=== PATIENT | female | born 1940 | race Caucasian/White ===

== ENCOUNTER → 2019-07-31 09:30 | Outpatient (CLI) | payer MEDICARE, SELFPAY ==
[2019-07-31 10:35] LABS: Add Manual Diff / Slide Review NO; Basophils Absolute Auto 0 /uL (0-100); Basophils Percent Auto 0.6 % (0-2); Eosinophils Absolute Auto 100 /uL (0-450); Eosinophils Percent Auto 1.3 % (2-4); Hematocrit 45.5 % (36-46); Hemoglobin 15.2 g/dL (12.0-16.0); Lymphocytes Absolute Auto 1200 /uL (1100-4500); Lymphocytes Percent Auto 13.8 % (25-40); Mean Corpuscular HGB Conc 33.4 % (30-36); Mean Corpuscular Hemoglobin 30.3 PG (26-34); Mean Corpuscular Volume 90.7 fL (80-100); Monocytes Absolute Auto 700 /uL (0-900); Monocytes Percent Auto 8.1 % (3-14); Neutrophils Absolute Auto 6400 /uL (1500-7000); Neutrophils Percent Auto 76.2 % (50-75); Platelet Count 287 X10^3/uL (150-400); Red Blood Cell Count 5.01 X10^6/uL (4.0-5.2); Red Cell Distribution Width 13.5 % (11.6-14.8); White Blood Cell Count 8.4 X10^3/uL (4.5-11.0)
[2019-07-31 11:18] LABS: Alanine Aminotransferase 31 IU/L (9-52); Albumin 4.4 g/dL (3.5-5.0); Albumin Globulin Ratio 1.6 (1.0-2.8); Alkaline Phosphatase 49 U/L (38-126); Aspartate Aminotransferase 26 IU/L (14-36); BUN Creatinine Ratio 14.3 (6-22); Bilirubin Total 0.9 mg/dL (0.2-1.3); Blood Urea Nitrogen 10 mg/dL (7-17); Calcium 9.5 mg/dL (8.4-10.2); Carbon Dioxide 29 mmol/L (22-32); Chloride 101 mmol/L (98-107); Cholesterol 213 mg/dL (140-199); Estimated Glomerular Filt Rate > 60.0 mL/min (>60); Globulin 2.7 g/dL (1.7-4.1); Glucose 115 mg/dL (80-110); HDL Cholesterol 83 mg/dL (40-60); HEMOLYSIS < 15 (0-50); LDL Cholesterol Calculated 116 mg/dL (<100); Potassium 4.2 mmol/L (3.4-5.1); Sodium 139 mmol/L (137-145); Total Protein 7.1 g/dL (6.3-8.2); Triglycerides 68 mg/dL (35-150)
[2019-07-31 11:52] LABS: TSH w/ Reflex to FT4 1.09 uIU/mL (0.47-4.68)
== END ==
PROVIDERS: PCP Family Medicine; Visit Provider Family Medicine
DX: E78.5 Hyperlipidemia, unspecified (principal); F41.1 Generalized anxiety disorder
CPT/HCPCS: 36415; 80053; 80061; 84443; 85025

== ENCOUNTER → 2019-08-04 16:12 | Outpatient (CLI) | payer MEDICARE, SELFPAY ==
[2019-08-07 14:55] LABS: Fecal Immunochemical Test NOT DETECTED (NOT DETECTED)
== END ==
PROVIDERS: PCP Family Medicine; Visit Provider Family Medicine
DX: Z12.11 Encounter for screening for malignant neoplasm of colon (principal)
CPT/HCPCS: 82274

== ENCOUNTER → 2019-11-25 13:40 | Outpatient (CLI) | payer MEDICARE, SELFPAY ==
--- NOTE | 2019-11-25 14:57 | PM.TREADMILL ---
Cardiac Stress Test Report Referral & Results Date Patient Seen: 11/25/19 Requesting provider: Reji Wilson Indication: Chest discomfort Rest ECG: Unremarkable Procedure Note: Today following both written and verbal informed consent the patient was exercised according to a standard Wiley protocol patient went for a total of 7 minutes 2 seconds achieving a maximum heart rate of 133 maximum systolic blood pressure of 168. This is approximately 10.1 METS. Exercise was terminated at this point because of targets were met. Patient was also given Cardiolite through a previously started Hep-Lock IV by the diagnostic imaging staff approximately 1 minute prior to the cessation of exercise. No ST-T segment changes Normal heart rate and blood pressure response to exercise Function aerobic impairment rates about-30% on the active scale or 130% normal Impression: No ECG evidence of ischemia Excellent exercise capacity Please see perfusion imaging report as well Please note: Actual ECG tracings can be found in the PACS system.
--- NOTE | 2019-11-28 04:26 | DI.NM.S_ITS ---
DATE OF SERVICE: PROCEDURE: Exercise perfusion study. DATE OF STUDY: 11/25/2019. INDICATIONS: Exertional chest pain, shortness of breath, hyperlipidemia. RADIOPHARMACEUTICAL: 25.8 millicurie technetium-99m Myoview intravenous was injected at stress and 24.9 millicurie technetium-99m Myoview intravenous was injected at rest. CARDIAC STRESS: The patient underwent exercise perfusion study under the supervision of an attending staff. She walked on Wiley protocol for 7 minutes 2 seconds achieving 93% of target heart rate and normal blood pressure response. Baseline EKG revealed sinus rhythm. During stress, there were significant artifacts which made EKG interpretation uninterpretable. However during recovery, there was no convincing ischemic changes seen. No significant arrhythmia seen. No anginal symptoms. Functional aerobic impairment -30%. The patient achieved 10.1 METS of workload. Normal hemodynamic response. RAW DATA: There is adequate myocardial uptake. GATED STUDY: Stress supine images revealed a small size mildly decreased perfusion of distal anterior wall and anterior apex which got resolved during prone images suggestive of breast tissue attenuation artifact. No convincing ischemia or infarction pattern on prone images. The resting supine images revealed normal myocardial perfusion as well. CONCLUSION: I will call this study a normal myocardial perfusion study with evidence of breast tissue attenuation artifact which got resolved during prone images. Prone images revealed normal myocardial perfusion. Good exercise tolerance. Normal hemodynamic response. No anginal symptoms. Overall this is a low risk myocardial perfusion scan. Laura Crouch - SIRISHA/erin/joana doc#: [id number]/job#: [id number] dd: 11/27/2019 17:07:00 dt: 11/28/2019 04:17:00 DICTATING MD/COPIES TO: Kristopher Brannon MD COPIES MNE: HIREN;
== END ==
PROVIDERS: PCP Family Medicine; Referring Provider Family Medicine; Visit Provider Family Medicine
DX: R07.89 Other chest pain (principal); R06.02 Shortness of breath; E78.5 Hyperlipidemia, unspecified
CPT/HCPCS: 78452; 93016; 93017; 93018; A9502

== ENCOUNTER → 2020-06-26 09:20 | Outpatient (CLI) | payer MEDICARE, SELFPAY ==
[2020-06-26 10:09] LABS: Appearance Urine UA CLEAR; Bilirubin Urine UA NEGATIVE (NEGATIVE); Color Urine UA YELLOW; Glucose Urine UA NEGATIVE (Negative); Ketones Urine UA NEGATIVE (NEGATIVE); Leukocyte Esterase Urine UA 1+ (NEGATIVE); Nitrite Urine UA NEGATIVE (Negative); Occult Blood Urine UA TRACE-INTACT (Negative); Protein Urine UA NEGATIVE (Negative); Specific Gravity Urine UA 1.015 (1.000-1.035); Urobilinogen Urine UA 0.2 E.U./dL (0.2)
[2020-06-26 10:20] LABS: Bacteria Urine Moderate (10-30); Culture Indicated Urine Specimen Cultured; RBC Urine 0-1/HPF (0-5/HPF); Squamous Epithelial Cell Urine 5-10 /HPF (0-5/HPF); WBC Urine 1-5/HPF (0-5/HPF)
== END ==
PROVIDERS: Family Medicine; PCP Family Medicine; Referring Provider Family Medicine; Visit Provider Family Medicine
DX: R35.0 Frequency of micturition (principal); R39.15 Urgency of urination
CPT/HCPCS: 81001; 87086

== ENCOUNTER → 2020-07-12 08:59 | Outpatient (CLI) | payer MEDICARE, SELFPAY ==
[2020-07-12 09:17] LABS: Add Manual Diff / Slide Review NO; Basophils Absolute Auto 0 /uL (0-100); Basophils Percent Auto 0.8 % (0-2); Eosinophils Absolute Auto 100 /uL (0-450); Eosinophils Percent Auto 2.5 % (2-4); Hematocrit 43.1 % (36-46); Hemoglobin 14.5 g/dL (12.0-16.0); Lymphocytes Absolute Auto 1800 /uL (1100-4500); Lymphocytes Percent Auto 32.3 % (25-40); Mean Corpuscular HGB Conc 33.7 % (30-36); Mean Corpuscular Hemoglobin 30.7 PG (26-34); Mean Corpuscular Volume 91.2 fL (80-100); Monocytes Absolute Auto 500 /uL (0-900); Monocytes Percent Auto 9.1 % (3-14); Neutrophils Absolute Auto 3200 /uL (1500-7000); Neutrophils Percent Auto 55.3 % (50-75); Platelet Count 266 X10^3/uL (150-400); Red Blood Cell Count 4.73 X10^6/uL (4.0-5.2); Red Cell Distribution Width 13.8 % (11.6-14.8); White Blood Cell Count 5.7 X10^3/uL (4.5-11.0)
[2020-07-12 10:35] LABS: Alanine Aminotransferase 21 IU/L (<35); Albumin Globulin Ratio 1.5 (1.0-2.8); Alkaline Phosphatase 45 U/L (38-126); Aspartate Aminotransferase 26 IU/L (14-36); BUN Creatinine Ratio 18.1 (6-22); Bilirubin Total 0.7 mg/dL (0.2-1.3); Blood Urea Nitrogen 13 mg/dL (7-17); Calcium 9.4 mg/dL (8.4-10.2); Carbon Dioxide 32 mmol/L (22-32); Chloride 101 mmol/L (98-107); Cholesterol 204 mg/dL (140-199); Estimated Glomerular Filt Rate > 60.0 mL/min (>60); Globulin 2.7 g/dL (1.7-4.1); Glucose 113 mg/dL (80-110); HDL Cholesterol 82 mg/dL (40-60); HEMOLYSIS < 15 (0-50); LDL Cholesterol Calculated 107 mg/dL (<100); Potassium 4.8 mmol/L (3.4-5.1); Sodium 137 mmol/L (137-145); TSH w/ Reflex to FT4 1.98 uIU/mL (0.47-4.68); Total Protein 6.7 g/dL (6.3-8.2); Triglycerides 76 mg/dL (35-150)
== END ==
PROVIDERS: PCP Family Medicine; Referring Provider Family Medicine; Visit Provider Family Medicine
DX: E78.5 Hyperlipidemia, unspecified (principal); K21.9 Gastro-esophageal reflux disease without esophagitis
CPT/HCPCS: 80053; 80061; 84443; 85025

== ENCOUNTER → 2021-01-11 15:40 | Outpatient (CLI) | payer MEDICARE, SELFPAY ==
[2021-01-11] MEDS: COVID-19 VACC #1, MRNA(MOD) 100 MCG/0.5 ML VIAL IM (15:47)
== END ==
PROVIDERS: PCP Family Medicine; Visit Provider Internal Medicine
DX: Z23 Encounter for immunization (principal)
CPT/HCPCS: 0011A; 91301

== ENCOUNTER → 2021-01-25 13:18 | Outpatient (CLI) | payer MEDICARE, SELFPAY | PROVIDERS: PCP Family Medicine; Visit Provider Physician Assistant | DX: N30.01 Acute cystitis with hematuria (principal) | CPT/HCPCS: 87086 ==

== ENCOUNTER → 2021-02-09 14:24 | Outpatient (CLI) | payer MEDICARE, SELFPAY ==
[2021-02-09] MEDS: COVID-19 VACC #2, MRNA(MOD) 100 MCG/0.5 ML VIAL IM (14:31)
== END ==
PROVIDERS: PCP Family Medicine; Visit Provider Internal Medicine
DX: Z23 Encounter for immunization (principal)
CPT/HCPCS: 0012A; 91301

== ENCOUNTER → 2021-02-21 13:33 | Outpatient (CLI) | payer MEDICARE, SELFPAY ==
[2021-02-21 13:40] LABS: Bacteria Urine None Seen; RBC Urine None Seen (0-5/HPF)
[2021-02-21 14:02] LABS: Appearance Urine UA CLEAR; Bilirubin Urine UA NEGATIVE (NEGATIVE); Color Urine UA YELLOW; Glucose Urine UA NEGATIVE (Negative); Ketones Urine UA NEGATIVE (NEGATIVE); Leukocyte Esterase Urine UA TRACE (NEGATIVE); Nitrite Urine UA NEGATIVE (Negative); Occult Blood Urine UA 1+ (Negative); Protein Urine UA NEGATIVE (Negative); Specific Gravity Urine UA 1.015 (1.000-1.035); Urobilinogen Urine UA 0.2 E.U./dL (0.2)
[2021-02-21 14:32] LABS: Squamous Epithelial Cell Urine 0-1 /HPF (0-5/HPF); WBC Urine 0-1/HPF (0-5/HPF)
[2021-02-21 14:33] LABS: Culture Indicated Urine Specimen Cultured
== END ==
PROVIDERS: PCP Family Medicine; Referring Provider Obstetrics & Gynecology; Visit Provider Obstetrics & Gynecology
DX: R32 Unspecified urinary incontinence (principal)
CPT/HCPCS: 81001; 87086

== ENCOUNTER → 2021-03-14 12:04 | Outpatient (CLI) | payer MEDICARE, SELFPAY | PROVIDERS: PCP Family Medicine; Visit Provider Obstetrics & Gynecology | DX: R31.9 Hematuria, unspecified (principal) | CPT/HCPCS: 87086 ==

== ENCOUNTER → 2021-03-19 10:35 | Outpatient (CLI) | payer MEDICARE, SELFPAY ==
--- NOTE | 2021-03-19 10:37 | DI.MG.S_ITS ---
BILATERAL DIGITAL SCREENING MAMMOGRAM 3D/2D WITH CAD: 03/19/2021 CLINICAL: Routine screening. Comparison is made to exams dated: 03/07/2016 mammogram, 03/02/2015 mammogram, and 02/25/2014 mammogram - [facility]. The tissue of both breasts is extremely dense, which lowers the sensitivity of mammography. Current study was also evaluated with a Computer Aided Detection (CAD) system. There are calcifications in both breasts. No significant masses, calcifications, or other findings are seen in either breast. There has been no significant interval change. IMPRESSION: BENIGN There is no mammographic evidence of malignancy. A 1 year screening mammogram is recommended. This exam was interpreted at Station ID: [id number]. NOTE: For mammograms, a report in lay terms will be sent to the patient. Approximately 15% of breast malignancies will not be visualized mammographically. In the management of a palpable breast mass, a negative mammogram must not discourage biopsy of a clinically suspicious lesion. Electronically Signed By: Adan Brennan M.D. at/:03/22/2021 08:02:29 letter sent: Normal Exam ACR BI-RADS Category 2: Benign Finding(s) 3342F
== END ==
PROVIDERS: PCP Family Medicine; Referring Provider Obstetrics & Gynecology; Visit Provider Obstetrics & Gynecology
DX: Z12.31 Encounter for screening mammogram for malignant neoplasm of breast (principal)
CPT/HCPCS: 77063; 77067

== ENCOUNTER → 2022-01-21 09:14 | Outpatient (CLI) | payer MEDICARE, SELFPAY ==
[2022-01-21 09:35] LABS: Appearance Urine UA CLEAR; Bilirubin Urine UA NEGATIVE (NEGATIVE); Color Urine UA YELLOW; Glucose Urine UA NEGATIVE (Negative); Ketones Urine UA NEGATIVE (NEGATIVE); Leukocyte Esterase Urine UA TRACE (NEGATIVE); Nitrite Urine UA NEGATIVE (Negative); Occult Blood Urine UA TRACE-INTACT (Negative); Protein Urine UA NEGATIVE (Negative); Urobilinogen Urine UA 0.2 E.U./dL (0.2)
[2022-01-21 09:41] LABS: Bacteria Urine Many (>30); Culture Indicated Urine Cult Not Indicated; RBC Urine 0-1/HPF (0-5/HPF); Squamous Epithelial Cell Urine >30 /HPF (0-5/HPF); WBC Urine 1-5/HPF (0-5/HPF)
== END ==
PROVIDERS: PCP Family Medicine; Referring Provider Physician Assistant; Visit Provider Physician Assistant
DX: R30.0 Dysuria (principal); R31.9 Hematuria, unspecified
CPT/HCPCS: 81001

== ENCOUNTER → 2022-01-23 12:28 | Outpatient (CLI) | payer MEDICARE, SELFPAY ==
[2022-01-24 07:10] LABS: Fecal Immunochemical Test Negative (Negative)
== END ==
PROVIDERS: PCP Family Medicine; Referring Provider Physician Assistant; Visit Provider Physician Assistant
DX: Z12.11 Encounter for screening for malignant neoplasm of colon (principal)
CPT/HCPCS: 82274

== ENCOUNTER → 2022-02-06 11:17 | Outpatient (CLI) | payer MEDICARE, SELFPAY ==
[2022-02-06 11:52] LABS: Add Manual Diff / Slide Review NO; Basophils Absolute Auto 0 /uL (0-100); Basophils Percent Auto 0.7 % (0-2); Eosinophils Absolute Auto 100 /uL (0-450); Eosinophils Percent Auto 1.3 % (2-4); Hematocrit 38.3 % (36-46); Hemoglobin 13.1 g/dL (12.0-16.0); Lymphocytes Absolute Auto 1500 /uL (1100-4500); Lymphocytes Percent Auto 24.6 % (25-40); Mean Corpuscular HGB Conc 34.2 % (30-36); Mean Corpuscular Hemoglobin 30.5 PG (26-34); Mean Corpuscular Volume 89.4 fL (80-100); Monocytes Absolute Auto 500 /uL (0-900); Monocytes Percent Auto 8.8 % (3-14); Neutrophils Absolute Auto 3800 /uL (1500-7000); Neutrophils Percent Auto 64.6 % (50-75); Platelet Count 269 X10^3/uL (150-400); Red Blood Cell Count 4.28 X10^6/uL (4.0-5.2); Red Cell Distribution Width 13.7 % (11.6-14.8); White Blood Cell Count 5.9 X10^3/uL (4.5-11.0)
[2022-02-06 12:15] LABS: Alanine Aminotransferase 19 IU/L (<35); Albumin 3.9 g/dL (3.5-5.0); Albumin Globulin Ratio 1.8 (1.0-2.8); Alkaline Phosphatase 38 U/L (38-126); Aspartate Aminotransferase 24 IU/L (14-36); BUN Creatinine Ratio 24.6 (6-22); Bilirubin Total 0.5 mg/dL (0.2-1.3); Blood Urea Nitrogen 17 mg/dL (7-17); Calcium 8.9 mg/dL (8.4-10.2); Carbon Dioxide 29 mmol/L (22-32); Chloride 105 mmol/L (98-107); Cholesterol 195 mg/dL (140-199); Estimated Glomerular Filt Rate > 60 mL/min (>60); Globulin 2.2 g/dL (1.7-4.1); Glucose 102 mg/dL (80-110); HDL Cholesterol 72 mg/dL (40-60); HEMOLYSIS < 15 (0-50); LDL Cholesterol Calculated 102 mg/dL (<100); Potassium 4.4 mmol/L (3.4-5.1); Sodium 136 mmol/L (137-145); Total Protein 6.1 g/dL (6.3-8.2); Triglycerides 106 mg/dL (35-150)
[2022-02-06 12:39] LABS: TSH w/ Reflex to FT4 1.21 uIU/mL (0.47-4.68)
== END ==
PROVIDERS: PCP Family Medicine; Referring Provider Family Medicine; Visit Provider Family Medicine
DX: E78.5 Hyperlipidemia, unspecified (principal)
CPT/HCPCS: 36415; 80053; 80061; 84443; 85025

== ENCOUNTER → 2022-02-20 07:32 | Outpatient (CLI) | payer MEDICARE, SELFPAY ==
--- NOTE | 2022-02-20 07:35 | DI.US.S_ITS ---
PROCEDURE: US PELVIC COMPLETE INDICATIONS: DYSURIA; HEMATURIA TECHNIQUE: Real-time scanning was performed of the pelvic organs, with image documentation. Additional endovaginal scanning was necessary due to incomplete visualization of the adnexal and endometrial structures by transabdominal scanning. COMPARISON: None. FINDINGS: Uterus: Uterus is anteverted and normal in size at 6.1 x 3.2 x 4.6 cm. The myometrium is homogeneous. The endometrium measures 3-4 mm combined thickness. A complex nabothian cyst is seen that measures up to 1.6 cm. No abnormal vascularity can be seen of this complex cyst. Ovaries: Neither ovary is seen. No adnexal masses are seen on either side. Other: No pathologic free abdominal or pelvic fluid. IMPRESSION: A cause of the patient's presenting symptoms is not seen. A complex nabothian cyst is seen that measures up to 1.6 cm. For further evaluation of the patient's presenting history of hematuria, please consider a dedicated hematuria protocol CT without and with contrast (assuming that there is no contraindication). We strive to produce accurate, complete, and clear reports of imaging services. To assist us in improving patient care, this report was composed using standard report templates and voice recognition software. Therefore, it may contain abnormal punctuation, insertions and/or omissions. Occasional wrong-word or sound-alike substitutions may occur. Though we review the report and make efforts to correct it, we do recommend that the report be read carefully in proper context to recognize any text inaccuracies. Dictated by: Manuel Sebastian M.D. on 02/24/2022 at 8:48 Approved by: Manuel Sebastian M.D. on 02/24/2022 at 8:50
== END ==
PROVIDERS: PCP Family Medicine; Referring Provider Physician Assistant; Visit Provider Physician Assistant
DX: R31.9 Hematuria, unspecified (principal); N88.8 Other specified noninflammatory disorders of cervix uteri; R30.0 Dysuria; M85.89 Other specified disorders of bone density and structure, multiple sites; Z79.890 Hormone replacement therapy; Z78.0 Asymptomatic menopausal state
CPT/HCPCS: 76830; 76856; 77080

== ENCOUNTER → 2022-03-21 15:22 | Outpatient (CLI) | payer MEDICARE, SELFPAY ==
--- NOTE | 2022-03-21 15:23 | DI.MG.S_ITS ---
BILATERAL DIGITAL SCREENING MAMMOGRAM 3D/2D WITH CAD: 03/21/2022 CLINICAL: Routine screening. Comparison is made to exams dated: 03/19/2021 mammogram, 03/07/2016 mammogram, and 03/02/2015 mammogram - [facility]. The tissue of both breasts is extremely dense, which lowers the sensitivity of mammography. Current study was also evaluated with a Computer Aided Detection (CAD) system. There are stable benign calcifications in both breasts. No significant masses, calcifications, or other findings are seen in either breast. There has been no significant interval change. IMPRESSION: BENIGN There is no mammographic evidence of malignancy. A 1 year screening mammogram is recommended. This exam was interpreted at Station ID: [id number]. NOTE: For mammograms, a report in lay terms will be sent to the patient. Approximately 15% of breast malignancies will not be visualized mammographically. In the management of a palpable breast mass, a negative mammogram must not discourage biopsy of a clinically suspicious lesion. Electronically Signed By: Ramón Lee acr/narinder:03/22/2022 08:33:33 letter sent: Normal Exam ACR BI-RADS Category 2: Benign Finding(s) 3342F
== END ==
PROVIDERS: PCP Family Medicine; Referring Provider Family Medicine; Visit Provider Family Medicine
DX: Z12.31 Encounter for screening mammogram for malignant neoplasm of breast (principal)
CPT/HCPCS: 77063; 77067

== ENCOUNTER → 2022-07-04 14:01 | Outpatient (CLI) | payer MEDICARE, SELFPAY | PROVIDERS: PCP Family Medicine; Referring Provider Family Medicine; Visit Provider Family Medicine ==

== ENCOUNTER → 2022-07-25 10:30 | Outpatient (CLI) | payer MEDICARE, SELFPAY ==
--- NOTE | 2022-07-25 10:33 | DI.RAD.S_ITS ---
PROCEDURE: FL BARIUM SWALLOW INDICATIONS: check for motility impairment COMPARISON: None. FINDINGS: Function: At least mild-moderate esophageal dysmotility present with tertiary contractions visualized at the mid and lower esophagus, interruption of the primary peristaltic stripping wave, and retropulsion of swallowed barium. Gastroesophageal reflux to the level of the upper esophagus was observed during the exam with repositioning the patient to supine-RPO position. There is normal transit of a calibrated barium tablet through the esophagus into the stomach. Morphology: A small sliding hiatal hernia is intermittently visualized, most pronounced with the patient in supine-RPO position. Air-contrast images demonstrate unremarkable esophageal mucosal morphology. Single contrast views show no esophageal strictures, extrinsic mass effects, or diverticula. Limited images of the stomach demonstrate normal appearance. No definite evidence of a Zenker diverticulum or cricopharyngeal bar. IMPRESSION: 1. At least mild-moderate esophageal dysmotility. 2. Small sliding hiatal hernia intermittently visualized. 3. Gastroesophageal reflux was observed during the exam. 4. No esophageal stricture visualized. Dictated by: Cleve Darling M.D. on 07/25/2022 at 12:35 Approved by: Cleve Darling M.D. on 07/25/2022 at 12:44
== END ==
PROVIDERS: PCP Family Medicine; Referring Provider Family Medicine; Visit Provider Family Medicine
DX: K21.9 Gastro-esophageal reflux disease without esophagitis (principal); K22.4 Dyskinesia of esophagus; K44.9 Diaphragmatic hernia without obstruction or gangrene
CPT/HCPCS: 74220

== ENCOUNTER → 2022-09-26 13:17 | Outpatient (CLI) | payer MEDICARE, SELFPAY ==
[2022-09-26 15:30] LABS: COVID19 -Nasal RAPID Negative (Negative)
== END ==
PROVIDERS: Family Provider Family Medicine; PCP Family Medicine; Visit Provider Surgery
DX: Z20.822 Contact with and (suspected) exposure to COVID-19 (principal); Z01.812 Encounter for preprocedural laboratory examination
CPT/HCPCS: 87635; C9803

== ENCOUNTER 2022-09-27 07:32 | Day surgery (SDC) | payer MEDICARE, SELFPAY ==
--- NOTE | 2022-09-27 | PATH_ITS ---
[facility] Accession Number: [id number] . 01 Material submitted: . PART A: gastrointestinal site - GASTRIC PART B: gastrointestinal site - GASTRIC POLYPS . 01 Diagnosis: A. Stomach, Biopsy: Antral mucosa with reactive gastropathy and mild chronic gastritis. Body-type mucosa with mild chronic gastritis. Negative for Helicobacter by immunohistochemistry. Negative for intestinal metaplasia. Negative for dysplasia and malignancy. . B. Stomach, Polyps, Biopsies: Fundic gland polyp. No evidence of Helicobacter organisms on H/E stain. Negative for intestinal metaplasia. Negative for dysplasia and malignancy. MRV 10/02/2022 1302 Local . 01 Electronically signed: . Beatrice Sampson MD, Pathologist NPI- [id number] . 01 Gross description: . Part A: GASTRIC: Received in formalin are 3 fragment(s) of maloney, soft tissue measuring 0.1 x 0.1 x 0.1 cm to 0.3 x 0.3 x 0.2 cm submitted entirely in 1 cassette(s) Part B: GASTRIC POLYPS: Received in formalin is 1 fragment(s) of maloney, soft tissue measuring 0.3 x 0.2 x 0.2 cm submitted entirely in 1 cassette(s) /ES 09/28/2022 1832 Local . 01 Microscopic: . A. An immunohistochemical stain was performed to evaluate for Helicobacter organisms and is negative. The control stain showed appropriate reactivity. . * This test was developed and its performance characteristics determined by [facility]. It has not been cleared or approved by the U.S. Food and Drug Administration. The FDA has determined that such clearance or approval is not necessary. This test is used for clinical purposes. It should not be regarded as investigational or for research. . 01 Pathologist provided ICD-10: R13.14, K31.7 . 01 CPT . 146837, 888308, P58282 Specimen Comment: A courtesy copy of this report has been sent to [facility] Pathology Performed at: 01 [facility] [address] [place] [address], [place], [place] [id number] MD Satnam Flores MD Phone: [phone]
[2022-09-27 08:02] VITALS: BP 141/86; PULSE 85; RESP 16; TEMP 36.9; O2SAT 99; BMI 25.9
[2022-09-27] MEDS: LACTATED RINGERS 1,000 ML 42 ML IV (08:16)
--- NOTE | 2022-09-27 08:18 | PM.HP.1 ---
History of Present Illness History of Present Illness Date Patient Seen: 09/27/22 Time Patient Seen: 08:18 Chief complaint: SDC Narrative: Patient is a very pleasant 82-year-old female who presented for upper endoscopy. She has not had any significant episodes and she was seen in the office. She has however had episodes of chronic cough. She does describe intermittent episodes where feels like something gets stuck and then she developed a spasm and points to his substernal region. Previous barium swallow exam revealed a small hiatal hernia and esophageal dysmotility. Patient History Medical History (Updated 06/27/22 @ 14:47 by Carlotta Zepeda MD) UTI (urinary tract infection) Surgical History History of third molar tooth extraction Status post appendectomy Status post cholecystectomy Family & Social History Social History: household members spouse Tobacco & Substance use: Smoking Status Former smoker alcohol intake current alcohol intake frequency holiday/special occasion Substance Use Type does not use Meds Home Medications and Allergies Home Medications Medication Instructions Recorded Confirmed Type CA PANTOTHENATE/FOLIC ACID/VIT 1 tab PO QDAY ##0 08/17/11 09/27/22 History (MULTIVITAMIN) cranberry extract 650 mg capsule 650 mg PO DAILY 07/06/20 09/27/22 History vitamin B complex (B 1 tab PO DAILY 07/06/20 09/27/22 History Complex-Vitamin B12 tablet) cholecalciferol (vitamin D3) 50 4,000 unit PO DAILY 08/24/20 09/27/22 History mcg (2,000 unit) capsule estradiol 10 mcg vaginal tablet See Rx Instructions .Route 02/08/22 09/27/22 Rx .COMPLEX #24 tabs sertraline 100 mg tablet See Rx Instructions .Route 03/27/22 09/27/22 Rx .COMPLEX #90 tabs estradiol 0.01% (0.1 mg/gram) See Rx Instructions .Route 04/03/22 06/27/22 Rx vaginal cream .COMPLEX #42.5 grams cetirizine 10 mg tablet 5 mg PO Q DAY #0 tabs 08/16/22 08/16/22 History Allergies Allergy/AdvReac Type Severity Reaction Status Date / Time tramadol Allergy Mild PT IS Verified 09/27/22 07:35 TAKING CELEXA acetaminophen AdvReac Mild N/V (From Verified 09/27/22 08:09 Percocet) codeine AdvReac Mild N/V Verified 09/27/22 08:09 Review of Systems Review of Systems ROS: Yes All systems reviewed with the patient and are negative except as otherwise documented Exam Vital Signs (past 8 hours): - 09/27/22 08:02 Temperature 98.5 F Pulse Rate 85 Respiratory Rate 16 Blood Pressure 141/86 H Pulse Oximetry 99 Oxygen Delivery Method Room Air Oxygen Delivery Method Room Air Const General: cooperative, healthy appearing, comfortable, well developed, well groomed and No acute distress HENMT Head: normocephalic and atraumatic Resp Effort & Inspection: normal respiratory effort, able to speak in complete sentences, abnormal respiratory pattern and no audible wheezes Auscultation: clear to auscultation bilaterally Cardio Rate: regular rate Rhythm: regular rhythm GI Palpation: soft Assessment & Plan Assessment & Plan narrative: 1. Chronic cough 2. Esophageal dysphagia 3. Atypical chest pain EGD today, further recommendations to follow Time Spent With Patient Critical Care time: I spent a total of [] minutes of critical care time on this patient's care today; this time is exclusive of procedural time.
[2022-09-27 08:40] VITALS: BP 107/64; PULSE 75; RESP 16; TEMP 36.2; O2SAT 94
--- NOTE | 2022-09-27 08:44 | PM.OP.EGD ---
Operative Date/Time/Diagnoses Date of procedure: 09/27/22 Time of procedure: 08:31 Procedure Notes Procedure in detail: Surgeon: Sherry Mckeon DO Procedure: Esophagogastroduodenoscopy with biopsy Preoperative diagnosis: 1. Esophageal dysphagia 2. Chronic cough 3. Atypical chest pain Postoperative diagnosis: 1. Tortuous esophagus 2. 3 cm hiatal hernia 3. Mild erosive gastritis, biopsied. 4. Multiple gastric polyps, biopsied. 5. Normal-appearing duodenum Medications: Monitored anesthesia care Preanesthesia Assessment An H and P was performed/updated and the Px?s ASA class is 2. The procedure was discussed in detail with the patient. The potential risks and complications including infection, bleeding, missed lesions, perforation, need for surgery in case of perforation, prolonged hospital stay, and were explained. A brief question and answer period was allotted and once all questions were answered, informed consent was obtained. The patient was brought back to the procedure room and placed on standard monitoring. The patient?s vital signs were monitored continuously throughout the entire procedure. Prior to starting, a timeout was performed to confirm the patient?s identity, allergies, medications, and procedure. Procedure in detail The patient was placed in left lateral decubitus position and a bite block was inserted. The tip of the upper endoscope was placed into the mouth and advanced without difficulty under direct visualization into the esophagus. Esophagus: Dilated tortuous esophagus, Z-line appeared regular at the GE junction Stomach: 3 cm hiatal hernia, mild erosive gastritis in the antrum and body, biopsied to rule out H pylori. Multiple small gastric polyps throughout the gastric body, biopsied. Duodenum: Normal appearing duodenum. The patient tolerated the procedure well and will be brought back to the recovery area to be discharged once criteria are met. Complications There were no complications and estimated blood loss was minimal. Recommendations: Resume previous diet Continue outPx medications Follow up pathology results Office follow to be scheduled An emergency contact number was given to the patient for any complications related to the procedure
[2022-09-27 08:45] VITALS: BP 112/70; PULSE 76; RESP 15; O2SAT 95
[2022-09-27 08:50] VITALS: BP 121/74; PULSE 80; RESP 16; O2SAT 95
[2022-09-27 08:56] VITALS: BP 132/71; PULSE 81; RESP 16; TEMP 36.6; O2SAT 98
[2022-09-27 08:58] VITALS: BP 121/74; PULSE 91; RESP 16; O2SAT 98
== END 2022-09-27 09:30 | disposition home or self-care (01) ==
PROVIDERS: Family Provider Family Medicine; PCP Family Medicine; Referring Provider Student in an Organized Health Care Education/Training Program; Visit Provider Student in an Organized Health Care Education/Training Program
PROC: 0DJ08ZZ Inspection of Upper Intestinal Tract, Via Natural or Artificial Opening Endoscopic (ICD-10-PCS; CPT 43235; principal; 2022-09-27 08:30)
DX: R13.10 Dysphagia, unspecified (principal); R05.9 Cough, unspecified; R07.89 Other chest pain; K29.50 Unspecified chronic gastritis without bleeding; K31.9 Disease of stomach and duodenum, unspecified; K31.7 Polyp of stomach and duodenum
CPT/HCPCS: 43239; J2704

== ENCOUNTER 2022-10-18 12:00 | Outpatient (RCR) | payer MEDICARE, SELFPAY ==
--- NOTE | 2022-08-16 13:01 | PT.OPPOC ---
Physical, Occupational & Speech Therapy At [facility] Current Diagnoses Other specified disorders of muscle (08/16/22) Urge incontinence (08/16/22) Visit Care Team Role Provider Type Reji Wilson MD Family Provider Physician Primary Care Provider Specialty: Family Practice Address: [address] [place] [address], [id number] Email: [email or web address] Carlotta Zepeda MD Attending Provider Physician Referring Provider Specialty: Gynecology OBSERVATION ASSISTANT Obstetrics Address: [address] [place] [address], [address] Email: [email or web address] Plan Of Care PT-OP-T Assessment and Plan Start: 08/16/22 09:40 Freq: Status: Active Protocol: Document 08/16/22 12:00 [facility] (Rec: 08/17/22 11:14 [facility] [id number]) Physical Therapy Assessment Goals 3 Impairment pain with initial penetration with intercourse Short Term Goal (STG) Along with the estrogen cream she is using Laura is given stretches for her hips she can do after her walk to help decrease tightness in the pelvic floor muscles STG Duration 6 weeks 2 Impairment decreased endurance of the pelvic floor muscles Short Term Goal (STG) Laura is able to sustain a pelvic floor contraction x 10 seconds in supine STG Duration 4 weeks Halfway Goal (LTG) Laura is able to perform a standing pelvic floor contraction and is able to sustain the contraction x 5 seconds LTG Duration 12 weeks 1 Impairment urinary urgency with leakage with a strong urge to void Short Term Goal (STG) Laura is educated on bladder retraining and urge deference technique STG Duration 2 weeks Turntable Man Goal (LTG) Laura reports a overall reduction with urinary urgency and frequency and is no longer experiencing leakage with a strong urge to void LTG Duration 12 weeks Assessment Summary Assessment Laura is a 82 year old active female referred to PT with urinary urgency and urge incontinence symptoms. She reports she has also been experiencing acid reflux symptoms and has been taking medications for hiatal hernia. We discussed bladder irritants today and she notes that her bladder has been a bit better without the acidity orange juice. Laura was given a bladder diary today as well as educated in bladder retraining and urge deference technique. With external pelvic floor examination per pts request she had limited pelvic floor endurance. Laura is sexually active and does have pain at times with initial penetration but she notes then her muscle are able to relax and she does not have further pain. She is using a vaginal estrogen cream which she feels is helping. Laura walks daily with her for exercise. Laura is a good candidate for endurance training for the pelvic floor along with bladder retraining to help decrease urinary urgency and leakage. Physical Therapy Plan Frequency and Duration Frequency of Treatment 1x/Week Duration of treatment (weeks) 12 Plan of Care Start Date 08/16/22 Plan of Care End Date 11/06/21 Therapeutic Interventions Therapeutic Interventions Home Exercise Program, Neuromuscular Re-education, Patient/Caregiver Education, Self-Care/Home Management, Therapeutic Exercises Modalities Biofeedback Next Visit Focus/Plan Next Note Type Treatment Note Next Visit Plan review bladder diary and urge deference technique, pelvic floor strengthening and endurance training Plan of Care Dates Plan of Care Start Date 08/16/22 Plan of Care End Date 11/06/21 Electronically Signed by: Jane Hunter, PT 08/17/22 1598 If you are in agreement with this Plan of Care, please return a signed and dated copy. I have reviewed this Plan of Care and certify that the skilled therapy services above are required to meet the patient?s needs. Physician Signature Date Printed Name and Credentials Clinical Instructor Signature Printed Name and Credentials
--- NOTE | 2022-08-17 13:01 | PT.OIE ---
Current Diagnoses Other specified disorders of muscle (08/16/22) Urge incontinence (08/16/22) Past Medical History (Last Updated 01/17/22 @ 15:38 by Estefani Lofton PA-C) UTI (urinary tract infection) Past Surgical History History of third molar tooth extraction Status post appendectomy Status post cholecystectomy Visit Care Team Role Provider Type Reji Wilson MD Family Provider Physician Primary Care Provider Specialty: Family Practice Address: [address] [place] [id number] Email: [email or web address] Carlotta Zepeda MD Attending Provider Physician Referring Provider Specialty: Gynecology SUIT ATTENDANT Obstetrics Address: [address] [place] [address], [address] Email: [email or web address] Physical Therapy Initial Evaluation PT-OP-A Visit Information Start: 08/16/22 09:40 Freq: Status: Active Protocol: Document 08/16/22 12:10 [facility] (Rec: 08/16/22 12:50 [facility] [id number]) Out-Patient Physical Therapy Visit Information Visit Information Visit Type Initial Evaluation Visit Start Time 12:10 Visit Stop Time 12:50 Total Visit Minutes 40 Visit Number 1 Evaluation Information Evaluation Date 08/16/22 PT-OP-B Current Condition Start: 08/16/22 09:40 Freq: Status: Active Protocol: Document 08/16/22 12:10 [facility] (Rec: 08/16/22 12:50 [facility] [id number]) Current Condition History of Current Condition Onset Date urinary urgency and urge incontinence Current Complaints pt c/o urinary urgency, frequency and urge incontinence History of Current Condition PT notes she has some pain with insertion with intercourse, she is taking estrogen cream she does have symptoms of a hiatal hernia so she is taking prilosec. Her urgency isn't every week. wakes up one time per night to void. SHe has had urinary tract infections in the past but not recently. Treatment Goals Patient/Caregiver Goals Laura would like to eliminate urinary urgency and sudden leakge with urge to void Prior Functional Status Baseline Function- ADL's Independent Baseline Function- Mobility Independent Current Functional Impairments (Reported) Functional Limitations- Recreation/ limited in how far she is from Hobbies a bathroom PT-OP-F Manual Assessment Start: 08/16/22 09:40 Freq: Status: Active Protocol: Document 08/16/22 12:00 [facility] (Rec: 08/17/22 11:14 [facility] [id number]) Manual Assessments Soft Tissue Assessment Soft Tissue Mobility Assessment fascial surrounding the bladder has good mobility PT-OP-I Pelvic Floor Start: 08/16/22 09:40 Freq: Status: Active Protocol: Document 08/16/22 12:00 [facility] (Rec: 08/17/22 11:14 [facility] [id number]) Pelvic Floor Assessment Urine Pelvic Floor Surgery Yes Urinary Symptoms Urge Sensation Other Urinary Symptoms urge incontinence and at time frequency of urination Leakage Size Medium Leakage Cause Urge Leaks Per Day 1-2 Voiding Frequency 1-2 hours but can go as long as 4 hours Nocturia 1 Comments Pelvic Floor Comments external pelvic floor examination performed and Laura has difficulty with sustaining a pelvic floor contraction for a full 10 seconds, verbal cues to avoid upper abdominal substitution PT-OP-Q Treatments Start: 08/16/22 09:40 Freq: Status: Active Protocol: Document 08/16/22 12:00 [facility] (Rec: 08/17/22 11:14 [facility] [id number]) Therapeutic Exercises Supine Exercises pelvic floor long holds Reps/Minutes 10 reps x 10 second hold time 2 times per day Comments endurance contractions Self-Care/Home Management Treatment Education Patient Education Home Exercise Program Other Education pt was educated in bladder retraining and urge deference technique, she was given a bladder diary to fill out for the week at home recording her intervals between voids PT-OP-T Assessment and Plan Start: 08/16/22 09:40 Freq: Status: Active Protocol: Document 08/16/22 12:00 [facility] (Rec: 08/17/22 11:14 [facility] [id number]) Physical Therapy Assessment Goals 3 Impairment pain with initial penetration with intercourse Short Term Goal (STG) Along with the estrogen cream she is using Laura is given stretches for her hips she can do after her walk to help decrease tightness in the pelvic floor muscles STG Duration 6 weeks 2 Impairment decreased endurance of the pelvic floor muscles Short Term Goal (STG) Laura is able to sustain a pelvic floor contraction x 10 seconds in supine STG Duration 4 weeks Shaper And Presser Goal (LTG) Laura is able to perform a standing pelvic floor contraction and is able to sustain the contraction x 5 seconds LTG Duration 12 weeks 1 Impairment urinary urgency with leakage with a strong urge to void Short Term Goal (STG) Laura is educated on bladder retraining and urge deference technique STG Duration 2 weeks Shaper And Presser Goal (LTG) Laura reports a overall reduction with urinary urgency and frequency and is no longer experiencing leakage with a strong urge to void LTG Duration 12 weeks Assessment Summary Assessment Laura is a 82 year old active female referred to PT with urinary urgency and urge incontinence symptoms. She reports she has also been experiencing acid reflux symptoms and has been taking medications for hiatal hernia. We discussed bladder irritants today and she notes that her bladder has been a bit better without the acidity orange juice. Laura was given a bladder diary today as well as educated in bladder retraining and urge deference technique. With external pelvic floor examination per pts request she had limited pelvic floor endurance. Laura is sexually active and does have pain at times with initial penetration but she notes then her muscle are able to relax and she does not have further pain. She is using a vaginal estrogen cream which she feels is helping. Laura walks daily with her for exercise. Laura is a good candidate for endurance training for the pelvic floor along with bladder retraining to help decrease urinary urgency and leakage. Physical Therapy Plan Frequency and Duration Frequency of Treatment 1x/Week Duration of treatment (weeks) 12 Plan of Care Start Date 08/16/22 Plan of Care End Date 11/06/21 Therapeutic Interventions Therapeutic Interventions Home Exercise Program, Neuromuscular Re-education, Patient/Caregiver Education, Self-Care/Home Management, Therapeutic Exercises Modalities Biofeedback Next Visit Focus/Plan Next Note Type Treatment Note Next Visit Plan review bladder diary and urge deference technique, pelvic floor strengthening and endurance training
--- NOTE | 2022-08-30 14:00 | PT.OTN ---
Current Diagnoses Other specified disorders of muscle (08/30/22) Urge incontinence (08/30/22) Physical Therapy Treatment Note PT-OP-A Visit Information Start: 08/16/22 09:40 Freq: Status: Active Protocol: Document 08/30/22 12:15 [facility] (Rec: 08/30/22 12:33 [facility] [id number]) Out-Patient Physical Therapy Visit Information Visit Information Visit Type Treatment Note Visit Start Time 12:15 Visit Stop Time 13:00 Total Visit Minutes 45 Visit Number 3 PT-OP-B Current Condition Start: 08/16/22 09:40 Freq: Status: Active Protocol: Document 08/16/22 12:10 [facility] (Rec: 08/16/22 12:50 [facility] [id number]) Current Condition History of Current Condition Onset Date urinary urgency and urge incontinence Current Complaints pt c/o urinary urgency, frequency and urge incontinence History of Current Condition PT notes she has some pain with insertion with intercourse, she is taking estrogen cream she does have symptoms of a hiatal hernia so she is taking prilosec. Her urgency isn't every week. wakes up one time per night to void. SHe has had urinary tract infections in the past but not recently. Treatment Goals Patient/Caregiver Goals Laura would like to eliminate urinary urgency and sudden leakge with urge to void Prior Functional Status Baseline Function- ADL's Independent Baseline Function- Mobility Independent Current Functional Impairments (Reported) Functional Limitations- Recreation/ limited in how far she is from Hobbies a bathroom PT-OP-C Subjective Start: 08/16/22 09:40 Freq: Status: Active Protocol: Document 08/30/22 12:15 [facility] (Rec: 08/30/22 12:33 [facility] [id number]) OP-PT Subjective Patient Comments Patient Comments pt notes she had urgency 3 times this week and did leak a little. She will have a endoscopy September 27. 40 mg of nexium. PT-OP-F Manual Assessment Start: 08/16/22 09:40 Freq: Status: Active Protocol: Document 08/16/22 12:00 [facility] (Rec: 08/17/22 11:14 [facility] [id number]) Manual Assessments Soft Tissue Assessment Soft Tissue Mobility Assessment fascial surrounding the bladder has good mobility PT-OP-I Pelvic Floor Start: 08/16/22 09:40 Freq: Status: Active Protocol: Document 08/16/22 12:00 [facility] (Rec: 08/17/22 11:14 [facility] [id number]) Pelvic Floor Assessment Urine Pelvic Floor Surgery Yes Urinary Symptoms Urge Sensation Other Urinary Symptoms urge incontinence and at time frequency of urination Leakage Size Medium Leakage Cause Urge Leaks Per Day 1-2 Voiding Frequency 1-2 hours but can go as long as 4 hours Nocturia 1 Comments Pelvic Floor Comments external pelvic floor examination performed and Laura has difficulty with sustaining a pelvic floor contraction for a full 10 seconds, verbal cues to avoid upper abdominal substitution PT-OP-Q Treatments Start: 08/16/22 09:40 Freq: Status: Active Protocol: Document 08/30/22 12:15 [facility] (Rec: 08/30/22 12:52 [facility] [id number]) Therapeutic Exercises Supine Exercises roll outs with theraband Reps/Minutes 2 x 10 reps quick flicks Reps/Minutes x 10 supine ball squeeze Reps/Minutes x 10 pelvic floor long holds Reps/Minutes 23 uv max Comments endurance contractions Sitting Exercises sit to stand with pelvic floor engagement Reps/Minutes x 10 reps Comments cues for sit-stand without using hands PT-OP-T Assessment and Plan Start: 08/16/22 09:40 Freq: Status: Active Protocol: Document 08/30/22 12:15 [facility] (Rec: 08/30/22 12:33 [facility] [id number]) Physical Therapy Assessment Assessment Summary Assessment Prudence is showing improved strength on EMG biofeedback for max contraction, we are continuing to work on endurance holds. She is having difficulty getting her exercises in due to her busy schedule so today I added in sit-stands with core activation to help her with functional use of the pelvic floor throughout the day Physical Therapy Plan Frequency and Duration Frequency of Treatment 1x/Week Duration of treatment (weeks) 12 Plan of Care Start Date 08/16/22 Plan of Care End Date 11/06/21 Next Visit Focus/Plan Next Note Type Treatment Note Next Visit Plan review bladder diary and urge deference technique, pelvic floor strengthening and endurance training
--- NOTE | 2022-09-06 13:59 | PT.OTN ---
Current Diagnoses Other specified disorders of muscle (09/06/22) Urge incontinence (09/06/22) Physical Therapy Treatment Note PT-OP-A Visit Information Start: 08/16/22 09:40 Freq: Status: Active Protocol: Document 09/06/22 12:10 [facility] (Rec: 09/06/22 12:50 [facility] [id number]) Out-Patient Physical Therapy Visit Information Visit Information Visit Type Treatment Note Visit Start Time 12:10 Visit Stop Time 12:55 Total Visit Minutes 45 Visit Number 4 PT-OP-B Current Condition Start: 08/16/22 09:40 Freq: Status: Active Protocol: Document 08/16/22 12:10 [facility] (Rec: 08/16/22 12:50 [facility] [id number]) Current Condition History of Current Condition Onset Date urinary urgency and urge incontinence Current Complaints pt c/o urinary urgency, frequency and urge incontinence History of Current Condition PT notes she has some pain with insertion with intercourse, she is taking estrogen cream she does have symptoms of a hiatal hernia so she is taking prilosec. Her urgency isn't every week. wakes up one time per night to void. SHe has had urinary tract infections in the past but not recently. Treatment Goals Patient/Caregiver Goals Laura would like to eliminate urinary urgency and sudden leakge with urge to void Prior Functional Status Baseline Function- ADL's Independent Baseline Function- Mobility Independent Current Functional Impairments (Reported) Functional Limitations- Recreation/ limited in how far she is from Hobbies a bathroom PT-OP-C Subjective Start: 08/16/22 09:40 Freq: Status: Active Protocol: Document 09/06/22 12:10 [facility] (Rec: 09/06/22 12:50 [facility] [id number]) OP-PT Subjective Patient Comments Patient Comments Prudence reports she only had two leaks this week. SHe thinks it was when she was drinking alcohol when it happenend. Patient Reported Progress Improving PT-OP-F Manual Assessment Start: 08/16/22 09:40 Freq: Status: Active Protocol: Document 08/16/22 12:00 [facility] (Rec: 08/17/22 11:14 [facility] [id number]) Manual Assessments Soft Tissue Assessment Soft Tissue Mobility Assessment fascial surrounding the bladder has good mobility PT-OP-I Pelvic Floor Start: 08/16/22 09:40 Freq: Status: Active Protocol: Document 08/16/22 12:00 [facility] (Rec: 08/17/22 11:14 [facility] [id number]) Pelvic Floor Assessment Urine Pelvic Floor Surgery Yes Urinary Symptoms Urge Sensation Other Urinary Symptoms urge incontinence and at time frequency of urination Leakage Size Medium Leakage Cause Urge Leaks Per Day 1-2 Voiding Frequency 1-2 hours but can go as long as 4 hours Nocturia 1 Comments Pelvic Floor Comments external pelvic floor examination performed and Laura has difficulty with sustaining a pelvic floor contraction for a full 10 seconds, verbal cues to avoid upper abdominal substitution PT-OP-Q Treatments Start: 08/16/22 09:40 Freq: Status: Active Protocol: Document 09/06/22 12:10 [facility] (Rec: 09/06/22 12:50 [facility] [id number]) Therapeutic Exercises Supine Exercises bridges with theraband Reps/Minutes 2 x 10 reps roll outs with theraband Reps/Minutes 2 x 10 reps quick flicks Reps/Minutes x 10 supine ball squeeze Reps/Minutes x 10 pelvic floor long holds Reps/Minutes x 10 reps Comments 5.9 and max of 11 uv PT-OP-T Assessment and Plan Start: 08/16/22 09:40 Freq: Status: Active Protocol: Document 09/06/22 12:10 [facility] (Rec: 09/06/22 13:58 [facility] [id number]) Physical Therapy Assessment Assessment Summary Assessment Added in bridges today for Prudence and she was given information regarding the [facility] [employer] [facility] biofeedback as she expressed interest in a home unit. She is tolerating her exercises well but notes it is still difficult to get them all in at home Physical Therapy Plan Frequency and Duration Frequency of Treatment 1x/Week Duration of treatment (weeks) 12 Plan of Care Start Date 08/16/22 Plan of Care End Date 11/06/21 Next Visit Focus/Plan Next Note Type Treatment Note Next Visit Plan review bladder diary and urge deference technique, pelvic floor strengthening and endurance training, review new exercises given today and work on sit-stand with pelvic floor activation
--- NOTE | 2022-09-13 12:44 | PT.OTN ---
Current Diagnoses Other specified disorders of muscle (09/13/22) Urge incontinence (09/13/22) Physical Therapy Treatment Note PT-OP-A Visit Information Start: 08/16/22 09:40 Freq: Status: Active Protocol: Document 09/13/22 11:55 [facility] (Rec: 09/13/22 12:38 [facility] [id number]) Out-Patient Physical Therapy Visit Information Visit Information Visit Type Treatment Note Visit Start Time 12:00 Visit Stop Time 12:45 Total Visit Minutes 45 Visit Number 5 PT-OP-B Current Condition Start: 08/16/22 09:40 Freq: Status: Active Protocol: Document 08/16/22 12:10 [facility] (Rec: 08/16/22 12:50 [facility] [id number]) Current Condition History of Current Condition Onset Date urinary urgency and urge incontinence Current Complaints pt c/o urinary urgency, frequency and urge incontinence History of Current Condition PT notes she has some pain with insertion with intercourse, she is taking estrogen cream she does have symptoms of a hiatal hernia so she is taking prilosec. Her urgency isn't every week. wakes up one time per night to void. SHe has had urinary tract infections in the past but not recently. Treatment Goals Patient/Caregiver Goals Laura would like to eliminate urinary urgency and sudden leakge with urge to void Prior Functional Status Baseline Function- ADL's Independent Baseline Function- Mobility Independent Current Functional Impairments (Reported) Functional Limitations- Recreation/ limited in how far she is from Hobbies a bathroom PT-OP-C Subjective Start: 08/16/22 09:40 Freq: Status: Active Protocol: Document 09/13/22 11:55 [facility] (Rec: 09/13/22 12:38 [facility] [id number]) OP-PT Subjective Patient Comments Patient Comments Prudence reports she feels like she is getting better and reports decreased urgency and leaks Patient Reported Progress Improving PT-OP-F Manual Assessment Start: 08/16/22 09:40 Freq: Status: Active Protocol: Document 08/16/22 12:00 [facility] (Rec: 08/17/22 11:14 [facility] [id number]) Manual Assessments Soft Tissue Assessment Soft Tissue Mobility Assessment fascial surrounding the bladder has good mobility PT-OP-I Pelvic Floor Start: 08/16/22 09:40 Freq: Status: Active Protocol: Document 08/16/22 12:00 [facility] (Rec: 10/27/22 11:14 [facility] [id number]) Pelvic Floor Assessment Urine Pelvic Floor Surgery Yes Urinary Symptoms Urge Sensation Other Urinary Symptoms urge incontinence and at time frequency of urination Leakage Size Medium Leakage Cause Urge Leaks Per Day 1-2 Voiding Frequency 1-2 hours but can go as long as 4 hours Nocturia 1 Comments Pelvic Floor Comments external pelvic floor examination performed and Laura has difficulty with sustaining a pelvic floor contraction for a full 10 seconds, verbal cues to avoid upper abdominal substitution PT-OP-Q Treatments Start: 08/16/22 09:40 Freq: Status: Active Protocol: Document 09/13/22 11:55 [facility] (Rec: 09/13/22 12:38 [facility] [id number]) Therapeutic Exercises Supine Exercises templates for eccentric control elevator exercise Reps/Minutes x 5 reps up 4 floors and down 4 floors bridges with theraband Reps/Minutes 2 x 10 reps roll outs with theraband Reps/Minutes 2 x 10 reps quick flicks Reps/Minutes x 10 Comments max 20 uv supine ball squeeze Reps/Minutes x 10 pelvic floor long holds Comments 11.7 uv average max 19.6 PT-OP-T Assessment and Plan Start: 08/16/22 09:40 Freq: Status: Active Protocol: Document 09/13/22 11:55 [facility] (Rec: 09/13/22 12:38 [facility] [id number]) Physical Therapy Assessment Assessment Summary Assessment Prudence is demonstrating improvements with pelvic floor endurance. She is not experiencing as much of the urgency and leakage and is making good progress Physical Therapy Plan Frequency and Duration Frequency of Treatment 1x/Week Duration of treatment (weeks) 12 Plan of Care Start Date 08/16/22 Plan of Care End Date 11/06/21 Therapeutic Interventions Therapeutic Interventions Home Exercise Program, Neuromuscular Re-education, Patient/Caregiver Education, Self-Care/Home Management, Therapeutic Exercises Modalities Biofeedback Next Visit Focus/Plan Next Note Type Treatment Note Next Visit Plan continue progressing pelvic floor strength with endurance holds, and hip strengthening
--- NOTE | 2022-09-20 12:44 | PT.OTN ---
Current Diagnoses Other specified disorders of muscle (09/20/22) Urge incontinence (09/20/22) Physical Therapy Treatment Note PT-OP-A Visit Information Start: 08/16/22 09:40 Freq: Status: Active Protocol: Document 09/20/22 11:56 [facility] (Rec: 09/20/22 12:44 [facility] [id number]) Out-Patient Physical Therapy Visit Information Visit Information Visit Type Treatment Note Visit Start Time 12:00 Visit Stop Time 12:45 Total Visit Minutes 45 Visit Number 6 PT-OP-B Current Condition Start: 08/16/22 09:40 Freq: Status: Active Protocol: Document 08/16/22 12:10 [facility] (Rec: 08/16/22 12:50 [facility] [id number]) Current Condition History of Current Condition Onset Date urinary urgency and urge incontinence Current Complaints pt c/o urinary urgency, frequency and urge incontinence History of Current Condition PT notes she has some pain with insertion with intercourse, she is taking estrogen cream she does have symptoms of a hiatal hernia so she is taking prilosec. Her urgency isn't every week. wakes up one time per night to void. SHe has had urinary tract infections in the past but not recently. Treatment Goals Patient/Caregiver Goals Laura would like to eliminate urinary urgency and sudden leakge with urge to void Prior Functional Status Baseline Function- ADL's Independent Baseline Function- Mobility Independent Current Functional Impairments (Reported) Functional Limitations- Recreation/ limited in how far she is from Hobbies a bathroom PT-OP-C Subjective Start: 08/16/22 09:40 Freq: Status: Active Protocol: Document 09/20/22 11:56 [facility] (Rec: 09/20/22 12:44 [facility] [id number]) OP-PT Subjective Patient Comments Patient Comments She feels like she is doing better, she had a couple little leaks at home. PT-OP-F Manual Assessment Start: 08/16/22 09:40 Freq: Status: Active Protocol: Document 08/16/22 12:00 [facility] (Rec: 08/17/22 11:14 [facility] [id number]) Manual Assessments Soft Tissue Assessment Soft Tissue Mobility Assessment fascial surrounding the bladder has good mobility PT-OP-I Pelvic Floor Start: 08/16/22 09:40 Freq: Status: Active Protocol: Document 08/16/22 12:00 [facility] (Rec: 08/17/22 11:14 [facility] [id number]) Pelvic Floor Assessment Urine Pelvic Floor Surgery Yes Urinary Symptoms Urge Sensation Other Urinary Symptoms urge incontinence and at time frequency of urination Leakage Size Medium Leakage Cause Urge Leaks Per Day 1-2 Voiding Frequency 1-2 hours but can go as long as 4 hours Nocturia 1 Comments Pelvic Floor Comments external pelvic floor examination performed and Laura has difficulty with sustaining a pelvic floor contraction for a full 10 seconds, verbal cues to avoid upper abdominal substitution PT-OP-Q Treatments Start: 08/16/22 09:40 Freq: Status: Active Protocol: Document 09/20/22 11:56 [facility] (Rec: 09/20/22 12:44 [facility] [id number]) Therapeutic Exercises Supine Exercises templates for eccentric control elevator exercise Reps/Minutes x 5 reps up 4 floors and down 4 floors bridges with theraband Reps/Minutes 2 x 10 reps quick flicks Reps/Minutes x 10 Comments max 20 uv supine ball squeeze Reps/Minutes x 10 pelvic floor long holds Comments 9.9 uv average 17.2 max PT-OP-T Assessment and Plan Start: 08/16/22 09:40 Freq: Status: Active Protocol: Document 09/20/22 11:56 [facility] (Rec: 09/20/22 12:44 [facility] [id number]) Physical Therapy Assessment Goals 3 Impairment pain with initial penetration with intercourse Short Term Goal (STG) Along with the estrogen cream she is using Laura is given stretches for her hips she can do after her walk to help decrease tightness in the pelvic floor muscles GOAL MET STG Duration 6 weeks 2 Impairment decreased endurance of the pelvic floor muscles Short Term Goal (STG) Laura is able to sustain a pelvic floor contraction x 10 seconds in supine STG Duration 4 weeks Senior Living Goal (LTG) Laura is able to perform a standing pelvic floor contraction and is able to sustain the contraction x 5 seconds LTG Duration 12 weeks 1 Impairment urinary urgency with leakage with a strong urge to void Short Term Goal (STG) Laura is educated on bladder retraining and urge deference technique STG Duration 2 weeks Senior Living Goal (LTG) Laura reports a overall reduction with urinary urgency and frequency and is no longer experiencing leakage with a strong urge to void LTG Duration 12 weeks Assessment Summary Assessment Prudence continues to show progress and reports overall reduction with leakage. She also notes she hasn't been experiencing the pain with intercourse. Physical Therapy Plan Frequency and Duration Frequency of Treatment 1x/Week Duration of treatment (weeks) 12 Plan of Care Start Date 08/16/22 Plan of Care End Date 11/06/21 Therapeutic Interventions Therapeutic Interventions Home Exercise Program, Neuromuscular Re-education, Patient/Caregiver Education, Self-Care/Home Management, Therapeutic Exercises Modalities Biofeedback Next Visit Focus/Plan Next Note Type Treatment Note Next Visit Plan continue progressing pelvic floor strength with endurance holds, and hip strengtheni
--- NOTE | 2022-09-28 09:45 | PT.OTN ---
Current Diagnoses Other specified disorders of muscle (09/28/22) Urge incontinence (09/28/22) Physical Therapy Treatment Note PT-OP-A Visit Information Start: 08/16/22 09:40 Freq: Status: Active Protocol: Document 09/28/22 09:00 [facility] (Rec: 09/28/22 09:45 [facility] [id number]) Out-Patient Physical Therapy Visit Information Visit Information Visit Type Treatment Note Visit Start Time 09:00 Visit Stop Time 09:45 Total Visit Minutes 45 Visit Number 7 PT-OP-B Current Condition Start: 08/16/22 09:40 Freq: Status: Active Protocol: Document 08/16/22 12:10 [facility] (Rec: 08/16/22 12:50 [facility] [id number]) Current Condition History of Current Condition Onset Date urinary urgency and urge incontinence Current Complaints pt c/o urinary urgency, frequency and urge incontinence History of Current Condition PT notes she has some pain with insertion with intercourse, she is taking estrogen cream she does have symptoms of a hiatal hernia so she is taking prilosec. Her urgency isn't every week. wakes up one time per night to void. SHe has had urinary tract infections in the past but not recently. Treatment Goals Patient/Caregiver Goals Laura would like to eliminate urinary urgency and sudden leakge with urge to void Prior Functional Status Baseline Function- ADL's Independent Baseline Function- Mobility Independent Current Functional Impairments (Reported) Functional Limitations- Recreation/ limited in how far she is from Hobbies a bathroom PT-OP-C Subjective Start: 08/16/22 09:40 Freq: Status: Active Protocol: Document 09/28/22 09:00 [facility] (Rec: 09/28/22 09:45 [facility] [id number]) OP-PT Subjective Patient Comments Patient Comments pt reports sheis doing better and only a couple small leaks at night when she getsup to void PT-OP-F Manual Assessment Start: 08/16/22 09:40 Freq: Status: Active Protocol: Document 08/16/22 12:00 [facility] (Rec: 08/17/22 11:14 [facility] [id number]) Manual Assessments Soft Tissue Assessment Soft Tissue Mobility Assessment fascial surrounding the bladder has good mobility PT-OP-I Pelvic Floor Start: 08/16/22 09:40 Freq: Status: Active Protocol: Document 08/16/22 12:00 [facility] (Rec: 08/17/22 11:14 [facility] [id number]) Pelvic Floor Assessment Urine Pelvic Floor Surgery Yes Urinary Symptoms Urge Sensation Other Urinary Symptoms urge incontinence and at time frequency of urination Leakage Size Medium Leakage Cause Urge Leaks Per Day 1-2 Voiding Frequency 1-2 hours but can go as long as 4 hours Nocturia 1 Comments Pelvic Floor Comments external pelvic floor examination performed and Laura has difficulty with sustaining a pelvic floor contraction for a full 10 seconds, verbal cues to avoid upper abdominal substitution PT-OP-Q Treatments Start: 08/16/22 09:40 Freq: Status: Active Protocol: Document 09/28/22 09:00 [facility] (Rec: 09/28/22 09:45 [facility] [id number]) Therapeutic Exercises Supine Exercises templates for eccentric control elevator exercise Reps/Minutes x 5 reps up 4 floors and down 4 floors bridges with theraband Reps/Minutes 2 x 10 reps roll outs with theraband Reps/Minutes 2 x 10 reps quick flicks Reps/Minutes x 10 Comments max 20 uv supine ball squeeze Reps/Minutes x 15 pelvic floor long holds Reps/Minutes x 10 reps Comments 10.1 uv average 17.2 max PT-OP-T Assessment and Plan Start: 08/16/22 09:40 Freq: Status: Active Protocol: Document 09/28/22 09:00 [facility] (Rec: 09/28/22 09:45 [facility] [id number]) Physical Therapy Assessment Goals 3 Impairment pain with initial penetration with intercourse Short Term Goal (STG) Along with the estrogen cream she is using Laura is given stretches for her hips she can do after her walk to help decrease tightness in the pelvic floor muscles GOAL MET STG Duration 6 weeks 2 Impairment decreased endurance of the pelvic floor muscles Short Term Goal (STG) Laura is able to sustain a pelvic floor contraction x 10 seconds in supine GOAL MET STG Duration 4 weeks Care Home Goal (LTG) Laura is able to perform a standing pelvic floor contraction and is able to sustain the contraction x 5 seconds LTG Duration 12 weeks 1 Impairment urinary urgency with leakage with a strong urge to void Short Term Goal (STG) Laura is educated on bladder retraining and urge deference technique STG Duration 2 weeks Furn[employer] Sales [employer] Goal (LTG) Laura reports a overall reduction with urinary urgency and frequency and is no longer experiencing leakage with a strong urge to void LTG Duration 12 weeks Assessment Summary Assessment Prudence is no longer leaking with a cough, her endurance hold is much improved today Physical Therapy Plan Frequency and Duration Frequency of Treatment 1x/Week Duration of treatment (weeks) 12 Plan of Care Start Date 08/16/22 Plan of Care End Date 11/06/21 Therapeutic Interventions Therapeutic Interventions Home Exercise Program, Neuromuscular Re-education, Patient/Caregiver Education, Self-Care/Home Management, Therapeutic Exercises Modalities Biofeedback Next Visit Focus/Plan Next Note Type Treatment Note Next Visit Plan continue progressing pelvic floor strength with endurance holds, and hip strengthening
--- NOTE | 2022-10-04 14:02 | PT.OTN ---
Current Diagnoses Other specified disorders of muscle (10/04/22) Urge incontinence (10/04/22) Physical Therapy Treatment Note PT-OP-A Visit Information Start: 08/16/22 09:40 Freq: Status: Active Protocol: Document 10/04/22 12:46 [facility] (Rec: 10/04/22 12:48 [facility] [id number]) Out-Patient Physical Therapy Visit Information Visit Information Visit Type Treatment Note Visit Start Time 12:05 Visit Stop Time 12:45 Total Visit Minutes 40 Visit Number 8 PT-OP-B Current Condition Start: 08/16/22 09:40 Freq: Status: Active Protocol: Document 08/16/22 12:10 [facility] (Rec: 08/16/22 12:50 [facility] [id number]) Current Condition History of Current Condition Onset Date urinary urgency and urge incontinence Current Complaints pt c/o urinary urgency, frequency and urge incontinence History of Current Condition PT notes she has some pain with insertion with intercourse, she is taking estrogen cream she does have symptoms of a hiatal hernia so she is taking prilosec. Her urgency isn't every week. wakes up one time per night to void. SHe has had urinary tract infections in the past but not recently. Treatment Goals Patient/Caregiver Goals Laura would like to eliminate urinary urgency and sudden leakge with urge to void Prior Functional Status Baseline Function- ADL's Independent Baseline Function- Mobility Independent Current Functional Impairments (Reported) Functional Limitations- Recreation/ limited in how far she is from Hobbies a bathroom PT-OP-C Subjective Start: 08/16/22 09:40 Freq: Status: Active Protocol: Document 10/04/22 12:46 [facility] (Rec: 10/04/22 12:48 [facility] [id number]) OP-PT Subjective Patient Comments Patient Comments Prudence reports her Latia fit came in the mail today and she would like help setting it up, she feels like she is making progress overall Patient Reported Progress Improving PT-OP-F Manual Assessment Start: 08/16/22 09:40 Freq: Status: Active Protocol: Document 08/16/22 12:00 [facility] (Rec: 08/17/22 11:14 [facility] [id number]) Manual Assessments Soft Tissue Assessment Soft Tissue Mobility Assessment fascial surrounding the bladder has good mobility PT-OP-I Pelvic Floor Start: 08/16/22 09:40 Freq: Status: Active Protocol: Document 08/16/22 12:00 [facility] (Rec: 08/17/22 11:14 [facility] [id number]) Pelvic Floor Assessment Urine Pelvic Floor Surgery Yes Urinary Symptoms Urge Sensation Other Urinary Symptoms urge incontinence and at time frequency of urination Leakage Size Medium Leakage Cause Urge Leaks Per Day 1-2 Voiding Frequency 1-2 hours but can go as long as 4 hours Nocturia 1 Comments Pelvic Floor Comments external pelvic floor examination performed and Laura has difficulty with sustaining a pelvic floor contraction for a full 10 seconds, verbal cues to avoid upper abdominal substitution PT-OP-Q Treatments Start: 08/16/22 09:40 Freq: Status: Active Protocol: Document 10/04/22 12:05 [facility] (Rec: 10/04/22 12:48 [facility] [id number]) Therapeutic Exercises Supine Exercises bridges with theraband Reps/Minutes 2 x 10 reps roll outs with theraband Reps/Minutes 2 x 10 reps quick flicks Reps/Minutes x 10 Comments max 20 uv supine ball squeeze Reps/Minutes x 15 Self-Care/Home Management Treatment Education Patient Education Joint Protection Other Education time was spent today setting up the latia fit for home use and setting up the programs for urge incontinence, pt went through a couple of the programs and games for pelvic floor activation PT-OP-T Assessment and Plan Start: 08/16/22 09:40 Freq: Status: Active Protocol: Document 10/04/22 12:05 [facility] (Rec: 10/04/22 14:00 [facility] [id number]) Physical Therapy Assessment Assessment Summary Assessment Prudence did really well with using the perifit today. I think it will challenge her at home to do her exercises. I did talk to her about not overdoing it at first and to see how her body responds. We will recheck her strength with EMG biofeedback next visit on 10/17/22 Physical Therapy Plan Frequency and Duration Frequency of Treatment 1x/Week Duration of treatment (weeks) 12 Plan of Care Start Date 08/16/22 Plan of Care End Date 11/06/21 Therapeutic Interventions Therapeutic Interventions Home Exercise Program, Neuromuscular Re-education, Patient/Caregiver Education, Self-Care/Home Management, Therapeutic Exercises Modalities Biofeedback Next Visit Focus/Plan Next Note Type Treatment Note Next Visit Plan recheck strength with EMG biofeedback. Review all exercises as this next visit is Prudence's last scheduled visit
--- NOTE | 2022-10-18 14:05 | PT.OTN ---
Current Diagnoses Other specified disorders of muscle (10/18/22) Urge incontinence (10/18/22) Physical Therapy Treatment Note PT-OP-A Visit Information Start: 08/16/22 09:40 Freq: Status: Active Protocol: Document 10/18/22 12:13 [facility] (Rec: 10/18/22 13:00 [facility] [id number]) Out-Patient Physical Therapy Visit Information Visit Information Visit Type Treatment Note Visit Start Time 12:05 Visit Stop Time 12:45 Total Visit Minutes 40 Visit Number 9 PT-OP-B Current Condition Start: 08/16/22 09:40 Freq: Status: Active Protocol: Document 08/16/22 12:10 [facility] (Rec: 08/16/22 12:50 [facility] [id number]) Current Condition History of Current Condition Onset Date urinary urgency and urge incontinence Current Complaints pt c/o urinary urgency, frequency and urge incontinence History of Current Condition PT notes she has some pain with insertion with intercourse, she is taking estrogen cream she does have symptoms of a hiatal hernia so she is taking prilosec. Her urgency isn't every week. wakes up one time per night to void. SHe has had urinary tract infections in the past but not recently. Treatment Goals Patient/Caregiver Goals Laura would like to eliminate urinary urgency and sudden leakge with urge to void Prior Functional Status Baseline Function- ADL's Independent Baseline Function- Mobility Independent Current Functional Impairments (Reported) Functional Limitations- Recreation/ limited in how far she is from Hobbies a bathroom PT-OP-C Subjective Start: 08/16/22 09:40 Freq: Status: Active Protocol: Document 10/18/22 12:13 [facility] (Rec: 10/18/22 13:00 [facility] [id number]) OP-PT Subjective Patient Comments Patient Comments Prudence reports she has been using the perifit almost every day, urgency is much decreased and hardly any leakage Patient Reported Progress Improving PT-OP-F Manual Assessment Start: 08/16/22 09:40 Freq: Status: Active Protocol: Document 08/16/22 12:00 [facility] (Rec: 08/17/22 11:14 [facility] [id number]) Manual Assessments Soft Tissue Assessment Soft Tissue Mobility Assessment fascial surrounding the bladder has good mobility PT-OP-I Pelvic Floor Start: 08/16/22 09:40 Freq: Status: Active Protocol: Document 08/16/22 12:00 [facility] (Rec: 08/17/22 11:14 [facility] [id number]) Pelvic Floor Assessment Urine Pelvic Floor Surgery Yes Urinary Symptoms Urge Sensation Other Urinary Symptoms urge incontinence and at time frequency of urination Leakage Size Medium Leakage Cause Urge Leaks Per Day 1-2 Voiding Frequency 1-2 hours but can go as long as 4 hours Nocturia 1 Comments Pelvic Floor Comments external pelvic floor examination performed and Laura has difficulty with sustaining a pelvic floor contraction for a full 10 seconds, verbal cues to avoid upper abdominal substitution PT-OP-Q Treatments Start: 08/16/22 09:40 Freq: Status: Active Protocol: Document 10/18/22 12:13 [facility] (Rec: 10/18/22 13:00 [facility] [id number]) Therapeutic Exercises Supine Exercises pelvic floor endurance training on the perifit Reps/Minutes x 10 min Comments focus on endurance bridges with theraband Reps/Minutes 2 x 10 reps roll outs with theraband Reps/Minutes 2 x 10 reps quick flicks Reps/Minutes x 10 Comments max 20 uv pelvic floor long holds Reps/Minutes x 10 reps Comments 11.9 20.2 PT-OP-T Assessment and Plan Start: 08/16/22 09:40 Freq: Status: Active Protocol: Document 10/18/22 12:13 [facility] (Rec: 10/18/22 13:00 [facility] [id number]) Physical Therapy Assessment Goals 3 Impairment pain with initial penetration with intercourse Short Term Goal (STG) Along with the estrogen cream she is using Laura is given stretches for her hips she can do after her walk to help decrease tightness in the pelvic floor muscles GOAL MET STG Duration 6 weeks 2 Impairment decreased endurance of the pelvic floor muscles Short Term Goal (STG) Laura is able to sustain a pelvic floor contraction x 10 seconds in supine GOAL MET STG Duration 4 weeks Nursing Home Goal (LTG) Laura is able to perform a standing pelvic floor contraction and is able to sustain the contraction x 5 seconds LTG Duration 12 weeks 1 Impairment urinary urgency with leakage with a strong urge to void Short Term Goal (STG) Laura is educated on bladder retraining and urge deference technique STG Duration 2 weeks Nursing Home Goal (LTG) Laura reports a overall reduction with urinary urgency and frequency and is no longer experiencing leakage with a strong urge to void LTG Duration 12 weeks Progress Towards Goals Progress Towards Goals Goals Met Assessment Summary Assessment Prudence has made great overall progress with PT. She is able ti be intimate with her without pain and has noticed a significant reduction in both urgency and leakage. Prudence has purchased a latia fit traininer for home and I helped her set this up. It has been a great tool for her to keep her doing her exercises at home and I have seen progress just in the couple of weeks she has been using it. At this point she will be discharged to a [facility]. Physical Therapy Plan Discharge Physical Therapy Discharge Reasons Goals Met
== END 2022-10-19 14:06 | disposition home or self-care (01) ==
LOC: PHYS 12:00
PROVIDERS: Family Provider Family Medicine; PCP Family Medicine; Referring Provider Obstetrics & Gynecology; Visit Provider Obstetrics & Gynecology
DX: M62.89 Other specified disorders of muscle (principal); N39.41 Urge incontinence
CPT/HCPCS: 97110; 97161; 97535

== ENCOUNTER → 2023-01-17 07:42 | Outpatient (CLI) | payer MEDICARE, SELFPAY ==
[2023-01-17 08:00] LABS: Add Manual Diff / Slide Review NO; Basophils Absolute Auto 100 /uL (0-100); Basophils Percent Auto 0.5 % (0-2); Eosinophils Absolute Auto 200 /uL (0-450); Eosinophils Percent Auto 1.5 % (2-4); Hematocrit 37.3 % (36-46); Hemoglobin 12.5 g/dL (12.0-16.0); Lymphocytes Absolute Auto 2200 /uL (1100-4500); Lymphocytes Percent Auto 20.9 % (25-40); Mean Corpuscular HGB Conc 33.5 % (30-36); Mean Corpuscular Hemoglobin 28.1 PG (26-34); Mean Corpuscular Volume 83.9 fL (80-100); Monocytes Absolute Auto 900 /uL (0-900); Monocytes Percent Auto 8.5 % (3-14); Neutrophils Absolute Auto 7200 /uL (1500-7000); Neutrophils Percent Auto 68.6 % (50-75); Platelet Count 280 X10^3/uL (150-400); Red Blood Cell Count 4.45 X10^6/uL (4.0-5.2); Red Cell Distribution Width 14.3 % (11.6-14.8); White Blood Cell Count 10.6 X10^3/uL (4.5-11.0)
[2023-01-17 08:28] LABS: Alanine Aminotransferase 25 IU/L (<35); Albumin 3.8 g/dL (3.5-5.0); Albumin Globulin Ratio 1.6 (1.0-2.8); Alkaline Phosphatase 45 U/L (38-126); Aspartate Aminotransferase 26 IU/L (14-36); BUN Creatinine Ratio 29.6 (6-22); Bilirubin Total 0.6 mg/dL (0.2-1.3); Blood Urea Nitrogen 21 mg/dL (7-17); Calcium 8.6 mg/dL (8.4-10.2); Carbon Dioxide 29 mmol/L (22-32); Chloride 100 mmol/L (98-107); Cholesterol 179 mg/dL (140-199); Estimated Glomerular Filt Rate > 60 mL/min (>60); Globulin 2.4 g/dL (1.7-4.1); Glucose 109 mg/dL (80-110); HDL Cholesterol 80 mg/dL (40-60); HEMOLYSIS < 15 (0-50); LDL Cholesterol Calculated 87 mg/dL (<100); Potassium 4.2 mmol/L (3.4-5.1); Sodium 133 mmol/L (137-145); Total Protein 6.2 g/dL (6.3-8.2); Triglycerides 62 mg/dL (35-150)
== END ==
PROVIDERS: Family Provider Family Medicine; PCP Family Medicine; Referring Provider Physician Assistant; Visit Provider Physician Assistant
DX: E78.5 Hyperlipidemia, unspecified (principal); R00.2 Palpitations; R06.09 Other forms of dyspnea
CPT/HCPCS: 36415; 80053; 80061; 85025

== ENCOUNTER → 2023-01-25 06:54 | Outpatient (CLI) | payer MEDICARE, SELFPAY ==
--- NOTE | 2023-01-25 06:56 | DI.ECHO.S_ITS ---
[facility]---------+ [facility] +---------+ : : [address] : : : : [id number] : : : : Phone: [phone]---------+ Echocardiogram Report + + :Name: RINA DOWNS Study Date: 01/25/2023 Height: 63 in : :[facility] ReadingLocation: Weight: 152 lb : : Gender: Female BSA: 1.7 m2 : :: 1940 Age: 82 yrs BP: 113/65 mmHg: :Reason For Study: DYSPNEA HR: 86 : :Ordering Physician: SERENITY, : :CORRY Rodriguez Performed By: JUAN MARSHALL : :Referring: CORRY BENTON : + + Interpretation Summary Normal sinus rhythm. Normal LV size and wall thickness. Normal wall motion and LV systolic function. Ejection fraction 60-65%. Stage I diastolic dysfunction. Normal chamber sizes. No significant valvular abnormalities. Small pericardial effusion without tamponade. No prior study available for comparison. Procedure: A two-dimensional transthoracic echocardiogram with color flow and Doppler was performed. The study quality was technically adequate. There is no prior echocardiogram noted for this patient. The patient was in normal sinus rhythm during the exam. Left Ventricle: The left ventricle is normal in size and wall thickness. Left ventricular systolic function is normal. The ejection fraction is estimated to be 60-65%. Right Ventricle: The right ventricle is normal in size and function. Atria: Both atria are normal in size. There is no Doppler evidence for an interatrial shunt. Mitral Valve: The mitral valve leaflets appear mildly thickened, but open well. There is mild mitral regurgitation. Aortic Valve: The aortic valve is trileaflet. The aortic valve opens well. There is no aortic valve stenosis. No aortic regurgitation is present. Tricuspid Valve: The tricuspid valve is normal in structure and function. The right ventricular systolic pressure is estimated to be at least 22 mmHg based on an estimated right atrial pressure of 3 mm Hg. Pulmonic Valve: The pulmonic valve leaflets are thin and pliable; valve motion is normal. There is mild pulmonic regurgitation. Great Vessels: The aortic root is normal size. The ascending aorta is normal in size. The IVC is of normal diameter and collapses greater than 50% with a sniff. This suggests a low right atrial pressure of 3 mm Hg. Pericardium/ Pleura There is a small pericardial effusion noted. There is no pleural effusion. MMode/2D Measurements & Calculations LVIDd: 3.8 cm LVOT diam: 1.8 cm LVIDs: 2.3 cm Ao root diam: 3.1 cm FS: 39.5 % asc Aorta Diam: 3.2 cm IVSd: 0.90 cm LVPWd: 1.0 cm LV nair. diameter/BSA (cm/m^2): 2.2 LV sys. diameter/BSA (cm/m^2): 1.3 LA A2 area: 14.0 cm2 RA long axis: 4.1 cm LA A4 area: 15.4 cm2 LA length (vol): 4.8 cm LA vol: 38.1 ml LA vol index: 22.2 ml/m2 LVLs ap4: 6.0 cm LVLd ap2: 7.7 cm LVLs ap2: 6.1 cm TAPSE_phl: 1.8 cm Doppler Measurements & Calculations Ao V2 max: 147.0 cm/sec LVOT Max Naun: 104.0 cm/sec Ao V2 mean: 106.0 cm/sec LV V1 max P.3 mmHg Ao max P.0 mmHg LV V1 VTI: 22.1 cm Ao mean P.0 mmHg KEMI(I,D): 1.7 cm2 Ao V2 VTI: 32.4 cm KEMI(V,D): 1.8 cm2 sev ratio: 0.68 KEMI indexed to BSA (cm^2/m^2): 1.0 MV E max naun: 105.0 cm/sec TR max naun: 215.8 cm/sec MV A max naun: 124.0 cm/sec TR max P.2 mmHg MV E/A: 0.85 PA V2 max: 98.1 cm/sec Med Peak E' Naun: 5.0 cm/sec PA V2 mean: 78.0 cm/sec E/E' med: 20.9 PA mean P.0 mmHg Lat Peak E' Naun: 4.9 cm/sec PA pr(Accel): 18.7 mmHg E/E' lat: 21.3 E/e' average: 21.1 MV dec time: 0.18 sec SV(LVOT): 56.2 ml AV VR_phl: 0.71 KEMI(VTI)/BSA_phl: 1.0 MV P1/2t-pr_phl: 52.0 msec Electronically signed by: Michelle Traore M.D. on [facility] Physician:01/25/2023 01:03 PM
== END ==
PROVIDERS: Family Provider Family Medicine; PCP Family Medicine; Referring Provider Physician Assistant; Visit Provider Physician Assistant
DX: I34.0 Nonrheumatic mitral (valve) insufficiency (principal); I37.1 Nonrheumatic pulmonary valve insufficiency; I31.39 Other pericardial effusion (noninflammatory); R06.09 Other forms of dyspnea; R00.2 Palpitations
CPT/HCPCS: 93306

== ENCOUNTER → 2023-02-05 14:02 | Outpatient (CLI) | payer MEDICARE, SELFPAY ==
--- NOTE | 2023-02-07 01:28 | DI.NM.S_ITS ---
DATE OF SERVICE: 02/05/2023 PROCEDURE: Exercise perfusion study. INDICATIONS: Exertional shortness of breath, palpitation, chest pain, history of smoking. RADIOPHARMACEUTICAL: 26.9 millicurie technetium-99m Myoview IV was injected at stress and 25.5 millicurie technetium-99m Myoview IV was injected at rest. CARDIAC STRESS: The patient underwent exercise perfusion study under the supervision of an attending staff. She walked on Wiley protocol for 7 minutes and 20 seconds, achieved maximum heart rate of 156, which was 111% of target heart rate. Resting blood pressure 132/80. Peak blood pressure 190/110 mmHg, suggestive of hypertensive blood pressure response. PITA -54%. Achieved 10.1 METS of workload. Baseline rhythm sinus. During stress, significant artifacts. However, in the immediate recovery, no convincing ischemic changes seen. Occasional PACs. No complex arrhythmias. No chest pain. The patient felt fatigue and some shortness of breath. RAW DATA: Breast shadow was seen. GATED STUDY: Stress LV ejection fraction 90% without any obvious wall motion abnormalities. Resting end-diastolic volume 60 mL. TID ratio 0.81, which is within normal limits. Lung/heart ratio 0.30, which is within normal limits. MYOCARDIAL PERFUSION SCAN: Stress supine images revealed small size, mildly decreased perfusion of distal anterior wall, which got resolved during stress prone images suggestive of breast tissue attenuation artifact. No convincing ischemia or infarction. Resting supine images revealed normal myocardial perfusion. CONCLUSION: This is a normal myocardial perfusion study with evidence of breast tissue attenuation artifact, which got resolved during stress prone images. Excellent exercise tolerance. Functional aerobic impairment -54%. Hypertensive blood pressure response. No complex arrhythmias or anginal symptoms or significant ischemic changes. Hyperdynamic left ventricle. Overall, low-risk myocardial perfusion scan. The patient has perfusion study in November 2019, at that time also, she had similar perfusion defect without any ischemia or infarction. At that time, patient was able to walk on Wiley protocol for 7 minutes and 2 seconds. Laura Crouch - SIRISHA/erin/renae doc#: [id number]/job#: [id number] dd: 02/06/2023 16:19:00 dt: 02/07/2023 01:10:00 DICTATING MD/COPIES TO: Kristopher Brannon MD COPIES MNE: HIREN;
== END ==
PROVIDERS: Family Provider Family Medicine; PCP Family Medicine; Referring Provider Physician Assistant; Visit Provider Physician Assistant
DX: R00.2 Palpitations (principal); R06.09 Other forms of dyspnea; R06.02 Shortness of breath; R07.9 Chest pain, unspecified; Z87.891 Personal history of nicotine dependence
CPT/HCPCS: 78452; 93017; A9502

== ENCOUNTER → 2023-04-11 10:23 | Outpatient (CLI) | payer MEDICARE, SELFPAY | PROVIDERS: Family Provider Family Medicine; PCP Family Medicine; Visit Provider Student in an Organized Health Care Education/Training Program | DX: N39.0 Urinary tract infection, site not specified (principal) | CPT/HCPCS: 87077; 87086; 87186 ==

== ENCOUNTER → 2023-04-19 12:56 | Outpatient (CLI) | payer MEDICARE, SELFPAY ==
--- NOTE | 2023-04-19 | DI.RAD.S_ITS ---
PROCEDURE: XR CHEST 2V INDICATIONS: Palpitations and dyspnea on exertion TECHNIQUE: 2 views of the chest were acquired. COMPARISON: [facility], , CHEST 2 VIEW, 01/10/2007, 15:16. FINDINGS: Surgical changes and devices: None. Lungs and pleura: Lungs are clear. No pleural effusions or pneumothorax. Mediastinum: Mediastinal contours are normal. Heart size is normal. Bones and chest wall: No suspicious bony abnormalities. Soft tissues appear unremarkable. IMPRESSION: Normal two view chest x-ray Approved by: Federico Yanes M.D. on 04/19/2023 at 19:20
== END ==
PROVIDERS: Family Provider Family Medicine; PCP Family Medicine; Referring Provider Internal Medicine Cardiovascular Disease; Visit Provider Internal Medicine Cardiovascular Disease
DX: R00.2 Palpitations (principal); R06.09 Other forms of dyspnea
CPT/HCPCS: 71046

== ENCOUNTER → 2023-06-06 06:50 | Outpatient (CLI) | payer MEDICARE, SELFPAY | PROVIDERS: Family Provider Family Medicine; PCP Family Medicine; Referring Provider Internal Medicine Cardiovascular Disease; Visit Provider Internal Medicine Cardiovascular Disease | DX: R06.09 Other forms of dyspnea (principal); F17.210 Nicotine dependence, cigarettes, uncomplicated | CPT/HCPCS: 94010; 94729 ==

== ENCOUNTER → 2023-06-19 11:37 | Outpatient (CLI) | payer MEDICARE, SELFPAY ==
[2023-06-19 14:30] LABS: Erythrocyte Sedimentation Rate 5 MM/HR (0-20)
[2023-06-19 14:50] LABS: Free T4, Direct Thyroxine 1.01 ng/dL (0.78-2.19)
[2023-06-19 15:11] LABS: Ferritin 29 ng/mL (11-264)
[2023-06-21 07:40] LABS: Thyrotropin Receptor AB <1.10 IU/L (0.00-1.75)
== END ==
PROVIDERS: Family Provider Family Medicine; PCP Family Medicine; Referring Provider Physician Assistant Medical; Visit Provider Physician Assistant Medical
DX: L65.9 Nonscarring hair loss, unspecified (principal); Z71.89 Other specified counseling
CPT/HCPCS: 36415; 82728; 83520; 84439; 85651

== ENCOUNTER → 2023-06-21 13:20 | Outpatient (CLI) | payer MEDICARE, SELFPAY ==
[2023-06-22 14:58] LABS: Fecal Immunochemical Test Negative (Negative)
== END ==
PROVIDERS: Family Provider Family Medicine; PCP Family Medicine; Referring Provider Physician Assistant; Visit Provider Physician Assistant
DX: Z12.11 Encounter for screening for malignant neoplasm of colon (principal)
CPT/HCPCS: 82274

== ENCOUNTER → 2023-11-20 16:05 | Outpatient (CLI) | payer OTHER, SELFPAY ==
--- NOTE | 2023-11-20 16:07 | DI.RAD.S_ITS ---
PROCEDURE: XR KNEE LT 1TO2V INDICATIONS: Persistent left knee pain - suspect osteoarthritis TECHNIQUE: 2 views of the knee were acquired. COMPARISON: None. FINDINGS: Bones: No acute fractures or dislocations. No suspicious bony lesions. 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 Soft tissues: No significant joint effusion. No suspicious soft tissue calcifications. IMPRESSION: No acute bony abnormality or significant effusion. 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 Dictated by: Adan Brennan M.D. on 11/20/2023 at 18:21 Approved by: Adan Brennan M.D. on 11/20/2023 at 18:22
== END ==
LOC: RAD 16:07
PROVIDERS: Family Provider Family Medicine; PCP Family Medicine; Referring Provider Physician Assistant; Visit Provider Physician Assistant
DX: M70.52 Other bursitis of knee, left knee (principal); M25.562 Pain in left knee
CPT/HCPCS: 73562

== ENCOUNTER → 2024-01-31 15:14 | Outpatient (CLI) | payer OTHER, SELFPAY ==
[2024-02-04 21:55] LABS: Fecal Immunochemical Test Negative (Negative)
== END ==
PROVIDERS: Family Provider Family Medicine; PCP Family Medicine; Referring Provider Family Medicine; Visit Provider Family Medicine
DX: Z12.11 Encounter for screening for malignant neoplasm of colon (principal)
CPT/HCPCS: 82274

== ENCOUNTER → 2024-02-05 10:12 | Outpatient (CLI) | payer OTHER, SELFPAY ==
--- NOTE | 2024-02-05 10:14 | DI.RAD.S_ITS ---
PROCEDURE: XR DEXA AXIAL SKELETON INDICATIONS: Post menopausal status COMPARISON: [facility], CR, XR DEXA AXIAL SKELETON, 02/20/2022, 9:20. FINDINGS: Lumbar Spine: Bone mineral density 0.861 g/cm2, T score -1.7, no significant interval change. Left Hip: Bone mineral density 0.797 g/cm2, T score -1.2, no significant interval change. Left Femoral Neck: Bone mineral density 0.635 g/cm2, T score -1.9. Right Hip: Bone mineral density 0.760 g/cm2, T score -1.5, no significant interval change. Right Femoral Neck: Bone mineral density 0.619 g/cm2, T score -2.1. Fracture Risk Calculation (when applicable): 10-year fracture risk of a major osteoporotic fracture 16% and of a hip fracture 4.8%. (T score greater or equal to -1.0 to: NORMAL) (T score from -1.1 to -2.4: OSTEOPENIA) (T score less than or equal to -2.5: OSTEOPOROSIS) IMPRESSION: Osteopenia. No significant interval change. Dictated by: Carlos Hammonds M.D. on 02/07/2024 at 10:58 Approved by: Carlos Hammonds M.D. on 02/07/2024 at 11:00
== END ==
LOC: RAD 10:13
PROVIDERS: Family Provider Family Medicine; PCP Family Medicine; Referring Provider Family Medicine; Visit Provider Family Medicine
DX: Z78.0 Asymptomatic menopausal state (principal); M85.89 Other specified disorders of bone density and structure, multiple sites
CPT/HCPCS: 77080

== ENCOUNTER → 2024-02-07 07:52 | Outpatient (CLI) | payer OTHER, SELFPAY ==
--- NOTE | 2024-02-07 08:17 | DI.RAD.S_ITS ---
PROCEDURE: XR CHEST 2V INDICATIONS: Cough TECHNIQUE: 2 views of the chest were acquired. COMPARISON: [facility], , XR CHEST 2V, 04/19/2023, 13:05. [facility], , CHEST 2 VIEW, 01/10/2007, 15:16. FINDINGS: Surgical changes and devices: None. Lungs and pleura: Lungs are clear. No pleural effusions or pneumothorax. Mediastinum: Mediastinal contours are normal. Heart size is normal. Bones and chest wall: No suspicious bony abnormalities. Soft tissues appear unremarkable. IMPRESSION: No acute cardiopulmonary abnormality is seen. Dictated by: Bill Mejía M.D. on 02/07/2024 at 12:15 Approved by: Bill Mejía M.D. on 02/07/2024 at 12:32
[2024-02-07 08:38] LABS: COVID-19 CEPHEID 4-PLEX PCR Negative (Negative); Influenza A - CEPHEID Flu A NEGATIVE (NEGATIVE); Influenza B - CEPHEID Flu B NEGATIVE (NEGATIVE); Respiratory Syncytial Virus Negative (Negative)
== END ==
PROVIDERS: Family Provider Family Medicine; PCP Family Medicine; Referring Provider Nurse Practitioner Family; Visit Provider Nurse Practitioner Family
DX: R05.9 Cough, unspecified (principal); R09.89 Other specified symptoms and signs involving the circulatory and respiratory systems
CPT/HCPCS: 0241U; 71046

== ENCOUNTER → 2024-02-08 12:25 | Outpatient (CLI) | payer OTHER, SELFPAY ==
--- NOTE | 2024-02-08 12:26 | DI.ECHO.S_ITS ---
[facility]---------+ [facility] : : [address] : : [place] : : [id number] : : Phone: [phone] Echocardiogram Report + + :Name: RINA DOWNS Study Date: 02/08/2024 Height: 64 in : :[facility] ReadingLocation: Weight: 169 lb : : Gender: Female BSA: 1.8 m2 : :: 1940 Age: 83 yrs BP: 162/90 mmHg: :Reason For Study: PERICARDIAL EFFUSION : :Ordering Physician: JARROD, : :MARGARETH Performed By: Reji Ortiz : :Referring: MARGARETH SANDOVAL : + + Interpretation Summary Limited Echo: 1) Normal left ventricular thickness, size, wall motion, and systolic function (EF 65-70%). 2) There is a trivial pericardial effusion noted. 3) Compared to the Echo done 01/25/2023, pericardial effusion has decreased from small to trace on this study. Procedure: A two-dimensional transthoracic echocardiogram with color flow Doppler was performed. The study quality was technically adequate. Comparison is made with the echocardiogram of 01/25/2023. The patient was in sinus rhythm with heart rates between 88-96 bpm during the exam. Left Ventricle: The left ventricle is normal in size and wall thickness. Proximal septal thickening is noted. The ejection fraction is estimated to be 65-70%. Left ventricular systolic function appears normal without focal wall motion abnormalities. Right Ventricle: The right ventricle grossly appears normal in size with probable normal systolic function. Mitral Valve: The mitral valve is grossly normal. Aortic Valve: The aortic valve is grossly normal. Tricuspid Valve: The tricuspid valve is not well visualized, but is grossly normal. Pulmonic Valve: The pulmonic valve is not well seen, but is grossly normal. Pericardium/ Pleura There is a trivial pericardial effusion noted. There is no pleural effusion. MMode/2D Measurements & Calculations LVIDd: 3.5 cm LVOT diam: 2.5 cm LVIDs: 2.4 cm Ao root diam: 3.2 cm FS: 31.5 % asc Aorta Diam: 3.1 cm IVSd: 1.2 cm LVPWd: 0.92 cm LV nair. diameter/BSA (cm/m^2): 1.9 LV sys. diameter/BSA (cm/m^2): 1.3 Reading Physician:01:47 PM
== END ==
LOC: ECHO 12:26
PROVIDERS: Family Provider Family Medicine; PCP Family Medicine; Referring Provider Internal Medicine Cardiovascular Disease; Visit Provider Internal Medicine Cardiovascular Disease
DX: I31.39 Other pericardial effusion (noninflammatory) (principal)
CPT/HCPCS: 93306

== ENCOUNTER 2024-03-04 14:30 | Outpatient (RCR) | payer OTHER, SELFPAY ==
--- NOTE | 2023-12-10 17:20 | PT.OIE ---
Current Diagnoses Unilateral primary osteoarthritis, left knee (12/10/23) Other bursitis of knee, left knee (12/10/23) Unspecified abnormalities of gait and mobility (12/10/23) Weakness (12/10/23) Past Medical History (Last Reviewed 09/19/23 @ 12:37 by Reji Wilson MD) UTI (urinary tract infection) Past Surgical History (Last Reviewed 09/19/23 @ 12:37 by Reji Wilson MD) History of third molar tooth extraction Status post appendectomy Status post cholecystectomy Visit Care Team Role Provider Type Reji Wilson MD Attending Provider Physician Family Provider Primary Care Provider Referring Provider Specialty: [facility] Practice Address: [address] [place] [address], [address], [facility] Email: [email or web address] Physical Therapy Initial Evaluation PT-OP-A Visit Information Start: 12/10/23 07:29 Freq: Status: Active Protocol: Document 12/10/23 09:47 NM (Rec: 12/10/23 11:22 NM [id number]) Out-Patient Physical Therapy Visit Information Visit Information Visit Type Initial Evaluation Visit Note Prudence 12 visits Visit Start Time 09:47 Visit Stop Time 10:30 Visit Number 11/02 Evaluation Information Evaluation Date 12/10/23 Precautions Precautions No twisting at knee PT-OP-B Current Condition Start: 12/10/23 07:29 Freq: Status: Active Protocol: Document 12/10/23 09:47 NM (Rec: 12/10/23 11:22 NM [id number]) Current Condition History of Current Condition Onset Date September 2023 Current Complaints pain History of Current Condition Pt presents with L knee pain and a dx of bursitis. Pain is mainly on L medial knee. Injury occured originally at [facility] when she was lifting an accordian from the floor, then again at [place] , she twisted her knee and had immediate pain. She did not hear a pop, fall, or feel instability. Pain was dull except when she turns a certain way, to the right. She reports that she has difficulty putting on socks ( lifting foot). She has been wearing a soft brace since [place]. Reports that her knee does not feel unstable. She reports no difficulty with walking, standing, or stairs (uses R leg to step) Prior Treatments and Tests 10/2023 X rays reveal no bony abnormalities; received recent cortisone injection, which was helpful Scheduled for future MRI Prior Functional Status Baseline Function- ADL's Independent Baseline Function- Mobility Independent Baseline Function- Gait 2 miles Current Functional Impairments (Reported) Functional Limitations- ADL's difficulty putting on shoes Functional Limitations- Mobility/Gait as far as I need to but limited Functional Limitations- Recreation/ difficulty with lifting Hobbies objects from lower surfaces due to pain and body mechanics PT-OP-C Subjective Start: 12/10/23 07:29 Freq: Status: Active Protocol: Document 12/10/23 09:47 NM (Rec: 12/10/23 11:22 NM [id number]) OP-PT Subjective Patient Comments Patient Comments see hx above for pt report Patient Questionnaires Lower Extremity Functional Scale LEFS Score 45/80 OP-PT Pain Assessment Pain Assessment Grid Paper Pain Assessment Grid Completed Yes Location L knee Pain Location Details medial and lateral knee near joint line, pes anserine insertion Intensity 2 Scale Used Numeric (0 - 10) Description Aching,Sharp,Stabbing Description- Other worse 6/10 Frequency Intermittent Pain Duration during movement, stops with rest Pain Aggravating Factors Position Other Pain Aggravating Factors twisting Pain Alleviating Factors Heat,Massage,Elevation Other Pain Alleviating Factors arthritis cream (voltaren, NSAID), arnica gel Home Pain Medication Use Pain Medications Used Yes: arthritis cream, prn tylenol Pain Behaviors Pain Behaviors Facial Grimacing,Holding Area PT-OP-D Balance Start: 12/10/23 07:29 Freq: Status: Active Protocol: Document 12/10/23 09:47 NM (Rec: 12/11/23 16:50 NM [id number]) Balance Tests Romberg Romberg 20 sec Single Limb Standing Single Limb- Right 8 sec; increased sway Single Limb- Left 12 sec, no pain; increased sway Tandem Tandem Standing 15 sec, increased sway; no pain PT-OP-E Functional Tests Start: 12/10/23 07:29 Freq: Status: Active Protocol: Document 12/10/23 09:47 NM (Rec: 12/10/23 11:22 NM [id number]) Functional Tests 30 Second Sit to Stand Test Score 11 Comments B knee valgus, no pain or instability reported PT-OP-F Manual Assessment Start: 12/10/23 07:29 Freq: Status: Active Protocol: Document 12/10/23 09:47 NM (Rec: 12/10/23 11:22 NM [id number]) Manual Assessments Soft Tissue Assessment Soft Tissue Mobility Assessment Tenderness along L IT band, medial knee near pes anserine insertion Joint Mobility Assessment Joint Mobility Assessment No L instability, no clicking or catching of L knee with testing. Bilateral joint line pain L knee PT-OP-G Mobility & Gait Start: 12/10/23 07:29 Freq: Status: Active Protocol: Document 12/10/23 09:47 NM (Rec: 12/10/23 11:22 NM [id number]) OP Gait Assessment Gait Gait Assistance Required: Standby Assistance Distance (Feet) 250 Assistive Devices Assistive Device Gait Belt Gait Deviations General Gait Pattern Antalgic Factors Limiting Gait Function Factors Limiting Gait Function Decreased Strength,Pain,Poor Balance Comments Gait Comments Slightly antalgic gait, with increased JAJA and minimal lateral trunk excursion Stair Climbing Evaluation Evaluation Level of Assist On Stairs Contact Guard Assistance Devices Stair Climbing Assistive Devices None,Left Railing Technique/Endurance Stair Climbing Direction Ascend and Descend Stair Climbing Technique Step to Step Number of Steps Climbed 4 Stair Climbing Set # Repetitions (reps) 1 Comments Stair Climbing Comments Leading with RLE, reports pain with L knee flexion while advancing down stairs. Reports no instability or observed, but demos B pelvic drop when stepping down PT-OP-H Neuro Start: 12/10/23 07:29 Freq: Status: Active Protocol: Document 12/10/23 09:47 NM (Rec: 12/10/23 11:22 NM [id number]) Sensation Evaluation Gross Sensation Gross Sensation WNL Comments Summary Comments BLE intact to light touch sensation PT-OP-J Posture/Palpation/Skin Start: 12/10/23 07:29 Freq: Status: Active Protocol: Document 12/10/23 09:47 NM (Rec: 12/10/23 11:22 NM [id number]) Posture Evaluation Position Standing Evaluation View Lateral Head/C-Spine Posture Forward Head Pelvis Posture Anteriorly Tilted Knee Posture (L) Genu Valgus,(R) Genu Valgus Ankle/Foot Posture (L) Neutral,(R) Neutral Palpation Assessment Location L knee Palpation Location M/L joint line, ITB (knee, hip ), medial knee Palpation Findings Soft Tissue Tightness, Tenderness Palpation Details Tenderness reported along medial/lateral joint line. Tenderness at lateral femoral condyle near ITB insertion and minimal tenderness proximally along ITB. Slight swelling of L knee. Tender along pes anserine insertion but no palpable bursa (only tendons) PT-OP-K Range of Motion Start: 12/10/23 07:29 Freq: Status: Active Protocol: Document 12/10/23 09:47 NM (Rec: 12/10/23 11:22 NM [id number]) Hip Goniometric Range of Motion Hip ROM Limitations Comments Full hip AROM/PROM but not formally measured due to time Knee Goniometric Range of Motion Knee Right Patient Position Supine Flexion Active (degrees) 127 Flexion Passive (degrees) 130 Extension Active (degrees) 1 Extension Passive (degrees) 0 Left Patient Position Supine Flexion Active (degrees) 130 Flexion Passive (degrees) 130 Extension Active (degrees) 0 Extension Passive (degrees) 0 Comments No pain with AROM or PROM PT-OP-L Special Tests Start: 12/10/23 07:29 Freq: Status: Active Protocol: Document 12/10/23 09:47 NM (Rec: 12/10/23 11:22 NM [id number]) Special Tests Knee Special Tests Posterior Draw Test Results - Anterior Draw Test Results - Melvin's Compression Test Results + Zahida's Test Test Results + Comments bilaterally Thessaly Test Results - Comments No clicking, locking reproduced Sindy Test Test Results - Comments No clicking, locking reproduced Varus Test Results - Comments 0 and 30 deg Valgus Test Results - Comments 0 and 30 deg Hector's Test Results - PT-OP-M Strength Start: 12/10/23 07:29 Freq: Status: Active Protocol: Document 12/10/23 09:47 NM (Rec: 12/10/23 11:22 NM [id number]) Hip Strength Hip Manual Muscle Testing Right Flexion (L2) 4+ Good+ Extension (S1) 4+ Good+ Abduction 4+ Good+ Adduction 4+ Good+ External Rotation 4+ Good+ Internal Rotation 4+ Good+ Left Flexion (L2) 4+ Good+ Extension (S1) 4+ Good+ Abduction 4+ Good+ Adduction 4+ Good+ External Rotation 4+ Good+ Internal Rotation 4+ Good+ Knee Strength Knee Manual Muscle Testing Right Flexion (S2) 4 Good Extension (L3) 4 Good Left Flexion (S2) 4- Good- Extension (L3) 4- Good- Ankle/Foot Strength Ankle and Foot Manual Muscle Testing Right Dorsiflexion (L4) 4 Good Plantarflexion (S1) 4 Good Left Dorsiflexion (L4) 4 Good Plantarflexion (S1) 4 Good PT-OP-Q Treatments Start: 12/10/23 07:29 Freq: Status: Active Protocol: Document 12/10/23 09:47 NM (Rec: 12/10/23 11:22 NM [id number]) Self-Care/Home Management Treatment Education Patient Education Body Mechanics,Fall Risk,Joint Protection,Pain Management Other Education 8 minutes: Educated regarding modalities, rest prn for pain relief. Educated briefly regarding body mechanics when lifting, activity modification to decrease aggravating L knee pain. Encouraged pt to use brace only as needed during activity as reminder to limit twisting motions, prevent over-reliance unless otherwise recommended by referring provider. PT educated pt regarding exam findings, POC, attendance policy, purpose of future HEP. Encouraged pt to continue with daily ambulation to tolerance on stable surfaces as long as does not increase L knee pain. Pt verbalizes understanding. PT-OP-T Assessment and Plan Start: 12/10/23 07:29 Freq: Status: Active Protocol: Document 12/10/23 09:47 NM (Rec: 12/10/23 11:22 NM [id number]) Physical Therapy Assessment Rehab Potential Rehabilitation Potential Good Goals 5 Impairment stairs, function Impairment stairs challenging upon descent due to L knee pain Short Term Goal (STG) Pt will be able to perform at least 8 eccentric step downs without compensation or pain in LLE using 1 or fewer hand rails for balance in order to demonstrate improved L knee strength, stability, and activity tolerance STG Duration 4 weeks Systems Checkout Mechanic Goal (LTG) Pt will be able to perform at least 12 stairs (1 flight) without compensation or pain in LLE using 1 or fewer hand rails for balance in order to demonstrate improved L knee strength, stability, and activity tolerance LTG Duration 8 weeks 4 Impairment squat, function Short Term Goal (STG) Pt will be able to perform at least 10 bilateral squats without compensation or pain in order to demonstrate increased quad and glute strength required for ambulation and activity. STG Duration 4 weeks Systems Checkout Mechanic Goal (LTG) Pt will be able to perform at least 15 bilateral squats without compensation or pain in 30 sec STS test in order to demonstrate increased quad and glute strength required for ambulation and activity. LTG Duration 8 weeks 3 Impairment gait Impairment reported 1 mi limitation, 250 ft in clinic Short Term Goal (STG) Pt will be able to ambulate > 300 ft using LRAD or brace for support as needed in order to demonstrate improved L knee strength, activity tolerance, and return to PLOF. STG Duration 4 weeks Skilled Nursing Goal (LTG) Pt will report no limitation in ambulating community distances using LRAD or brace for support as needed in order to demonstrate improved L knee strength, activity tolerance, and return to PLOF. LTG Duration 8 weeks 2 Impairment Activity Impairment No HEP or daily exercise program Short Term Goal (STG) Pt will report compliance with HEP 2-3x/wk for initiation of exercise program and to improve activity tolerance while maximizing gains from PT STG Duration 4 weeks Skilled Nursing Goal (LTG) Pt will report compliance with HEP at least 3x/wk for maintenance program after discharge from PT. LTG Duration 8 weeks 1 Impairment LEFS Impairment 45/80 STG Duration 4 weeks Skilled Nursing Goal (LTG) Pt will improve LEFS >9 points (1 MCID) in order to demonstrate improved activity tolerance LTG Duration 8 weeks Assessment Summary Assessment Pt is an 83 y.o. female presenting with L knee pain s/ p twisting injury around 2022 while lifting an accordian from the floor. Pt has been wearing a soft brace and limiting activity due to pain. She recently received a cortisone injection for successful pain relief. Pt has negative tests for L knee instability. She has tenderness primarily along L medial and lateral joint line of L knee, in addition to L IT band, lateral femoral condyle , and pes anserine insertion. Despite joint line tenderness, pt does not have positive tests for meniscus injury or other knee ligaments. She has a dx of bursitis, but no palpable bursa; symptoms are consistent with arthritis. Pt does demo minimal L knee swelling compared to R knee. Pt has upcoming MRI to assess soft tissue structures of knee . Left knee AROM is not painful, nor is resisted extension/flexion. Pt has L knee pain with stairs, particularly during eccentric control during descent and during extended periods of ambulation. During squats, pt demos bilateral knee valgus but has no reports of instability or pain. Pt also has decreased balance on BLE especially with decreasing JAJA but no L knee pain. PT educated pt on exam findings, POC, modalities for pain relief, and to continue daily ambulation on stable surfaces as long as pain free. Unless otherwise recommended, pt would benefit from skilled PT for B hip/knee strengthening, functional activity and body mechanics training in order to decrease pain symptoms, improve activity tolerance, and return to PLOF. Physical Therapy Plan Frequency and Duration Frequency of Treatment 2x/Week Duration of treatment (weeks) 8 Plan of Care Start Date 12/10/23 Plan of Care End Date 02/08/24 Therapeutic Interventions Therapeutic Interventions Aquatic Therapy,Balance Training,Gait Training,Home Exercise Program,Joint Mobilizations,Manual Therapy, Neuromuscular Re-education, Orthotic/Prosthetic Management ,Patient/Caregiver Education, Self-Care/Home Management,Soft Tissue Mobilization,Taping, Therapeutic Activities, Therapeutic Exercises Modalities Biofeedback,Cold Pack/Ice Massage,Electric Stimulation, Hot Packs,Traction- Mechanical ,Ultrasound,Vasopneumatic Devices Other Therapeutic Interventions Manual traction Next Visit Focus/Plan Next Note Type Treatment Note Next Visit Plan Hip, glute, quad strengthening . Body mechanics training, step up 4 with eccentric control 12 visits total
--- NOTE | 2023-12-11 17:13 | PT.OIE ---
Current Diagnoses Unilateral primary osteoarthritis, left knee (12/10/23) Other bursitis of knee, left knee (12/10/23) Past Medical History (Last Reviewed 09/19/23 @ 12:37 by Reji Wilson MD) UTI (urinary tract infection) Past Surgical History (Last Reviewed 09/19/23 @ 12:37 by Reji Wilson MD) History of third molar tooth extraction Status post appendectomy Status post cholecystectomy Visit Care Team Role Provider Type Reji Wilson MD Attending Provider Physician Family Provider Primary Care Provider Referring Provider Specialty: [facility] Address: [address] [place] [address], [address], [facility] Email: [email or web address] Initial Evaluation PT-OP-A Visit Information Start: 12/10/23 07:29 Freq: Status: Active Protocol: Document 12/10/23 09:47 NM (Rec: 12/10/23 11:22 NM [id number]) Out-Patient Physical Therapy Visit Information Visit Information Visit Type Initial Evaluation Visit Note Prudence 12 visits Visit Start Time 09:47 Visit Stop Time 10:30 Visit Number 11/02 Evaluation Information Evaluation Date 12/10/23 Precautions Precautions No twisting at knee PT-OP-B Current Condition Start: 12/10/23 07:29 Freq: Status: Active Protocol: Document 12/10/23 09:47 NM (Rec: 12/10/23 11:22 NM [id number]) Current Condition History of Current Condition Onset Date September 2023 Current Complaints pain History of Current Condition Pt presents with L knee pain and a dx of bursitis. Pain is mainly on L medial knee. Injury occured originally at [facility] when she was lifting an accordian from the floor, then again at [place] , she twisted her knee and had immediate pain. She did not hear a pop, fall, or feel instability. Pain was dull except when she turns a certain way, to the right. She reports that she has difficulty putting on socks ( lifting foot). She has been wearing a soft brace since [place]. Reports that her knee does not feel unstable. She reports no difficulty with walking, standing, or stairs (uses R leg to step) Prior Treatments and Tests 10/2023 X rays reveal no bony abnormalities; received recent cortisone injection, which was helpful Scheduled for future MRI Prior Functional Status Baseline Function- ADL's Independent Baseline Function- Mobility Independent Baseline Function- Gait 2 miles Current Functional Impairments (Reported) Functional Limitations- ADL's difficulty putting on shoes Functional Limitations- Mobility/Gait as far as I need to but limited Functional Limitations- Recreation/ difficulty with lifting Hobbies objects from lower surfaces due to pain and body mechanics PT-OP-C Subjective Start: 12/10/23 07:29 Freq: Status: Active Protocol: Document 12/10/23 09:47 NM (Rec: 12/10/23 11:22 NM [id number]) OP-PT Subjective Patient Comments Patient Comments see hx above for pt report Patient Questionnaires Lower Extremity Functional Scale LEFS Score 45/80 OP-PT Pain Assessment Pain Assessment Grid Paper Pain Assessment Grid Completed Yes Location L knee Pain Location Details medial and lateral knee near joint line, pes anserine insertion Intensity 2 Scale Used Numeric (0 - 10) Description Aching,Sharp,Stabbing Description- Other worse 6/10 Frequency Intermittent Pain Duration during movement, stops with rest Pain Aggravating Factors Position Other Pain Aggravating Factors twisting Pain Alleviating Factors Heat,Massage,Elevation Other Pain Alleviating Factors arthritis cream (voltaren, NSAID), arnica gel Home Pain Medication Use Pain Medications Used Yes: arthritis cream, prn tylenol Pain Behaviors Pain Behaviors Facial Grimacing,Holding Area PT-OP-D Balance Start: 12/10/23 07:29 Freq: Status: Active Protocol: Document 12/10/23 09:47 NM (Rec: 12/11/23 16:50 NM [id number]) Balance Tests Romberg Romberg 20 sec Single Limb Standing Single Limb- Right 8 sec; increased sway Single Limb- Left 12 sec, no pain; increased sway Tandem Tandem Standing 15 sec, increased sway; no pain PT-OP-E Functional Tests Start: 12/10/23 07:29 Freq: Status: Active Protocol: Document 12/10/23 09:47 NM (Rec: 12/10/23 11:22 NM [id number]) Functional Tests 30 Second Sit to Stand Test Score 11 Comments B knee valgus, no pain or instability reported PT-OP-F Manual Assessment Start: 12/10/23 07:29 Freq: Status: Active Protocol: Document 12/10/23 09:47 NM (Rec: 02/19/24 11:22 NM [id number]) Manual Assessments Soft Tissue Assessment Soft Tissue Mobility Assessment Tenderness along L IT band, medial knee near pes anserine insertion Joint Mobility Assessment Joint Mobility Assessment No L instability, no clicking or catching of L knee with testing. Bilateral joint line pain L knee PT-OP-G Mobility & Gait Start: 12/10/23 07:29 Freq: Status: Active Protocol: Document 12/10/23 09:47 NM (Rec: 12/10/23 11:22 NM [id number]) OP Gait Assessment Gait Gait Assistance Required: Standby Assistance Distance (Feet) 250 Assistive Devices Assistive Device Gait Belt Gait Deviations General Gait Pattern Antalgic Factors Limiting Gait Function Factors Limiting Gait Function Decreased Strength,Pain,Poor Balance Comments Gait Comments Slightly antalgic gait, with increased JAJA and minimal lateral trunk excursion Stair Climbing Evaluation Evaluation Level of Assist On Stairs Contact Guard Assistance Devices Stair Climbing Assistive Devices None,Left Railing Technique/Endurance Stair Climbing Direction Ascend and Descend Stair Climbing Technique Step to Step Number of Steps Climbed 4 Stair Climbing Set # Repetitions (reps) 1 Comments Stair Climbing Comments Leading with RLE, reports pain with L knee flexion while advancing down stairs. Reports no instability or observed, but demos B pelvic drop when stepping down PT-OP-H Neuro Start: 12/10/23 07:29 Freq: Status: Active Protocol: Document 12/10/23 09:47 NM (Rec: 12/10/23 11:22 NM [id number]) Sensation Evaluation Gross Sensation Gross Sensation WNL Comments Summary Comments BLE intact to light touch sensation PT-OP-J Posture/Palpation/Skin Start: 12/10/23 07:29 Freq: Status: Active Protocol: Document 12/10/23 09:47 NM (Rec: 12/10/23 11:22 NM [id number]) Posture Evaluation Position Standing Evaluation View Lateral Head/C-Spine Posture Forward Head Pelvis Posture Anteriorly Tilted Knee Posture (L) Genu Valgus,(R) Genu Valgus Ankle/Foot Posture (L) Neutral,(R) Neutral Palpation Assessment Location L knee Palpation Location M/L joint line, ITB (knee, hip ), medial knee Palpation Findings Soft Tissue Tightness, Tenderness Palpation Details Tenderness reported along medial/lateral joint line. Tenderness at lateral femoral condyle near ITB insertion and minimal tenderness proximally along ITB. Slight swelling of L knee. Tender along pes anserine insertion but no palpable bursa (only tendons) PT-OP-K Range of Motion Start: 12/10/23 07:29 Freq: Status: Active Protocol: Document 12/10/23 09:47 NM (Rec: 12/10/23 11:22 NM [id number]) Hip Goniometric Range of Motion Hip ROM Limitations Comments Full hip AROM/PROM but not formally measured due to time Knee Goniometric Range of Motion Knee Right Patient Position Supine Flexion Active (degrees) 127 Flexion Passive (degrees) 130 Extension Active (degrees) 1 Extension Passive (degrees) 0 Left Patient Position Supine Flexion Active (degrees) 130 Flexion Passive (degrees) 130 Extension Active (degrees) 0 Extension Passive (degrees) 0 Comments No pain with AROM or PROM PT-OP-L Special Tests Start: 12/10/23 07:29 Freq: Status: Active Protocol: Document 12/10/23 09:47 NM (Rec: 12/10/23 11:22 NM [id number]) Special Tests Knee Special Tests Posterior Draw Test Results - Anterior Draw Test Results - Melvin's Compression Test Results + Zahida's Test Test Results + Comments bilaterally Thessaly Test Results - Comments No clicking, locking reproduced Sindy Test Test Results - Comments No clicking, locking reproduced Varus Test Results - Comments 0 and 30 deg Valgus Test Results - Comments 0 and 30 deg Hector's Test Results - PT-OP-M Strength Start: 12/10/23 07:29 Freq: Status: Active Protocol: Document 12/10/23 09:47 NM (Rec: 12/10/23 11:22 NM [id number]) Hip Strength Hip Manual Muscle Testing Right Flexion (L2) 4+ Good+ Extension (S1) 4+ Good+ Abduction 4+ Good+ Adduction 4+ Good+ External Rotation 4+ Good+ Internal Rotation 4+ Good+ Left Flexion (L2) 4+ Good+ Extension (S1) 4+ Good+ Abduction 4+ Good+ Adduction 4+ Good+ External Rotation 4+ Good+ Internal Rotation 4+ Good+ Knee Strength Knee Manual Muscle Testing Right Flexion (S2) 4 Good Extension (L3) 4 Good Left Flexion (S2) 4- Good- Extension (L3) 4- Good- Ankle/Foot Strength Ankle and Foot Manual Muscle Testing Right Dorsiflexion (L4) 4 Good Plantarflexion (S1) 4 Good Left Dorsiflexion (L4) 4 Good Plantarflexion (S1) 4 Good PT-OP-Q Treatments Start: 12/10/23 07:29 Freq: Status: Active Protocol: Document 12/10/23 09:47 NM (Rec: 12/10/23 11:22 NM [id number]) Self-Care/Home Management Treatment Education Patient Education Body Mechanics,Fall Risk,Joint Protection,Pain Management Other Education 8 minutes: Educated regarding modalities, rest prn for pain relief. Educated briefly regarding body mechanics when lifting, activity modification to decrease aggravating L knee pain. Encouraged pt to use brace only as needed during activity as reminder to limit twisting motions, prevent over-reliance unless otherwise recommended by referring provider. PT educated pt regarding exam findings, POC, attendance policy, purpose of future HEP. Encouraged pt to continue with daily ambulation to tolerance on stable surfaces as long as does not increase L knee pain. Pt verbalizes understanding. PT-OP-T Assessment and Plan Start: 12/10/23 07:29 Freq: Status: Active Protocol: Document 12/10/23 09:47 NM (Rec: 12/10/23 11:22 NM [id number]) Physical Therapy Assessment Rehab Potential Rehabilitation Potential Good Goals 5 Impairment stairs, function Impairment stairs challenging upon descent due to L knee pain Short Term Goal (STG) Pt will be able to perform at least 8 eccentric step downs without compensation or pain in LLE using 1 or fewer hand rails for balance in order to demonstrate improved L knee strength, stability, and activity tolerance STG Duration 4 weeks Nursing Home Goal (LTG) Pt will be able to perform at least 12 stairs (1 flight) without compensation or pain in LLE using 1 or fewer hand rails for balance in order to demonstrate improved L knee strength, stability, and activity tolerance LTG Duration 8 weeks 4 Impairment squat, function Short Term Goal (STG) Pt will be able to perform at least 10 bilateral squats without compensation or pain in order to demonstrate increased quad and glute strength required for ambulation and activity. STG Duration 4 weeks Nursing Home Goal (LTG) Pt will be able to perform at least 15 bilateral squats without compensation or pain in 30 sec STS test in order to demonstrate increased quad and glute strength required for ambulation and activity. LTG Duration 8 weeks 3 Impairment gait Impairment reported 1 mi limitation, 250 ft in clinic Short Term Goal (STG) Pt will be able to ambulate > 300 ft using LRAD or brace for support as needed in order to demonstrate improved L knee strength, activity tolerance, and return to PLOF. STG Duration 4 weeks [employer] Operator Goal (LTG) Pt will report no limitation in ambulating community distances using LRAD or brace for support as needed in order to demonstrate improved L knee strength, activity tolerance, and return to PLOF. LTG Duration 8 weeks 2 Impairment Activity Impairment No HEP or daily exercise program Short Term Goal (STG) Pt will report compliance with HEP 2-3x/wk for initiation of exercise program and to improve activity tolerance while maximizing gains from PT STG Duration 4 weeks [employer] Goal (LTG) Pt will report compliance with HEP at least 3x/wk for maintenance program after discharge from PT. LTG Duration 8 weeks 1 Impairment LEFS Impairment 45/80 STG Duration 4 weeks Nursing Home Goal (LTG) Pt will improve LEFS >9 points (1 MCID) in order to demonstrate improved activity tolerance LTG Duration 8 weeks Assessment Summary Assessment Pt is an 83 y.o. female presenting with L knee pain s/ p twisting injury around [place] 2023 while lifting an accordian from the floor. Pt has been wearing a soft brace and limiting activity due to pain. She recently received a cortisone injection for successful pain relief. Pt has negative tests for L knee instability. She has tenderness primarily along L medial and lateral joint line of L knee, in addition to L IT band, lateral femoral condyle , and pes anserine insertion. Despite joint line tenderness, pt does not have positive tests for meniscus injury or other knee ligaments. She has a dx of bursitis, but no palpable bursa; pt does demo minimal L knee swelling compared to R knee. Pt has upcoming MRI to assess soft tissue structures of knee. Left knee AROM is not painful, nor is resisted extension/ flexion. Pt has L knee pain with stairs, particularly during eccentric control during descent and during extended periods of ambulation . During squats, pt demos bilateral knee valgus but has no reports of instability or pain. Pt also has decreased balance on BLE especially with decreasing JAJA but no L knee pain. PT educated pt on exam findings, POC, modalities for pain relief, and to continue daily ambulation on stable surfaces as long as pain free. Unless otherwise recommended, pt would benefit from skilled PT for B hip/knee strengthening, functional activity and body mechanics training in order to decrease pain symptoms, improve activity tolerance, and return to PLOF. Physical Therapy Plan Frequency and Duration Frequency of Treatment 2x/Week Duration of treatment (weeks) 8 Plan of Care Start Date 12/10/23 Plan of Care End Date 02/08/24 Therapeutic Interventions Therapeutic Interventions Aquatic Therapy,Balance Training,Gait Training,Home Exercise Program,Joint Mobilizations,Manual Therapy, Neuromuscular Re-education, Orthotic/Prosthetic Management ,Patient/Caregiver Education, Self-Care/Home Management,Soft Tissue Mobilization,Taping, Therapeutic Activities, Therapeutic Exercises Modalities Biofeedback,Cold Pack/Ice Massage,Electric Stimulation, Hot Packs,Traction- Mechanical ,Ultrasound,Vasopneumatic Devices Other Therapeutic Interventions Manual traction Next Visit Focus/Plan Next Note Type Treatment Note Next Visit Plan Hip, glute, quad strengthening . Body mechanics training, step up 4 with eccentric control 12 visits total
--- NOTE | 2023-12-11 17:18 | PT.OIE ---
Current Diagnoses Unilateral primary osteoarthritis, left knee (12/10/23) Other bursitis of knee, left knee (12/10/23) Unspecified abnormalities of gait and mobility (12/10/23) Weakness (12/10/23) Past Medical History (Last Reviewed 09/19/23 @ 12:37 by Reji Wilson MD) UTI (urinary tract infection) Past Surgical History (Last Reviewed 09/19/23 @ 12:37 by Reji Wilson MD) History of third molar tooth extraction Status post appendectomy Status post cholecystectomy Visit Care Team Role Provider Type Reji Wilson MD Attending Provider Physician Family Provider Primary Care Provider Referring Provider Specialty: [facility] Practice Address: [address] [place] [address], [address], [facility] Email: [email or web address] Physical Therapy Initial Evaluation PT-OP-A Visit Information Start: 12/10/23 07:29 Freq: Status: Active Protocol: Document 12/10/23 09:47 NM (Rec: 12/10/23 11:22 NM [id number]) Out-Patient Physical Therapy Visit Information Visit Information Visit Type Initial Evaluation Visit Note Prudence 12 visits Visit Start Time 09:47 Visit Stop Time 10:30 Visit Number 11/02 Evaluation Information Evaluation Date 12/10/23 Precautions Precautions No twisting at knee PT-OP-B Current Condition Start: 12/10/23 07:29 Freq: Status: Active Protocol: Document 12/10/23 09:47 NM (Rec: 12/10/23 11:22 NM [id number]) Current Condition History of Current Condition Onset Date September 2023 Current Complaints pain History of Current Condition Pt presents with L knee pain and a dx of bursitis. Pain is mainly on L medial knee. Injury occured originally at [facility] when she was lifting an accordian from the floor, then again at [place] , she twisted her knee and had immediate pain. She did not hear a pop, fall, or feel instability. Pain was dull except when she turns a certain way, to the right. She reports that she has difficulty putting on socks ( lifting foot). She has been wearing a soft brace since [place]. Reports that her knee does not feel unstable. She reports no difficulty with walking, standing, or stairs (uses R leg to step) Prior Treatments and Tests 10/2023 X rays reveal no bony abnormalities; received recent cortisone injection, which was helpful Scheduled for future MRI Prior Functional Status Baseline Function- ADL's Independent Baseline Function- Mobility Independent Baseline Function- Gait 2 miles Current Functional Impairments (Reported) Functional Limitations- ADL's difficulty putting on shoes Functional Limitations- Mobility/Gait as far as I need to but limited Functional Limitations- Recreation/ difficulty with lifting Hobbies objects from lower surfaces due to pain and body mechanics PT-OP-C Subjective Start: 12/10/23 07:29 Freq: Status: Active Protocol: Document 12/10/23 09:47 NM (Rec: 12/10/23 11:22 NM [id number]) OP-PT Subjective Patient Comments Patient Comments see hx above for pt report Patient Questionnaires Lower Extremity Functional Scale LEFS Score 45/80 OP-PT Pain Assessment Pain Assessment Grid Paper Pain Assessment Grid Completed Yes Location L knee Pain Location Details medial and lateral knee near joint line, pes anserine insertion Intensity 2 Scale Used Numeric (0 - 10) Description Aching,Sharp,Stabbing Description- Other worse 6/10 Frequency Intermittent Pain Duration during movement, stops with rest Pain Aggravating Factors Position Other Pain Aggravating Factors twisting Pain Alleviating Factors Heat,Massage,Elevation Other Pain Alleviating Factors arthritis cream (voltaren, NSAID), arnica gel Home Pain Medication Use Pain Medications Used Yes: arthritis cream, prn tylenol Pain Behaviors Pain Behaviors Facial Grimacing,Holding Area PT-OP-D Balance Start: 12/10/23 07:29 Freq: Status: Active Protocol: Document 12/10/23 09:47 NM (Rec: 12/11/23 16:50 NM [id number]) Balance Tests Romberg Romberg 20 sec Single Limb Standing Single Limb- Right 8 sec; increased sway Single Limb- Left 12 sec, no pain; increased sway Tandem Tandem Standing 15 sec, increased sway; no pain PT-OP-E Functional Tests Start: 12/10/23 07:29 Freq: Status: Active Protocol: Document 12/10/23 09:47 NM (Rec: 12/10/23 11:22 NM [id number]) Functional Tests 30 Second Sit to Stand Test Score 11 Comments B knee valgus, no pain or instability reported PT-OP-F Manual Assessment Start: 12/10/23 07:29 Freq: Status: Active Protocol: Document 12/10/23 09:47 NM (Rec: 12/10/23 11:22 NM [id number]) Manual Assessments Soft Tissue Assessment Soft Tissue Mobility Assessment Tenderness along L IT band, medial knee near pes anserine insertion Joint Mobility Assessment Joint Mobility Assessment No L instability, no clicking or catching of L knee with testing. Bilateral joint line pain L knee PT-OP-G Mobility & Gait Start: 12/10/23 07:29 Freq: Status: Active Protocol: Document 12/10/23 09:47 NM (Rec: 12/10/23 11:22 NM [id number]) OP Gait Assessment Gait Gait Assistance Required: Standby Assistance Distance (Feet) 250 Assistive Devices Assistive Device Gait Belt Gait Deviations General Gait Pattern Antalgic Factors Limiting Gait Function Factors Limiting Gait Function Decreased Strength,Pain,Poor Balance Comments Gait Comments Slightly antalgic gait, with increased JAJA and minimal lateral trunk excursion Stair Climbing Evaluation Evaluation Level of Assist On Stairs Contact Guard Assistance Devices Stair Climbing Assistive Devices None,Left Railing Technique/Endurance Stair Climbing Direction Ascend and Descend Stair Climbing Technique Step to Step Number of Steps Climbed 4 Stair Climbing Set # Repetitions (reps) 1 Comments Stair Climbing Comments Leading with RLE, reports pain with L knee flexion while advancing down stairs. Reports no instability or observed, but demos B pelvic drop when stepping down PT-OP-H Neuro Start: 12/10/23 07:29 Freq: Status: Active Protocol: Document 12/10/23 09:47 NM (Rec: 12/10/23 11:22 NM [id number]) Sensation Evaluation Gross Sensation Gross Sensation WNL Comments Summary Comments BLE intact to light touch sensation PT-OP-J Posture/Palpation/Skin Start: 12/10/23 07:29 Freq: Status: Active Protocol: Document 12/10/23 09:47 NM (Rec: 12/10/23 11:22 NM [id number]) Posture Evaluation Position Standing Evaluation View Lateral Head/C-Spine Posture Forward Head Pelvis Posture Anteriorly Tilted Knee Posture (L) Genu Valgus,(R) Genu Valgus Ankle/Foot Posture (L) Neutral,(R) Neutral Palpation Assessment Location L knee Palpation Location M/L joint line, ITB (knee, hip ), medial knee Palpation Findings Soft Tissue Tightness, Tenderness Palpation Details Tenderness reported along medial/lateral joint line. Tenderness at lateral femoral condyle near ITB insertion and minimal tenderness proximally along ITB. Slight swelling of L knee. Tender along pes anserine insertion but no palpable bursa (only tendons) PT-OP-K Range of Motion Start: 12/10/23 07:29 Freq: Status: Active Protocol: Document 12/10/23 09:47 NM (Rec: 12/10/23 11:22 NM [id number]) Hip Goniometric Range of Motion Hip ROM Limitations Comments Full hip AROM/PROM but not formally measured due to time Knee Goniometric Range of Motion Knee Right Patient Position Supine Flexion Active (degrees) 127 Flexion Passive (degrees) 130 Extension Active (degrees) 1 Extension Passive (degrees) 0 Left Patient Position Supine Flexion Active (degrees) 130 Flexion Passive (degrees) 130 Extension Active (degrees) 0 Extension Passive (degrees) 0 Comments No pain with AROM or PROM PT-OP-L Special Tests Start: 12/10/23 07:29 Freq: Status: Active Protocol: Document 12/10/23 09:47 NM (Rec: 12/10/23 11:22 NM [id number]) Special Tests Knee Special Tests Posterior Draw Test Results - Anterior Draw Test Results - Melvin's Compression Test Results + Zahida's Test Test Results + Comments bilaterally Thessaly Test Results - Comments No clicking, locking reproduced Sindy Test Test Results - Comments No clicking, locking reproduced Varus Test Results - Comments 0 and 30 deg Valgus Test Results - Comments 0 and 30 deg Hector's Test Results - PT-OP-M Strength Start: 12/10/23 07:29 Freq: Status: Active Protocol: Document 12/10/23 09:47 NM (Rec: 12/10/23 11:22 NM [id number]) Hip Strength Hip Manual Muscle Testing Right Flexion (L2) 4+ Good+ Extension (S1) 4+ Good+ Abduction 4+ Good+ Adduction 4+ Good+ External Rotation 4+ Good+ Internal Rotation 4+ Good+ Left Flexion (L2) 4+ Good+ Extension (S1) 4+ Good+ Abduction 4+ Good+ Adduction 4+ Good+ External Rotation 4+ Good+ Internal Rotation 4+ Good+ Knee Strength Knee Manual Muscle Testing Right Flexion (S2) 4 Good Extension (L3) 4 Good Left Flexion (S2) 4- Good- Extension (L3) 4- Good- Ankle/Foot Strength Ankle and Foot Manual Muscle Testing Right Dorsiflexion (L4) 4 Good Plantarflexion (S1) 4 Good Left Dorsiflexion (L4) 4 Good Plantarflexion (S1) 4 Good PT-OP-Q Treatments Start: 12/10/23 07:29 Freq: Status: Active Protocol: Document 12/10/23 09:47 NM (Rec: 12/10/23 11:22 NM [id number]) Self-Care/Home Management Treatment Education Patient Education Body Mechanics,Fall Risk,Joint Protection,Pain Management Other Education 8 minutes: Educated regarding modalities, rest prn for pain relief. Educated briefly regarding body mechanics when lifting, activity modification to decrease aggravating L knee pain. Encouraged pt to use brace only as needed during activity as reminder to limit twisting motions, prevent over-reliance unless otherwise recommended by referring provider. PT educated pt regarding exam findings, POC, attendance policy, purpose of future HEP. Encouraged pt to continue with daily ambulation to tolerance on stable surfaces as long as does not increase L knee pain. Pt verbalizes understanding. PT-OP-T Assessment and Plan Start: 12/10/23 07:29 Freq: Status: Active Protocol: Document 12/10/23 09:47 NM (Rec: 12/10/23 11:22 NM [id number]) Physical Therapy Assessment Rehab Potential Rehabilitation Potential Good Goals 5 Impairment stairs, function Impairment stairs challenging upon descent due to L knee pain Short Term Goal (STG) Pt will be able to perform at least 8 eccentric step downs without compensation or pain in LLE using 1 or fewer hand rails for balance in order to demonstrate improved L knee strength, stability, and activity tolerance STG Duration 4 weeks Jig Builder Helper Goal (LTG) Pt will be able to perform at least 12 stairs (1 flight) without compensation or pain in LLE using 1 or fewer hand rails for balance in order to demonstrate improved L knee strength, stability, and activity tolerance LTG Duration 8 weeks 4 Impairment squat, function Short Term Goal (STG) Pt will be able to perform at least 10 bilateral squats without compensation or pain in order to demonstrate increased quad and glute strength required for ambulation and activity. STG Duration 4 weeks Jig Builder Helper Goal (LTG) Pt will be able to perform at least 15 bilateral squats without compensation or pain in 30 sec STS test in order to demonstrate increased quad and glute strength required for ambulation and activity. LTG Duration 8 weeks 3 Impairment gait Impairment reported 1 mi limitation, 250 ft in clinic Short Term Goal (STG) Pt will be able to ambulate > 300 ft using LRAD or brace for support as needed in order to demonstrate improved L knee strength, activity tolerance, and return to PLOF. STG Duration 4 weeks Mcc Goal (LTG) Pt will report no limitation in ambulating community distances using LRAD or brace for support as needed in order to demonstrate improved L knee strength, activity tolerance, and return to PLOF. LTG Duration 8 weeks 2 Impairment Activity Impairment No HEP or daily exercise program Short Term Goal (STG) Pt will report compliance with HEP 2-3x/wk for initiation of exercise program and to improve activity tolerance while maximizing gains from PT STG Duration 4 weeks Mcc Goal (LTG) Pt will report compliance with HEP at least 3x/wk for maintenance program after discharge from PT. LTG Duration 8 weeks 1 Impairment LEFS Impairment 45/80 STG Duration 4 weeks Mcc Goal (LTG) Pt will improve LEFS >9 points (1 MCID) in order to demonstrate improved activity tolerance LTG Duration 8 weeks Assessment Summary Assessment Pt is an 83 y.o. female presenting with L knee pain s/ p twisting injury around 2022 while lifting an accordian from the floor. Pt has been wearing a soft brace and limiting activity due to pain. She recently received a cortisone injection for successful pain relief. Pt has negative tests for L knee instability. She has tenderness primarily along L medial and lateral joint line of L knee, in addition to L IT band, lateral femoral condyle , and pes anserine insertion. Despite joint line tenderness, pt does not have positive tests for meniscus injury or other knee ligaments. She has a dx of bursitis, but no palpable bursa; symptoms are consistent with arthritis. Pt does demo minimal L knee swelling compared to R knee. Pt has upcoming MRI to assess soft tissue structures of knee . Left knee AROM is not painful, nor is resisted extension/flexion. Pt has L knee pain with stairs, particularly during eccentric control during descent and during extended periods of ambulation. During squats, pt demos bilateral knee valgus but has no reports of instability or pain. Pt also has decreased balance on BLE especially with decreasing JAJA but no L knee pain. PT educated pt on exam findings, POC, modalities for pain relief, and to continue daily ambulation on stable surfaces as long as pain free. Unless otherwise recommended, pt would benefit from skilled PT for B hip/knee strengthening, functional activity and body mechanics training in order to decrease pain symptoms, improve activity tolerance, and return to PLOF. Physical Therapy Plan Frequency and Duration Frequency of Treatment 2x/Week Duration of treatment (weeks) 8 Plan of Care Start Date 12/10/23 Plan of Care End Date 02/08/24 Therapeutic Interventions Therapeutic Interventions Aquatic Therapy,Balance Training,Gait Training,Home Exercise Program,Joint Mobilizations,Manual Therapy, Neuromuscular Re-education, Orthotic/Prosthetic Management ,Patient/Caregiver Education, Self-Care/Home Management,Soft Tissue Mobilization,Taping, Therapeutic Activities, Therapeutic Exercises Modalities Biofeedback,Cold Pack/Ice Massage,Electric Stimulation, Hot Packs,Traction- Mechanical ,Ultrasound,Vasopneumatic Devices Other Therapeutic Interventions Manual traction Next Visit Focus/Plan Next Note Type Treatment Note Next Visit Plan Hip, glute, quad strengthening . Body mechanics training, step up 4 with eccentric control 12 visits total
--- NOTE | 2023-12-13 11:53 | PT.OTN ---
Current Diagnoses Unilateral primary osteoarthritis, left knee (12/13/23) Other bursitis of knee, left knee (12/13/23) Unspecified abnormalities of gait and mobility (12/13/23) Weakness (12/13/23) Physical Therapy Treatment Note PT-OP-A Visit Information Start: 12/10/23 07:29 Freq: Status: Active Protocol: Document 12/13/23 09:50 NM (Rec: 12/13/23 10:32 NM [id number]) Out-Patient Physical Therapy Visit Information Visit Information Visit Type Treatment Note Visit Note Prudence 12 visits Visit Start Time 09:45 Visit Stop Time 10:30 Visit Number 12/03 Evaluation Information Evaluation Date 12/10/23 Precautions Precautions bursitis PT-OP-B Current Condition Start: 12/10/23 07:29 Freq: Status: Active Protocol: Document 12/10/23 09:47 NM (Rec: 12/10/23 11:22 NM [id number]) Current Condition History of Current Condition Onset Date September 2023 Current Complaints pain History of Current Condition Pt presents with L knee pain and a dx of bursitis. Pain is mainly on L medial knee. Injury occured originally at [facility] when she was lifting an accordian from the floor, then again at [place] , she twisted her knee and had immediate pain. She did not hear a pop, fall, or feel instability. Pain was dull except when she turns a certain way, to the right. She reports that she has difficulty putting on socks ( lifting foot). She has been wearing a soft brace since [place]. Reports that her knee does not feel unstable. She reports no difficulty with walking, standing, or stairs (uses R leg to step) Prior Treatments and Tests 10/2023 X rays reveal no bony abnormalities; received recent cortisone injection, which was helpful Scheduled for future MRI Prior Functional Status Baseline Function- ADL's Independent Baseline Function- Mobility Independent Baseline Function- Gait 2 miles Current Functional Impairments (Reported) Functional Limitations- ADL's difficulty putting on shoes Functional Limitations- Mobility/Gait as far as I need to but limited Functional Limitations- Recreation/ difficulty with lifting Hobbies objects from lower surfaces due to pain and body mechanics PT-OP-C Subjective Start: 12/10/23 07:29 Freq: Status: Active Protocol: Document 12/13/23 09:50 NM (Rec: 12/13/23 10:32 NM [id number]) OP-PT Subjective Patient Comments Patient Comments Pt reports 1/10 L knee pain, no changes since IE. Reports wanting to try silver sneakers aquatics. Will schedule MRI soon PT-OP-D Balance Start: 12/10/23 07:29 Freq: Status: Active Protocol: Document 12/10/23 09:47 NM (Rec: 12/11/23 16:50 NM [id number]) Balance Tests Romberg Romberg 20 sec Single Limb Standing Single Limb- Right 8 sec; increased sway Single Limb- Left 12 sec, no pain; increased sway Tandem Tandem Standing 15 sec, increased sway; no pain PT-OP-E Functional Tests Start: 12/10/23 07:29 Freq: Status: Active Protocol: Document 12/10/23 09:47 NM (Rec: 12/10/23 11:22 NM [id number]) Functional Tests 30 Second Sit to Stand Test Score 11 Comments B knee valgus, no pain or instability reported PT-OP-F Manual Assessment Start: 12/10/23 07:29 Freq: Status: Active Protocol: Document 12/10/23 09:47 NM (Rec: 12/10/23 11:22 NM [id number]) Manual Assessments Soft Tissue Assessment Soft Tissue Mobility Assessment Tenderness along L IT band, medial knee near pes anserine insertion Joint Mobility Assessment Joint Mobility Assessment No L instability, no clicking or catching of L knee with testing. Bilateral joint line pain L knee PT-OP-G Mobility & Gait Start: 12/10/23 07:29 Freq: Status: Active Protocol: Document 12/10/23 09:47 NM (Rec: 12/10/23 11:22 NM [id number]) OP Gait Assessment Gait Gait Assistance Required: Standby Assistance Distance (Feet) 250 Assistive Devices Assistive Device Gait Belt Gait Deviations General Gait Pattern Antalgic Factors Limiting Gait Function Factors Limiting Gait Function Decreased Strength,Pain,Poor Balance Comments Gait Comments Slightly antalgic gait, with increased JAJA and minimal lateral trunk excursion Stair Climbing Evaluation Evaluation Level of Assist On Stairs Contact Guard Assistance Devices Stair Climbing Assistive Devices None,Left Railing Technique/Endurance Stair Climbing Direction Ascend and Descend Stair Climbing Technique Step to Step Number of Steps Climbed 4 Stair Climbing Set # Repetitions (reps) 1 Comments Stair Climbing Comments Leading with RLE, reports pain with L knee flexion while advancing down stairs. Reports no instability or observed, but demos B pelvic drop when stepping down PT-OP-H Neuro Start: 12/10/23 07:29 Freq: Status: Active Protocol: Document 12/10/23 09:47 NM (Rec: 12/10/23 11:22 NM [id number]) Sensation Evaluation Gross Sensation Gross Sensation WNL Comments Summary Comments BLE intact to light touch sensation PT-OP-J Posture/Palpation/Skin Start: 12/10/23 07:29 Freq: Status: Active Protocol: Document 12/10/23 09:47 NM (Rec: 12/10/23 11:22 NM [id number]) Posture Evaluation Position Standing Evaluation View Lateral Head/C-Spine Posture Forward Head Pelvis Posture Anteriorly Tilted Knee Posture (L) Genu Valgus,(R) Genu Valgus Ankle/Foot Posture (L) Neutral,(R) Neutral Palpation Assessment Location L knee Palpation Location M/L joint line, ITB (knee, hip ), medial knee Palpation Findings Soft Tissue Tightness, Tenderness Palpation Details Tenderness reported along medial/lateral joint line. Tenderness at lateral femoral condyle near ITB insertion and minimal tenderness proximally along ITB. Slight swelling of L knee. Tender along pes anserine insertion but no palpable bursa (only tendons) PT-OP-K Range of Motion Start: 12/10/23 07:29 Freq: Status: Active Protocol: Document 12/10/23 09:47 NM (Rec: 12/10/23 11:22 NM [id number]) Hip Goniometric Range of Motion Hip ROM Limitations Comments Full hip AROM/PROM but not formally measured due to time Knee Goniometric Range of Motion Knee Right Patient Position Supine Flexion Active (degrees) 127 Flexion Passive (degrees) 130 Extension Active (degrees) 1 Extension Passive (degrees) 0 Left Patient Position Supine Flexion Active (degrees) 130 Flexion Passive (degrees) 130 Extension Active (degrees) 0 Extension Passive (degrees) 0 Comments No pain with AROM or PROM PT-OP-L Special Tests Start: 12/10/23 07:29 Freq: Status: Active Protocol: Document 12/10/23 09:47 NM (Rec: 12/10/23 11:22 NM [id number]) Special Tests Knee Special Tests Posterior Draw Test Results - Anterior Draw Test Results - Melvin's Compression Test Results + Zahida's Test Test Results + Comments bilaterally Thessaly Test Results - Comments No clicking, locking reproduced Sindy Test Test Results - Comments No clicking, locking reproduced Varus Test Results - Comments 0 and 30 deg Valgus Test Results - Comments 0 and 30 deg Hector's Test Results - PT-OP-M Strength Start: 12/10/23 07:29 Freq: Status: Active Protocol: Document 12/10/23 09:47 NM (Rec: 12/10/23 11:22 NM [id number]) Hip Strength Hip Manual Muscle Testing Right Flexion (L2) 4+ Good+ Extension (S1) 4+ Good+ Abduction 4+ Good+ Adduction 4+ Good+ External Rotation 4+ Good+ Internal Rotation 4+ Good+ Left Flexion (L2) 4+ Good+ Extension (S1) 4+ Good+ Abduction 4+ Good+ Adduction 4+ Good+ External Rotation 4+ Good+ Internal Rotation 4+ Good+ Knee Strength Knee Manual Muscle Testing Right Flexion (S2) 4 Good Extension (L3) 4 Good Left Flexion (S2) 4- Good- Extension (L3) 4- Good- Ankle/Foot Strength Ankle and Foot Manual Muscle Testing Right Dorsiflexion (L4) 4 Good Plantarflexion (S1) 4 Good Left Dorsiflexion (L4) 4 Good Plantarflexion (S1) 4 Good PT-OP-Q Treatments Start: 12/10/23 07:29 Freq: Status: Active Protocol: Document 12/13/23 09:50 NM (Rec: 12/13/23 10:32 NM [id number]) Cardio Equipment Recumbent Bicycle Duration (Minutes) 5 Resistance 4 Seat Position 2 Other warm up; reports no knee pain Therapeutic Exercises Supine Exercises bridge with abd Side bilateral Resistance lvl 2 teal band around thighs Equipment Used weight on heels Reps/Minutes 2x10 ea Comments cued for max hip lift, glute activation; no knee pain with reps straight leg raise Supine Exercise Name neutral hip Side bilateral Resistance AROM Reps/Minutes 2x10 ea Comments cued for quad set throughout entire ROM Sidelying Exercises hip abduction Sidelying Exercise Name with hip IR, slight hip ext Side bilateral Resistance AROM Reps/Minutes 2x8 ea Comments cued for hip ext, Fatiguing and challenging Standing Exercises squat Standing Exercise Name for glute activation Side bilateral Resistance lvl 2 teal band around thighs Equipment Used chair behind pt for glute activation Reps/Minutes 2x8 Comments PT facilitate at hips for glutes back to chair terminal knee extension Standing Exercise Name review next session Side left Resistance lvl 2 teal tb Equipment Used tied around //bars Reps/Minutes 3x8 Comments PT manual contact for soft knee, knee flex target Manual Therapy Treatment Soft Tissue Mobilization L thigh Body Location quad, TFL, adductors, glutes Mobilization Type Myofascial Release, Oscillations,Rolling,Strumming Intensity/Depth Moderate Comments Tenderness at TFL and distal adductors, decreased with oscillations and rolling. Performed oscillations, rolling, strumming, and myofascial release of quads, glutes. Reports decrease in tone, tenderness post mobilization Educated on rolling with rolling pin, heat for pain reduction Self-Care/Home Management Treatment Education Patient Education Home Exercise Program,Joint Protection,Pain Management Other Education 5 minutes: Educated on use of quad vs knee ligaments for stability. HEP: sidelying hip abd, straight leg raise, bridge with hip abd. Educated on heat for soft tissue relaxation, cold for pain reduction, drink water after mobilization, soft tissue mobilization for pain relief and muscle relaxation. Educated on not using arthritis cream prior to or directly after heat/ice due to risk of ackerman PT-OP-T Assessment and Plan Start: 12/10/23 07:29 Freq: Status: Active Protocol: Document 12/13/23 09:50 NM (Rec: 12/13/23 10:32 NM [id number]) Physical Therapy Assessment Goals 5 Impairment stairs, function Impairment stairs challenging upon descent due to L knee pain Short Term Goal (STG) Pt will be able to perform at least 8 eccentric step downs without compensation or pain in LLE using 1 or fewer hand rails for balance in order to demonstrate improved L knee strength, stability, and activity tolerance STG Duration 4 weeks Infectious Disease Physician Goal (LTG) Pt will be able to perform at least 12 stairs (1 flight) without compensation or pain in LLE using 1 or fewer hand rails for balance in order to demonstrate improved L knee strength, stability, and activity tolerance LTG Duration 8 weeks 4 Impairment squat, function Short Term Goal (STG) Pt will be able to perform at least 10 bilateral squats without compensation or pain in order to demonstrate increased quad and glute strength required for ambulation and activity. STG Duration 4 weeks Infectious Disease Physician Goal (LTG) Pt will be able to perform at least 15 bilateral squats without compensation or pain in 30 sec STS test in order to demonstrate increased quad and glute strength required for ambulation and activity. LTG Duration 8 weeks 3 Impairment gait Impairment reported 1 mi limitation, 250 ft in clinic Short Term Goal (STG) Pt will be able to ambulate > 300 ft using LRAD or brace for support as needed in order to demonstrate improved L knee strength, activity tolerance, and return to PLOF. STG Duration 4 weeks Detention Goal (LTG) Pt will report no limitation in ambulating community distances using LRAD or brace for support as needed in order to demonstrate improved L knee strength, activity tolerance, and return to PLOF. LTG Duration 8 weeks 2 Impairment Activity Impairment No HEP or daily exercise program Short Term Goal (STG) Pt will report compliance with HEP 2-3x/wk for initiation of exercise program and to improve activity tolerance while maximizing gains from PT STG Duration 4 weeks Detention Goal (LTG) Pt will report compliance with HEP at least 3x/wk for maintenance program after discharge from PT. LTG Duration 8 weeks 1 Impairment LEFS Impairment 45/80 STG Duration 4 weeks Detention Goal (LTG) Pt will improve LEFS >9 points (1 MCID) in order to demonstrate improved activity tolerance LTG Duration 8 weeks Assessment Summary Assessment Pt tolerated session well. Initiated BLE hip and quad strengthening. Requires cues for correct execution of exercise. Pt utilizing knee ligaments for stability vs quad, so initiated banded TKE with PT assist at knee to prevent hyperextension, cues for softer knee. Pt challenged during squats to chair, tendency for anterior tibia shift which increases knee pain. Does not have knee pain with verbal cues and PT assist at hips to bring hips back toward target chair during squat. Pt would benefit from further glute activation and strengthening for improved hip stability and to offload strain at L knee. Initiated soft tissue mobilization of L thigh muscles for pain reduction. Pt with increased soft tissue restrictions at quad and TFL. Educated on soft tissue mobilization at home, use of modalitie for pain relief. Pt verbalizes understanding. Reports decreased pain after manual treatment, no pain after exercise. Pt would benefit from skilled PT for progressive LLE strengthening and body mechanics training to reduce pain symptoms and improve activity tolerance. Physical Therapy Plan Frequency and Duration Frequency of Treatment 2x/Week Duration of treatment (weeks) 8 Plan of Care Start Date 12/10/23 Plan of Care End Date 02/08/24 Therapeutic Interventions Therapeutic Interventions Aquatic Therapy,Balance Training,Gait Training,Home Exercise Program,Joint Mobilizations,Manual Therapy, Neuromuscular Re-education, Orthotic/Prosthetic Management ,Patient/Caregiver Education, Self-Care/Home Management,Soft Tissue Mobilization,Taping, Therapeutic Activities, Therapeutic Exercises Modalities Biofeedback,Cold Pack/Ice Massage,Electric Stimulation, Hot Packs,Traction- Mechanical ,Ultrasound,Vasopneumatic Devices Other Therapeutic Interventions Manual traction Next Visit Focus/Plan Next Note Type Treatment Note Next Visit Plan Next session: glute activation with squat, hip abd, trial side steps, step up 4, review soft TKE Hip, glute, quad strengthening . Body mechanics training, step up 4 with eccentric control Manual: STM, patellar mobilizations, knee and hip mobilizations prn 12 visits total
--- NOTE | 2023-12-18 12:05 | PT.OTN ---
Current Diagnoses Unilateral primary osteoarthritis, left knee (12/18/23) Other bursitis of knee, left knee (12/18/23) Unspecified abnormalities of gait and mobility (12/18/23) Weakness (12/18/23) Physical Therapy Treatment Note PT-OP-A Visit Information Start: 12/10/23 07:29 Freq: Status: Active Protocol: Document 12/18/23 09:08 NM (Rec: 12/18/23 09:46 NM [id number]) Out-Patient Physical Therapy Visit Information Visit Information Visit Type Treatment Note Visit Note Prudence 12 visits Visit Start Time 09:06 Visit Stop Time 09:45 Visit Number 12/31 Evaluation Information Evaluation Date 12/10/23 PT-OP-B Current Condition Start: 12/10/23 07:29 Freq: Status: Active Protocol: Document 12/10/23 09:47 NM (Rec: 12/10/23 11:22 NM [id number]) Current Condition History of Current Condition Onset Date September 2023 Current Complaints pain History of Current Condition Pt presents with L knee pain and a dx of bursitis. Pain is mainly on L medial knee. Injury occured originally at [facility] when she was lifting an accordian from the floor, then again at [place] , she twisted her knee and had immediate pain. She did not hear a pop, fall, or feel instability. Pain was dull except when she turns a certain way, to the right. She reports that she has difficulty putting on socks ( lifting foot). She has been wearing a soft brace since [place]. Reports that her knee does not feel unstable. She reports no difficulty with walking, standing, or stairs (uses R leg to step) Prior Treatments and Tests 10/2023 X rays reveal no bony abnormalities; received recent cortisone injection, which was helpful Scheduled for future MRI Prior Functional Status Baseline Function- ADL's Independent Baseline Function- Mobility Independent Baseline Function- Gait 2 miles Current Functional Impairments (Reported) Functional Limitations- ADL's difficulty putting on shoes Functional Limitations- Mobility/Gait as far as I need to but limited Functional Limitations- Recreation/ difficulty with lifting Hobbies objects from lower surfaces due to pain and body mechanics PT-OP-C Subjective Start: 12/10/23 07:29 Freq: Status: Active Protocol: Document 12/18/23 09:08 NM (Rec: 12/18/23 09:46 NM [id number]) OP-PT Subjective Patient Comments Patient Comments Pt reports that she had a workout over the weekend at the home show in [place]. She had 1/10 L knee pain today, reports minimal compliance with HEP due to walking at show. PT-OP-D Balance Start: 12/10/23 07:29 Freq: Status: Active Protocol: Document 12/10/23 09:47 NM (Rec: 12/11/23 16:50 NM [id number]) Balance Tests Romberg Romberg 20 sec Single Limb Standing Single Limb- Right 8 sec; increased sway Single Limb- Left 12 sec, no pain; increased sway Tandem Tandem Standing 15 sec, increased sway; no pain PT-OP-E Functional Tests Start: 12/10/23 07:29 Freq: Status: Active Protocol: Document 12/10/23 09:47 NM (Rec: 12/10/23 11:22 NM [id number]) Functional Tests 30 Second Sit to Stand Test Score 11 Comments B knee valgus, no pain or instability reported PT-OP-F Manual Assessment Start: 12/10/23 07:29 Freq: Status: Active Protocol: Document 12/10/23 09:47 NM (Rec: 12/10/23 11:22 NM [id number]) Manual Assessments Soft Tissue Assessment Soft Tissue Mobility Assessment Tenderness along L IT band, medial knee near pes anserine insertion Joint Mobility Assessment Joint Mobility Assessment No L instability, no clicking or catching of L knee with testing. Bilateral joint line pain L knee PT-OP-G Mobility & Gait Start: 12/10/23 07:29 Freq: Status: Active Protocol: Document 12/10/23 09:47 NM (Rec: 12/10/23 11:22 NM [id number]) OP Gait Assessment Gait Gait Assistance Required: Standby Assistance Distance (Feet) 250 Assistive Devices Assistive Device Gait Belt Gait Deviations General Gait Pattern Antalgic Factors Limiting Gait Function Factors Limiting Gait Function Decreased Strength,Pain,Poor Balance Comments Gait Comments Slightly antalgic gait, with increased JAJA and minimal lateral trunk excursion Stair Climbing Evaluation Evaluation Level of Assist On Stairs Contact Guard Assistance Devices Stair Climbing Assistive Devices None,Left Railing Technique/Endurance Stair Climbing Direction Ascend and Descend Stair Climbing Technique Step to Step Number of Steps Climbed 4 Stair Climbing Set # Repetitions (reps) 1 Comments Stair Climbing Comments Leading with RLE, reports pain with L knee flexion while advancing down stairs. Reports no instability or observed, but demos B pelvic drop when stepping down PT-OP-H Neuro Start: 12/10/23 07:29 Freq: Status: Active Protocol: Document 12/10/23 09:47 NM (Rec: 12/10/23 11:22 NM [id number]) Sensation Evaluation Gross Sensation Gross Sensation WNL Comments Summary Comments BLE intact to light touch sensation PT-OP-J Posture/Palpation/Skin Start: 12/10/23 07:29 Freq: Status: Active Protocol: Document 12/10/23 09:47 NM (Rec: 12/10/23 11:22 NM [id number]) Posture Evaluation Position Standing Evaluation View Lateral Head/C-Spine Posture Forward Head Pelvis Posture Anteriorly Tilted Knee Posture (L) Genu Valgus,(R) Genu Valgus Ankle/Foot Posture (L) Neutral,(R) Neutral Palpation Assessment Location L knee Palpation Location M/L joint line, ITB (knee, hip ), medial knee Palpation Findings Soft Tissue Tightness, Tenderness Palpation Details Tenderness reported along medial/lateral joint line. Tenderness at lateral femoral condyle near ITB insertion and minimal tenderness proximally along ITB. Slight swelling of L knee. Tender along pes anserine insertion but no palpable bursa (only tendons) PT-OP-K Range of Motion Start: 12/10/23 07:29 Freq: Status: Active Protocol: Document 12/10/23 09:47 NM (Rec: 12/10/23 11:22 NM [id number]) Hip Goniometric Range of Motion Hip ROM Limitations Comments Full hip AROM/PROM but not formally measured due to time Knee Goniometric Range of Motion Knee Right Patient Position Supine Flexion Active (degrees) 127 Flexion Passive (degrees) 130 Extension Active (degrees) 1 Extension Passive (degrees) 0 Left Patient Position Supine Flexion Active (degrees) 130 Flexion Passive (degrees) 130 Extension Active (degrees) 0 Extension Passive (degrees) 0 Comments No pain with AROM or PROM PT-OP-L Special Tests Start: 12/10/23 07:29 Freq: Status: Active Protocol: Document 12/10/23 09:47 NM (Rec: 12/10/23 11:22 NM [id number]) Special Tests Knee Special Tests Posterior Draw Test Results - Anterior Draw Test Results - Melvin's Compression Test Results + Zahida's Test Test Results + Comments bilaterally Thessaly Test Results - Comments No clicking, locking reproduced Sindy Test Test Results - Comments No clicking, locking reproduced Varus Test Results - Comments 0 and 30 deg Valgus Test Results - Comments 0 and 30 deg Hector's Test Results - PT-OP-M Strength Start: 12/10/23 07:29 Freq: Status: Active Protocol: Document 12/10/23 09:47 NM (Rec: 12/10/23 11:22 NM [id number]) Hip Strength Hip Manual Muscle Testing Right Flexion (L2) 4+ Good+ Extension (S1) 4+ Good+ Abduction 4+ Good+ Adduction 4+ Good+ External Rotation 4+ Good+ Internal Rotation 4+ Good+ Left Flexion (L2) 4+ Good+ Extension (S1) 4+ Good+ Abduction 4+ Good+ Adduction 4+ Good+ External Rotation 4+ Good+ Internal Rotation 4+ Good+ Knee Strength Knee Manual Muscle Testing Right Flexion (S2) 4 Good Extension (L3) 4 Good Left Flexion (S2) 4- Good- Extension (L3) 4- Good- Ankle/Foot Strength Ankle and Foot Manual Muscle Testing Right Dorsiflexion (L4) 4 Good Plantarflexion (S1) 4 Good Left Dorsiflexion (L4) 4 Good Plantarflexion (S1) 4 Good PT-OP-Q Treatments Start: 12/10/23 07:29 Freq: Status: Active Protocol: Document 12/18/23 09:08 NM (Rec: 12/18/23 09:46 NM [id number]) Therapeutic Exercises Supine Exercises stuart stretch Supine Exercise Name for glute and hip flexor stretch Side bilateral Equipment Used leg off mat Reps/Minutes 1x30 ea Comments I can feel it in ITB, no pain reported straight leg raise Supine Exercise Name hip IR to target TFL Side left Resistance AROM Reps/Minutes 2x10 Comments cued quad set entire ROM Sitting Exercises hip abduction Side bilateral Resistance teal tb around thighs Equipment Used seated Reps/Minutes 2x15 Comments cued for form, full abd Standing Exercises heel raises Side bilateral Resistance AROM Equipment Used ballet bar for UE support Reps/Minutes 2x10 Comments cued for full AROM side steps Side bilateral Resistance lvl 2 tb around ankles Equipment Used ballet bar for support Reps/Minutes 2x20 ft Comments cued for squat, larger steps, foot clearance squat Standing Exercise Name for glute activation- touch back to chair Side bilateral Resistance lvl 2 teal band around thighs Equipment Used chair behind pt for glutes, arms in front Reps/Minutes 2x10 Comments cued to push out hard against band. sit hips back for glutes terminal knee extension Standing Exercise Name review next session Manual Therapy Treatment Soft Tissue Mobilization L thigh Body Location quad, TFL, adductors, glutes, hamstrings Mobilization Type Instrument Assisted,Myofascial Release,Oscillations,Rolling, Strumming Intensity/Depth Moderate Body Position Hooklying Comments Tenderness at TFL, glutes, and distal adductors, decreased with oscillations and rolling. Performed oscillations, rolling, strumming, and myofascial release of quads, glutes. Reports decrease in tone, tenderness post mobilization Educated on rolling with rolling pin, heat for pain reduction Joint Mobilizations L knee Joint patellar, tibiofemoral Direction S/I, M/L patellar; P-A for ext , A-P for flex Grade II Body Position Hooklying Reps/Duration 2x30 ea Comments For pain reduction, initiate gentle mobility. Decreased patellar mobility inferiorly an medially. Monitored for pain, none reported PT-OP-T Assessment and Plan Start: 12/10/23 07:29 Freq: Status: Active Protocol: Document 12/18/23 09:08 NM (Rec: 12/18/23 09:46 NM [id number]) Physical Therapy Assessment Goals 5 Impairment stairs, function Impairment stairs challenging upon descent due to L knee pain Short Term Goal (STG) Pt will be able to perform at least 8 eccentric step downs without compensation or pain in LLE using 1 or fewer hand rails for balance in order to demonstrate improved L knee strength, stability, and activity tolerance STG Duration 4 weeks Prison Goal (LTG) Pt will be able to perform at least 12 stairs (1 flight) without compensation or pain in LLE using 1 or fewer hand rails for balance in order to demonstrate improved L knee strength, stability, and activity tolerance LTG Duration 8 weeks 4 Impairment squat, function Short Term Goal (STG) Pt will be able to perform at least 10 bilateral squats without compensation or pain in order to demonstrate increased quad and glute strength required for ambulation and activity. STG Duration 4 weeks Band Instrument Maker Goal (LTG) Pt will be able to perform at least 15 bilateral squats without compensation or pain in 30 sec STS test in order to demonstrate increased quad and glute strength required for ambulation and activity. LTG Duration 8 weeks 3 Impairment gait Impairment reported 1 mi limitation, 250 ft in clinic Short Term Goal (STG) Pt will be able to ambulate > 300 ft using LRAD or brace for support as needed in order to demonstrate improved L knee strength, activity tolerance, and return to PLOF. STG Duration 4 weeks Prison Goal (LTG) Pt will report no limitation in ambulating community distances using LRAD or brace for support as needed in order to demonstrate improved L knee strength, activity tolerance, and return to PLOF. LTG Duration 8 weeks 2 Impairment Activity Impairment No HEP or daily exercise program Short Term Goal (STG) Pt will report compliance with HEP 2-3x/wk for initiation of exercise program and to improve activity tolerance while maximizing gains from PT STG Duration 4 weeks Prison Goal (LTG) Pt will report compliance with HEP at least 3x/wk for maintenance program after discharge from PT. LTG Duration 8 weeks 1 Impairment LEFS Impairment 45/80 STG Duration 4 weeks Prison Goal (LTG) Pt will improve LEFS >9 points (1 MCID) in order to demonstrate improved activity tolerance LTG Duration 8 weeks Assessment Summary Assessment Pt tolerated session well. Reviewed self soft tissue mobilization with pt using rolling pin for pain reduction , soft tissue relaxation. Pt demonstrates and verbalizes understanding. Initiated grade II patellar and tibiofemoral mobilizations for additional pain relief, improve patellar mobility at joint. Pt has decreased inferior patellar glide. Reviewed squat for increased glute activation and to limit knee vaglus; requires verbal and external cues to limit knee valgus compensations. Initiated greater hip abduction strengthening to address muscle imbalances, improve pelvic stability and offload knee during gait. Cued for correct execution, limit compensations of knee valgus or hip rotation. Pt limited by poor activity tolerance. She has upcoming MRI for her knee. Pt would benefit from skilled PT for L hip/glute and quad strengthening and stabilization in order to improve activity tolerance, QOL, and return to PLOF. Physical Therapy Plan Frequency and Duration Frequency of Treatment 2x/Week Duration of treatment (weeks) 8 Plan of Care Start Date 12/10/23 Plan of Care End Date 02/08/24 Therapeutic Interventions Therapeutic Interventions Aquatic Therapy,Balance Training,Gait Training,Home Exercise Program,Joint Mobilizations,Manual Therapy, Neuromuscular Re-education, Orthotic/Prosthetic Management ,Patient/Caregiver Education, Self-Care/Home Management,Soft Tissue Mobilization,Taping, Therapeutic Activities, Therapeutic Exercises Modalities Biofeedback,Cold Pack/Ice Massage,Electric Stimulation, Hot Packs,Traction- Mechanical ,Ultrasound,Vasopneumatic Devices Other Therapeutic Interventions Manual traction Next Visit Focus/Plan Next Note Type Treatment Note Next Visit Plan Next session: leg press, glute activation with squat, hip abd, trial side steps, step up 4, review soft TKE Hip, glute, quad strengthening . Body mechanics training, step up 4 with eccentric control Manual: STM, patellar mobilizations, knee and hip mobilizations prn 12 visits total
--- NOTE | 2023-12-21 14:25 | PT.OTN ---
Current Diagnoses Unilateral primary osteoarthritis, left knee (12/21/23) Other bursitis of knee, left knee (12/21/23) Unspecified abnormalities of gait and mobility (12/21/23) Weakness (12/21/23) Physical Therapy Treatment Note PT-OP-A Visit Information Start: 12/10/23 07:29 Freq: Status: Active Protocol: Document 12/21/23 12:50 AB (Rec: 12/21/23 14:24 AB [id number]) Out-Patient Physical Therapy Visit Information Visit Information Visit Type Treatment Note Visit Note Prudence 12 visits Visit Start Time 13:02 Visit Stop Time 13:45 Visit Number 4 Number of PRODUCTION LINE Visits 1 Evaluation Information Evaluation Date 12/10/23 Precautions Precautions bursitis PT-OP-B Current Condition Start: 12/10/23 07:29 Freq: Status: Active Protocol: Document 12/10/23 09:47 NM (Rec: 12/10/23 11:22 NM [id number]) Current Condition History of Current Condition Onset Date September 2023 Current Complaints pain History of Current Condition Pt presents with L knee pain and a dx of bursitis. Pain is mainly on L medial knee. Injury occured originally at [facility] when she was lifting an accordian from the floor, then again at [place] , she twisted her knee and had immediate pain. She did not hear a pop, fall, or feel instability. Pain was dull except when she turns a certain way, to the right. She reports that she has difficulty putting on socks ( lifting foot). She has been wearing a soft brace since [place]. Reports that her knee does not feel unstable. She reports no difficulty with walking, standing, or stairs (uses R leg to step) Prior Treatments and Tests 10/2023 X rays reveal no bony abnormalities; received recent cortisone injection, which was helpful Scheduled for future MRI Prior Functional Status Baseline Function- ADL's Independent Baseline Function- Mobility Independent Baseline Function- Gait 2 miles Current Functional Impairments (Reported) Functional Limitations- ADL's difficulty putting on shoes Functional Limitations- Mobility/Gait as far as I need to but limited Functional Limitations- Recreation/ difficulty with lifting Hobbies objects from lower surfaces due to pain and body mechanics PT-OP-C Subjective Start: 12/10/23 07:29 Freq: Status: Active Protocol: Document 12/21/23 12:50 AB (Rec: 12/21/23 14:24 AB [id number]) OP-PT Subjective Patient Comments Patient Comments Patient reports she didn't do much exercise due to ( gestures to quads) soreness, as was going up and down stairs when shopping. PT-OP-D Balance Start: 12/10/23 07:29 Freq: Status: Active Protocol: Document 12/10/23 09:47 NM (Rec: 12/11/23 16:50 NM [id number]) Balance Tests Romberg Romberg 20 sec Single Limb Standing Single Limb- Right 8 sec; increased sway Single Limb- Left 12 sec, no pain; increased sway Tandem Tandem Standing 15 sec, increased sway; no pain PT-OP-E Functional Tests Start: 12/10/23 07:29 Freq: Status: Active Protocol: Document 12/10/23 09:47 NM (Rec: 12/10/23 11:22 NM [id number]) Functional Tests 30 Second Sit to Stand Test Score 11 Comments B knee valgus, no pain or instability reported PT-OP-F Manual Assessment Start: 12/10/23 07:29 Freq: Status: Active Protocol: Document 12/10/23 09:47 NM (Rec: 12/10/23 11:22 NM [id number]) Manual Assessments Soft Tissue Assessment Soft Tissue Mobility Assessment Tenderness along L IT band, medial knee near pes anserine insertion Joint Mobility Assessment Joint Mobility Assessment No L instability, no clicking or catching of L knee with testing. Bilateral joint line pain L knee PT-OP-G Mobility & Gait Start: 12/10/23 07:29 Freq: Status: Active Protocol: Document 12/10/23 09:47 NM (Rec: 12/10/23 11:22 NM [id number]) OP Gait Assessment Gait Gait Assistance Required: Standby Assistance Distance (Feet) 250 Assistive Devices Assistive Device Gait Belt Gait Deviations General Gait Pattern Antalgic Factors Limiting Gait Function Factors Limiting Gait Function Decreased Strength,Pain,Poor Balance Comments Gait Comments Slightly antalgic gait, with increased JAJA and minimal lateral trunk excursion Stair Climbing Evaluation Evaluation Level of Assist On Stairs Contact Guard Assistance Devices Stair Climbing Assistive Devices None,Left Railing Technique/Endurance Stair Climbing Direction Ascend and Descend Stair Climbing Technique Step to Step Number of Steps Climbed 4 Stair Climbing Set # Repetitions (reps) 1 Comments Stair Climbing Comments Leading with RLE, reports pain with L knee flexion while advancing down stairs. Reports no instability or observed, but demos B pelvic drop when stepping down PT-OP-H Neuro Start: 12/10/23 07:29 Freq: Status: Active Protocol: Document 12/10/23 09:47 NM (Rec: 12/10/23 11:22 NM [id number]) Sensation Evaluation Gross Sensation Gross Sensation WNL Comments Summary Comments BLE intact to light touch sensation PT-OP-J Posture/Palpation/Skin Start: 12/10/23 07:29 Freq: Status: Active Protocol: Document 12/10/23 09:47 NM (Rec: 12/10/23 11:22 NM [id number]) Posture Evaluation Position Standing Evaluation View Lateral Head/C-Spine Posture Forward Head Pelvis Posture Anteriorly Tilted Knee Posture (L) Genu Valgus,(R) Genu Valgus Ankle/Foot Posture (L) Neutral,(R) Neutral Palpation Assessment Location L knee Palpation Location M/L joint line, ITB (knee, hip ), medial knee Palpation Findings Soft Tissue Tightness, Tenderness Palpation Details Tenderness reported along medial/lateral joint line. Tenderness at lateral femoral condyle near ITB insertion and minimal tenderness proximally along ITB. Slight swelling of L knee. Tender along pes anserine insertion but no palpable bursa (only tendons) PT-OP-K Range of Motion Start: 12/10/23 07:29 Freq: Status: Active Protocol: Document 12/10/23 09:47 NM (Rec: 12/10/23 11:22 NM [id number]) Hip Goniometric Range of Motion Hip ROM Limitations Comments Full hip AROM/PROM but not formally measured due to time Knee Goniometric Range of Motion Knee Right Patient Position Supine Flexion Active (degrees) 127 Flexion Passive (degrees) 130 Extension Active (degrees) 1 Extension Passive (degrees) 0 Left Patient Position Supine Flexion Active (degrees) 130 Flexion Passive (degrees) 130 Extension Active (degrees) 0 Extension Passive (degrees) 0 Comments No pain with AROM or PROM PT-OP-L Special Tests Start: 12/10/23 07:29 Freq: Status: Active Protocol: Document 12/10/23 09:47 NM (Rec: 12/10/23 11:22 NM [id number]) Special Tests Knee Special Tests Posterior Draw Test Results - Anterior Draw Test Results - Melvin's Compression Test Results + Zahida's Test Test Results + Comments bilaterally Thessaly Test Results - Comments No clicking, locking reproduced Sindy Test Test Results - Comments No clicking, locking reproduced Varus Test Results - Comments 0 and 30 deg Valgus Test Results - Comments 0 and 30 deg Hector's Test Results - PT-OP-M Strength Start: 12/10/23 07:29 Freq: Status: Active Protocol: Document 12/10/23 09:47 NM (Rec: 12/10/23 11:22 NM [id number]) Hip Strength Hip Manual Muscle Testing Right Flexion (L2) 4+ Good+ Extension (S1) 4+ Good+ Abduction 4+ Good+ Adduction 4+ Good+ External Rotation 4+ Good+ Internal Rotation 4+ Good+ Left Flexion (L2) 4+ Good+ Extension (S1) 4+ Good+ Abduction 4+ Good+ Adduction 4+ Good+ External Rotation 4+ Good+ Internal Rotation 4+ Good+ Knee Strength Knee Manual Muscle Testing Right Flexion (S2) 4 Good Extension (L3) 4 Good Left Flexion (S2) 4- Good- Extension (L3) 4- Good- Ankle/Foot Strength Ankle and Foot Manual Muscle Testing Right Dorsiflexion (L4) 4 Good Plantarflexion (S1) 4 Good Left Dorsiflexion (L4) 4 Good Plantarflexion (S1) 4 Good PT-OP-Q Treatments Start: 12/10/23 07:29 Freq: Status: Active Protocol: Document 12/21/23 12:50 AB (Rec: 12/21/23 14:24 AB [id number]) Gym Equipment Shuttle Recovery bilateral knee extension Details Verbal cues to avoid locking knees Resistance drk blue band one band 2 sets, 2 bands final set Shuttle Recovery Platform Unstable Reps/Time 15 X3 Therapeutic Exercises Supine Exercises straight leg raise Supine Exercise Name neutral Side left Resistance AROM Reps/Minutes 2x10 Comments Verbal cues to rest a moment between repetitions Sitting Exercises hip abduction Side bilateral Resistance teal tb around thighs Equipment Used seated Reps/Minutes one one minute hold for activation Standing Exercises 4 inch lateral step up Standing Exercise Name with UE use Side left Equipment Used 4 inch step and parallel bars Reps/Minutes X3 Comments reports increased pain 4 inch step up step back Standing Exercise Name with UE use Side left Equipment Used 4 inch step and parallel bars Reps/Minutes X10 Comments monitored for pain side steps Side bilateral Resistance lvl 2 tb above knees Equipment Used mat for support Reps/Minutes one min Comments VC to avoid toe end, reports slight pain toward end of a minute squat Standing Exercise Name mini suqat Side bilateral Resistance lvl 2 teal band around thighs Equipment Used mat behind patient Reps/Minutes X8 inc pain report by 8th rep Comments Verbal cues to squat to a depth that does not increase pain. Therapeutic Activity Therapeutic Activity descending stairs with a less quad dom pattern Reps/Minutes 4 six inch steps X 4 post assessment Comments Verbal and visual cues to flex fwd slightly at hips and for UE positioning on rail when descending stairs, monitored for pain sit to stand Name sit to stand from varying seat heights Reps/Minutes 4 Comments Patient ed self tactile cues for hip hinge, and to flex knees just past 90 deg. Reports decreased, but not eliminated left knee pain with stand to sit from highest seat height that allows for feet to reach the floor. Manual Therapy Treatment Soft Tissue Mobilization L pes anserine area, peripatellar area Mobilization Type Cross-Friction,Rolling Intensity/Depth Moderate Body Position Hooklying Comments monitored for pain Joint Mobilizations L knee Joint patellar Direction inf, sup, CW and CCW Grade III Body Position Supine Reps/Duration X12 each Comments Monitored for pain PT-OP-T Assessment and Plan Start: 12/10/23 07:29 Freq: Status: Active Protocol: Document 12/21/23 12:50 AB (Rec: 12/21/23 14:24 AB [id number]) Physical Therapy Assessment Goals 5 Impairment stairs, function Impairment stairs challenging upon descent due to L knee pain Short Term Goal (STG) Pt will be able to perform at least 8 eccentric step downs without compensation or pain in LLE using 1 or fewer hand rails for balance in order to demonstrate improved L knee strength, stability, and activity tolerance STG Duration 4 weeks Basting Puller Goal (LTG) Pt will be able to perform at least 12 stairs (1 flight) without compensation or pain in LLE using 1 or fewer hand rails for balance in order to demonstrate improved L knee strength, stability, and activity tolerance LTG Duration 8 weeks 4 Impairment squat, function Short Term Goal (STG) Pt will be able to perform at least 10 bilateral squats without compensation or pain in order to demonstrate increased quad and glute strength required for ambulation and activity. STG Duration 4 weeks Basting Puller Goal (LTG) Pt will be able to perform at least 15 bilateral squats without compensation or pain in 30 sec STS test in order to demonstrate increased quad and glute strength required for ambulation and activity. LTG Duration 8 weeks 3 Impairment gait Impairment reported 1 mi limitation, 250 ft in clinic Short Term Goal (STG) Pt will be able to ambulate > 300 ft using LRAD or brace for support as needed in order to demonstrate improved L knee strength, activity tolerance, and return to PLOF. STG Duration 4 weeks Basting Puller Goal (LTG) Pt will report no limitation in ambulating community distances using LRAD or brace for support as needed in order to demonstrate improved L knee strength, activity tolerance, and return to PLOF. LTG Duration 8 weeks 2 Impairment Activity Impairment No HEP or daily exercise program Short Term Goal (STG) Pt will report compliance with HEP 2-3x/wk for initiation of exercise program and to improve activity tolerance while maximizing gains from PT STG Duration 4 weeks Basting Puller Goal (LTG) Pt will report compliance with HEP at least 3x/wk for maintenance program after discharge from PT. LTG Duration 8 weeks 1 Impairment LEFS Impairment 45/80 STG Duration 4 weeks Basting Puller Goal (LTG) Pt will improve LEFS >9 points (1 MCID) in order to demonstrate improved activity tolerance LTG Duration 8 weeks Assessment Summary Assessment Patient reports she is fine end of session, was able to descend stairs with a less quad dominant pattern, reciprocal pattern, bilateral rails, but required increased verbal and visual cues. Mini squat and side stepping was able to perform without pain on initiation, but reported a little pain, a half with increased repetitions. Physical Therapy Plan Frequency and Duration Frequency of Treatment 2x/Week Duration of treatment (weeks) 8 Plan of Care Start Date 12/10/23 Plan of Care End Date 02/08/24 Next Visit Focus/Plan Next Note Type Treatment Note Next Visit Plan Next session: leg press, glute activation with mini squat to HEP if able to perform without increased pain, hip abd, revisit trial side steps, step up 4, review soft TKE Hip, glute, quad strengthening . Body mechanics training, step up 4 with eccentric control Manual: STM, patellar mobilizations, knee and hip mobilizations prn 12 visits total
--- NOTE | 2023-12-24 13:45 | PT.OTN ---
Current Diagnoses Unilateral primary osteoarthritis, left knee (12/24/23) Other bursitis of knee, left knee (12/24/23) Unspecified abnormalities of gait and mobility (12/24/23) Weakness (12/24/23) Physical Therapy Treatment Note PT-OP-A Visit Information Start: 12/10/23 07:29 Freq: Status: Active Protocol: Document 12/24/23 13:03 SP (Rec: 12/24/23 13:51 SP [id number]) Out-Patient Physical Therapy Visit Information Visit Information Visit Type Treatment Note Visit Note Prudence 12 visits Visit Start Time 13:03 Visit Stop Time 13:45 Visit Number 03/02 Number of [employer] Visits 2 Evaluation Information Evaluation Date 12/10/23 Precautions Precautions bursitis PT-OP-B Current Condition Start: 12/10/23 07:29 Freq: Status: Active Protocol: Document 12/10/23 09:47 NM (Rec: 12/10/23 11:22 NM [id number]) Current Condition History of Current Condition Onset Date September 2023 Current Complaints pain History of Current Condition Pt presents with L knee pain and a dx of bursitis. Pain is mainly on L medial knee. Injury occured originally at [facility] when she was lifting an accordian from the floor, then again at [place] , she twisted her knee and had immediate pain. She did not hear a pop, fall, or feel instability. Pain was dull except when she turns a certain way, to the right. She reports that she has difficulty putting on socks ( lifting foot). She has been wearing a soft brace since [place]. Reports that her knee does not feel unstable. She reports no difficulty with walking, standing, or stairs (uses R leg to step) Prior Treatments and Tests 10/2023 X rays reveal no bony abnormalities; received recent cortisone injection, which was helpful Scheduled for future MRI Prior Functional Status Baseline Function- ADL's Independent Baseline Function- Mobility Independent Baseline Function- Gait 2 miles Current Functional Impairments (Reported) Functional Limitations- ADL's difficulty putting on shoes Functional Limitations- Mobility/Gait as far as I need to but limited Functional Limitations- Recreation/ difficulty with lifting Hobbies objects from lower surfaces due to pain and body mechanics PT-OP-C Subjective Start: 12/10/23 07:29 Freq: Status: Active Protocol: Document 12/24/23 13:03 SP (Rec: 12/24/23 13:51 SP [id number]) OP-PT Subjective Patient Comments Patient Comments Pt reports feeling much better , little sore but rolling pin over L ITB helps. PT-OP-D Balance Start: 12/10/23 07:29 Freq: Status: Active Protocol: Document 12/10/23 09:47 NM (Rec: 12/11/23 16:50 NM [id number]) Balance Tests Romberg Romberg 20 sec Single Limb Standing Single Limb- Right 8 sec; increased sway Single Limb- Left 12 sec, no pain; increased sway Tandem Tandem Standing 15 sec, increased sway; no pain PT-OP-E Functional Tests Start: 12/10/23 07:29 Freq: Status: Active Protocol: Document 12/10/23 09:47 NM (Rec: 12/10/23 11:22 NM [id number]) Functional Tests 30 Second Sit to Stand Test Score 11 Comments B knee valgus, no pain or instability reported PT-OP-F Manual Assessment Start: 12/10/23 07:29 Freq: Status: Active Protocol: Document 12/10/23 09:47 NM (Rec: 12/10/23 11:22 NM [id number]) Manual Assessments Soft Tissue Assessment Soft Tissue Mobility Assessment Tenderness along L IT band, medial knee near pes anserine insertion Joint Mobility Assessment Joint Mobility Assessment No L instability, no clicking or catching of L knee with testing. Bilateral joint line pain L knee PT-OP-G Mobility & Gait Start: 12/10/23 07:29 Freq: Status: Active Protocol: Document 12/10/23 09:47 NM (Rec: 12/10/23 11:22 NM [id number]) OP Gait Assessment Gait Gait Assistance Required: Standby Assistance Distance (Feet) 250 Assistive Devices Assistive Device Gait Belt Gait Deviations General Gait Pattern Antalgic Factors Limiting Gait Function Factors Limiting Gait Function Decreased Strength,Pain,Poor Balance Comments Gait Comments Slightly antalgic gait, with increased JAJA and minimal lateral trunk excursion Stair Climbing Evaluation Evaluation Level of Assist On Stairs Contact Guard Assistance Devices Stair Climbing Assistive Devices None,Left Railing Technique/Endurance Stair Climbing Direction Ascend and Descend Stair Climbing Technique Step to Step Number of Steps Climbed 4 Stair Climbing Set # Repetitions (reps) 1 Comments Stair Climbing Comments Leading with RLE, reports pain with L knee flexion while advancing down stairs. Reports no instability or observed, but demos B pelvic drop when stepping down PT-OP-H Neuro Start: 12/10/23 07:29 Freq: Status: Active Protocol: Document 12/10/23 09:47 NM (Rec: 12/10/23 11:22 NM [id number]) Sensation Evaluation Gross Sensation Gross Sensation WNL Comments Summary Comments BLE intact to light touch sensation PT-OP-J Posture/Palpation/Skin Start: 12/10/23 07:29 Freq: Status: Active Protocol: Document 12/10/23 09:47 NM (Rec: 12/10/23 11:22 NM [id number]) Posture Evaluation Position Standing Evaluation View Lateral Head/C-Spine Posture Forward Head Pelvis Posture Anteriorly Tilted Knee Posture (L) Genu Valgus,(R) Genu Valgus Ankle/Foot Posture (L) Neutral,(R) Neutral Palpation Assessment Location L knee Palpation Location M/L joint line, ITB (knee, hip ), medial knee Palpation Findings Soft Tissue Tightness, Tenderness Palpation Details Tenderness reported along medial/lateral joint line. Tenderness at lateral femoral condyle near ITB insertion and minimal tenderness proximally along ITB. Slight swelling of L knee. Tender along pes anserine insertion but no palpable bursa (only tendons) PT-OP-K Range of Motion Start: 12/10/23 07:29 Freq: Status: Active Protocol: Document 12/10/23 09:47 NM (Rec: 12/10/23 11:22 NM [id number]) Hip Goniometric Range of Motion Hip ROM Limitations Comments Full hip AROM/PROM but not formally measured due to time Knee Goniometric Range of Motion Knee Right Patient Position Supine Flexion Active (degrees) 127 Flexion Passive (degrees) 130 Extension Active (degrees) 1 Extension Passive (degrees) 0 Left Patient Position Supine Flexion Active (degrees) 130 Flexion Passive (degrees) 130 Extension Active (degrees) 0 Extension Passive (degrees) 0 Comments No pain with AROM or PROM PT-OP-L Special Tests Start: 12/10/23 07:29 Freq: Status: Active Protocol: Document 12/10/23 09:47 NM (Rec: 12/10/23 11:22 NM [id number]) Special Tests Knee Special Tests Posterior Draw Test Results - Anterior Draw Test Results - Melvin's Compression Test Results + Zahida's Test Test Results + Comments bilaterally Thessaly Test Results - Comments No clicking, locking reproduced Sindy Test Test Results - Comments No clicking, locking reproduced Varus Test Results - Comments 0 and 30 deg Valgus Test Results - Comments 0 and 30 deg Hector's Test Results - PT-OP-M Strength Start: 12/10/23 07:29 Freq: Status: Active Protocol: Document 12/10/23 09:47 NM (Rec: 12/10/23 11:22 NM [id number]) Hip Strength Hip Manual Muscle Testing Right Flexion (L2) 4+ Good+ Extension (S1) 4+ Good+ Abduction 4+ Good+ Adduction 4+ Good+ External Rotation 4+ Good+ Internal Rotation 4+ Good+ Left Flexion (L2) 4+ Good+ Extension (S1) 4+ Good+ Abduction 4+ Good+ Adduction 4+ Good+ External Rotation 4+ Good+ Internal Rotation 4+ Good+ Knee Strength Knee Manual Muscle Testing Right Flexion (S2) 4 Good Extension (L3) 4 Good Left Flexion (S2) 4- Good- Extension (L3) 4- Good- Ankle/Foot Strength Ankle and Foot Manual Muscle Testing Right Dorsiflexion (L4) 4 Good Plantarflexion (S1) 4 Good Left Dorsiflexion (L4) 4 Good Plantarflexion (S1) 4 Good PT-OP-Q Treatments Start: 12/10/23 07:29 Freq: Status: Active Protocol: Document 12/24/23 13:03 SP (Rec: 12/24/23 13:51 SP [id number]) Gym Equipment Shuttle Recovery bilateral knee extension Details Verbal cues to avoid locking knees Resistance 50# (dark navy blue) Shuttle Recovery Platform Unstable Reps/Time 15 X3 Therapeutic Exercises Standing Exercises 4 inch lateral step up Standing Exercise Name with UE contact support Side left Equipment Used 4 inch bottom step Reps/Minutes x10 Comments monitored for pain, little tension 4 inch step up step back Standing Exercise Name with UE contact support Side left Equipment Used 4 inch bottom step Reps/Minutes X10 Comments monitored for pain, little tension side steps Side bilateral Resistance lvl 2 tb at ankles (thighs home) Equipment Used near rail but not needed Reps/Minutes one min Comments VC to avoid toe end, reports slight pain toward end of a minute squat Standing Exercise Name mini squat Side bilateral Resistance lvl 2 teal band around thighs Equipment Used buttocks tap on wall ( posterior), arms across chest Reps/Minutes 2x10 Comments Verbal cues to squat to a depth that does not increase pain. terminal knee extension Standing Exercise Name added to HEP Side left Resistance TB #3 Equipment Used good form post set up and ed use anchor door Reps/Minutes x12 Comments cued not lock end range, keep less = 10 reps, painfree Therapeutic Activity Therapeutic Activity descending stairs with a less quad dom pattern Reps/Minutes 4x4 4 step, 4x4 6 step, 2x 2 8 step Comments cued slow eccentric down knee behind toes, slight fwd at hips, PRN rail 8 step today, none other heights. sit to stand Name sit to stand from varying seat heights: 18, 17, 16 box Reps/Minutes 10 reps total Comments Patient ed self tactile cues for hip hinge, and to flex knees just past 90 deg. Reports decreased, but not eliminated left knee pain with stand to sit from highest seat height that allows for feet to reach the floor. Unable 16 box /s light 1 UE support PT-OP-T Assessment and Plan Start: 12/10/23 07:29 Freq: Status: Active Protocol: Document 12/24/23 13:03 SP (Rec: 12/24/23 13:51 SP [id number]) Physical Therapy Assessment Goals 5 Impairment stairs, function Impairment stairs challenging upon descent due to L knee pain Short Term Goal (STG) Pt will be able to perform at least 8 eccentric step downs without compensation or pain in LLE using 1 or fewer hand rails for balance in order to demonstrate improved L knee strength, stability, and activity tolerance STG Duration 4 weeks Postmaster Goal (LTG) Pt will be able to perform at least 12 stairs (1 flight) without compensation or pain in LLE using 1 or fewer hand rails for balance in order to demonstrate improved L knee strength, stability, and activity tolerance LTG Duration 8 weeks 4 Impairment squat, function Short Term Goal (STG) Pt will be able to perform at least 10 bilateral squats without compensation or pain in order to demonstrate increased quad and glute strength required for ambulation and activity. STG Duration 4 weeks Postmaster Goal (LTG) Pt will be able to perform at least 15 bilateral squats without compensation or pain in 30 sec STS test in order to demonstrate increased quad and glute strength required for ambulation and activity. LTG Duration 8 weeks 3 Impairment gait Impairment reported 1 mi limitation, 250 ft in clinic Short Term Goal (STG) Pt will be able to ambulate > 300 ft using LRAD or brace for support as needed in order to demonstrate improved L knee strength, activity tolerance, and return to PLOF. STG Duration 4 weeks Mcfp Goal (LTG) Pt will report no limitation in ambulating community distances using LRAD or brace for support as needed in order to demonstrate improved L knee strength, activity tolerance, and return to PLOF. LTG Duration 8 weeks 2 Impairment Activity Impairment No HEP or daily exercise program Short Term Goal (STG) Pt will report compliance with HEP 2-3x/wk for initiation of exercise program and to improve activity tolerance while maximizing gains from PT STG Duration 4 weeks Mcfp Goal (LTG) Pt will report compliance with HEP at least 3x/wk for maintenance program after discharge from PT. LTG Duration 8 weeks 1 Impairment LEFS Impairment 45/80 STG Duration 4 weeks Mcfp Goal (LTG) Pt will improve LEFS >9 points (1 MCID) in order to demonstrate improved activity tolerance LTG Duration 8 weeks Assessment Summary Assessment Pt responded well to increased resistance throughout tx, no UE support during band walk or 4-6 step mgt. Requires support for 8 step and lower 16seat height this tx. Light twinge Medial L knee during last 2 reps of TKE so discussed performing no > 10 reps in set. Pt stated feelt pretty good with resisted progression for home: TKE, resisted side/fwd/back stepping, squat, unsupported before left. Will assess steps mgt again before adding to HEP for consistant good response. Physical Therapy Plan Frequency and Duration Frequency of Treatment 2x/Week Duration of treatment (weeks) 8 Plan of Care Start Date 12/10/23 Plan of Care End Date 02/08/24 Therapeutic Interventions Therapeutic Interventions Aquatic Therapy,Balance Training,Gait Training,Home Exercise Program,Joint Mobilizations,Manual Therapy, Neuromuscular Re-education, Orthotic/Prosthetic Management ,Patient/Caregiver Education, Self-Care/Home Management,Soft Tissue Mobilization,Taping, Therapeutic Activities, Therapeutic Exercises Modalities Biofeedback,Cold Pack/Ice Massage,Electric Stimulation, Hot Packs,Traction- Mechanical ,Ultrasound,Vasopneumatic Devices Other Therapeutic Interventions Manual traction Next Visit Focus/Plan Next Note Type Treatment Note Next Visit Plan Next session: leg press /c glute activation, hip abd, revisist response step up/back and fwd down/lateral for HEP /c HO. Hip, glute, quad strengthening . Body mechanics training. Manual: STM, patellar mobilizations, knee and hip mobilizations prn 12 visits total
--- NOTE | 2023-12-31 09:01 | PT.OTN ---
Current Diagnoses Unilateral primary osteoarthritis, left knee (12/31/23) Other bursitis of knee, left knee (12/31/23) Unspecified abnormalities of gait and mobility (12/31/23) Weakness (12/31/23) Physical Therapy Treatment Note PT-OP-A Visit Information Start: 12/10/23 07:29 Freq: Status: Active Protocol: Document 12/31/23 07:32 NM (Rec: 12/31/23 08:16 NM [id number]) Out-Patient Physical Therapy Visit Information Visit Information Visit Type Treatment Note Visit Note Prudence 12 visits Visit Start Time 07:33 Visit Stop Time 08:13 Visit Number 04/02 Precautions Precautions bursitis PT-OP-B Current Condition Start: 12/10/23 07:29 Freq: Status: Active Protocol: Document 12/10/23 09:47 NM (Rec: 12/10/23 11:22 NM [id number]) Current Condition History of Current Condition Onset Date September 2023 Current Complaints pain History of Current Condition Pt presents with L knee pain and a dx of bursitis. Pain is mainly on L medial knee. Injury occured originally at [facility] when she was lifting an accordian from the floor, then again at [facility] , she twisted her knee and had immediate pain. She did not hear a pop, fall, or feel instability. Pain was dull except when she turns a certain way, to the right. She reports that she has difficulty putting on socks ( lifting foot). She has been wearing a soft brace since [facility]. Reports that her knee does not feel unstable. She reports no difficulty with walking, standing, or stairs (uses R leg to step) Prior Treatments and Tests 10/2023 X rays reveal no bony abnormalities; received recent cortisone injection, which was helpful Scheduled for future MRI Prior Functional Status Baseline Function- ADL's Independent Baseline Function- Mobility Independent Baseline Function- Gait 2 miles Current Functional Impairments (Reported) Functional Limitations- ADL's difficulty putting on shoes Functional Limitations- Mobility/Gait as far as I need to but limited Functional Limitations- Recreation/ difficulty with lifting Hobbies objects from lower surfaces due to pain and body mechanics PT-OP-C Subjective Start: 12/10/23 07:29 Freq: Status: Active Protocol: Document 12/31/23 07:32 NM (Rec: 12/31/23 08:16 NM [id number]) OP-PT Subjective Patient Comments Patient Comments Pt reports that her L knee is sore ~1.5/10 pain, did a lot of walking over weekend but not her exercises. Brought exercise log. Reports rolling L ITB feels good. States she twisted her knee this weekend when walking into the kitchen , forgot to move her foot PT-OP-D Balance Start: 12/10/23 07:29 Freq: Status: Active Protocol: Document 12/10/23 09:47 NM (Rec: 12/11/23 16:50 NM [id number]) Balance Tests Romberg Romberg 20 sec Single Limb Standing Single Limb- Right 8 sec; increased sway Single Limb- Left 12 sec, no pain; increased sway Tandem Tandem Standing 15 sec, increased sway; no pain PT-OP-E Functional Tests Start: 12/10/23 07:29 Freq: Status: Active Protocol: Document 12/10/23 09:47 NM (Rec: 12/10/23 11:22 NM [id number]) Functional Tests 30 Second Sit to Stand Test Score 11 Comments B knee valgus, no pain or instability reported PT-OP-F Manual Assessment Start: 12/10/23 07:29 Freq: Status: Active Protocol: Document 12/10/23 09:47 NM (Rec: 12/10/23 11:22 NM [id number]) Manual Assessments Soft Tissue Assessment Soft Tissue Mobility Assessment Tenderness along L IT band, medial knee near pes anserine insertion Joint Mobility Assessment Joint Mobility Assessment No L instability, no clicking or catching of L knee with testing. Bilateral joint line pain L knee PT-OP-G Mobility & Gait Start: 12/10/23 07:29 Freq: Status: Active Protocol: Document 12/10/23 09:47 NM (Rec: 12/10/23 11:22 NM [id number]) OP Gait Assessment Gait Gait Assistance Required: Standby Assistance Distance (Feet) 250 Assistive Devices Assistive Device Gait Belt Gait Deviations General Gait Pattern Antalgic Factors Limiting Gait Function Factors Limiting Gait Function Decreased Strength,Pain,Poor Balance Comments Gait Comments Slightly antalgic gait, with increased JAJA and minimal lateral trunk excursion Stair Climbing Evaluation Evaluation Level of Assist On Stairs Contact Guard Assistance Devices Stair Climbing Assistive Devices None,Left Railing Technique/Endurance Stair Climbing Direction Ascend and Descend Stair Climbing Technique Step to Step Number of Steps Climbed 4 Stair Climbing Set # Repetitions (reps) 1 Comments Stair Climbing Comments Leading with RLE, reports pain with L knee flexion while advancing down stairs. Reports no instability or observed, but demos B pelvic drop when stepping down PT-OP-H Neuro Start: 12/10/23 07:29 Freq: Status: Active Protocol: Document 12/10/23 09:47 NM (Rec: 12/10/23 11:22 NM [id number]) Sensation Evaluation Gross Sensation Gross Sensation WNL Comments Summary Comments BLE intact to light touch sensation PT-OP-J Posture/Palpation/Skin Start: 12/10/23 07:29 Freq: Status: Active Protocol: Document 12/10/23 09:47 NM (Rec: 12/10/23 11:22 NM [id number]) Posture Evaluation Position Standing Evaluation View Lateral Head/C-Spine Posture Forward Head Pelvis Posture Anteriorly Tilted Knee Posture (L) Genu Valgus,(R) Genu Valgus Ankle/Foot Posture (L) Neutral,(R) Neutral Palpation Assessment Location L knee Palpation Location M/L joint line, ITB (knee, hip ), medial knee Palpation Findings Soft Tissue Tightness, Tenderness Palpation Details Tenderness reported along medial/lateral joint line. Tenderness at lateral femoral condyle near ITB insertion and minimal tenderness proximally along ITB. Slight swelling of L knee. Tender along pes anserine insertion but no palpable bursa (only tendons) PT-OP-K Range of Motion Start: 12/10/23 07:29 Freq: Status: Active Protocol: Document 12/10/23 09:47 NM (Rec: 12/10/23 11:22 NM [id number]) Hip Goniometric Range of Motion Hip ROM Limitations Comments Full hip AROM/PROM but not formally measured due to time Knee Goniometric Range of Motion Knee Right Patient Position Supine Flexion Active (degrees) 127 Flexion Passive (degrees) 130 Extension Active (degrees) 1 Extension Passive (degrees) 0 Left Patient Position Supine Flexion Active (degrees) 130 Flexion Passive (degrees) 130 Extension Active (degrees) 0 Extension Passive (degrees) 0 Comments No pain with AROM or PROM PT-OP-L Special Tests Start: 12/10/23 07:29 Freq: Status: Active Protocol: Document 12/10/23 09:47 NM (Rec: 12/10/23 11:22 NM [id number]) Special Tests Knee Special Tests Posterior Draw Test Results - Anterior Draw Test Results - Melvin's Compression Test Results + Zahida's Test Test Results + Comments bilaterally Thessaly Test Results - Comments No clicking, locking reproduced Sindy Test Test Results - Comments No clicking, locking reproduced Varus Test Results - Comments 0 and 30 deg Valgus Test Results - Comments 0 and 30 deg Hector's Test Results - PT-OP-M Strength Start: 12/10/23 07:29 Freq: Status: Active Protocol: Document 12/10/23 09:47 NM (Rec: 12/10/23 11:22 NM [id number]) Hip Strength Hip Manual Muscle Testing Right Flexion (L2) 4+ Good+ Extension (S1) 4+ Good+ Abduction 4+ Good+ Adduction 4+ Good+ External Rotation 4+ Good+ Internal Rotation 4+ Good+ Left Flexion (L2) 4+ Good+ Extension (S1) 4+ Good+ Abduction 4+ Good+ Adduction 4+ Good+ External Rotation 4+ Good+ Internal Rotation 4+ Good+ Knee Strength Knee Manual Muscle Testing Right Flexion (S2) 4 Good Extension (L3) 4 Good Left Flexion (S2) 4- Good- Extension (L3) 4- Good- Ankle/Foot Strength Ankle and Foot Manual Muscle Testing Right Dorsiflexion (L4) 4 Good Plantarflexion (S1) 4 Good Left Dorsiflexion (L4) 4 Good Plantarflexion (S1) 4 Good PT-OP-Q Treatments Start: 12/10/23 07:29 Freq: Status: Active Protocol: Document 12/31/23 07:32 NM (Rec: 12/31/23 08:16 NM [id number]) Therapeutic Exercises Standing Exercises sit to stand Standing Exercise Name initiated in PT: with fwd trunk reach Side bilateral Resistance lvl 3 tb around thighs Equipment Used mesh chair; give PT high five as target Reps/Minutes 1x10 Comments cued for ant weight shift, feet equa;/shldr width, no valgus ankle dorsiflexion Standing Exercise Name toe raises, back against wall Side bilateral Resistance AROM Reps/Minutes 2x10 with 2 hold Comments cued for form, max AROM; reports it's heavy 4 inch lateral step up Standing Exercise Name with flat 1 UE contact support Side left Equipment Used 4 inch bottom step Reps/Minutes 2x10 Comments monitored for pain; cue for hip hinge, knee not over toe for more glute 4 inch step up step back Standing Exercise Name with 1 UE contact support ( flat hand only) Side left Equipment Used 4 inch bottom step > 6 step Reps/Minutes 1x10> 2x10 Comments monitored for pain, cued more glute, center knee over ankle side steps Side bilateral Resistance lvl 2 tb at ankles Reps/Minutes 2x20ft Comments VC to avoid toe end squat Standing Exercise Name mini squat Side bilateral Resistance lvl 3 band around thighs Equipment Used buttocks tap on wall ( posterior), arms across chest Reps/Minutes 2x10 Comments Verbal cues to squat to a depth that does not increase pain. terminal knee extension Standing Exercise Name HEP review Side left Resistance TB #3 Equipment Used good form post set up and ed use anchor door Reps/Minutes 2x10 Comments cued not lock end range, demos lots glute, painfree PT-OP-T Assessment and Plan Start: 12/10/23 07:29 Freq: Status: Active Protocol: Document 12/31/23 07:32 NM (Rec: 12/31/23 08:16 NM [id number]) Physical Therapy Assessment Goals 5 Impairment stairs, function Impairment stairs challenging upon descent due to L knee pain Short Term Goal (STG) Pt will be able to perform at least 8 eccentric step downs without compensation or pain in LLE using 1 or fewer hand rails for balance in order to demonstrate improved L knee strength, stability, and activity tolerance STG Duration 4 weeks [facility] [employer] Goal (LTG) Pt will be able to perform at least 12 stairs (1 flight) without compensation or pain in LLE using 1 or fewer hand rails for balance in order to demonstrate improved L knee strength, stability, and activity tolerance LTG Duration 8 weeks 4 Impairment squat, function Short Term Goal (STG) Pt will be able to perform at least 10 bilateral squats without compensation or pain in order to demonstrate increased quad and glute strength required for ambulation and activity. STG Duration 4 weeks [facility] Special[facility] Goal (LTG) Pt will be able to perform at least 15 bilateral squats without compensation or pain in 30 sec STS test in order to demonstrate increased quad and glute strength required for ambulation and activity. LTG Duration 8 weeks 3 Impairment gait Impairment reported 1 mi limitation, 250 ft in clinic Short Term Goal (STG) Pt will be able to ambulate > 300 ft using LRAD or brace for support as needed in order to demonstrate improved L knee strength, activity tolerance, and return to PLOF. STG Duration 4 weeks [facility] Goal (LTG) Pt will report no limitation in ambulating community distances using LRAD or brace for support as needed in order to demonstrate improved L knee strength, activity tolerance, and return to PLOF. LTG Duration 8 weeks 2 Impairment Activity Impairment No HEP or daily exercise program Short Term Goal (STG) Pt will report compliance with HEP 2-3x/wk for initiation of exercise program and to improve activity tolerance while maximizing gains from PT STG Duration 4 weeks [facility] Goal (LTG) Pt will report compliance with HEP at least 3x/wk for maintenance program after discharge from PT. LTG Duration 8 weeks 1 Impairment LEFS Impairment 45/80 STG Duration 4 weeks [facility] Special[facility] Goal (LTG) Pt will improve LEFS >9 points (1 MCID) in order to demonstrate improved activity tolerance LTG Duration 8 weeks Assessment Summary Assessment Pt tolerated exercises well without any reports of L knee pain. She requires consistent cues for correct execution and to limit compensations with glutes or hip flexors. During TKE, pt attempts to use glutes over quad, PT providing verbal and tactile cues for quad use. Educated on safety during gait, including foot clearance and not twisting at knee. Initiated standing dorsiflexion at wall for imporved foot clearance. Continued with 4-6 step up/ back for increased glute strengthening. Progressed to flat hand on rail to minimize UE use. Added sit to stand for functional activity retraining with resistance band for increased glute medius use. Pt has minimal compliance with HEP, little carryover between sessions. PT educated pt on purpose of HEP and importance of Pt would benefit from skilled PT for progressive quad and glute strengthening, in addition to education regarding activity modification in order to decrease pain symptoms and improve activity tolerance. Physical Therapy Plan Frequency and Duration Frequency of Treatment 2x/Week Duration of treatment (weeks) 8 Plan of Care Start Date 12/10/23 Plan of Care End Date 02/08/24 Therapeutic Interventions Therapeutic Interventions Aquatic Therapy,Balance Training,Gait Training,Home Exercise Program,Joint Mobilizations,Manual Therapy, Neuromuscular Re-education, Orthotic/Prosthetic Management ,Patient/Caregiver Education, Self-Care/Home Management,Soft Tissue Mobilization,Taping, Therapeutic Activities, Therapeutic Exercises Modalities Biofeedback,Cold Pack/Ice Massage,Electric Stimulation, Hot Packs,Traction- Mechanical ,Ultrasound,Vasopneumatic Devices Other Therapeutic Interventions Manual traction Next Visit Focus/Plan Next Note Type Progress Note Next Visit Plan 6 step up/lateral, lunge, squat review, STS review with weight Next session: leg press /c glute activation, hip abd, revisist response step up/back and fwd down/lateral for HEP /c HO. Hip, glute, quad strengthening . Body mechanics training. Manual: STM, patellar mobilizations, knee and hip mobilizations prn 12 visits total
--- NOTE | 2024-01-03 08:43 | PT.OTN ---
Current Diagnoses Unilateral primary osteoarthritis, left knee (01/03/24) Other bursitis of knee, left knee (01/03/24) Unspecified abnormalities of gait and mobility (01/03/24) Weakness (01/03/24) Physical Therapy Treatment Note PT-OP-A Visit Information Start: 12/10/23 07:29 Freq: Status: Active Protocol: Document 01/03/24 07:32 NM (Rec: 01/03/24 08:41 NM [id number]) Out-Patient Physical Therapy Visit Information Visit Information Visit Type Treatment Note Visit Note Prudence 12 visits Visit Start Time 07:32 Visit Stop Time 08:20 Visit Number 05/02 Evaluation Information Evaluation Date 12/10/23 PT-OP-B Current Condition Start: 12/10/23 07:29 Freq: Status: Active Protocol: Document 12/10/23 09:47 NM (Rec: 12/10/23 11:22 NM [id number]) Current Condition History of Current Condition Onset Date September 2023 Current Complaints pain History of Current Condition Pt presents with L knee pain and a dx of bursitis. Pain is mainly on L medial knee. Injury occured originally at [facility] when she was lifting an accordian from the floor, then again at [place] , she twisted her knee and had immediate pain. She did not hear a pop, fall, or feel instability. Pain was dull except when she turns a certain way, to the right. She reports that she has difficulty putting on socks ( lifting foot). She has been wearing a soft brace since [place]. Reports that her knee does not feel unstable. She reports no difficulty with walking, standing, or stairs (uses R leg to step) Prior Treatments and Tests 10/2023 X rays reveal no bony abnormalities; received recent cortisone injection, which was helpful Scheduled for future MRI Prior Functional Status Baseline Function- ADL's Independent Baseline Function- Mobility Independent Baseline Function- Gait 2 miles Current Functional Impairments (Reported) Functional Limitations- ADL's difficulty putting on shoes Functional Limitations- Mobility/Gait as far as I need to but limited Functional Limitations- Recreation/ difficulty with lifting Hobbies objects from lower surfaces due to pain and body mechanics PT-OP-C Subjective Start: 12/10/23 07:29 Freq: Status: Active Protocol: Document 01/03/24 07:32 NM (Rec: 01/03/24 08:41 NM [id number]) OP-PT Subjective Patient Comments Patient Comments Pt reports that she did a lot of stairs yesterday, so her L medial knee feels more sore/ tender today. Reports it's better this morning 12/01. Compliant with HEP, enjoys exercise log PT-OP-D Balance Start: 12/10/23 07:29 Freq: Status: Active Protocol: Document 12/10/23 09:47 NM (Rec: 12/11/23 16:50 NM [id number]) Balance Tests Romberg Romberg 20 sec Single Limb Standing Single Limb- Right 8 sec; increased sway Single Limb- Left 12 sec, no pain; increased sway Tandem Tandem Standing 15 sec, increased sway; no pain PT-OP-E Functional Tests Start: 12/10/23 07:29 Freq: Status: Active Protocol: Document 12/10/23 09:47 NM (Rec: 12/10/23 11:22 NM [id number]) Functional Tests 30 Second Sit to Stand Test Score 11 Comments B knee valgus, no pain or instability reported PT-OP-F Manual Assessment Start: 12/10/23 07:29 Freq: Status: Active Protocol: Document 12/10/23 09:47 NM (Rec: 12/10/23 11:22 NM [id number]) Manual Assessments Soft Tissue Assessment Soft Tissue Mobility Assessment Tenderness along L IT band, medial knee near pes anserine insertion Joint Mobility Assessment Joint Mobility Assessment No L instability, no clicking or catching of L knee with testing. Bilateral joint line pain L knee PT-OP-G Mobility & Gait Start: 12/10/23 07:29 Freq: Status: Active Protocol: Document 12/10/23 09:47 NM (Rec: 12/10/23 11:22 NM [id number]) OP Gait Assessment Gait Gait Assistance Required: Standby Assistance Distance (Feet) 250 Assistive Devices Assistive Device Gait Belt Gait Deviations General Gait Pattern Antalgic Factors Limiting Gait Function Factors Limiting Gait Function Decreased Strength,Pain,Poor Balance Comments Gait Comments Slightly antalgic gait, with increased JAJA and minimal lateral trunk excursion Stair Climbing Evaluation Evaluation Level of Assist On Stairs Contact Guard Assistance Devices Stair Climbing Assistive Devices None,Left Railing Technique/Endurance Stair Climbing Direction Ascend and Descend Stair Climbing Technique Step to Step Number of Steps Climbed 4 Stair Climbing Set # Repetitions (reps) 1 Comments Stair Climbing Comments Leading with RLE, reports pain with L knee flexion while advancing down stairs. Reports no instability or observed, but demos B pelvic drop when stepping down PT-OP-H Neuro Start: 12/10/23 07:29 Freq: Status: Active Protocol: Document 12/10/23 09:47 NM (Rec: 12/10/23 11:22 NM [id number]) Sensation Evaluation Gross Sensation Gross Sensation WNL Comments Summary Comments BLE intact to light touch sensation PT-OP-J Posture/Palpation/Skin Start: 12/10/23 07:29 Freq: Status: Active Protocol: Document 12/10/23 09:47 NM (Rec: 12/10/23 11:22 NM [id number]) Posture Evaluation Position Standing Evaluation View Lateral Head/C-Spine Posture Forward Head Pelvis Posture Anteriorly Tilted Knee Posture (L) Genu Valgus,(R) Genu Valgus Ankle/Foot Posture (L) Neutral,(R) Neutral Palpation Assessment Location L knee Palpation Location M/L joint line, ITB (knee, hip ), medial knee Palpation Findings Soft Tissue Tightness, Tenderness Palpation Details Tenderness reported along medial/lateral joint line. Tenderness at lateral femoral condyle near ITB insertion and minimal tenderness proximally along ITB. Slight swelling of L knee. Tender along pes anserine insertion but no palpable bursa (only tendons) PT-OP-K Range of Motion Start: 12/10/23 07:29 Freq: Status: Active Protocol: Document 12/10/23 09:47 NM (Rec: 12/10/23 11:22 NM [id number]) Hip Goniometric Range of Motion Hip ROM Limitations Comments Full hip AROM/PROM but not formally measured due to time Knee Goniometric Range of Motion Knee Right Patient Position Supine Flexion Active (degrees) 127 Flexion Passive (degrees) 130 Extension Active (degrees) 1 Extension Passive (degrees) 0 Left Patient Position Supine Flexion Active (degrees) 130 Flexion Passive (degrees) 130 Extension Active (degrees) 0 Extension Passive (degrees) 0 Comments No pain with AROM or PROM PT-OP-L Special Tests Start: 12/10/23 07:29 Freq: Status: Active Protocol: Document 12/10/23 09:47 NM (Rec: 12/10/23 11:22 NM [id number]) Special Tests Knee Special Tests Posterior Draw Test Results - Anterior Draw Test Results - Melvin's Compression Test Results + Zahida's Test Test Results + Comments bilaterally Thessaly Test Results - Comments No clicking, locking reproduced Sindy Test Test Results - Comments No clicking, locking reproduced Varus Test Results - Comments 0 and 30 deg Valgus Test Results - Comments 0 and 30 deg Hector's Test Results - PT-OP-M Strength Start: 12/10/23 07:29 Freq: Status: Active Protocol: Document 12/10/23 09:47 NM (Rec: 12/10/23 11:22 NM [id number]) Hip Strength Hip Manual Muscle Testing Right Flexion (L2) 4+ Good+ Extension (S1) 4+ Good+ Abduction 4+ Good+ Adduction 4+ Good+ External Rotation 4+ Good+ Internal Rotation 4+ Good+ Left Flexion (L2) 4+ Good+ Extension (S1) 4+ Good+ Abduction 4+ Good+ Adduction 4+ Good+ External Rotation 4+ Good+ Internal Rotation 4+ Good+ Knee Strength Knee Manual Muscle Testing Right Flexion (S2) 4 Good Extension (L3) 4 Good Left Flexion (S2) 4- Good- Extension (L3) 4- Good- Ankle/Foot Strength Ankle and Foot Manual Muscle Testing Right Dorsiflexion (L4) 4 Good Plantarflexion (S1) 4 Good Left Dorsiflexion (L4) 4 Good Plantarflexion (S1) 4 Good PT-OP-Q Treatments Start: 12/10/23 07:29 Freq: Status: Active Protocol: Document 01/03/24 07:32 NM (Rec: 01/03/24 08:41 NM [id number]) Cardio Equipment Bicycle (Upright) Duration (Minutes) 3 Resistance 3 Seat Position 2 Other warm up; no pain Therapeutic Exercises Standing Exercises lunges Standing Exercise Name 1. mini lunge fwd, 2. lateral Side bilateral Resistance AROM Equipment Used 1 hand use fwd, 2 hand flat to side; PT facil at hips lateral lunge Reps/Minutes 1. 1x8 ea, 2. 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 Cued to maintain level surface. Uses hip and suspension strategy to stabilize. Cued post shldr/ trunk shift for balance, posterior WS w JAJA centered over midfoot Other Activities glute medius activation Reps/Duration 1x30 Comments Educated on research behind increased activation with glutes Self-Care/Home Management Treatment Education Patient Education Home Exercise Program,Joint Protection,Pain Management Other Education Educated on HEP (added banded squats), activity modification (combining tasks to limit reps e.g. laundry to assist pain levels) and modalities for pain relief (e.g. ice massage, cold, during outings) PT-OP-R Modalities Start: 12/10/23 07:29 Freq: Status: Active Protocol: Document 01/03/24 07:32 NM (Rec: 01/03/24 08:42 NM [id number]) Hot Pack/Cold Pack Treatment Ice Massage Location L knee Patient Position Supine Patient Tolerance Good Comments Skin assessed before: normal color, temperature, no abnormalities. 5 minutes, emphasis over medial L knee near MCL, pes anserine. Skin assessed after: redness that resolved before pt left clinic . Tolerated well. Educated on use at home PT-OP-T Assessment and Plan Start: 12/10/23 07:29 Freq: Status: Active Protocol: Document 01/03/24 07:32 NM (Rec: 01/03/24 08:41 NM [id number]) Physical Therapy Assessment Goals 5 Impairment stairs, function Impairment stairs challenging upon descent due to L knee pain Short Term Goal (STG) Pt will be able to perform at least 8 eccentric step downs without compensation or pain in LLE using 1 or fewer hand rails for balance in order to demonstrate improved L knee strength, stability, and activity tolerance STG Duration 4 weeks Service Center Representative Goal (LTG) Pt will be able to perform at least 12 stairs (1 flight) without compensation or pain in LLE using 1 or fewer hand rails for balance in order to demonstrate improved L knee strength, stability, and activity tolerance LTG Duration 8 weeks 4 Impairment squat, function Short Term Goal (STG) Pt will be able to perform at least 10 bilateral squats without compensation or pain in order to demonstrate increased quad and glute strength required for ambulation and activity. STG Duration 4 weeks [facility] Representative Goal (LTG) Pt will be able to perform at least 15 bilateral squats without compensation or pain in 30 sec STS test in order to demonstrate increased quad and glute strength required for ambulation and activity. LTG Duration 8 weeks 3 Impairment gait Impairment reported 1 mi limitation, 250 ft in clinic Short Term Goal (STG) Pt will be able to ambulate > 300 ft using LRAD or brace for support as needed in order to demonstrate improved L knee strength, activity tolerance, and return to PLOF. 01/03/24: pt reports that she can ambulate at least 1 mile before pain, can shop for >30 min before pain STG Duration 4 weeks [facility] Representative Goal (LTG) Pt will report no limitation in ambulating community distances using LRAD or brace for support as needed in order to demonstrate improved L knee strength, activity tolerance, and return to PLOF. LTG Duration 8 weeks 2 Impairment Activity Impairment No HEP or daily exercise program Short Term Goal (STG) Pt will report compliance with HEP 2-3x/wk for initiation of exercise program and to improve activity tolerance while maximizing gains from PT 01/03/24: compliant 2-3/wk with log STG Duration 4 weeks [facility] Representative Goal (LTG) Pt will report compliance with HEP at least 3x/wk for maintenance program after discharge from PT. LTG Duration 8 weeks 1 Impairment LEFS Impairment 45/80 STG Duration 4 weeks Correction Goal (LTG) Pt will improve LEFS >9 points (1 MCID) in order to demonstrate improved activity tolerance LTG Duration 8 weeks Assessment Summary Assessment Pt tolerated exercises well and reports that she has no pain in her L knee during or after session. Pt continues to benefit from glute medius/ glute max strengthening to offset L knee/quad dominance. Initiated mini lunges and lateral lunges, pt cued to maintain hip hinge and posterior hip movement to limit knees over toes. PT facilitating at hips. Initiated banded squat touchdown to chair. Pt requires verbal and visual cues initially but progressed well to reduced feedback; added to HEP. Progressed to 6 lateral step up, which is challenging but not painful for pt. Trialed ice massage post session as part of education regarding modalities and activity management for improved symptom management as pt progresses. Pt would benefit from skilled PT for progressive BLE glute/quad strengthening and biomechanics training to improve carryover , activity tolerance, and symptom management to return to PLOF. Physical Therapy Plan Frequency and Duration Frequency of Treatment 2x/Week Duration of treatment (weeks) 8 Plan of Care Start Date 12/10/23 Plan of Care End Date 02/08/24 Therapeutic Interventions Therapeutic Interventions Aquatic Therapy,Balance Training,Gait Training,Home Exercise Program,Joint Mobilizations,Manual Therapy, Neuromuscular Re-education, Orthotic/Prosthetic Management ,Patient/Caregiver Education, Self-Care/Home Management,Soft Tissue Mobilization,Taping, Therapeutic Activities, Therapeutic Exercises Modalities Biofeedback,Cold Pack/Ice Massage,Electric Stimulation, Hot Packs,Traction- Mechanical ,Ultrasound,Vasopneumatic Devices Other Therapeutic Interventions Manual traction Next Visit Focus/Plan Next Note Type Progress Note Next Visit Plan 6 step up/lateral, lunge, squat review, STS review with weight vs squat, leg press, TKE Next session: leg press /c glute activation, hip abd, revisist response step up/back and fwd down/lateral for HEP /c HO. Hip, glute, quad strengthening . Body mechanics training. Manual: STM, patellar mobilizations, knee and hip mobilizations prn 12 visits total
--- NOTE | 2024-01-07 12:41 | PT.OTN ---
Current Diagnoses Unilateral primary osteoarthritis, left knee (01/07/24) Other bursitis of knee, left knee (01/07/24) Unspecified abnormalities of gait and mobility (01/07/24) Weakness (01/07/24) Physical Therapy Treatment Note PT-OP-A Visit Information Start: 12/10/23 07:29 Freq: Status: Active Protocol: Document 01/07/24 08:18 NM (Rec: 01/07/24 09:02 NM [id number]) Out-Patient Physical Therapy Visit Information Visit Information Visit Type Progress Note Visit Note Prudence Visit Start Time 08:18 Visit Stop Time 08:58 Visit Number 8 Evaluation Information Evaluation Date 12/10/23 PT-OP-B Current Condition Start: 12/10/23 07:29 Freq: Status: Active Protocol: Document 12/10/23 09:47 NM (Rec: 12/10/23 11:22 NM [id number]) Current Condition History of Current Condition Onset Date September 2023 Current Complaints pain History of Current Condition Pt presents with L knee pain and a dx of bursitis. Pain is mainly on L medial knee. Injury occured originally at [facility] when she was lifting an accordian from the floor, then again at [facility] , she twisted her knee and had immediate pain. She did not hear a pop, fall, or feel instability. Pain was dull except when she turns a certain way, to the right. She reports that she has difficulty putting on socks ( lifting foot). She has been wearing a soft brace since [facility]. Reports that her knee does not feel unstable. She reports no difficulty with walking, standing, or stairs (uses R leg to step) Prior Treatments and Tests 10/2023 X rays reveal no bony abnormalities; received recent cortisone injection, which was helpful Scheduled for future MRI Prior Functional Status Baseline Function- ADL's Independent Baseline Function- Mobility Independent Baseline Function- Gait 2 miles Current Functional Impairments (Reported) Functional Limitations- ADL's difficulty putting on shoes Functional Limitations- Mobility/Gait as far as I need to but limited Functional Limitations- Recreation/ difficulty with lifting Hobbies objects from lower surfaces due to pain and body mechanics PT-OP-C Subjective Start: 12/10/23 07:29 Freq: Status: Active Protocol: Document 01/07/24 08:18 NM (Rec: 01/07/24 09:02 NM [id number]) OP-PT Subjective Patient Comments Patient Comments Pt reports 0/10 L knee pain. She reports that she has not been compliant with HEP, no pain or soreness after last session but took it easy. She reports improvement in walking, particularly with pain management. States more active, getting back to normal Patient Reported Progress Improving PT-OP-D Balance Start: 12/10/23 07:29 Freq: Status: Active Protocol: Document 12/10/23 09:47 NM (Rec: 12/11/23 16:50 NM [id number]) Balance Tests Romberg Romberg 20 sec Single Limb Standing Single Limb- Right 8 sec; increased sway Single Limb- Left 12 sec, no pain; increased sway Tandem Tandem Standing 15 sec, increased sway; no pain PT-OP-E Functional Tests Start: 12/10/23 07:29 Freq: Status: Active Protocol: Document 12/10/23 09:47 NM (Rec: 12/10/23 11:22 NM [id number]) Functional Tests 30 Second Sit to Stand Test Score 11 Comments B knee valgus, no pain or instability reported PT-OP-F Manual Assessment Start: 12/10/23 07:29 Freq: Status: Active Protocol: Document 12/10/23 09:47 NM (Rec: 12/10/23 11:22 NM [id number]) Manual Assessments Soft Tissue Assessment Soft Tissue Mobility Assessment Tenderness along L IT band, medial knee near pes anserine insertion Joint Mobility Assessment Joint Mobility Assessment No L instability, no clicking or catching of L knee with testing. Bilateral joint line pain L knee PT-OP-G Mobility & Gait Start: 12/10/23 07:29 Freq: Status: Active Protocol: Document 12/10/23 09:47 NM (Rec: 12/10/23 11:22 NM [id number]) OP Gait Assessment Gait Gait Assistance Required: Standby Assistance Distance (Feet) 250 Assistive Devices Assistive Device Gait Belt Gait Deviations General Gait Pattern Antalgic Factors Limiting Gait Function Factors Limiting Gait Function Decreased Strength,Pain,Poor Balance Comments Gait Comments Slightly antalgic gait, with increased JAJA and minimal lateral trunk excursion Stair Climbing Evaluation Evaluation Level of Assist On Stairs Contact Guard Assistance Devices Stair Climbing Assistive Devices None,Left Railing Technique/Endurance Stair Climbing Direction Ascend and Descend Stair Climbing Technique Step to Step Number of Steps Climbed 4 Stair Climbing Set # Repetitions (reps) 1 Comments Stair Climbing Comments Leading with RLE, reports pain with L knee flexion while advancing down stairs. Reports no instability or observed, but demos B pelvic drop when stepping down PT-OP-H Neuro Start: 12/10/23 07:29 Freq: Status: Active Protocol: Document 12/10/23 09:47 NM (Rec: 12/10/23 11:22 NM [id number]) Sensation Evaluation Gross Sensation Gross Sensation WNL Comments Summary Comments BLE intact to light touch sensation PT-OP-J Posture/Palpation/Skin Start: 12/10/23 07:29 Freq: Status: Active Protocol: Document 12/10/23 09:47 NM (Rec: 12/10/23 11:22 NM [id number]) Posture Evaluation Position Standing Evaluation View Lateral Head/C-Spine Posture Forward Head Pelvis Posture Anteriorly Tilted Knee Posture (L) Genu Valgus,(R) Genu Valgus Ankle/Foot Posture (L) Neutral,(R) Neutral Palpation Assessment Location L knee Palpation Location M/L joint line, ITB (knee, hip ), medial knee Palpation Findings Soft Tissue Tightness, Tenderness Palpation Details Tenderness reported along medial/lateral joint line. Tenderness at lateral femoral condyle near ITB insertion and minimal tenderness proximally along ITB. Slight swelling of L knee. Tender along pes anserine insertion but no palpable bursa (only tendons) PT-OP-K Range of Motion Start: 12/10/23 07:29 Freq: Status: Active Protocol: Document 01/07/24 08:18 NM (Rec: 01/07/24 09:02 NM [id number]) Knee Goniometric Range of Motion Knee Left Patient Position Supine Flexion Active (degrees) 130 Flexion Passive (degrees) 130 Extension Active (degrees) 0 Extension Passive (degrees) 0 Comments No pain with AROM or PROM PT-OP-L Special Tests Start: 12/10/23 07:29 Freq: Status: Active Protocol: Document 12/10/23 09:47 NM (Rec: 12/10/23 11:22 NM [id number]) Special Tests Knee Special Tests Posterior Draw Test Results - Anterior Draw Test Results - Melvin's Compression Test Results + Zahida's Test Test Results + Comments bilaterally Thessaly Test Results - Comments No clicking, locking reproduced Sindy Test Test Results - Comments No clicking, locking reproduced Varus Test Results - Comments 0 and 30 deg Valgus Test Results - Comments 0 and 30 deg Hector's Test Results - PT-OP-M Strength Start: 12/10/23 07:29 Freq: Status: Active Protocol: Document 01/07/24 08:18 NM (Rec: 01/07/24 09:02 NM [id number]) Hip Strength Hip Manual Muscle Testing Left Flexion (L2) 4+ Good+ Extension (S1) 4+ Good+ Abduction 4+ Good+ Adduction 4+ Good+ External Rotation 4+ Good+ Internal Rotation 4+ Good+ Comments 01/07/24: 4+/5 all motion Knee Strength Knee Manual Muscle Testing Left Flexion (S2) 4- Good- Extension (L3) 4- Good- Comments 01/07/24: 4/5, no pain PT-OP-Q Treatments Start: 12/10/23 07:29 Freq: Status: Active Protocol: Document 01/07/24 08:18 NM (Rec: 01/07/24 09:02 NM [id number]) Gym Equipment Shuttle Recovery L squat Details cued knee centered over ankle, no pain Resistance 37# Reps/Time 2x8 B squat Details lvl 2 band thighs so no valgus , cued TKE w/o locking knee; no pain Resistance 50# ([employer]) Reps/Time 2x8 Therapeutic Exercises Standing Exercises lunges Standing Exercise Name retry next session 4 inch lateral step up Standing Exercise Name 6 step Side left Equipment Used 2 finger support 1 hand Reps/Minutes 2x10 Comments no pain 4 inch step up step back Standing Exercise Name 1. stairs 6, 2. step up 6 Side left Resistance AROM Equipment Used 1 finger R hand rail for balance Reps/Minutes 1. 2 sets x4, 2. 2x10 ea 6 Comments reports no pain, cued limit RLE assistance, level hips side steps Standing Exercise Name 1. step steps, 2. fwd monster walk Side bilateral Resistance lvl 3 tb around ankles Reps/Minutes 2x10 ft ea Comments cues to nut picker feet, no shuffle, neutral hip/toe squat Standing Exercise Name 1. taps to chair, 2. tap sto chair with foam Side bilateral Resistance lvl 2 band around thighs Equipment Used buttock tap to chair Reps/Minutes 1. 1x10, 2. 2x10 Comments verbal cues hip hinge PT-OP-R Modalities Start: 12/10/23 07:29 Freq: Status: Active Protocol: Document 01/03/24 07:32 NM (Rec: 01/03/24 08:42 NM [id number]) Hot Pack/Cold Pack Treatment Ice Massage Location L knee Patient Position Supine Patient Tolerance Good Comments Skin assessed before: normal color, temperature, no abnormalities. 5 minutes, emphasis over medial L knee near MCL, pes anserine. Skin assessed after: redness that resolved before pt left clinic . Tolerated well. Educated on use at home PT-OP-T Assessment and Plan Start: 12/10/23 07:29 Freq: Status: Active Protocol: Document 01/07/24 08:18 NM (Rec: 01/07/24 09:02 NM [id number]) Physical Therapy Assessment Goals 5 Impairment stairs, function Impairment stairs challenging upon descent due to L knee pain Short Term Goal (STG) Pt will be able to perform at least 8 eccentric step downs without compensation or pain in LLE using 1 or fewer hand rails for balance in order to demonstrate improved L knee strength, stability, and activity tolerance 01/07/24: 1/10 pain with 8 stairs, ascending and not descending STG Duration 4 weeks PROGRESSING Shelter Goal (LTG) Pt will be able to perform at least 12 stairs (1 flight) without compensation or pain in LLE using 1 or fewer hand rails for balance in order to demonstrate improved L knee strength, stability, and activity tolerance LTG Duration 8 weeks 4 Impairment squat, function Short Term Goal (STG) Pt will be able to perform at least 10 bilateral squats without compensation or pain in order to demonstrate increased quad and glute strength required for ambulation and activity. 01/07/24: Perform 10 squats with tactile, visual, and verbal cues STG Duration 4 weeks PROGRESSING Shelter Goal (LTG) Pt will be able to perform at least 15 bilateral squats without compensation or pain in 30 sec STS test in order to demonstrate increased quad and glute strength required for ambulation and activity. LTG Duration 8 weeks 3 Impairment gait Impairment reported 1 mi limitation, 250 ft in clinic Short Term Goal (STG) Pt will be able to ambulate > 300 ft using LRAD or brace for support as needed in order to demonstrate improved L knee strength, activity tolerance, and return to PLOF. 01/03/24: pt reports that she can ambulate at least 1 mile before pain, can shop for >30 min before pain STG Duration 4 weeks MET Shelter Goal (LTG) Pt will report no limitation in ambulating community distances using LRAD or brace for support as needed in order to demonstrate improved L knee strength, activity tolerance, and return to PLOF. 01/07/24: reports 15-20 min before L knee pain increases LTG Duration 8 weeks 2 Impairment Activity Impairment No HEP or daily exercise program Short Term Goal (STG) Pt will report compliance with HEP 2-3x/wk for initiation of exercise program and to improve activity tolerance while maximizing gains from PT 01/03/24: compliant 2-3/wk with log STG Duration 4 weeks PROGRESSING Salt Washer Goal (LTG) Pt will report compliance with HEP at least 3x/wk for maintenance program after discharge from PT. LTG Duration 8 weeks 1 Impairment LEFS Impairment 45/80 STG Duration 4 weeks Salt Washer Goal (LTG) Pt will improve LEFS >9 points (1 MCID) in order to demonstrate improved activity tolerance 01/07/24: 54/80 LTG Duration 8 weeks, MET< PROGRESSING Assessment Summary Assessment Pt tolerated session well and demos improved pain management . Initiated leg press for greater glute strengthening, using band to assist with tactile feedback for form and glute medius activation. During step ups, pt demos fewer compensation with RLE; requires cues for level hips due to glute medius weakness but demos improved glute/quad strength overall. Progressed from 4 step >6 step. Pt able to perform stairs with only 1 /10 pain in L knee, improved form during step ups. Continues to require cues during squats to limit compensations and decrease occasional medial knee pain. Pt has been seen x7 since [facility] for L knee pain. She is progressing toward goals, and reports improvements in ability to perform ADL/IADLs and ambulate with less pain. LEFS score has improved by 1 MCID. She has had minimal compliance with HEP; issued exercise log to help with compliance. Pt has had MRI but not yet received results. However, she would benefit from skilled PT for hip strengthening, balance, and body mechanics training to improve pain management and activity tolerance. Physical Therapy Plan Frequency and Duration Frequency of Treatment 2x/Week Duration of treatment (weeks) 8 Plan of Care Start Date 12/10/23 Plan of Care End Date 02/08/24 Therapeutic Interventions Therapeutic Interventions Aquatic Therapy,Balance Training,Gait Training,Home Exercise Program,Joint Mobilizations,Manual Therapy, Neuromuscular Re-education, Orthotic/Prosthetic Management ,Patient/Caregiver Education, Self-Care/Home Management,Soft Tissue Mobilization,Taping, Therapeutic Activities, Therapeutic Exercises Modalities Biofeedback,Cold Pack/Ice Massage,Electric Stimulation, Hot Packs,Traction- Mechanical ,Ultrasound,Vasopneumatic Devices Other Therapeutic Interventions Manual traction Next Visit Focus/Plan Next Note Type Treatment Note Next Visit Plan 6 step up/lateral, lunge, squat review, STS review with weight vs squat, leg press, TKE Next session: leg press /c glute activation, hip abd, revisit response step up/back and fwd down/lateral for HEP / c HO. Update HEP Hip, glute, quad strengthening . Body mechanics training. Manual: STM, patellar mobilizations, knee and hip mobilizations prn 12 visits total
--- NOTE | 2024-01-09 09:44 | PT.OTN ---
Current Diagnoses Unilateral primary osteoarthritis, left knee (01/09/24) Other bursitis of knee, left knee (01/09/24) Unspecified abnormalities of gait and mobility (01/09/24) Weakness (01/09/24) Physical Therapy Treatment Note PT-OP-A Visit Information Start: 12/10/23 07:29 Freq: Status: Active Protocol: Document 01/09/24 09:04 SP (Rec: 01/09/24 09:48 SP [id number]) Out-Patient Physical Therapy Visit Information Visit Information Visit Type Treatment Note Visit Note Prudence 12/01 post Prog Note Visit Start Time 09:04 Visit Stop Time 09:44 Visit Number 9 Number of [employer] Visits 1 Evaluation Information Evaluation Date 12/10/23 Precautions Precautions bursitis PT-OP-B Current Condition Start: 12/10/23 07:29 Freq: Status: Active Protocol: Document 12/10/23 09:47 NM (Rec: 12/10/23 11:22 NM [id number]) Current Condition History of Current Condition Onset Date September 2023 Current Complaints pain History of Current Condition Pt presents with L knee pain and a dx of bursitis. Pain is mainly on L medial knee. Injury occured originally at [facility] when she was lifting an accordian from the floor, then again at [facility] , she twisted her knee and had immediate pain. She did not hear a pop, fall, or feel instability. Pain was dull except when she turns a certain way, to the right. She reports that she has difficulty putting on socks ( lifting foot). She has been wearing a soft brace since [facility]. Reports that her knee does not feel unstable. She reports no difficulty with walking, standing, or stairs (uses R leg to step) Prior Treatments and Tests 10/2023 X rays reveal no bony abnormalities; received recent cortisone injection, which was helpful Scheduled for future MRI Prior Functional Status Baseline Function- ADL's Independent Baseline Function- Mobility Independent Baseline Function- Gait 2 miles Current Functional Impairments (Reported) Functional Limitations- ADL's difficulty putting on shoes Functional Limitations- Mobility/Gait as far as I need to but limited Functional Limitations- Recreation/ difficulty with lifting Hobbies objects from lower surfaces due to pain and body mechanics PT-OP-C Subjective Start: 12/10/23 07:29 Freq: Status: Active Protocol: Document 01/09/24 09:04 SP (Rec: 01/09/24 09:48 SP [id number]) OP-PT Subjective Patient Comments Patient Comments Pt reports tired and little off balance after last tx. PT-OP-D Balance Start: 12/10/23 07:29 Freq: Status: Active Protocol: Document 12/10/23 09:47 NM (Rec: 12/11/23 16:50 NM [id number]) Balance Tests Romberg Romberg 20 sec Single Limb Standing Single Limb- Right 8 sec; increased sway Single Limb- Left 12 sec, no pain; increased sway Tandem Tandem Standing 15 sec, increased sway; no pain PT-OP-E Functional Tests Start: 12/10/23 07:29 Freq: Status: Active Protocol: Document 12/10/23 09:47 NM (Rec: 12/10/23 11:22 NM [id number]) Functional Tests 30 Second Sit to Stand Test Score 11 Comments B knee valgus, no pain or instability reported PT-OP-F Manual Assessment Start: 12/10/23 07:29 Freq: Status: Active Protocol: Document 12/10/23 09:47 NM (Rec: 12/10/23 11:22 NM [id number]) Manual Assessments Soft Tissue Assessment Soft Tissue Mobility Assessment Tenderness along L IT band, medial knee near pes anserine insertion Joint Mobility Assessment Joint Mobility Assessment No L instability, no clicking or catching of L knee with testing. Bilateral joint line pain L knee PT-OP-G Mobility & Gait Start: 12/10/23 07:29 Freq: Status: Active Protocol: Document 12/10/23 09:47 NM (Rec: 12/10/23 11:22 NM [id number]) OP Gait Assessment Gait Gait Assistance Required: Standby Assistance Distance (Feet) 250 Assistive Devices Assistive Device Gait Belt Gait Deviations General Gait Pattern Antalgic Factors Limiting Gait Function Factors Limiting Gait Function Decreased Strength,Pain,Poor Balance Comments Gait Comments Slightly antalgic gait, with increased JAJA and minimal lateral trunk excursion Stair Climbing Evaluation Evaluation Level of Assist On Stairs Contact Guard Assistance Devices Stair Climbing Assistive Devices None,Left Railing Technique/Endurance Stair Climbing Direction Ascend and Descend Stair Climbing Technique Step to Step Number of Steps Climbed 4 Stair Climbing Set # Repetitions (reps) 1 Comments Stair Climbing Comments Leading with RLE, reports pain with L knee flexion while advancing down stairs. Reports no instability or observed, but demos B pelvic drop when stepping down PT-OP-H Neuro Start: 12/10/23 07:29 Freq: Status: Active Protocol: Document 12/10/23 09:47 NM (Rec: 12/10/23 11:22 NM [id number]) Sensation Evaluation Gross Sensation Gross Sensation WNL Comments Summary Comments BLE intact to light touch sensation PT-OP-J Posture/Palpation/Skin Start: 12/10/23 07:29 Freq: Status: Active Protocol: Document 12/10/23 09:47 NM (Rec: 12/10/23 11:22 NM [id number]) Posture Evaluation Position Standing Evaluation View Lateral Head/C-Spine Posture Forward Head Pelvis Posture Anteriorly Tilted Knee Posture (L) Genu Valgus,(R) Genu Valgus Ankle/Foot Posture (L) Neutral,(R) Neutral Palpation Assessment Location L knee Palpation Location M/L joint line, ITB (knee, hip ), medial knee Palpation Findings Soft Tissue Tightness, Tenderness Palpation Details Tenderness reported along medial/lateral joint line. Tenderness at lateral femoral condyle near ITB insertion and minimal tenderness proximally along ITB. Slight swelling of L knee. Tender along pes anserine insertion but no palpable bursa (only tendons) PT-OP-K Range of Motion Start: 12/10/23 07:29 Freq: Status: Active Protocol: Document 01/07/24 08:18 NM (Rec: 01/07/24 09:02 NM [id number]) Knee Goniometric Range of Motion Knee Left Patient Position Supine Flexion Active (degrees) 130 Flexion Passive (degrees) 130 Extension Active (degrees) 0 Extension Passive (degrees) 0 Comments No pain with AROM or PROM PT-OP-L Special Tests Start: 12/10/23 07:29 Freq: Status: Active Protocol: Document 12/10/23 09:47 NM (Rec: 12/10/23 11:22 NM [id number]) Special Tests Knee Special Tests Posterior Draw Test Results - Anterior Draw Test Results - Melvin's Compression Test Results + Zahida's Test Test Results + Comments bilaterally Thessaly Test Results - Comments No clicking, locking reproduced Sindy Test Test Results - Comments No clicking, locking reproduced Varus Test Results - Comments 0 and 30 deg Valgus Test Results - Comments 0 and 30 deg Hector's Test Results - PT-OP-M Strength Start: 12/10/23 07:29 Freq: Status: Active Protocol: Document 01/07/24 08:18 NM (Rec: 01/07/24 09:02 NM [id number]) Hip Strength Hip Manual Muscle Testing Left Flexion (L2) 4+ Good+ Extension (S1) 4+ Good+ Abduction 4+ Good+ Adduction 4+ Good+ External Rotation 4+ Good+ Internal Rotation 4+ Good+ Comments 01/07/24: 4+/5 all motion Knee Strength Knee Manual Muscle Testing Left Flexion (S2) 4- Good- Extension (L3) 4- Good- Comments 01/07/24: 4/5, no pain PT-OP-Q Treatments Start: 12/10/23 07:29 Freq: Status: Active Protocol: Document 01/09/24 09:04 SP (Rec: 01/09/24 09:48 SP [id number]) Gym Equipment Shuttle Recovery L squat Details cued knee centered over ankle, no pain Resistance 37# (teal) Reps/Time 2x8 B squat Details lvl 2 band thighs so no valgus , cued TKE w/o locking knee; no pain Resistance 50# ([employer]) Reps/Time x20- good tiring reports much stronger Therapeutic Exercises Sitting Exercises self STMs Sitting Exercise Name review rolling pin: quad, HS, calf, ITB Side bilateral Reps/Minutes 2 min Comments good response less muscle tension Standing Exercises forward step Standing Exercise Name trial in PT-challenged/need much cuing Side bilateral Resistance ROM Equipment Used 2 step, counter contact, mirror Reps/Minutes 5 reps Comments max cue and tactile maintain knee behind forefoot, hip hinge- lunges Standing Exercise Name 1. mini lunge fwd 2. lateral mini lunge Side bilateral Resistance AROM- in PT only Equipment Used 1. counter contact light fwd 2 . hand on hips lateral Reps/Minutes 1. 10 2. x10 Comments Max cues knee behind forefoot, hip hinge 4 inch lateral step up Standing Exercise Name 6 step Side left Equipment Used 1 finger support 1 hand Reps/Minutes 2x10 Comments no pain, tactile cue for knee behind forefoot/hip hinge/heel drive- better 4 inch step up step back Standing Exercise Name 1. stairs 6, 2. step up 6 Side left Resistance AROM Equipment Used 1 finger R hand rail PRN 50% contact for balance Reps/Minutes 1. 4 sets x4, 2. 2x12 ea 6 Comments pnfree, cued rhomboid& core fac improved level hips soft reciprocals tepp side steps Standing Exercise Name 1. lateral steps, 2. fwd & backward monster walk Side bilateral Resistance lvl 3 tb around ankles Reps/Minutes 1. 20 ft ea 2. 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 5 minutes, emphasis over medial L knee near MCL, pes anserine. Skin assessed after: redness that resolved before pt left clinic . Tolerated well. Educated on use at home PT-OP-T Assessment and Plan Start: 12/10/23 07:29 Freq: Status: Active Protocol: Document 01/09/24 09:04 SP (Rec: 01/09/24 09:48 SP [id number]) Physical Therapy Assessment Goals 5 Impairment stairs, function Impairment stairs challenging upon descent due to L knee pain Short Term Goal (STG) Pt will be able to perform at least 8 eccentric step downs without compensation or pain in LLE using 1 or fewer hand rails for balance in order to demonstrate improved L knee strength, stability, and activity tolerance 01/07/24: 1/10 pain with 8 stairs, ascending and not descending STG Duration 4 weeks PROGRESSING [facility] Goal (LTG) Pt will be able to perform at least 12 stairs (1 flight) without compensation or pain in LLE using 1 or fewer hand rails for balance in order to demonstrate improved L knee strength, stability, and activity tolerance LTG Duration 8 weeks 4 Impairment squat, function Short Term Goal (STG) Pt will be able to perform at least 10 bilateral squats without compensation or pain in order to demonstrate increased quad and glute strength required for ambulation and activity. 01/07/24: Perform 10 squats with tactile, visual, and verbal cues STG Duration 4 weeks PROGRESSING [employer] Weaver Goal (LTG) Pt will be able to perform at least 15 bilateral squats without compensation or pain in 30 sec STS test in order to demonstrate increased quad and glute strength required for ambulation and activity. LTG Duration 8 weeks 3 Impairment gait Impairment reported 1 mi limitation, 250 ft in clinic Short Term Goal (STG) Pt will be able to ambulate > 300 ft using LRAD or brace for support as needed in order to demonstrate improved L knee strength, activity tolerance, and return to PLOF. 01/03/24: pt reports that she can ambulate at least 1 mile before pain, can shop for >30 min before pain STG Duration 4 weeks MET [facility] Goal (LTG) Pt will report no limitation in ambulating community distances using LRAD or brace for support as needed in order to demonstrate improved L knee strength, activity tolerance, and return to PLOF. 01/07/24: reports 15-20 min before L knee pain increases LTG Duration 8 weeks 2 Impairment Activity Impairment No HEP or daily exercise program Short Term Goal (STG) Pt will report compliance with HEP 2-3x/wk for initiation of exercise program and to improve activity tolerance while maximizing gains from PT 01/03/24: compliant 2-3/wk with log STG Duration 4 weeks PROGRESSING [employer] Weaver Goal (LTG) Pt will report compliance with HEP at least 3x/wk for maintenance program after discharge from PT. LTG Duration 8 weeks 1 Impairment LEFS Impairment 45/80 STG Duration 4 weeks [facility] Goal (LTG) Pt will improve LEFS >9 points (1 MCID) in order to demonstrate improved activity tolerance 01/07/24: 54/80 LTG Duration 8 weeks, MET< PROGRESSING Assessment Summary Assessment Pt improved hip hinge with cuing steps, tactile cues for lunges and fwd 2 so continue in PT. No pain during tx and reported hip abd and glut tiring with corrections. Able to increase TB #3 for stepping activites, cue x1 for DF good ft clearance rest reps/ distance. Physical Therapy Plan Frequency and Duration Frequency of Treatment 2x/Week Duration of treatment (weeks) 8 Plan of Care Start Date 12/10/23 Plan of Care End Date 02/08/24 Therapeutic Interventions Therapeutic Interventions Aquatic Therapy,Balance Training,Gait Training,Home Exercise Program,Joint Mobilizations,Manual Therapy, Neuromuscular Re-education, Orthotic/Prosthetic Management ,Patient/Caregiver Education, Self-Care/Home Management,Soft Tissue Mobilization,Taping, Therapeutic Activities, Therapeutic Exercises Modalities Biofeedback,Cold Pack/Ice Massage,Electric Stimulation, Hot Packs,Traction- Mechanical ,Ultrasound,Vasopneumatic Devices Other Therapeutic Interventions Manual traction Next Visit Focus/Plan Next Note Type Treatment Note Next Visit Plan 6 step up/lateral, *lunge * fwd step down 2 step in PT, squat review, STS review with weight vs squat, leg press, TKE Next session: leg press /c glute activation, hip abd, revisit response step up/back and fwd down/lateral for HEP / c HO. Update HEP Hip, glute, quad strengthening . Body mechanics training. Manual: STM, patellar mobilizations, knee and hip mobilizations prn 12 visits total
--- NOTE | 2024-01-14 12:59 | PT.OTN ---
Current Diagnoses Unilateral primary osteoarthritis, left knee (01/14/24) Other bursitis of knee, left knee (01/14/24) Unspecified abnormalities of gait and mobility (01/14/24) Weakness (01/14/24) Physical Therapy Treatment Note PT-OP-A Visit Information Start: 12/10/23 07:29 Freq: Status: Active Protocol: Document 01/14/24 09:03 NM (Rec: 01/14/24 09:45 NM [id number]) Out-Patient Physical Therapy Visit Information Visit Information Visit Type Treatment Note Visit Note Prudence 12/29 post Prog Note Visit Start Time 09:04 Visit Stop Time 09:45 Visit Number 10 Evaluation Information Evaluation Date 12/10/23 PT-OP-B Current Condition Start: 12/10/23 07:29 Freq: Status: Active Protocol: Document 12/10/23 09:47 NM (Rec: 12/10/23 11:22 NM [id number]) Current Condition History of Current Condition Onset Date September 2023 Current Complaints pain History of Current Condition Pt presents with L knee pain and a dx of bursitis. Pain is mainly on L medial knee. Injury occured originally at [facility] when she was lifting an accordian from the floor, then again at [facility] , she twisted her knee and had immediate pain. She did not hear a pop, fall, or feel instability. Pain was dull except when she turns a certain way, to the right. She reports that she has difficulty putting on socks ( lifting foot). She has been wearing a soft brace since [facility]. Reports that her knee does not feel unstable. She reports no difficulty with walking, standing, or stairs (uses R leg to step) Prior Treatments and Tests 10/2023 X rays reveal no bony abnormalities; received recent cortisone injection, which was helpful Scheduled for future MRI Prior Functional Status Baseline Function- ADL's Independent Baseline Function- Mobility Independent Baseline Function- Gait 2 miles Current Functional Impairments (Reported) Functional Limitations- ADL's difficulty putting on shoes Functional Limitations- Mobility/Gait as far as I need to but limited Functional Limitations- Recreation/ difficulty with lifting Hobbies objects from lower surfaces due to pain and body mechanics PT-OP-C Subjective Start: 12/10/23 07:29 Freq: Status: Active Protocol: Document 01/14/24 09:03 NM (Rec: 01/14/24 09:45 NM [id number]) OP-PT Subjective Patient Comments Patient Comments Pt reports 0/10 L knee pain. She states she didn't have any issues after last treatment session. Reports that she has not been compliant with HEP, but has been walking more. She got a massage gun over the weekend, which she reports feels good PT-OP-D Balance Start: 12/10/23 07:29 Freq: Status: Active Protocol: Document 12/10/23 09:47 NM (Rec: 12/11/23 16:50 NM [id number]) Balance Tests Romberg Romberg 20 sec Single Limb Standing Single Limb- Right 8 sec; increased sway Single Limb- Left 12 sec, no pain; increased sway Tandem Tandem Standing 15 sec, increased sway; no pain PT-OP-E Functional Tests Start: 12/10/23 07:29 Freq: Status: Active Protocol: Document 12/10/23 09:47 NM (Rec: 12/10/23 11:22 NM [id number]) Functional Tests 30 Second Sit to Stand Test Score 11 Comments B knee valgus, no pain or instability reported PT-OP-F Manual Assessment Start: 12/10/23 07:29 Freq: Status: Active Protocol: Document 12/10/23 09:47 NM (Rec: 12/10/23 11:22 NM [id number]) Manual Assessments Soft Tissue Assessment Soft Tissue Mobility Assessment Tenderness along L IT band, medial knee near pes anserine insertion Joint Mobility Assessment Joint Mobility Assessment No L instability, no clicking or catching of L knee with testing. Bilateral joint line pain L knee PT-OP-G Mobility & Gait Start: 12/10/23 07:29 Freq: Status: Active Protocol: Document 12/10/23 09:47 NM (Rec: 12/10/23 11:22 NM [id number]) OP Gait Assessment Gait Gait Assistance Required: Standby Assistance Distance (Feet) 250 Assistive Devices Assistive Device Gait Belt Gait Deviations General Gait Pattern Antalgic Factors Limiting Gait Function Factors Limiting Gait Function Decreased Strength,Pain,Poor Balance Comments Gait Comments Slightly antalgic gait, with increased JAJA and minimal lateral trunk excursion Stair Climbing Evaluation Evaluation Level of Assist On Stairs Contact Guard Assistance Devices Stair Climbing Assistive Devices None,Left Railing Technique/Endurance Stair Climbing Direction Ascend and Descend Stair Climbing Technique Step to Step Number of Steps Climbed 4 Stair Climbing Set # Repetitions (reps) 1 Comments Stair Climbing Comments Leading with RLE, reports pain with L knee flexion while advancing down stairs. Reports no instability or observed, but demos B pelvic drop when stepping down PT-OP-H Neuro Start: 12/10/23 07:29 Freq: Status: Active Protocol: Document 12/10/23 09:47 NM (Rec: 12/10/23 11:22 NM [id number]) Sensation Evaluation Gross Sensation Gross Sensation WNL Comments Summary Comments BLE intact to light touch sensation PT-OP-J Posture/Palpation/Skin Start: 12/10/23 07:29 Freq: Status: Active Protocol: Document 12/10/23 09:47 NM (Rec: 12/10/23 11:22 NM [id number]) Posture Evaluation Position Standing Evaluation View Lateral Head/C-Spine Posture Forward Head Pelvis Posture Anteriorly Tilted Knee Posture (L) Genu Valgus,(R) Genu Valgus Ankle/Foot Posture (L) Neutral,(R) Neutral Palpation Assessment Location L knee Palpation Location M/L joint line, ITB (knee, hip ), medial knee Palpation Findings Soft Tissue Tightness, Tenderness Palpation Details Tenderness reported along medial/lateral joint line. Tenderness at lateral femoral condyle near ITB insertion and minimal tenderness proximally along ITB. Slight swelling of L knee. Tender along pes anserine insertion but no palpable bursa (only tendons) PT-OP-K Range of Motion Start: 12/10/23 07:29 Freq: Status: Active Protocol: Document 01/07/24 08:18 NM (Rec: 01/07/24 09:02 NM [id number]) Knee Goniometric Range of Motion Knee Left Patient Position Supine Flexion Active (degrees) 130 Flexion Passive (degrees) 130 Extension Active (degrees) 0 Extension Passive (degrees) 0 Comments No pain with AROM or PROM PT-OP-L Special Tests Start: 12/10/23 07:29 Freq: Status: Active Protocol: Document 12/10/23 09:47 NM (Rec: 12/10/23 11:22 NM [id number]) Special Tests Knee Special Tests Posterior Draw Test Results - Anterior Draw Test Results - Melvin's Compression Test Results + Zahida's Test Test Results + Comments bilaterally Thessaly Test Results - Comments No clicking, locking reproduced Sindy Test Test Results - Comments No clicking, locking reproduced Varus Test Results - Comments 0 and 30 deg Valgus Test Results - Comments 0 and 30 deg Hector's Test Results - PT-OP-M Strength Start: 12/10/23 07:29 Freq: Status: Active Protocol: Document 01/07/24 08:18 NM (Rec: 01/07/24 09:02 NM [id number]) Hip Strength Hip Manual Muscle Testing Left Flexion (L2) 4+ Good+ Extension (S1) 4+ Good+ Abduction 4+ Good+ Adduction 4+ Good+ External Rotation 4+ Good+ Internal Rotation 4+ Good+ Comments 01/07/24: 4+/5 all motion Knee Strength Knee Manual Muscle Testing Left Flexion (S2) 4- Good- Extension (L3) 4- Good- Comments 01/07/24: 4/5, no pain PT-OP-Q Treatments Start: 12/10/23 07:29 Freq: Status: Active Protocol: Document 01/14/24 09:03 NM (Rec: 01/14/24 09:45 NM [id number]) Gym Equipment Shuttle Recovery L squat Details cued knee centered over ankle, no pain Resistance 37# (teal) Reps/Time 2x12; medium, pain free B squat Details lvl 2 band thighs so no valgus , cued TKE w/o locking knee; no pain Resistance 50# (navy) Reps/Time 2x12; reports hard and Fatiguing Therapeutic Exercises Standing Exercises 3 way hip Standing Exercise Name flex/abd/ext with step back to center ea time Side bilateral Resistance lvl 1 tb around ankles Equipment Used mirror for visual cues Reps/Minutes 10 ea side Comments cued for slight hip hinge with opp leg slightly flexed; feels burn 4 inch lateral step up Standing Exercise Name 6 step Side left Equipment Used 1 finger support 1 hand Reps/Minutes 2x10 Comments no pain, tactile cue for knee behind forefoot/hip hinge/heel drive, no rot 4 inch step up step back Standing Exercise Name step up 6 Side left Resistance AROM Equipment Used 1 finger R hand rail PRN 50% contact for balance Reps/Minutes 2x12 ea 6 Comments pnfree, cued rhomboid& core fac improved level hips soft reciprocals tepp squat Standing Exercise Name taps to chair Side bilateral Resistance lvl 3 band around thighs, arms front needed Equipment Used buttock tap to chair Reps/Minutes 2x10 Comments improved hip hinge, cued no knee valgus, chest upright Neuro Re-Education Treatment Balance Activities Tandem Surface stable Reps/Duration hands hovering over //bars Comments 2x30 Pain free. Cued to maintain JAJA over center of feet single leg stance Details 1 finger support for balance Surface stable Reps/Duration 2x30 Comments No pain in knee Cued level hip, no resting opp leg on stance leg Increased ankle sway PT-OP-R Modalities Start: 12/10/23 07:29 Freq: Status: Active Protocol: Document 01/03/24 07:32 NM (Rec: 01/03/24 08:42 NM [id number]) Hot Pack/Cold Pack Treatment Ice Massage Location L knee Patient Position Supine Patient Tolerance Good Comments Skin assessed before: normal color, temperature, no abnormalities. 5 minutes, emphasis over medial L knee near MCL, pes anserine. Skin assessed after: redness that resolved before pt left clinic . Tolerated well. Educated on use at home PT-OP-T Assessment and Plan Start: 12/10/23 07:29 Freq: Status: Active Protocol: Document 01/14/24 09:03 NM (Rec: 01/14/24 09:45 NM [id number]) Physical Therapy Assessment Goals 5 Impairment stairs, function Impairment stairs challenging upon descent due to L knee pain Short Term Goal (STG) Pt will be able to perform at least 8 eccentric step downs without compensation or pain in LLE using 1 or fewer hand rails for balance in order to demonstrate improved L knee strength, stability, and activity tolerance 01/07/24: 1/10 pain with 8 stairs, ascending and not descending STG Duration 4 weeks PROGRESSING Assisted Goal (LTG) Pt will be able to perform at least 12 stairs (1 flight) without compensation or pain in LLE using 1 or fewer hand rails for balance in order to demonstrate improved L knee strength, stability, and activity tolerance LTG Duration 8 weeks 4 Impairment squat, function Short Term Goal (STG) Pt will be able to perform at least 10 bilateral squats without compensation or pain in order to demonstrate increased quad and glute strength required for ambulation and activity. 01/07/24: Perform 10 squats with tactile, visual, and verbal cues STG Duration 4 weeks PROGRESSING Foreign Student Adviser Teacher Goal (LTG) Pt will be able to perform at least 15 bilateral squats without compensation or pain in 30 sec STS test in order to demonstrate increased quad and glute strength required for ambulation and activity. LTG Duration 8 weeks 3 Impairment gait Impairment reported 1 mi limitation, 250 ft in clinic Short Term Goal (STG) Pt will be able to ambulate > 300 ft using LRAD or brace for support as needed in order to demonstrate improved L knee strength, activity tolerance, and return to PLOF. 01/03/24: pt reports that she can ambulate at least 1 mile before pain, can shop for >30 min before pain STG Duration 4 weeks MET Foreign Student Adviser Teacher Goal (LTG) Pt will report no limitation in ambulating community distances using LRAD or brace for support as needed in order to demonstrate improved L knee strength, activity tolerance, and return to PLOF. 01/07/24: reports 15-20 min before L knee pain increases LTG Duration 8 weeks 2 Impairment Activity Impairment No HEP or daily exercise program Short Term Goal (STG) Pt will report compliance with HEP 2-3x/wk for initiation of exercise program and to improve activity tolerance while maximizing gains from PT 01/03/24: compliant 2-3/wk with log STG Duration 4 weeks PROGRESSING Assisted Goal (LTG) Pt will report compliance with HEP at least 3x/wk for maintenance program after discharge from PT. LTG Duration 8 weeks 1 Impairment LEFS Impairment 45/80 STG Duration 4 weeks Assisted Goal (LTG) Pt will improve LEFS >9 points (1 MCID) in order to demonstrate improved activity tolerance 01/07/24: 54/80 LTG Duration 8 weeks, MET< PROGRESSING Assessment Summary Assessment Pt continues to make progress toward goals, especially with pain management. She requires cues for hip hinge during squat and step ups, but demonstrates improved form and glute activation over quad dominance. She continues to be painfree during treatment, but fatigues quickly and demonstrates compensations at hip and trunk. Initiated balance training with SLS and narrow stance to improve ankle and knee stability during gait and stairs. PT educated pt on importance of performing HEP to maximize progressions made during PT. Pt would benefit from skilled PT for L hip/knee strengthening in order to continue to decrease pain symptoms and improve activity tolerance. Physical Therapy Plan Frequency and Duration Frequency of Treatment 2x/Week Duration of treatment (weeks) 8 Plan of Care Start Date 12/10/23 Plan of Care End Date 02/08/24 Therapeutic Interventions Therapeutic Interventions Aquatic Therapy,Balance Training,Gait Training,Home Exercise Program,Joint Mobilizations,Manual Therapy, Neuromuscular Re-education, Orthotic/Prosthetic Management ,Patient/Caregiver Education, Self-Care/Home Management,Soft Tissue Mobilization,Taping, Therapeutic Activities, Therapeutic Exercises Modalities Biofeedback,Cold Pack/Ice Massage,Electric Stimulation, Hot Packs,Traction- Mechanical ,Ultrasound,Vasopneumatic Devices Other Therapeutic Interventions Manual traction Next Visit Focus/Plan Next Note Type Treatment Note Next Visit Plan Assess tolerance 3 way hip, balance, stairs, body mechanics 6 step up/lateral, *lunge * fwd step down 2 step in PT, squat review, STS review with weight vs squat, leg press, TKE Next session: leg press /c glute activation, hip abd, revisit response step up/back and fwd down/lateral for HEP / c HO. Update HEP Hip, glute, quad strengthening . Body mechanics training. Manual: STM, patellar mobilizations, knee and hip mobilizations prn
--- NOTE | 2024-01-16 09:43 | PT.OTN ---
Current Diagnoses Unilateral primary osteoarthritis, left knee (01/16/24) Other bursitis of knee, left knee (01/16/24) Unspecified abnormalities of gait and mobility (01/16/24) Weakness (01/16/24) Physical Therapy Treatment Note PT-OP-A Visit Information Start: 12/10/23 07:29 Freq: Status: Active Protocol: Document 01/16/24 09:05 SP (Rec: 01/16/24 09:44 SP [id number]) Out-Patient Physical Therapy Visit Information Visit Information Visit Type Treatment Note Visit Note Prudence 01/29 post Prog Note Visit Start Time 09:05 Visit Stop Time 09:43 Visit Number 11 Number of [employer] Visits 1 Evaluation Information Evaluation Date 12/10/23 Precautions Precautions bursitis PT-OP-B Current Condition Start: 12/10/23 07:29 Freq: Status: Active Protocol: Document 12/10/23 09:47 NM (Rec: 12/10/23 11:22 NM [id number]) Current Condition History of Current Condition Onset Date September 2023 Current Complaints pain History of Current Condition Pt presents with L knee pain and a dx of bursitis. Pain is mainly on L medial knee. Injury occured originally at [facility] when she was lifting an accordian from the floor, then again at [place] , she twisted her knee and had immediate pain. She did not hear a pop, fall, or feel instability. Pain was dull except when she turns a certain way, to the right. She reports that she has difficulty putting on socks ( lifting foot). She has been wearing a soft brace since [place]. Reports that her knee does not feel unstable. She reports no difficulty with walking, standing, or stairs (uses R leg to step) Prior Treatments and Tests 10/2023 X rays reveal no bony abnormalities; received recent cortisone injection, which was helpful Scheduled for future MRI Prior Functional Status Baseline Function- ADL's Independent Baseline Function- Mobility Independent Baseline Function- Gait 2 miles Current Functional Impairments (Reported) Functional Limitations- ADL's difficulty putting on shoes Functional Limitations- Mobility/Gait as far as I need to but limited Functional Limitations- Recreation/ difficulty with lifting Hobbies objects from lower surfaces due to pain and body mechanics PT-OP-C Subjective Start: 12/10/23 07:29 Freq: Status: Active Protocol: Document 01/16/24 09:05 SP (Rec: 01/16/24 09:44 SP [id number]) OP-PT Subjective Patient Comments Patient Comments Pt reports incorporating her HEP during daily activities, eg SLS during timer brushing her teeth, resisted kicks at the counter. She stated PT-OP-D Balance Start: 12/10/23 07:29 Freq: Status: Active Protocol: Document 12/10/23 09:47 NM (Rec: 12/11/23 16:50 NM [id number]) Balance Tests Romberg Romberg 20 sec Single Limb Standing Single Limb- Right 8 sec; increased sway Single Limb- Left 12 sec, no pain; increased sway Tandem Tandem Standing 15 sec, increased sway; no pain PT-OP-E Functional Tests Start: 12/10/23 07:29 Freq: Status: Active Protocol: Document 12/10/23 09:47 NM (Rec: 12/10/23 11:22 NM [id number]) Functional Tests 30 Second Sit to Stand Test Score 11 Comments B knee valgus, no pain or instability reported PT-OP-F Manual Assessment Start: 12/10/23 07:29 Freq: Status: Active Protocol: Document 12/10/23 09:47 NM (Rec: 12/10/23 11:22 NM [id number]) Manual Assessments Soft Tissue Assessment Soft Tissue Mobility Assessment Tenderness along L IT band, medial knee near pes anserine insertion Joint Mobility Assessment Joint Mobility Assessment No L instability, no clicking or catching of L knee with testing. Bilateral joint line pain L knee PT-OP-G Mobility & Gait Start: 12/10/23 07:29 Freq: Status: Active Protocol: Document 12/10/23 09:47 NM (Rec: 12/10/23 11:22 NM [id number]) OP Gait Assessment Gait Gait Assistance Required: Standby Assistance Distance (Feet) 250 Assistive Devices Assistive Device Gait Belt Gait Deviations General Gait Pattern Antalgic Factors Limiting Gait Function Factors Limiting Gait Function Decreased Strength,Pain,Poor Balance Comments Gait Comments Slightly antalgic gait, with increased JAJA and minimal lateral trunk excursion Stair Climbing Evaluation Evaluation Level of Assist On Stairs Contact Guard Assistance Devices Stair Climbing Assistive Devices None,Left Railing Technique/Endurance Stair Climbing Direction Ascend and Descend Stair Climbing Technique Step to Step Number of Steps Climbed 4 Stair Climbing Set # Repetitions (reps) 1 Comments Stair Climbing Comments Leading with RLE, reports pain with L knee flexion while advancing down stairs. Reports no instability or observed, but demos B pelvic drop when stepping down PT-OP-H Neuro Start: 12/10/23 07:29 Freq: Status: Active Protocol: Document 12/10/23 09:47 NM (Rec: 12/10/23 11:22 NM [id number]) Sensation Evaluation Gross Sensation Gross Sensation WNL Comments Summary Comments BLE intact to light touch sensation PT-OP-J Posture/Palpation/Skin Start: 12/10/23 07:29 Freq: Status: Active Protocol: Document 12/10/23 09:47 NM (Rec: 12/10/23 11:22 NM [id number]) Posture Evaluation Position Standing Evaluation View Lateral Head/C-Spine Posture Forward Head Pelvis Posture Anteriorly Tilted Knee Posture (L) Genu Valgus,(R) Genu Valgus Ankle/Foot Posture (L) Neutral,(R) Neutral Palpation Assessment Location L knee Palpation Location M/L joint line, ITB (knee, hip ), medial knee Palpation Findings Soft Tissue Tightness, Tenderness Palpation Details Tenderness reported along medial/lateral joint line. Tenderness at lateral femoral condyle near ITB insertion and minimal tenderness proximally along ITB. Slight swelling of L knee. Tender along pes anserine insertion but no palpable bursa (only tendons) PT-OP-K Range of Motion Start: 12/10/23 07:29 Freq: Status: Active Protocol: Document 01/07/24 08:18 NM (Rec: 01/07/24 09:02 NM [id number]) Knee Goniometric Range of Motion Knee Left Patient Position Supine Flexion Active (degrees) 130 Flexion Passive (degrees) 130 Extension Active (degrees) 0 Extension Passive (degrees) 0 Comments No pain with AROM or PROM PT-OP-L Special Tests Start: 12/10/23 07:29 Freq: Status: Active Protocol: Document 12/10/23 09:47 NM (Rec: 12/10/23 11:22 NM [id number]) Special Tests Knee Special Tests Posterior Draw Test Results - Anterior Draw Test Results - Melvin's Compression Test Results + Zahida's Test Test Results + Comments bilaterally Thessaly Test Results - Comments No clicking, locking reproduced Sindy Test Test Results - Comments No clicking, locking reproduced Varus Test Results - Comments 0 and 30 deg Valgus Test Results - Comments 0 and 30 deg Hector's Test Results - PT-OP-M Strength Start: 12/10/23 07:29 Freq: Status: Active Protocol: Document 01/07/24 08:18 NM (Rec: 01/07/24 09:02 NM [id number]) Hip Strength Hip Manual Muscle Testing Left Flexion (L2) 4+ Good+ Extension (S1) 4+ Good+ Abduction 4+ Good+ Adduction 4+ Good+ External Rotation 4+ Good+ Internal Rotation 4+ Good+ Comments 01/07/24: 4+/5 all motion Knee Strength Knee Manual Muscle Testing Left Flexion (S2) 4- Good- Extension (L3) 4- Good- Comments 01/07/24: 4/5, no pain PT-OP-Q Treatments Start: 12/10/23 07:29 Freq: Status: Active Protocol: Document 01/16/24 09:05 SP (Rec: 01/16/24 09:44 SP [id number]) Gym Equipment Shuttle Recovery L squat Details cued knee centered over ankle, no pain Resistance 37# (teal) Reps/Time 2x15; medium, pain free B squat Details lvl 2 band thighs so no valgus , cued TKE w/o locking knee; no pain Resistance 50# (navy) Reps/Time 2x15; reports hard and Fatiguing Therapeutic Exercises Standing Exercises 3 way hip Standing Exercise Name flex/abd/ext hover (12, 3/9, 6 o'clock) Side bilateral Resistance lvl 1>2 tb around ankles Equipment Used rail support Reps/Minutes 2x15 ea side Comments cued elongated posture, TKE, back to center ea time 4 inch lateral step up Standing Exercise Name 6 step Side bilateral Equipment Used 1 finger support of 1 hand Reps/Minutes 2x12 Comments no pain, tactile cue for knee behind forefoot/hip hinge/heel drive, no rot 4 inch step up step back Standing Exercise Name step up 6 Side bilateral Resistance AROM Equipment Used 1 finger R hand rail PRN 50% contact for balance Reps/Minutes 2x12 ea 6 Comments pnfree, cued rhomboid& core fac midline Gait Training Gait Activity dynamic gait Description HTs: horizontal/vertical, back walking, EC forward Treatment Focus midline stability, increase stride normalize Comments cued increase stride back stepping, centering self fwd EC. Neuro Re-Education Treatment Balance Activities Tandem Surface stable Equipment floor 30, blue foam oval 25 sec L ft fwd, 25 sec R ft fwd Reps/Duration hands hovering over //bars Comments Pain free. Cued to maintain JAJA over center of feet single leg stance Details 1 finger support for balance Surface stable Equipment foam 13sec LLE, 4 sec longest RLE Reps/Duration 2x30 Comments No pain in knee Cued level hip, no resting opp leg on stance leg Increased ankle sway PT-OP-R Modalities Start: 12/10/23 07:29 Freq: Status: Active Protocol: Document 01/03/24 07:32 NM (Rec: 01/03/24 08:42 NM [id number]) Hot Pack/Cold Pack Treatment Ice Massage Location L knee Patient Position Supine Patient Tolerance Good Comments Skin assessed before: normal color, temperature, no abnormalities. 5 minutes, emphasis over medial L knee near MCL, pes anserine. Skin assessed after: redness that resolved before pt left clinic . Tolerated well. Educated on use at home PT-OP-T Assessment and Plan Start: 12/10/23 07:29 Freq: Status: Active Protocol: Document 01/16/24 09:05 SP (Rec: 01/16/24 09:44 SP [id number]) Physical Therapy Assessment Goals 5 Impairment stairs, function Impairment stairs challenging upon descent due to L knee pain Short Term Goal (STG) Pt will be able to perform at least 8 eccentric step downs without compensation or pain in LLE using 1 or fewer hand rails for balance in order to demonstrate improved L knee strength, stability, and activity tolerance 01/07/24: 1/10 pain with 8 stairs, ascending and not descending STG Duration 4 weeks PROGRESSING Senior Care Goal (LTG) Pt will be able to perform at least 12 stairs (1 flight) without compensation or pain in LLE using 1 or fewer hand rails for balance in order to demonstrate improved L knee strength, stability, and activity tolerance LTG Duration 8 weeks 4 Impairment squat, function Short Term Goal (STG) Pt will be able to perform at least 10 bilateral squats without compensation or pain in order to demonstrate increased quad and glute strength required for ambulation and activity. 01/07/24: Perform 10 squats with tactile, visual, and verbal cues STG Duration 4 weeks PROGRESSING Telephone Appointment Clerk Goal (LTG) Pt will be able to perform at least 15 bilateral squats without compensation or pain in 30 sec STS test in order to demonstrate increased quad and glute strength required for ambulation and activity. LTG Duration 8 weeks 3 Impairment gait Impairment reported 1 mi limitation, 250 ft in clinic Short Term Goal (STG) Pt will be able to ambulate > 300 ft using LRAD or brace for support as needed in order to demonstrate improved L knee strength, activity tolerance, and return to PLOF. 01/03/24: pt reports that she can ambulate at least 1 mile before pain, can shop for >30 min before pain STG Duration 4 weeks MET Telephone Appointment Clerk Goal (LTG) Pt will report no limitation in ambulating community distances using LRAD or brace for support as needed in order to demonstrate improved L knee strength, activity tolerance, and return to PLOF. 01/07/24: reports 15-20 min before L knee pain increases LTG Duration 8 weeks 2 Impairment Activity Impairment No HEP or daily exercise program Short Term Goal (STG) Pt will report compliance with HEP 2-3x/wk for initiation of exercise program and to improve activity tolerance while maximizing gains from PT 01/03/24: compliant 2-3/wk with log STG Duration 4 weeks PROGRESSING Telephone Appointment Clerk Goal (LTG) Pt will report compliance with HEP at least 3x/wk for maintenance program after discharge from PT. LTG Duration 8 weeks 1 Impairment LEFS Impairment 45/80 STG Duration 4 weeks Telephone Appointment Clerk Goal (LTG) Pt will improve LEFS >9 points (1 MCID) in order to demonstrate improved activity tolerance 01/07/24: 54/80 LTG Duration 8 weeks, MET< PROGRESSING Assessment Summary Assessment Pt tolerated increase resistance and reps to standing ther ex. She improves tandem and SLS on firm surface, able to recognize and work on postural corrections SLS uneven surface, pnfree. Physical Therapy Plan Frequency and Duration Frequency of Treatment 2x/Week Duration of treatment (weeks) 8 Plan of Care Start Date 12/10/23 Plan of Care End Date 02/08/24 Therapeutic Interventions Therapeutic Interventions Aquatic Therapy,Balance Training,Gait Training,Home Exercise Program,Joint Mobilizations,Manual Therapy, Neuromuscular Re-education, Orthotic/Prosthetic Management ,Patient/Caregiver Education, Self-Care/Home Management,Soft Tissue Mobilization,Taping, Therapeutic Activities, Therapeutic Exercises Modalities Biofeedback,Cold Pack/Ice Massage,Electric Stimulation, Hot Packs,Traction- Mechanical ,Ultrasound,Vasopneumatic Devices Other Therapeutic Interventions Manual traction Next Visit Focus/Plan Next Note Type Treatment Note Next Visit Plan Review HEP needed: Assess tolerance *lunge * fwd step down 2 step in PT, squat review, STS review with weight vs squat, leg press, TKE Next session: leg press /c glute activation, hip abd, revisit response fwd down/ lateral for HEP /c HO. Update HEP Hip, glute, quad strengthening . Body mechanics training. Manual: STM, patellar mobilizations, knee and hip mobilizations prn
--- NOTE | 2024-01-21 12:48 | PT.OTN ---
Current Diagnoses Unilateral primary osteoarthritis, left knee (01/21/24) Other bursitis of knee, left knee (01/21/24) Unspecified abnormalities of gait and mobility (01/21/24) Weakness (01/21/24) Physical Therapy Treatment Note PT-OP-A Visit Information Start: 12/10/23 07:29 Freq: Status: Active Protocol: Document 01/21/24 09:03 NM (Rec: 01/21/24 09:44 NM [id number]) Out-Patient Physical Therapy Visit Information Visit Information Visit Type Treatment Note Visit Start Time 09:03 Visit Stop Time 09:42 Visit Number 12 PT-OP-B Current Condition Start: 12/10/23 07:29 Freq: Status: Active Protocol: Document 12/10/23 09:47 NM (Rec: 12/10/23 11:22 NM [id number]) Current Condition History of Current Condition Onset Date September 2023 Current Complaints pain History of Current Condition Pt presents with L knee pain and a dx of bursitis. Pain is mainly on L medial knee. Injury occured originally at [facility] when she was lifting an accordian from the floor, then again at [facility] , she twisted her knee and had immediate pain. She did not hear a pop, fall, or feel instability. Pain was dull except when she turns a certain way, to the right. She reports that she has difficulty putting on socks ( lifting foot). She has been wearing a soft brace since [place]. Reports that her knee does not feel unstable. She reports no difficulty with walking, standing, or stairs (uses R leg to step) Prior Treatments and Tests 10/2023 X rays reveal no bony abnormalities; received recent cortisone injection, which was helpful Scheduled for future MRI Prior Functional Status Baseline Function- ADL's Independent Baseline Function- Mobility Independent Baseline Function- Gait 2 miles Current Functional Impairments (Reported) Functional Limitations- ADL's difficulty putting on shoes Functional Limitations- Mobility/Gait as far as I need to but limited Functional Limitations- Recreation/ difficulty with lifting Hobbies objects from lower surfaces due to pain and body mechanics PT-OP-C Subjective Start: 12/10/23 07:29 Freq: Status: Active Protocol: Document 01/21/24 09:03 NM (Rec: 01/21/24 09:44 NM [id number]) OP-PT Subjective Patient Comments Patient Comments Pt reports that she had a twinge this morning walking up /down stairs today when taking her clothes down. She spent the weekend walking on uneven lawn yesterday, reports twisting her knee. States 10/31 L knee pain today PT-OP-D Balance Start: 12/10/23 07:29 Freq: Status: Active Protocol: Document 12/10/23 09:47 NM (Rec: 12/11/23 16:50 NM [id number]) Balance Tests Romberg Romberg 20 sec Single Limb Standing Single Limb- Right 8 sec; increased sway Single Limb- Left 12 sec, no pain; increased sway Tandem Tandem Standing 15 sec, increased sway; no pain PT-OP-E Functional Tests Start: 12/10/23 07:29 Freq: Status: Active Protocol: Document 12/10/23 09:47 NM (Rec: 12/10/23 11:22 NM [id number]) Functional Tests 30 Second Sit to Stand Test Score 11 Comments B knee valgus, no pain or instability reported PT-OP-F Manual Assessment Start: 12/10/23 07:29 Freq: Status: Active Protocol: Document 12/10/23 09:47 NM (Rec: 12/10/23 11:22 NM [id number]) Manual Assessments Soft Tissue Assessment Soft Tissue Mobility Assessment Tenderness along L IT band, medial knee near pes anserine insertion Joint Mobility Assessment Joint Mobility Assessment No L instability, no clicking or catching of L knee with testing. Bilateral joint line pain L knee PT-OP-G Mobility & Gait Start: 12/10/23 07:29 Freq: Status: Active Protocol: Document 12/10/23 09:47 NM (Rec: 12/10/23 11:22 NM [id number]) OP Gait Assessment Gait Gait Assistance Required: Standby Assistance Distance (Feet) 250 Assistive Devices Assistive Device Gait Belt Gait Deviations General Gait Pattern Antalgic Factors Limiting Gait Function Factors Limiting Gait Function Decreased Strength,Pain,Poor Balance Comments Gait Comments Slightly antalgic gait, with increased JAJA and minimal lateral trunk excursion Stair Climbing Evaluation Evaluation Level of Assist On Stairs Contact Guard Assistance Devices Stair Climbing Assistive Devices None,Left Railing Technique/Endurance Stair Climbing Direction Ascend and Descend Stair Climbing Technique Step to Step Number of Steps Climbed 4 Stair Climbing Set # Repetitions (reps) 1 Comments Stair Climbing Comments Leading with RLE, reports pain with L knee flexion while advancing down stairs. Reports no instability or observed, but demos B pelvic drop when stepping down PT-OP-H Neuro Start: 12/10/23 07:29 Freq: Status: Active Protocol: Document 12/10/23 09:47 NM (Rec: 12/10/23 11:22 NM [id number]) Sensation Evaluation Gross Sensation Gross Sensation WNL Comments Summary Comments BLE intact to light touch sensation PT-OP-J Posture/Palpation/Skin Start: 12/10/23 07:29 Freq: Status: Active Protocol: Document 12/10/23 09:47 NM (Rec: 12/10/23 11:22 NM [id number]) Posture Evaluation Position Standing Evaluation View Lateral Head/C-Spine Posture Forward Head Pelvis Posture Anteriorly Tilted Knee Posture (L) Genu Valgus,(R) Genu Valgus Ankle/Foot Posture (L) Neutral,(R) Neutral Palpation Assessment Location L knee Palpation Location M/L joint line, ITB (knee, hip ), medial knee Palpation Findings Soft Tissue Tightness, Tenderness Palpation Details Tenderness reported along medial/lateral joint line. Tenderness at lateral femoral condyle near ITB insertion and minimal tenderness proximally along ITB. Slight swelling of L knee. Tender along pes anserine insertion but no palpable bursa (only tendons) PT-OP-K Range of Motion Start: 12/10/23 07:29 Freq: Status: Active Protocol: Document 01/07/24 08:18 NM (Rec: 01/07/24 09:02 NM [id number]) Knee Goniometric Range of Motion Knee Left Patient Position Supine Flexion Active (degrees) 130 Flexion Passive (degrees) 130 Extension Active (degrees) 0 Extension Passive (degrees) 0 Comments No pain with AROM or PROM PT-OP-L Special Tests Start: 12/10/23 07:29 Freq: Status: Active Protocol: Document 12/10/23 09:47 NM (Rec: 12/10/23 11:22 NM [id number]) Special Tests Knee Special Tests Posterior Draw Test Results - Anterior Draw Test Results - Melvin's Compression Test Results + Zahida's Test Test Results + Comments bilaterally Thessaly Test Results - Comments No clicking, locking reproduced Sindy Test Test Results - Comments No clicking, locking reproduced Varus Test Results - Comments 0 and 30 deg Valgus Test Results - Comments 0 and 30 deg Hector's Test Results - PT-OP-M Strength Start: 12/10/23 07:29 Freq: Status: Active Protocol: Document 01/07/24 08:18 NM (Rec: 01/07/24 09:02 NM [id number]) Hip Strength Hip Manual Muscle Testing Left Flexion (L2) 4+ Good+ Extension (S1) 4+ Good+ Abduction 4+ Good+ Adduction 4+ Good+ External Rotation 4+ Good+ Internal Rotation 4+ Good+ Comments 01/07/24: 4+/5 all motion Knee Strength Knee Manual Muscle Testing Left Flexion (S2) 4- Good- Extension (L3) 4- Good- Comments 01/07/24: 4/5, no pain PT-OP-Q Treatments Start: 12/10/23 07:29 Freq: Status: Active Protocol: Document 01/21/24 09:03 NM (Rec: 01/21/24 09:44 NM [id number]) Therapeutic Exercises Standing Exercises 3 way hip Standing Exercise Name flex/abd/ext hover (12, 3/9, 6 o'clock) Side bilateral Resistance 2 tb around ankles Equipment Used rail support Reps/Minutes 2x15 ea side Comments cued elongated posture, TKE 4 inch lateral step up Standing Exercise Name 1. 6 step up, 2. eccentric step down 4 Side bilateral Equipment Used 1 finger support of 1 hand Reps/Minutes 1. 2x15, 2. 1x8 Comments no pain, tactile cue for knee behind forefoot/hip hinge/heel drive, no rot 4 inch step up step back Standing Exercise Name step up 6 Side bilateral Resistance AROM Equipment Used 1 finger R hand rail PRN Reps/Minutes 2x12 ea 6 Comments pnfree, cued rhomboid& core fac midline, wider JAJA squat Standing Exercise Name trialed: goblet squat Side bilateral Resistance lvl 2 teal tb around ankles Equipment Used arms across chest, no wt yet Reps/Minutes 2x15 Comments cued for glute activation; good eccentric control Neuro Re-Education Treatment Balance Activities Tandem Details close SBA Surface stable Reps/Duration hands hovering over //bars Comments Pain free. Cued to maintain JAJA over center of feet 1. floor, 1x30 ea 2. foam, 1x30 ea 3. walk, 2x10 ea direction; cued heel>toe contact, hands hovering, no LOB but increased sway single leg stance Details 1 finger support for balance, close SBA Surface stable Equipment last session: foam 13sec LLE, 4 sec longest RLE Comments 1. 2x30 ea stable surface, prn 1 finger support to stabilize 2. 1x30 ea foam pad, ea 2 finger support prn Cued center JAJA over mid foot, no resting opp leg, increase ankle sway, pain free Self-Care/Home Management Treatment Education Patient Education Safety Caregiver Education Blood pressure at rest, start of session L arm: 131/74, 96 bpm PT-OP-R Modalities Start: 12/10/23 07:29 Freq: Status: Active Protocol: Document 01/03/24 07:32 NM (Rec: 01/03/24 08:42 NM [id number]) Hot Pack/Cold Pack Treatment Ice Massage Location L knee Patient Position Supine Patient Tolerance Good Comments Skin assessed before: normal color, temperature, no abnormalities. 5 minutes, emphasis over medial L knee near MCL, pes anserine. Skin assessed after: redness that resolved before pt left clinic . Tolerated well. Educated on use at home PT-OP-T Assessment and Plan Start: 12/10/23 07:29 Freq: Status: Active Protocol: Document 01/21/24 09:03 NM (Rec: 01/21/24 09:44 NM [id number]) Physical Therapy Assessment Goals 5 Impairment stairs, function Impairment stairs challenging upon descent due to L knee pain Short Term Goal (STG) Pt will be able to perform at least 8 eccentric step downs without compensation or pain in LLE using 1 or fewer hand rails for balance in order to demonstrate improved L knee strength, stability, and activity tolerance 01/07/24: 1/10 pain with 8 stairs, ascending and not descending STG Duration 4 weeks PROGRESSING Dump Attendant Goal (LTG) Pt will be able to perform at least 12 stairs (1 flight) without compensation or pain in LLE using 1 or fewer hand rails for balance in order to demonstrate improved L knee strength, stability, and activity tolerance LTG Duration 8 weeks 4 Impairment squat, function Short Term Goal (STG) Pt will be able to perform at least 10 bilateral squats without compensation or pain in order to demonstrate increased quad and glute strength required for ambulation and activity. 01/07/24: Perform 10 squats with tactile, visual, and verbal cues STG Duration 4 weeks PROGRESSING [facility] Goal (LTG) Pt will be able to perform at least 15 bilateral squats without compensation or pain in 30 sec STS test in order to demonstrate increased quad and glute strength required for ambulation and activity. LTG Duration 8 weeks 3 Impairment gait Impairment reported 1 mi limitation, 250 ft in clinic Short Term Goal (STG) Pt will be able to ambulate > 300 ft using LRAD or brace for support as needed in order to demonstrate improved L knee strength, activity tolerance, and return to PLOF. 01/03/24: pt reports that she can ambulate at least 1 mile before pain, can shop for >30 min before pain STG Duration 4 weeks MET Dump Attendant Goal (LTG) Pt will report no limitation in ambulating community distances using LRAD or brace for support as needed in order to demonstrate improved L knee strength, activity tolerance, and return to PLOF. 01/07/24: reports 15-20 min before L knee pain increases LTG Duration 8 weeks 2 Impairment Activity Impairment No HEP or daily exercise program Short Term Goal (STG) Pt will report compliance with HEP 2-3x/wk for initiation of exercise program and to improve activity tolerance while maximizing gains from PT 01/03/24: compliant 2-3/wk with log STG Duration 4 weeks PROGRESSING [facility] Goal (LTG) Pt will report compliance with HEP at least 3x/wk for maintenance program after discharge from PT. LTG Duration 8 weeks 1 Impairment LEFS Impairment 45/80 STG Duration 4 weeks Dump Attendant Goal (LTG) Pt will improve LEFS >9 points (1 MCID) in order to demonstrate improved activity tolerance 01/07/24: 54/80 LTG Duration 8 weeks, MET< PROGRESSING Assessment Summary Assessment Pt tolerated session well, including increase in repetitions. Trialed goblet squat to determine tolerance to wider JAJA; pt able to perform without knee pain once multiple reps performed. During hip strengthening exercises, pt requires cues to prevent compensations with hip rotation and for control. Pt pain free with 6 fwd and lateral step ups, but requires cues to utilize glutes over quad to reduce anterior knee strain. Initiated eccentric step downs on 4 step to retrain knee mechanics and quad control. Emphasis on improving pt balance with changing JAJA and surface stability. Pt with minimal knee pain during eccentric step down; cued wider JAJA for improved stability and to prevent knee valgus compensation. PT requested more visits for pt. Pt would benefit from skilled PT for progressive hip and knee strengthening and balance training in order to improve activity tolerance and decrease fall risk. Physical Therapy Plan Frequency and Duration Frequency of Treatment 2x/Week Duration of treatment (weeks) 8 Plan of Care Start Date 12/10/23 Plan of Care End Date 02/08/24 Therapeutic Interventions Therapeutic Interventions Aquatic Therapy,Balance Training,Gait Training,Home Exercise Program,Joint Mobilizations,Manual Therapy, Neuromuscular Re-education, Orthotic/Prosthetic Management ,Patient/Caregiver Education, Self-Care/Home Management,Soft Tissue Mobilization,Taping, Therapeutic Activities, Therapeutic Exercises Modalities Biofeedback,Cold Pack/Ice Massage,Electric Stimulation, Hot Packs,Traction- Mechanical ,Ultrasound,Vasopneumatic Devices Other Therapeutic Interventions Manual traction Next Visit Focus/Plan Next Note Type Treatment Note Next Visit Plan Eccentric step down, leg press , hip abd (clock), balance Review HEP needed: Assess tolerance *lunge * fwd step down 2 step in PT, squat review, STS review with weight vs squat, leg press, TKE Next session: leg press /c glute activation, hip abd, revisit response fwd down/ lateral for HEP /c HO. Update HEP Hip, glute, quad strengthening . Body mechanics training. Manual: STM, patellar mobilizations, knee and hip mobilizations prn
--- NOTE | 2024-01-23 09:45 | PT.OTN ---
Current Diagnoses Unilateral primary osteoarthritis, left knee (01/23/24) Other bursitis of knee, left knee (01/23/24) Unspecified abnormalities of gait and mobility (01/23/24) Weakness (01/23/24) Physical Therapy Treatment Note PT-OP-A Visit Information Start: 12/10/23 07:29 Freq: Status: Active Protocol: Document 01/23/24 09:03 SP (Rec: 01/23/24 09:46 SP [id number]) Out-Patient Physical Therapy Visit Information Visit Information Visit Type Treatment Note Visit Start Time 09:03 Visit Stop Time 09:45 Visit Number 13 Number of DIRECTOR [employer]ING Visits 1 Evaluation Information Evaluation Date 12/10/23 Precautions Precautions bursitis PT-OP-B Current Condition Start: 12/10/23 07:29 Freq: Status: Active Protocol: Document 12/10/23 09:47 NM (Rec: 12/10/23 11:22 NM [id number]) Current Condition History of Current Condition Onset Date September 2023 Current Complaints pain History of Current Condition Pt presents with L knee pain and a dx of bursitis. Pain is mainly on L medial knee. Injury occured originally at [facility] when she was lifting an accordian from the floor, then again at [place] , she twisted her knee and had immediate pain. She did not hear a pop, fall, or feel instability. Pain was dull except when she turns a certain way, to the right. She reports that she has difficulty putting on socks ( lifting foot). She has been wearing a soft brace since [place]. Reports that her knee does not feel unstable. She reports no difficulty with walking, standing, or stairs (uses R leg to step) Prior Treatments and Tests 10/2023 X rays reveal no bony abnormalities; received recent cortisone injection, which was helpful Scheduled for future MRI Prior Functional Status Baseline Function- ADL's Independent Baseline Function- Mobility Independent Baseline Function- Gait 2 miles Current Functional Impairments (Reported) Functional Limitations- ADL's difficulty putting on shoes Functional Limitations- Mobility/Gait as far as I need to but limited Functional Limitations- Recreation/ difficulty with lifting Hobbies objects from lower surfaces due to pain and body mechanics PT-OP-C Subjective Start: 12/10/23 07:29 Freq: Status: Active Protocol: Document 01/23/24 09:03 SP (Rec: 01/23/24 09:46 SP [id number]) OP-PT Subjective Patient Comments Patient Comments Pt reports little sore after last tx but ok. PT-OP-D Balance Start: 12/10/23 07:29 Freq: Status: Active Protocol: Document 12/10/23 09:47 NM (Rec: 12/11/23 16:50 NM [id number]) Balance Tests Romberg Romberg 20 sec Single Limb Standing Single Limb- Right 8 sec; increased sway Single Limb- Left 12 sec, no pain; increased sway Tandem Tandem Standing 15 sec, increased sway; no pain PT-OP-E Functional Tests Start: 12/10/23 07:29 Freq: Status: Active Protocol: Document 12/10/23 09:47 NM (Rec: 12/10/23 11:22 NM [id number]) Functional Tests 30 Second Sit to Stand Test Score 11 Comments B knee valgus, no pain or instability reported PT-OP-F Manual Assessment Start: 12/10/23 07:29 Freq: Status: Active Protocol: Document 12/10/23 09:47 NM (Rec: 12/10/23 11:22 NM [id number]) Manual Assessments Soft Tissue Assessment Soft Tissue Mobility Assessment Tenderness along L IT band, medial knee near pes anserine insertion Joint Mobility Assessment Joint Mobility Assessment No L instability, no clicking or catching of L knee with testing. Bilateral joint line pain L knee PT-OP-G Mobility & Gait Start: 12/10/23 07:29 Freq: Status: Active Protocol: Document 12/10/23 09:47 NM (Rec: 12/10/23 11:22 NM [id number]) OP Gait Assessment Gait Gait Assistance Required: Standby Assistance Distance (Feet) 250 Assistive Devices Assistive Device Gait Belt Gait Deviations General Gait Pattern Antalgic Factors Limiting Gait Function Factors Limiting Gait Function Decreased Strength,Pain,Poor Balance Comments Gait Comments Slightly antalgic gait, with increased JAJA and minimal lateral trunk excursion Stair Climbing Evaluation Evaluation Level of Assist On Stairs Contact Guard Assistance Devices Stair Climbing Assistive Devices None,Left Railing Technique/Endurance Stair Climbing Direction Ascend and Descend Stair Climbing Technique Step to Step Number of Steps Climbed 4 Stair Climbing Set # Repetitions (reps) 1 Comments Stair Climbing Comments Leading with RLE, reports pain with L knee flexion while advancing down stairs. Reports no instability or observed, but demos B pelvic drop when stepping down PT-OP-H Neuro Start: 12/10/23 07:29 Freq: Status: Active Protocol: Document 12/10/23 09:47 NM (Rec: 12/10/23 11:22 NM [id number]) Sensation Evaluation Gross Sensation Gross Sensation WNL Comments Summary Comments BLE intact to light touch sensation PT-OP-J Posture/Palpation/Skin Start: 12/10/23 07:29 Freq: Status: Active Protocol: Document 12/10/23 09:47 NM (Rec: 12/10/23 11:22 NM [id number]) Posture Evaluation Position Standing Evaluation View Lateral Head/C-Spine Posture Forward Head Pelvis Posture Anteriorly Tilted Knee Posture (L) Genu Valgus,(R) Genu Valgus Ankle/Foot Posture (L) Neutral,(R) Neutral Palpation Assessment Location L knee Palpation Location M/L joint line, ITB (knee, hip ), medial knee Palpation Findings Soft Tissue Tightness, Tenderness Palpation Details Tenderness reported along medial/lateral joint line. Tenderness at lateral femoral condyle near ITB insertion and minimal tenderness proximally along ITB. Slight swelling of L knee. Tender along pes anserine insertion but no palpable bursa (only tendons) PT-OP-K Range of Motion Start: 12/10/23 07:29 Freq: Status: Active Protocol: Document 01/07/24 08:18 NM (Rec: 01/07/24 09:02 NM [id number]) Knee Goniometric Range of Motion Knee Left Patient Position Supine Flexion Active (degrees) 130 Flexion Passive (degrees) 130 Extension Active (degrees) 0 Extension Passive (degrees) 0 Comments No pain with AROM or PROM PT-OP-L Special Tests Start: 12/10/23 07:29 Freq: Status: Active Protocol: Document 12/10/23 09:47 NM (Rec: 12/10/23 11:22 NM [id number]) Special Tests Knee Special Tests Posterior Draw Test Results - Anterior Draw Test Results - Melvin's Compression Test Results + Zahida's Test Test Results + Comments bilaterally Thessaly Test Results - Comments No clicking, locking reproduced Sindy Test Test Results - Comments No clicking, locking reproduced Varus Test Results - Comments 0 and 30 deg Valgus Test Results - Comments 0 and 30 deg Hector's Test Results - PT-OP-M Strength Start: 12/10/23 07:29 Freq: Status: Active Protocol: Document 01/07/24 08:18 NM (Rec: 01/07/24 09:02 NM [id number]) Hip Strength Hip Manual Muscle Testing Left Flexion (L2) 4+ Good+ Extension (S1) 4+ Good+ Abduction 4+ Good+ Adduction 4+ Good+ External Rotation 4+ Good+ Internal Rotation 4+ Good+ Comments 01/07/24: 4+/5 all motion Knee Strength Knee Manual Muscle Testing Left Flexion (S2) 4- Good- Extension (L3) 4- Good- Comments 01/07/24: 4/5, no pain PT-OP-Q Treatments Start: 12/10/23 07:29 Freq: Status: Active Protocol: Document 01/23/24 09:03 SP (Rec: 01/23/24 09:46 SP [id number]) Therapeutic Exercises Standing Exercises 3 way hip Standing Exercise Name flex/abd/ext hover (12, 3/9, 6 o'clock) Side bilateral Resistance 2 tb around ankles Equipment Used rail support Reps/Minutes 2x20 ea side Comments cued elongated posture, TKE lunges Standing Exercise Name 1. mini lunge fwd 2. lateral mini lunge Side bilateral Resistance AROM- in PT only Equipment Used 1. counter contact light fwd 2 . hand on hips lateral Reps/Minutes 15 each Comments Lopez cues knee behind forefoot , hip hinge sit to stand Standing Exercise Name taps Resistance arms across chest Equipment Used mesh chair Comments cued hip hinge 4 inch lateral step up Standing Exercise Name 1. 6 step up, 2. eccentric step down 4 Side bilateral Equipment Used 1. no UE 2. light contact x1 rep Reps/Minutes 1. 2x15, 2. 1x15 Comments no pain, tactile cue for knee behind forefoot/hip hinge/heel drive, no rot 4 inch step up step back Standing Exercise Name step up 6 Side bilateral Resistance AROM Equipment Used rail PRN Reps/Minutes 2x15 ea 6 Comments pnfree, cued rhomboid& core fac midline, wider JAJA Gait Training Gait Activity stairs Description MAP bldge stairs Device Used rail not needed Distance/Duration 28 steps Comments occ cues for wt shift into advance LE initially ascending . Neuro Re-Education Treatment Balance Activities Tandem Details close SBA Surface stable Reps/Duration hands hovering over //bars Comments Pain free. Cued to maintain JAJA over center of feet 1. floor, 1x30 not 4/3 2. foam, 1x45 ea R fwd, 29 L fwd 3. walk, 3x10ft ea direction; cued heel>toe contact, hands hovering, no LOB slight sway x3 reps but self recovery, contact rail x1 single leg stance Details //bar Nearby Surface stable Equipment last session: foam 13sec LLE, 4 sec longest RLE Comments 1. 7-8 sec R; 6, 11 sec R ea stable surface 2. work 1x30 ea foam pad, ea light 1 finger support intermittent balance; RLE 4 sec no contact Cued center JAJA over mid foot, no resting opp leg, increase ankle sway, pain free PT-OP-R Modalities Start: 12/10/23 07:29 Freq: Status: Active Protocol: Document 01/03/24 07:32 NM (Rec: 01/03/24 08:42 NM [id number]) Hot Pack/Cold Pack Treatment Ice Massage Location L knee Patient Position Supine Patient Tolerance Good Comments Skin assessed before: normal color, temperature, no abnormalities. 5 minutes, emphasis over medial L knee near MCL, pes anserine. Skin assessed after: redness that resolved before pt left clinic . Tolerated well. Educated on use at home PT-OP-T Assessment and Plan Start: 12/10/23 07:29 Freq: Status: Active Protocol: Document 01/23/24 09:03 SP (Rec: 01/23/24 09:46 SP [id number]) Physical Therapy Assessment Goals 5 Impairment stairs, function Impairment stairs challenging upon descent due to L knee pain Short Term Goal (STG) Pt will be able to perform at least 8 eccentric step downs without compensation or pain in LLE using 1 or fewer hand rails for balance in order to demonstrate improved L knee strength, stability, and activity tolerance 01/07/24: 1/10 pain with 8 stairs, ascending and not descending STG Duration 4 weeks PROGRESSING Prison Goal (LTG) Pt will be able to perform at least 12 stairs (1 flight) without compensation or pain in LLE using 1 or fewer hand rails for balance in order to demonstrate improved L knee strength, stability, and activity tolerance LTG Duration 8 weeks 4 Impairment squat, function Short Term Goal (STG) Pt will be able to perform at least 10 bilateral squats without compensation or pain in order to demonstrate increased quad and glute strength required for ambulation and activity. 01/07/24: Perform 10 squats with tactile, visual, and verbal cues STG Duration 4 weeks PROGRESSING Prison Goal (LTG) Pt will be able to perform at least 15 bilateral squats without compensation or pain in 30 sec STS test in order to demonstrate increased quad and glute strength required for ambulation and activity. LTG Duration 8 weeks 3 Impairment gait Impairment reported 1 mi limitation, 250 ft in clinic Short Term Goal (STG) Pt will be able to ambulate > 300 ft using LRAD or brace for support as needed in order to demonstrate improved L knee strength, activity tolerance, and return to PLOF. 01/03/24: pt reports that she can ambulate at least 1 mile before pain, can shop for >30 min before pain STG Duration 4 weeks MET Cash Reconciliation Specialist Goal (LTG) Pt will report no limitation in ambulating community distances using LRAD or brace for support as needed in order to demonstrate improved L knee strength, activity tolerance, and return to PLOF. 01/07/24: reports 15-20 min before L knee pain increases LTG Duration 8 weeks 2 Impairment Activity Impairment No HEP or daily exercise program Short Term Goal (STG) Pt will report compliance with HEP 2-3x/wk for initiation of exercise program and to improve activity tolerance while maximizing gains from PT 01/03/24: compliant 2-3/wk with log STG Duration 4 weeks PROGRESSING Cash Reconciliation Specialist Goal (LTG) Pt will report compliance with HEP at least 3x/wk for maintenance program after discharge from PT. LTG Duration 8 weeks 1 Impairment LEFS Impairment 45/80 STG Duration 4 weeks Cash Reconciliation Specialist Goal (LTG) Pt will improve LEFS >9 points (1 MCID) in order to demonstrate improved activity tolerance 01/07/24: 54/80 LTG Duration 8 weeks, MET< PROGRESSING Assessment Summary Assessment Pt good effort today. Able to increased reps today with all exercises. Hover squats over chair seat increased reps 2x10 with no reports pain. Slight L knee irritation medial front knee initial step forward and lateral lunge but provided cuese for alignment and went away. Physical Therapy Plan Frequency and Duration Frequency of Treatment 2x/Week Duration of treatment (weeks) 8 Plan of Care Start Date 12/10/23 Plan of Care End Date 02/08/24 Therapeutic Interventions Therapeutic Interventions Aquatic Therapy,Balance Training,Gait Training,Home Exercise Program,Joint Mobilizations,Manual Therapy, Neuromuscular Re-education, Orthotic/Prosthetic Management ,Patient/Caregiver Education, Self-Care/Home Management,Soft Tissue Mobilization,Taping, Therapeutic Activities, Therapeutic Exercises Modalities Biofeedback,Cold Pack/Ice Massage,Electric Stimulation, Hot Packs,Traction- Mechanical ,Ultrasound,Vasopneumatic Devices Other Therapeutic Interventions Manual traction Next Visit Focus/Plan Next Note Type Treatment Note Next Visit Plan Review HEP needed: Assess tolerance *lunge * fwd step down 4>6 step in PT, squat review, STS review with weight vs squat, leg press, TKE Next session: leg press /c glute activation, hip abd, revisit response fwd down/ lateral for HEP /c HO. Update HEP Hip, glute, quad strengthening . Body mechanics training. Manual: STM, patellar mobilizations, knee and hip mobilizations prn
--- NOTE | 2024-01-28 14:45 | PT-OP ANOTE ---
NO SHOW- PT called pt at [phone] and left voice mail as pt did not attend appt. Pt confirmed appt on [facility]. PT reminded pt of upcoming appt on 01/29 and of attendance policy, including calling first front ventilator to reschedule if unable to attend
--- NOTE | 2024-01-30 11:49 | PT.OTN ---
Current Diagnoses Unilateral primary osteoarthritis, left knee (01/30/24) Other bursitis of knee, left knee (01/30/24) Unspecified abnormalities of gait and mobility (01/30/24) Weakness (01/30/24) Physical Therapy Treatment Note PT-OP-A Visit Information Start: 12/10/23 07:29 Freq: Status: Active Protocol: Document 01/30/24 09:04 NM (Rec: 01/30/24 09:44 NM [id number]) Out-Patient Physical Therapy Visit Information Visit Information Visit Type Treatment Note Visit Start Time 09:05 Visit Stop Time 09:43 Visit Number 14 PT-OP-B Current Condition Start: 12/10/23 07:29 Freq: Status: Active Protocol: Document 12/10/23 09:47 NM (Rec: 12/10/23 11:22 NM [id number]) Current Condition History of Current Condition Onset Date September 2023 Current Complaints pain History of Current Condition Pt presents with L knee pain and a dx of bursitis. Pain is mainly on L medial knee. Injury occured originally at [facility] when she was lifting an accordian from the floor, then again at [place] , she twisted her knee and had immediate pain. She did not hear a pop, fall, or feel instability. Pain was dull except when she turns a certain way, to the right. She reports that she has difficulty putting on socks ( lifting foot). She has been wearing a soft brace since [place]. Reports that her knee does not feel unstable. She reports no difficulty with walking, standing, or stairs (uses R leg to step) Prior Treatments and Tests 10/2023 X rays reveal no bony abnormalities; received recent cortisone injection, which was helpful Scheduled for future MRI Prior Functional Status Baseline Function- ADL's Independent Baseline Function- Mobility Independent Baseline Function- Gait 2 miles Current Functional Impairments (Reported) Functional Limitations- ADL's difficulty putting on shoes Functional Limitations- Mobility/Gait as far as I need to but limited Functional Limitations- Recreation/ difficulty with lifting Hobbies objects from lower surfaces due to pain and body mechanics PT-OP-C Subjective Start: 12/10/23 07:29 Freq: Status: Active Protocol: Document 01/30/24 09:04 NM (Rec: 01/30/24 09:44 NM [id number]) OP-PT Subjective Patient Comments Patient Comments Pt reports no pain in her L knee. She only has 1/10 pain with twisting her knee, when she forgets to move her feet. She reports being sporadically with HEP. She had to ice after last treatment, use a salve due to soreness. PT-OP-D Balance Start: 12/10/23 07:29 Freq: Status: Active Protocol: Document 12/10/23 09:47 NM (Rec: 12/11/23 16:50 NM [id number]) Balance Tests Romberg Romberg 20 sec Single Limb Standing Single Limb- Right 8 sec; increased sway Single Limb- Left 12 sec, no pain; increased sway Tandem Tandem Standing 15 sec, increased sway; no pain PT-OP-E Functional Tests Start: 12/10/23 07:29 Freq: Status: Active Protocol: Document 12/10/23 09:47 NM (Rec: 12/10/23 11:22 NM [id number]) Functional Tests 30 Second Sit to Stand Test Score 11 Comments B knee valgus, no pain or instability reported PT-OP-F Manual Assessment Start: 12/10/23 07:29 Freq: Status: Active Protocol: Document 12/10/23 09:47 NM (Rec: 12/10/23 11:22 NM [id number]) Manual Assessments Soft Tissue Assessment Soft Tissue Mobility Assessment Tenderness along L IT band, medial knee near pes anserine insertion Joint Mobility Assessment Joint Mobility Assessment No L instability, no clicking or catching of L knee with testing. Bilateral joint line pain L knee PT-OP-G Mobility & Gait Start: 12/10/23 07:29 Freq: Status: Active Protocol: Document 12/10/23 09:47 NM (Rec: 12/10/23 11:22 NM [id number]) OP Gait Assessment Gait Gait Assistance Required: Standby Assistance Distance (Feet) 250 Assistive Devices Assistive Device Gait Belt Gait Deviations General Gait Pattern Antalgic Factors Limiting Gait Function Factors Limiting Gait Function Decreased Strength,Pain,Poor Balance Comments Gait Comments Slightly antalgic gait, with increased JAJA and minimal lateral trunk excursion Stair Climbing Evaluation Evaluation Level of Assist On Stairs Contact Guard Assistance Devices Stair Climbing Assistive Devices None,Left Railing Technique/Endurance Stair Climbing Direction Ascend and Descend Stair Climbing Technique Step to Step Number of Steps Climbed 4 Stair Climbing Set # Repetitions (reps) 1 Comments Stair Climbing Comments Leading with RLE, reports pain with L knee flexion while advancing down stairs. Reports no instability or observed, but demos B pelvic drop when stepping down PT-OP-H Neuro Start: 12/10/23 07:29 Freq: Status: Active Protocol: Document 12/10/23 09:47 NM (Rec: 12/10/23 11:22 NM [id number]) Sensation Evaluation Gross Sensation Gross Sensation WNL Comments Summary Comments BLE intact to light touch sensation PT-OP-J Posture/Palpation/Skin Start: 12/10/23 07:29 Freq: Status: Active Protocol: Document 12/10/23 09:47 NM (Rec: 12/10/23 11:22 NM [id number]) Posture Evaluation Position Standing Evaluation View Lateral Head/C-Spine Posture Forward Head Pelvis Posture Anteriorly Tilted Knee Posture (L) Genu Valgus,(R) Genu Valgus Ankle/Foot Posture (L) Neutral,(R) Neutral Palpation Assessment Location L knee Palpation Location M/L joint line, ITB (knee, hip ), medial knee Palpation Findings Soft Tissue Tightness, Tenderness Palpation Details Tenderness reported along medial/lateral joint line. Tenderness at lateral femoral condyle near ITB insertion and minimal tenderness proximally along ITB. Slight swelling of L knee. Tender along pes anserine insertion but no palpable bursa (only tendons) PT-OP-K Range of Motion Start: 12/10/23 07:29 Freq: Status: Active Protocol: Document 01/07/24 08:18 NM (Rec: 01/07/24 09:02 NM [id number]) Knee Goniometric Range of Motion Knee Left Patient Position Supine Flexion Active (degrees) 130 Flexion Passive (degrees) 130 Extension Active (degrees) 0 Extension Passive (degrees) 0 Comments No pain with AROM or PROM PT-OP-L Special Tests Start: 12/10/23 07:29 Freq: Status: Active Protocol: Document 12/10/23 09:47 NM (Rec: 12/10/23 11:22 NM [id number]) Special Tests Knee Special Tests Posterior Draw Test Results - Anterior Draw Test Results - Melvin's Compression Test Results + Zahida's Test Test Results + Comments bilaterally Thessaly Test Results - Comments No clicking, locking reproduced Sindy Test Test Results - Comments No clicking, locking reproduced Varus Test Results - Comments 0 and 30 deg Valgus Test Results - Comments 0 and 30 deg Hector's Test Results - PT-OP-M Strength Start: 12/10/23 07:29 Freq: Status: Active Protocol: Document 01/07/24 08:18 NM (Rec: 01/07/24 09:02 NM [id number]) Hip Strength Hip Manual Muscle Testing Left Flexion (L2) 4+ Good+ Extension (S1) 4+ Good+ Abduction 4+ Good+ Adduction 4+ Good+ External Rotation 4+ Good+ Internal Rotation 4+ Good+ Comments 01/07/24: 4+/5 all motion Knee Strength Knee Manual Muscle Testing Left Flexion (S2) 4- Good- Extension (L3) 4- Good- Comments 01/07/24: 4/5, no pain PT-OP-Q Treatments Start: 12/10/23 07:29 Freq: Status: Active Protocol: Document 01/30/24 09:04 NM (Rec: 01/30/24 09:44 NM [id number]) Gym Equipment Cable Column (Body Solid) HSC Details pillow behind back Resistance lvl 2 cables Reps/Time 2x10 LAQ Details pillow behind back; good TKE Resistance lvl 2 cables Reps/Time 2x10 Therapeutic Exercises Standing Exercises lateral touch down Standing Exercise Name trialed in PT: 4 step Side bilateral Resistance AROM Reps/Minutes 1x5 ea Comments for glute strength; cued level hips; challenging eccentric step down Standing Exercise Name 1. 4 heel tap, 2. trialed 6 eccentric step down Side bilateral Resistance AROM Equipment Used 1 finger assist light contact Reps/Minutes 1. 2x10, 2. 2x5 ea (pain free but harder, L weaker) Comments pain free L knee after several reps; cued hip hinge 3 way hip Standing Exercise Name flex/abd/ext hover (12, 3/9, 6 o'clock)- added slider Side bilateral Resistance 2 tb around ankles Equipment Used slider Reps/Minutes 1x10 w/o slider, 1x10 w/ slider Comments cued upright posture lunges Standing Exercise Name 1. mini fwd lunge, 2. lateral mini lunge Side bilateral Resistance AROM Equipment Used light contact with ballet bar for balance, hands on hips for lateral Reps/Minutes 1x15 ea Comments cued knees behind forefoot, wider JAJA sit to stand Standing Exercise Name taps to mesh chair Side bilateral Resistance 5# tball, lvl 2 band around thighs Equipment Used mesh chair Reps/Minutes 2x10 Comments cued hip hinge, upright chest Self-Care/Home Management Treatment Education Patient Education Home Exercise Program Other Education HEP: LAQ, hip 3 way, PT-OP-R Modalities Start: 12/10/23 07:29 Freq: Status: Active Protocol: Document 01/03/24 07:32 NM (Rec: 01/03/24 08:42 NM [id number]) Hot Pack/Cold Pack Treatment Ice Massage Location L knee Patient Position Supine Patient Tolerance Good Comments Skin assessed before: normal color, temperature, no abnormalities. 5 minutes, emphasis over medial L knee near MCL, pes anserine. Skin assessed after: redness that resolved before pt left clinic . Tolerated well. Educated on use at home PT-OP-T Assessment and Plan Start: 12/10/23 07:29 Freq: Status: Active Protocol: Document 01/30/24 09:04 NM (Rec: 01/30/24 09:44 NM [id number]) Physical Therapy Assessment Goals 5 Impairment stairs, function Impairment stairs challenging upon descent due to L knee pain Short Term Goal (STG) Pt will be able to perform at least 8 eccentric step downs without compensation or pain in LLE using 1 or fewer hand rails for balance in order to demonstrate improved L knee strength, stability, and activity tolerance 01/07/24: 1/10 pain with 8 stairs, ascending and not descending STG Duration 4 weeks PROGRESSING Learning Disabilities Resource Teacher Goal (LTG) Pt will be able to perform at least 12 stairs (1 flight) without compensation or pain in LLE using 1 or fewer hand rails for balance in order to demonstrate improved L knee strength, stability, and activity tolerance LTG Duration 8 weeks 4 Impairment squat, function Short Term Goal (STG) Pt will be able to perform at least 10 bilateral squats without compensation or pain in order to demonstrate increased quad and glute strength required for ambulation and activity. 01/07/24: Perform 10 squats with tactile, visual, and verbal cues STG Duration 4 weeks PROGRESSING Residential Goal (LTG) Pt will be able to perform at least 15 bilateral squats without compensation or pain in 30 sec STS test in order to demonstrate increased quad and glute strength required for ambulation and activity. LTG Duration 8 weeks 3 Impairment gait Impairment reported 1 mi limitation, 250 ft in clinic Short Term Goal (STG) Pt will be able to ambulate > 300 ft using LRAD or brace for support as needed in order to demonstrate improved L knee strength, activity tolerance, and return to PLOF. 01/03/24: pt reports that she can ambulate at least 1 mile before pain, can shop for >30 min before pain STG Duration 4 weeks MET Residential Goal (LTG) Pt will report no limitation in ambulating community distances using LRAD or brace for support as needed in order to demonstrate improved L knee strength, activity tolerance, and return to PLOF. 01/07/24: reports 15-20 min before L knee pain increases LTG Duration 8 weeks 2 Impairment Activity Impairment No HEP or daily exercise program Short Term Goal (STG) Pt will report compliance with HEP 2-3x/wk for initiation of exercise program and to improve activity tolerance while maximizing gains from PT 01/03/24: compliant 2-3/wk with log STG Duration 4 weeks PROGRESSING Residential Goal (LTG) Pt will report compliance with HEP at least 3x/wk for maintenance program after discharge from PT. LTG Duration 8 weeks 1 Impairment LEFS Impairment 45/80 STG Duration 4 weeks Residential Goal (LTG) Pt will improve LEFS >9 points (1 MCID) in order to demonstrate improved activity tolerance 01/07/24: 54/80 LTG Duration 8 weeks, MET< PROGRESSING Assessment Summary Assessment PT tolerated session well and gives good effort. During lunges, cued for wider JAJA for improved balance, allow for greater knee flexion. Progressed to adding 5# weight during eccentric chair taps for greater glute activation and improved eccentric control ; pt demos improved hip hinge, but requires cues for upright posture and less knee over toe translation. She is pain free with eccentric step downs from 4 step today; trialed 6 eccentric step downs. Pt demos weakness of L quad/glute compared to RLE during eccentric lowering from step reports pain free. Added slider for balance challenge during hip 3 way; cued to maintain wider JAJA and further reach into hip extension, slower movements to allow for knee stability/control. Progressed LAQ and HSC resistance to cables; pt challenged by resistance but without pain compared to IE. Pt would benefit from skilled PT for continued hip/knee strengthening and body mechanics training in order to decrease pain symptoms and improve activity tolerance. Physical Therapy Plan Frequency and Duration Frequency of Treatment 2x/Week Duration of treatment (weeks) 8 Plan of Care Start Date 12/10/23 Plan of Care End Date 02/08/24 Therapeutic Interventions Therapeutic Interventions Aquatic Therapy,Balance Training,Gait Training,Home Exercise Program,Joint Mobilizations,Manual Therapy, Neuromuscular Re-education, Orthotic/Prosthetic Management ,Patient/Caregiver Education, Self-Care/Home Management,Soft Tissue Mobilization,Taping, Therapeutic Activities, Therapeutic Exercises Modalities Biofeedback,Cold Pack/Ice Massage,Electric Stimulation, Hot Packs,Traction- Mechanical ,Ultrasound,Vasopneumatic Devices Other Therapeutic Interventions Manual traction Next Visit Focus/Plan Next Note Type Progress Note Next Visit Plan Next session: balance, slider, HSC and LAQ, RDL leg press /c glute activation, hip abd, revisit response fwd down/lateral for HEP /c HO . Update HEP Hip, glute, quad strengthening . Body mechanics training. Manual: STM, patellar mobilizations, knee and hip mobilizations prn
--- NOTE | 2024-02-04 15:30 | PT.OTN ---
Current Diagnoses Unilateral primary osteoarthritis, left knee (02/04/24) Other bursitis of knee, left knee (02/04/24) Unspecified abnormalities of gait and mobility (02/04/24) Weakness (02/04/24) Physical Therapy Treatment Note PT-OP-A Visit Information Start: 12/10/23 07:29 Freq: Status: Active Protocol: Document 02/04/24 09:06 NM (Rec: 02/04/24 11:18 NM [id number]) Out-Patient Physical Therapy Visit Information Visit Information Visit Type Progress Note Visit Start Time 09:03 Visit Stop Time 09:42 Visit Number 15 Evaluation Information Evaluation Date 12/10/23 Precautions Precautions bursitis PT-OP-B Current Condition Start: 12/10/23 07:29 Freq: Status: Active Protocol: Document 12/10/23 09:47 NM (Rec: 12/10/23 11:22 NM [id number]) Current Condition History of Current Condition Onset Date September 2023 Current Complaints pain History of Current Condition Pt presents with L knee pain and a dx of bursitis. Pain is mainly on L medial knee. Injury occured originally at [facility] when she was lifting an accordian from the floor, then again at [facility] , she twisted her knee and had immediate pain. She did not hear a pop, fall, or feel instability. Pain was dull except when she turns a certain way, to the right. She reports that she has difficulty putting on socks ( lifting foot). She has been wearing a soft brace since [facility]. Reports that her knee does not feel unstable. She reports no difficulty with walking, standing, or stairs (uses R leg to step) Prior Treatments and Tests 10/2023 X rays reveal no bony abnormalities; received recent cortisone injection, which was helpful Scheduled for future MRI Prior Functional Status Baseline Function- ADL's Independent Baseline Function- Mobility Independent Baseline Function- Gait 2 miles Current Functional Impairments (Reported) Functional Limitations- ADL's difficulty putting on shoes Functional Limitations- Mobility/Gait as far as I need to but limited Functional Limitations- Recreation/ difficulty with lifting Hobbies objects from lower surfaces due to pain and body mechanics PT-OP-C Subjective Start: 12/10/23 07:29 Freq: Status: Active Protocol: Document 02/04/24 09:06 NM (Rec: 02/04/24 11:18 NM [id number]) OP-PT Subjective Patient Comments Patient Comments Pt reports no L knee pain recently. States she hasn't performed any exercises. Currently has laryngitis, which is the reason. Since PT, pt reports that she is able to go up/down stairs, STS w/o pain, improvement in mobility. Pt continues to report less medial knee pain, but states having more anterior knee pain PT-OP-D Balance Start: 12/10/23 07:29 Freq: Status: Active Protocol: Document 12/10/23 09:47 NM (Rec: 12/11/23 16:50 NM [id number]) Balance Tests Romberg Romberg 20 sec Single Limb Standing Single Limb- Right 8 sec; increased sway Single Limb- Left 12 sec, no pain; increased sway Tandem Tandem Standing 15 sec, increased sway; no pain PT-OP-E Functional Tests Start: 12/10/23 07:29 Freq: Status: Active Protocol: Document 12/10/23 09:47 NM (Rec: 12/10/23 11:22 NM [id number]) Functional Tests 30 Second Sit to Stand Test Score 11 Comments B knee valgus, no pain or instability reported PT-OP-F Manual Assessment Start: 12/10/23 07:29 Freq: Status: Active Protocol: Document 12/10/23 09:47 NM (Rec: 12/10/23 11:22 NM [id number]) Manual Assessments Soft Tissue Assessment Soft Tissue Mobility Assessment Tenderness along L IT band, medial knee near pes anserine insertion Joint Mobility Assessment Joint Mobility Assessment No L instability, no clicking or catching of L knee with testing. Bilateral joint line pain L knee PT-OP-G Mobility & Gait Start: 12/10/23 07:29 Freq: Status: Active Protocol: Document 12/10/23 09:47 NM (Rec: 12/10/23 11:22 NM [id number]) OP Gait Assessment Gait Gait Assistance Required: Standby Assistance Distance (Feet) 250 Assistive Devices Assistive Device Gait Belt Gait Deviations General Gait Pattern Antalgic Factors Limiting Gait Function Factors Limiting Gait Function Decreased Strength,Pain,Poor Balance Comments Gait Comments Slightly antalgic gait, with increased JAJA and minimal lateral trunk excursion Stair Climbing Evaluation Evaluation Level of Assist On Stairs Contact Guard Assistance Devices Stair Climbing Assistive Devices None,Left Railing Technique/Endurance Stair Climbing Direction Ascend and Descend Stair Climbing Technique Step to Step Number of Steps Climbed 4 Stair Climbing Set # Repetitions (reps) 1 Comments Stair Climbing Comments Leading with RLE, reports pain with L knee flexion while advancing down stairs. Reports no instability or observed, but demos B pelvic drop when stepping down PT-OP-H Neuro Start: 12/10/23 07:29 Freq: Status: Active Protocol: Document 12/10/23 09:47 NM (Rec: 12/10/23 11:22 NM [id number]) Sensation Evaluation Gross Sensation Gross Sensation WNL Comments Summary Comments BLE intact to light touch sensation PT-OP-J Posture/Palpation/Skin Start: 12/10/23 07:29 Freq: Status: Active Protocol: Document 12/10/23 09:47 NM (Rec: 12/10/23 11:22 NM [id number]) Posture Evaluation Position Standing Evaluation View Lateral Head/C-Spine Posture Forward Head Pelvis Posture Anteriorly Tilted Knee Posture (L) Genu Valgus,(R) Genu Valgus Ankle/Foot Posture (L) Neutral,(R) Neutral Palpation Assessment Location L knee Palpation Location M/L joint line, ITB (knee, hip ), medial knee Palpation Findings Soft Tissue Tightness, Tenderness Palpation Details Tenderness reported along medial/lateral joint line. Tenderness at lateral femoral condyle near ITB insertion and minimal tenderness proximally along ITB. Slight swelling of L knee. Tender along pes anserine insertion but no palpable bursa (only tendons) PT-OP-K Range of Motion Start: 12/10/23 07:29 Freq: Status: Active Protocol: Document 02/04/24 09:06 NM (Rec: 02/04/24 11:18 NM [id number]) Knee Goniometric Range of Motion Knee Left Patient Position Supine Flexion Active (degrees) 130 Flexion Passive (degrees) 130 Extension Active (degrees) 0 Extension Passive (degrees) 0 Comments No pain with AROM or PROM 02/04/24: 130 deg knee flexion, 0 deg extension; no pain PT-OP-L Special Tests Start: 12/10/23 07:29 Freq: Status: Active Protocol: Document 12/10/23 09:47 NM (Rec: 12/10/23 11:22 NM [id number]) Special Tests Knee Special Tests Posterior Draw Test Results - Anterior Draw Test Results - Melvin's Compression Test Results + Zahida's Test Test Results + Comments bilaterally Thessaly Test Results - Comments No clicking, locking reproduced Sindy Test Test Results - Comments No clicking, locking reproduced Varus Test Results - Comments 0 and 30 deg Valgus Test Results - Comments 0 and 30 deg Hector's Test Results - PT-OP-M Strength Start: 12/10/23 07:29 Freq: Status: Active Protocol: Document 02/04/24 09:06 NM (Rec: 02/04/24 11:18 NM [id number]) Hip Strength Hip Manual Muscle Testing Left Flexion (L2) 4+ Good+ Extension (S1) 4+ Good+ Abduction 4+ Good+ Adduction 4+ Good+ External Rotation 4+ Good+ Internal Rotation 4+ Good+ Comments 02/04/24, 01/07/24: 4+/5 all motion Knee Strength Knee Manual Muscle Testing Right Flexion (S2) 4 Good Extension (L3) 4 Good Comments 02/04/24: 4+/5 Left Flexion (S2) 4- Good- Extension (L3) 4- Good- Comments 01/07/24: 4/5, no pain 02/04/24: 4+/5, no pain PT-OP-Q Treatments Start: 12/10/23 07:29 Freq: Status: Active Protocol: Document 02/04/24 09:06 NM (Rec: 02/04/24 11:18 NM [id number]) Therapeutic Exercises Standing Exercises lateral touch down Standing Exercise Name 4 step Side bilateral Resistance AROM Reps/Minutes 2x8 ea Comments for glute strength; cued level hips; challenging 3 way hip Standing Exercise Name slider hip 3 way Side bilateral Resistance lvl 2 band around ankles Equipment Used slider Reps/Minutes 1x15 ea w/ slider Comments cued upright posture, neutral hip positioning sit to stand Standing Exercise Name 1. 30 sec STS, 2. taps to plinth Side bilateral Resistance lvl 2 band around thighs, arms across chest Equipment Used 18 plinth Reps/Minutes 1. 11, 2. 1x15 Comments faitguing; pain free w/ band, demos valgus ankle dorsiflexion Standing Exercise Name toe raises, back against wall Side bilateral Resistance AROM Reps/Minutes 1x20 with 2 hold Comments improved ankle DF today heel raises Side bilateral Resistance AROM Equipment Used ballet bar for UE support (2 finger only) Reps/Minutes 1x20 Comments cued no rocking Gait Training Gait Activity stairs Description 1. 6 stairs, 2. 28 MAP stairs Device Used 1 hand rail assist for balanace Level of Assistance close SBA Distance/Duration 12, 28 steps Comments Cued weight shift onto stance LE during ascending, neutral hip positioning during descent . No knee pain, but demos valgus with descent Neuro Re-Education Treatment Balance Activities DGI Details Comments Challenged with gait speed changes, head movements, changing speed to clear obstacles PT-OP-R Modalities Start: 12/10/23 07:29 Freq: Status: Active Protocol: Document 01/03/24 07:32 NM (Rec: 01/03/24 08:42 NM [id number]) Hot Pack/Cold Pack Treatment Ice Massage Location L knee Patient Position Supine Patient Tolerance Good Comments Skin assessed before: normal color, temperature, no abnormalities. 5 minutes, emphasis over medial L knee near MCL, pes anserine. Skin assessed after: redness that resolved before pt left clinic . Tolerated well. Educated on use at home PT-OP-T Assessment and Plan Start: 12/10/23 07:29 Freq: Status: Active Protocol: Document 02/04/24 09:06 NM (Rec: 02/04/24 11:18 NM [id number]) Physical Therapy Assessment Goals 6 Impairment DGI Impairment score Longterm Goal (LTG) Pt will score 24 on DGI in order to decrease fall risk and demonstrate improved balance LTG Duration 8 weeks GOAL ADDED 5 Impairment stairs, function Impairment stairs challenging upon descent due to L knee pain Short Term Goal (STG) Pt will be able to perform at least 8 eccentric step downs without compensation or pain in LLE using 1 or fewer hand rails for balance in order to demonstrate improved L knee strength, stability, and activity tolerance 01/07/24: 1/10 pain with 8 stairs, ascending and not descending STG Duration 4 weeks MET 02/03 Clinical Laboratory Medical Director Goal (LTG) Pt will be able to perform at least 12 stairs (1 flight) without compensation or pain in LLE using 1 or fewer hand rails for balance in order to demonstrate improved L knee strength, stability, and activity tolerance 02/04/24: 12 stairs, with feet turned out, 1 hand rail, no pain reported in knees LTG Duration 8 weeks MET 4 Impairment squat, function Short Term Goal (STG) Pt will be able to perform at least 10 bilateral squats without compensation or pain in order to demonstrate increased quad and glute strength required for ambulation and activity. 01/07/24: Perform 10 squats with tactile, visual, and verbal cues 02/04/24: demos knee valgus w/o band, pain free with band STG Duration 4 weeks PROGRESSING Longterm Goal (LTG) Pt will be able to perform at least 15 bilateral squats without compensation or pain in 30 sec STS test in order to demonstrate increased quad and glute strength required for ambulation and activity. 02/03/23: 11 squats during 30 sec STS LTG Duration 8 weeks PROGRESSING, NOT MET 3 Impairment gait Impairment reported 1 mi limitation, 250 ft in clinic Short Term Goal (STG) Pt will be able to ambulate > 300 ft using LRAD or brace for support as needed in order to demonstrate improved L knee strength, activity tolerance, and return to PLOF. 01/03/24: pt reports that she can ambulate at least 1 mile before pain, can shop for >30 min before pain STG Duration 4 weeks MET Longterm Goal (LTG) Pt will report no limitation in ambulating community distances using LRAD or brace for support as needed in order to demonstrate improved L knee strength, activity tolerance, and return to PLOF. 01/07/24: reports 15-20 min before L knee pain increases 02/04/24: Pt reports no limitations in walking distance due to knee pain LTG Duration 8 weeks MET 2 Impairment Activity Impairment No HEP or daily exercise program Short Term Goal (STG) Pt will report compliance with HEP 2-3x/wk for initiation of exercise program and to improve activity tolerance while maximizing gains from PT 01/03/24: compliant 2-3/wk with log STG Duration 4 weeks PROGRESSING Clinical Laboratory Medical Director Goal (LTG) Pt will report compliance with HEP at least 3x/wk for maintenance program after discharge from PT. 02/04/24: pt reports minimal compliance with HEP and log LTG Duration 8 weeks NOT MET 1 Impairment LEFS Impairment 45/80 STG Duration 4 weeks Longterm Goal (LTG) Pt will improve LEFS >9 points (1 MCID) in order to demonstrate improved activity tolerance 01/07/24: 54/80 02/04/24: 71/80 LTG Duration 8 weeks, MET Progress Towards Goals Progress Towards Goals Progressing Toward Goals,Slow Progress due to Activity Tolerance,Slow Progress due to Noncompliance,Goals Met Progress Comments Met 3 LTGS, progressing toward HEP goals and squats. Added balance goal Assessment Summary Assessment Pt with good effort today, but fatigued more easily due to feeling poorly. Pt with improved eccentric control during sit to stand, only able to perform 11 during 30 second sit to stand. Cued for full upright posture and TKE, less forward trunk lean. Continues to have difficulty with stabilizing pelvis and good glute medius activation with lateral step downs and during stairs. However, pt without knee pain on stairs when descending, which is an improvement. Added DGI for dynamic balance assessment; pt challenged by maintaining JAJA with changes in gait speed, head movements, and clearing obstacles without increased sway or staggering. Physical Therapy Plan Frequency and Duration Frequency of Treatment 2x/Week Duration of treatment (weeks) 8 Plan of Care Start Date 02/04/24 Plan of Care End Date 04/04/24 Therapeutic Interventions Therapeutic Interventions Aquatic Therapy,Balance Training,Gait Training,Home Exercise Program,Joint Mobilizations,Manual Therapy, Neuromuscular Re-education, Orthotic/Prosthetic Management ,Patient/Caregiver Education, Self-Care/Home Management,Soft Tissue Mobilization,Taping, Therapeutic Activities, Therapeutic Exercises Modalities Biofeedback,Cold Pack/Ice Massage,Electric Stimulation, Hot Packs,Traction- Mechanical ,Ultrasound,Vasopneumatic Devices Other Therapeutic Interventions Manual traction Next Visit Focus/Plan Next Note Type Treatment Note Next Visit Plan Next session: balance, leg press, slider, HSC and LAQ, RDL, balance training ( resisted stepping, hurdles, foam), glute/quad Manual: STM, patellar mobilizations, knee and hip mobilizations prn
--- NOTE | 2024-02-04 15:31 | PT.OPPOC ---
Physical, Occupational & Speech Therapy At [facility] Current Diagnoses Unilateral primary osteoarthritis, left knee (02/04/24) Other bursitis of knee, left knee (02/04/24) Unspecified abnormalities of gait and mobility (02/04/24) Weakness (02/04/24) Visit Care Team Role Provider Type Reji Wilson MD Attending Provider Physician Family Provider Primary Care Provider Referring Provider Specialty: Family Practice Address: [address] [place] [address], [address], [address] Email: [email or web address] Plan Of Care PT-OP-T Assessment and Plan Start: 12/10/23 07:29 Freq: Status: Active Protocol: Document 02/04/24 09:06 NM (Rec: 02/04/24 11:18 NM [id number]) Physical Therapy Assessment Goals 6 Impairment DGI Impairment score Administrative Judge Goal (LTG) Pt will score on DGI in order to decrease fall risk and demonstrate improved balance LTG Duration 8 weeks GOAL ADDED 5 Impairment stairs, function Impairment stairs challenging upon descent due to L knee pain Short Term Goal (STG) Pt will be able to perform at least 8 eccentric step downs without compensation or pain in LLE using 1 or fewer hand rails for balance in order to demonstrate improved L knee strength, stability, and activity tolerance 01/07/24: 1/10 pain with 8 stairs, ascending and not descending STG Duration 4 weeks MET 02/03 Residential Goal (LTG) Pt will be able to perform at least 12 stairs (1 flight) without compensation or pain in LLE using 1 or fewer hand rails for balance in order to demonstrate improved L knee strength, stability, and activity tolerance 02/04/24: 12 stairs, with feet turned out, 1 hand rail, no pain reported in knees LTG Duration 8 weeks MET 4 Impairment squat, function Short Term Goal (STG) Pt will be able to perform at least 10 bilateral squats without compensation or pain in order to demonstrate increased quad and glute strength required for ambulation and activity. 01/07/24: Perform 10 squats with tactile, visual, and verbal cues 02/04/24: demos knee valgus w/o band, pain free with band STG Duration 4 weeks PROGRESSING Administrative Judge Goal (LTG) Pt will be able to perform at least 15 bilateral squats without compensation or pain in 30 sec STS test in order to demonstrate increased quad and glute strength required for ambulation and activity. 02/03/23: 11 squats during 30 sec STS LTG Duration 8 weeks PROGRESSING, NOT MET 3 Impairment gait Impairment reported 1 mi limitation, 250 ft in clinic Short Term Goal (STG) Pt will be able to ambulate > 300 ft using LRAD or brace for support as needed in order to demonstrate improved L knee strength, activity tolerance, and return to PLOF. 01/03/24: pt reports that she can ambulate at least 1 mile before pain, can shop for >30 min before pain STG Duration 4 weeks MET Residential Goal (LTG) Pt will report no limitation in ambulating community distances using LRAD or brace for support as needed in order to demonstrate improved L knee strength, activity tolerance, and return to PLOF. 01/07/24: reports 15-20 min before L knee pain increases 02/04/24: Pt reports no limitations in walking distance due to knee pain LTG Duration 8 weeks MET 2 Impairment Activity Impairment No HEP or daily exercise program Short Term Goal (STG) Pt will report compliance with HEP 2-3x/wk for initiation of exercise program and to improve activity tolerance while maximizing gains from PT 01/03/24: compliant 2-3/wk with log STG Duration 4 weeks PROGRESSING Administrative Judge Goal (LTG) Pt will report compliance with HEP at least 3x/wk for maintenance program after discharge from PT. 02/04/24: pt reports minimal compliance with HEP and log LTG Duration 8 weeks NOT MET 1 Impairment LEFS Impairment 45/80 STG Duration 4 weeks Residential Goal (LTG) Pt will improve LEFS >9 points (1 MCID) in order to demonstrate improved activity tolerance 01/07/24: 54/80 02/04/24: 71/80 LTG Duration 8 weeks, MET Progress Towards Goals Progress Towards Goals Progressing Toward Goals,Slow Progress due to Activity Tolerance,Slow Progress due to Noncompliance,Goals Met Progress Comments Met 3 LTGS, progressing toward HEP goals and squats. Added balance goal Assessment Summary Assessment Pt has been seen x14 visits since [facility] for L knee pain. She more consistently has less knee pain since beginning PT. Pt has progressed well toward goals, meeting several LTGs. However, she demonstrates impairments in dynamic balance . DGI score , indicating increase fall risk. Pt's MMT strength has improved in both hips and knees, now 4+/5. No limitations in L knee ROM. Pt is pain free on stairs. She continues to demonstrate decreased glute/quad strength during squats and sit to stands. Pt would benefit from skilled PT for further BLE strengthening and balance training in order to decrease fall risk and improve activity tolerance. Physical Therapy Plan Frequency and Duration Frequency of Treatment 2x/Week Duration of treatment (weeks) 8 Plan of Care Start Date 02/04/24 Plan of Care End Date 04/04/24 Therapeutic Interventions Therapeutic Interventions Aquatic Therapy,Balance Training,Gait Training,Home Exercise Program,Joint Mobilizations,Manual Therapy, Neuromuscular Re-education, Orthotic/Prosthetic Management ,Patient/Caregiver Education, Self-Care/Home Management,Soft Tissue Mobilization,Taping, Therapeutic Activities, Therapeutic Exercises Modalities Biofeedback,Cold Pack/Ice Massage,Electric Stimulation, Hot Packs,Traction- Mechanical ,Ultrasound,Vasopneumatic Devices Other Therapeutic Interventions Manual traction Next Visit Focus/Plan Next Note Type Treatment Note Next Visit Plan Next session: balance, leg press, slider, HSC and LAQ, RDL, balance training ( resisted stepping, hurdles, foam), glute/quad Manual: STM, patellar mobilizations, knee and hip mobilizations prn Plan of Care Dates Plan of Care Start Date 02/04/24 Plan of Care End Date 04/04/24 Electronically Signed by: Fernanda Thapa, PT 02/05/24 [id number] If you are in agreement with this Plan of Care, please return a signed and dated copy. I have reviewed this Plan of Care and certify that the skilled therapy services above are required to meet the patient?s needs. Physician Signature Date Printed Name and Credentials Clinical Instructor Signature Printed Name and Credentials
--- NOTE | 2024-02-12 12:25 | PT.OTN ---
Current Diagnoses Unilateral primary osteoarthritis, left knee (02/12/24) Other bursitis of knee, left knee (02/12/24) Unspecified abnormalities of gait and mobility (02/12/24) Weakness (02/12/24) Physical Therapy Treatment Note PT-OP-A Visit Information Start: 12/10/23 07:29 Freq: Status: Active Protocol: Document 02/12/24 11:20 SW (Rec: 02/12/24 12:25 SW [id number]) Out-Patient Physical Therapy Visit Information Visit Information Visit Type Treatment Note Visit Note 10/31 PN pt checking in upon [employer] arrival Visit Start Time 11:20 Visit Stop Time 12:00 Visit Number 16 Number of [employer] Visits 1 Precautions Precautions bursitis PT-OP-B Current Condition Start: 12/10/23 07:29 Freq: Status: Active Protocol: Document 12/10/23 09:47 NM (Rec: 12/10/23 11:22 NM [id number]) Current Condition History of Current Condition Onset Date September 2023 Current Complaints pain History of Current Condition Pt presents with L knee pain and a dx of bursitis. Pain is mainly on L medial knee. Injury occured originally at [facility] when she was lifting an accordian from the floor, then again at [place] , she twisted her knee and had immediate pain. She did not hear a pop, fall, or feel instability. Pain was dull except when she turns a certain way, to the right. She reports that she has difficulty putting on socks ( lifting foot). She has been wearing a soft brace since [place]. Reports that her knee does not feel unstable. She reports no difficulty with walking, standing, or stairs (uses R leg to step) Prior Treatments and Tests 10/2023 X rays reveal no bony abnormalities; received recent cortisone injection, which was helpful Scheduled for future MRI Prior Functional Status Baseline Function- ADL's Independent Baseline Function- Mobility Independent Baseline Function- Gait 2 miles Current Functional Impairments (Reported) Functional Limitations- ADL's difficulty putting on shoes Functional Limitations- Mobility/Gait as far as I need to but limited Functional Limitations- Recreation/ difficulty with lifting Hobbies objects from lower surfaces due to pain and body mechanics PT-OP-C Subjective Start: 12/10/23 07:29 Freq: Status: Active Protocol: Document 02/12/24 11:20 SW (Rec: 02/12/24 12:25 SW [id number]) OP-PT Subjective Patient Comments Patient Comments Pt reports went to ER for cough, feeling much better, though has been too weak to do HEP. PT-OP-D Balance Start: 12/10/23 07:29 Freq: Status: Active Protocol: Document 12/10/23 09:47 NM (Rec: 12/11/23 16:50 NM [id number]) Balance Tests Romberg Romberg 20 sec Single Limb Standing Single Limb- Right 8 sec; increased sway Single Limb- Left 12 sec, no pain; increased sway Tandem Tandem Standing 15 sec, increased sway; no pain PT-OP-E Functional Tests Start: 12/10/23 07:29 Freq: Status: Active Protocol: Document 12/10/23 09:47 NM (Rec: 12/10/23 11:22 NM [id number]) Functional Tests 30 Second Sit to Stand Test Score 11 Comments B knee valgus, no pain or instability reported PT-OP-F Manual Assessment Start: 12/10/23 07:29 Freq: Status: Active Protocol: Document 12/10/23 09:47 NM (Rec: 12/10/23 11:22 NM [id number]) Manual Assessments Soft Tissue Assessment Soft Tissue Mobility Assessment Tenderness along L IT band, medial knee near pes anserine insertion Joint Mobility Assessment Joint Mobility Assessment No L instability, no clicking or catching of L knee with testing. Bilateral joint line pain L knee PT-OP-G Mobility & Gait Start: 12/10/23 07:29 Freq: Status: Active Protocol: Document 12/10/23 09:47 NM (Rec: 12/10/23 11:22 NM [id number]) OP Gait Assessment Gait Gait Assistance Required: Standby Assistance Distance (Feet) 250 Assistive Devices Assistive Device Gait Belt Gait Deviations General Gait Pattern Antalgic Factors Limiting Gait Function Factors Limiting Gait Function Decreased Strength,Pain,Poor Balance Comments Gait Comments Slightly antalgic gait, with increased JAJA and minimal lateral trunk excursion Stair Climbing Evaluation Evaluation Level of Assist On Stairs Contact Guard Assistance Devices Stair Climbing Assistive Devices None,Left Railing Technique/Endurance Stair Climbing Direction Ascend and Descend Stair Climbing Technique Step to Step Number of Steps Climbed 4 Stair Climbing Set # Repetitions (reps) 1 Comments Stair Climbing Comments Leading with RLE, reports pain with L knee flexion while advancing down stairs. Reports no instability or observed, but demos B pelvic drop when stepping down PT-OP-H Neuro Start: 12/10/23 07:29 Freq: Status: Active Protocol: Document 12/10/23 09:47 NM (Rec: 12/10/23 11:22 NM [id number]) Sensation Evaluation Gross Sensation Gross Sensation WNL Comments Summary Comments BLE intact to light touch sensation PT-OP-J Posture/Palpation/Skin Start: 12/10/23 07:29 Freq: Status: Active Protocol: Document 12/10/23 09:47 NM (Rec: 12/10/23 11:22 NM [id number]) Posture Evaluation Position Standing Evaluation View Lateral Head/C-Spine Posture Forward Head Pelvis Posture Anteriorly Tilted Knee Posture (L) Genu Valgus,(R) Genu Valgus Ankle/Foot Posture (L) Neutral,(R) Neutral Palpation Assessment Location L knee Palpation Location M/L joint line, ITB (knee, hip ), medial knee Palpation Findings Soft Tissue Tightness, Tenderness Palpation Details Tenderness reported along medial/lateral joint line. Tenderness at lateral femoral condyle near ITB insertion and minimal tenderness proximally along ITB. Slight swelling of L knee. Tender along pes anserine insertion but no palpable bursa (only tendons) PT-OP-K Range of Motion Start: 12/10/23 07:29 Freq: Status: Active Protocol: Document 02/04/24 09:06 NM (Rec: 02/04/24 11:18 NM [id number]) Knee Goniometric Range of Motion Knee Left Patient Position Supine Flexion Active (degrees) 130 Flexion Passive (degrees) 130 Extension Active (degrees) 0 Extension Passive (degrees) 0 Comments No pain with AROM or PROM 02/04/24: 130 deg knee flexion, 0 deg extension; no pain PT-OP-L Special Tests Start: 12/10/23 07:29 Freq: Status: Active Protocol: Document 12/10/23 09:47 NM (Rec: 12/10/23 11:22 NM [id number]) Special Tests Knee Special Tests Posterior Draw Test Results - Anterior Draw Test Results - Melvin's Compression Test Results + Zahida's Test Test Results + Comments bilaterally Thessaly Test Results - Comments No clicking, locking reproduced Sindy Test Test Results - Comments No clicking, locking reproduced Varus Test Results - Comments 0 and 30 deg Valgus Test Results - Comments 0 and 30 deg Hector's Test Results - PT-OP-M Strength Start: 12/10/23 07:29 Freq: Status: Active Protocol: Document 02/04/24 09:06 NM (Rec: 02/04/24 11:18 NM [id number]) Hip Strength Hip Manual Muscle Testing Left Flexion (L2) 4+ Good+ Extension (S1) 4+ Good+ Abduction 4+ Good+ Adduction 4+ Good+ External Rotation 4+ Good+ Internal Rotation 4+ Good+ Comments 02/04/24, 01/07/24: 4+/5 all motion Knee Strength Knee Manual Muscle Testing Right Flexion (S2) 4 Good Extension (L3) 4 Good Comments 02/04/24: 4+/5 Left Flexion (S2) 4- Good- Extension (L3) 4- Good- Comments 01/07/24: 4/5, no pain 02/04/24: 4+/5, no pain PT-OP-Q Treatments Start: 12/10/23 07:29 Freq: Status: Active Protocol: Document 02/12/24 11:20 SW (Rec: 02/12/24 12:25 SW [id number]) Gym Equipment Shuttle Recovery L squat Details cued knee centered over ankle, no pain Therapeutic Exercises Standing Exercises lateral stepping Standing Exercise Name lateral stepping Side bilateral Resistance level 2 TB Reps/Minutes 2 x 10 ft ea Comments cues for foot clearance, maintaining slight bend in knees lateral touch down Standing Exercise Name 4 step Side bilateral Resistance AROM Reps/Minutes 2x8 ea Comments for glute strength; cued level hips; challenging 3 way hip Standing Exercise Name slider hip 3 way Side bilateral Resistance lvl 2 band around ankles Equipment Used slider Reps/Minutes 1x15 ea w/ slider Comments cued upright posture, neutral hip positioning sit to stand Standing Exercise Name 1. Taps to plinth Side bilateral Resistance lvl 2 band around thighs, arms across chest Equipment Used 18 plinth Reps/Minutes x10 x8 Comments faitguing; pain free w/ band, demos valgus ankle dorsiflexion Standing Exercise Name toe raises, back against wall Side bilateral Resistance AROM Reps/Minutes 1x20 with 2 hold Comments improved ankle DF today heel raises Side bilateral Resistance AROM Equipment Used ballet bar for UE support (2 finger only) Reps/Minutes 1x20 Comments cued no rocking Neuro Re-Education Treatment Balance Activities Hurdles Details Step to> reciprical stepping Surface stable Equipment // bars, gait belt Comments cued for slower pace to increase single leg balance challenge, cued for correct weight shifting Foam Details WBOS, NBOS, Tandem Surface unstable Equipment // bars, giat belt Comments E/O, E/C, head turns Tandem Details Tandem balance> Tandem walking Surface stable Equipment // bars, gait belt Reps/Duration 4 x 10 ft Comments cues for slower pace, minimal CARTON FILLER prn to prevent LOB, tall posture, forward gaze with tandem walking PT-OP-R Modalities Start: 12/10/23 07:29 Freq: Status: Active Protocol: Document 01/03/24 07:32 NM (Rec: 01/03/24 08:42 NM [id number]) Hot Pack/Cold Pack Treatment Ice Massage Location L knee Patient Position Supine Patient Tolerance Good Comments Skin assessed before: normal color, temperature, no abnormalities. 5 minutes, emphasis over medial L knee near MCL, pes anserine. Skin assessed after: redness that resolved before pt left clinic . Tolerated well. Educated on use at home PT-OP-T Assessment and Plan Start: 12/10/23 07:29 Freq: Status: Active Protocol: Document 02/12/24 11:20 SW (Rec: 02/12/24 12:25 SW [id number]) Physical Therapy Assessment Goals 6 Impairment DGI Impairment score 14/24 Residential Goal (LTG) Pt will score 19/24 on DGI in order to decrease fall risk and demonstrate improved balance LTG Duration 8 weeks GOAL ADDED 5 Impairment stairs, function Impairment stairs challenging upon descent due to L knee pain Short Term Goal (STG) Pt will be able to perform at least 8 eccentric step downs without compensation or pain in LLE using 1 or fewer hand rails for balance in order to demonstrate improved L knee strength, stability, and activity tolerance 01/07/24: 1/10 pain with 8 stairs, ascending and not descending STG Duration 4 weeks MET 02/03 Residential Goal (LTG) Pt will be able to perform at least 12 stairs (1 flight) without compensation or pain in LLE using 1 or fewer hand rails for balance in order to demonstrate improved L knee strength, stability, and activity tolerance 02/04/24: 12 stairs, with feet turned out, 1 hand rail, no pain reported in knees LTG Duration 8 weeks MET 4 Impairment squat, function Short Term Goal (STG) Pt will be able to perform at least 10 bilateral squats without compensation or pain in order to demonstrate increased quad and glute strength required for ambulation and activity. 01/07/24: Perform 10 squats with tactile, visual, and verbal cues 02/04/24: demos knee valgus w/o band, pain free with band STG Duration 4 weeks PROGRESSING Residential Goal (LTG) Pt will be able to perform at least 15 bilateral squats without compensation or pain in 30 sec STS test in order to demonstrate increased quad and glute strength required for ambulation and activity. 02/03/23: 11 squats during 30 sec STS LTG Duration 8 weeks PROGRESSING, NOT MET 3 Impairment gait Impairment reported 1 mi limitation, 250 ft in clinic Short Term Goal (STG) Pt will be able to ambulate > 300 ft using LRAD or brace for support as needed in order to demonstrate improved L knee strength, activity tolerance, and return to PLOF. 01/03/24: pt reports that she can ambulate at least 1 mile before pain, can shop for >30 min before pain STG Duration 4 weeks MET Residential Goal (LTG) Pt will report no limitation in ambulating community distances using LRAD or brace for support as needed in order to demonstrate improved L knee strength, activity tolerance, and return to PLOF. 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 02/04/24: pt reports minimal compliance with HEP and log LTG Duration 8 weeks NOT MET 1 Impairment LEFS Impairment 45/80 STG Duration 4 weeks Residential Goal (LTG) Pt will improve LEFS >9 points (1 MCID) in order to demonstrate improved activity tolerance 01/07/24: 54/80 02/04/24: 71/80 LTG Duration 8 weeks, MET Assessment Summary Assessment Session focused on strength and balance training per pt updated PT goal. Pt challenged with dynamic balance, requiring occasional CARTON FILLER to prevent LOB. Continued focus on plinth squats this session, verbal cues required for correct mechanics, extended time on hip hinge to decrease anterior translation of bilateral knees past toes. Pt has been sick and feeling weak , has not been able to follow HEP this week, feeling much better and plans to increase HEP carryover at home this week. Pt tolerated session well, with no c/o of increased knee pain this session. Physical Therapy Plan Frequency and Duration Frequency of Treatment 2x/Week Duration of treatment (weeks) 8 Plan of Care Start Date 02/04/24 Plan of Care End Date 04/04/24 Therapeutic Interventions Therapeutic Interventions Aquatic Therapy,Balance Training,Gait Training,Home Exercise Program,Joint Mobilizations,Manual Therapy, Neuromuscular Re-education, Orthotic/Prosthetic Management ,Patient/Caregiver Education, Self-Care/Home Management,Soft Tissue Mobilization,Taping, Therapeutic Activities, Therapeutic Exercises Modalities Biofeedback,Cold Pack/Ice Massage,Electric Stimulation, Hot Packs,Traction- Mechanical ,Ultrasound,Vasopneumatic Devices Other Therapeutic Interventions Manual traction Next Visit Focus/Plan Next Note Type Treatment Note Next Visit Plan Next session: balance, leg press, slider, HSC and LAQ, RDL, balance training ( resisted stepping, hurdles, foam), glute/quad Manual: STM, patellar mobilizations, knee and hip mobilizations prn
--- NOTE | 2024-02-14 16:30 | PT.OTN ---
Current Diagnoses Unilateral primary osteoarthritis, left knee (02/14/24) Other bursitis of knee, left knee (02/14/24) Unspecified abnormalities of gait and mobility (02/14/24) Weakness (02/14/24) Physical Therapy Treatment Note PT-OP-A Visit Information Start: 12/10/23 07:29 Freq: Status: Active Protocol: Document 02/14/24 13:52 SW (Rec: 02/14/24 14:39 SW [id number]) Out-Patient Physical Therapy Visit Information Visit Information Visit Type Treatment Note Visit Note 12/01 PN Visit Start Time 13:47 Visit Stop Time 14:25 Visit Number 17 Number of FELT CARBONIZER Visits 2 Precautions Precautions bursitis PT-OP-B Current Condition Start: 12/10/23 07:29 Freq: Status: Active Protocol: Document 12/10/23 09:47 NM (Rec: 12/10/23 11:22 NM [id number]) Current Condition History of Current Condition Onset Date September 2023 Current Complaints pain History of Current Condition Pt presents with L knee pain and a dx of bursitis. Pain is mainly on L medial knee. Injury occured originally at [facility] when she was lifting an accordian from the floor, then again at [facility] , she twisted her knee and had immediate pain. She did not hear a pop, fall, or feel instability. Pain was dull except when she turns a certain way, to the right. She reports that she has difficulty putting on socks ( lifting foot). She has been wearing a soft brace since [facility]. Reports that her knee does not feel unstable. She reports no difficulty with walking, standing, or stairs (uses R leg to step) Prior Treatments and Tests 10/2023 X rays reveal no bony abnormalities; received recent cortisone injection, which was helpful Scheduled for future MRI Prior Functional Status Baseline Function- ADL's Independent Baseline Function- Mobility Independent Baseline Function- Gait 2 miles Current Functional Impairments (Reported) Functional Limitations- ADL's difficulty putting on shoes Functional Limitations- Mobility/Gait as far as I need to but limited Functional Limitations- Recreation/ difficulty with lifting Hobbies objects from lower surfaces due to pain and body mechanics PT-OP-C Subjective Start: 12/10/23 07:29 Freq: Status: Active Protocol: Document 02/14/24 13:52 SW (Rec: 02/14/24 14:39 SW [id number]) OP-PT Subjective Patient Comments Patient Comments Pt reports doing pretty good, feels about 95%. PT-OP-D Balance Start: 12/10/23 07:29 Freq: Status: Active Protocol: Document 12/10/23 09:47 NM (Rec: 12/11/23 16:50 NM [id number]) Balance Tests Romberg Romberg 20 sec Single Limb Standing Single Limb- Right 8 sec; increased sway Single Limb- Left 12 sec, no pain; increased sway Tandem Tandem Standing 15 sec, increased sway; no pain PT-OP-E Functional Tests Start: 12/10/23 07:29 Freq: Status: Active Protocol: Document 12/10/23 09:47 NM (Rec: 12/10/23 11:22 NM [id number]) Functional Tests 30 Second Sit to Stand Test Score 11 Comments B knee valgus, no pain or instability reported PT-OP-F Manual Assessment Start: 12/10/23 07:29 Freq: Status: Active Protocol: Document 12/10/23 09:47 NM (Rec: 12/10/23 11:22 NM [id number]) Manual Assessments Soft Tissue Assessment Soft Tissue Mobility Assessment Tenderness along L IT band, medial knee near pes anserine insertion Joint Mobility Assessment Joint Mobility Assessment No L instability, no clicking or catching of L knee with testing. Bilateral joint line pain L knee PT-OP-G Mobility & Gait Start: 12/10/23 07:29 Freq: Status: Active Protocol: Document 12/10/23 09:47 NM (Rec: 12/10/23 11:22 NM [id number]) OP Gait Assessment Gait Gait Assistance Required: Standby Assistance Distance (Feet) 250 Assistive Devices Assistive Device Gait Belt Gait Deviations General Gait Pattern Antalgic Factors Limiting Gait Function Factors Limiting Gait Function Decreased Strength,Pain,Poor Balance Comments Gait Comments Slightly antalgic gait, with increased JAJA and minimal lateral trunk excursion Stair Climbing Evaluation Evaluation Level of Assist On Stairs Contact Guard Assistance Devices Stair Climbing Assistive Devices None,Left Railing Technique/Endurance Stair Climbing Direction Ascend and Descend Stair Climbing Technique Step to Step Number of Steps Climbed 4 Stair Climbing Set # Repetitions (reps) 1 Comments Stair Climbing Comments Leading with RLE, reports pain with L knee flexion while advancing down stairs. Reports no instability or observed, but demos B pelvic drop when stepping down PT-OP-H Neuro Start: 12/10/23 07:29 Freq: Status: Active Protocol: Document 12/10/23 09:47 NM (Rec: 12/10/23 11:22 NM [id number]) Sensation Evaluation Gross Sensation Gross Sensation WNL Comments Summary Comments BLE intact to light touch sensation PT-OP-J Posture/Palpation/Skin Start: 12/10/23 07:29 Freq: Status: Active Protocol: Document 12/10/23 09:47 NM (Rec: 12/10/23 11:22 NM [id number]) Posture Evaluation Position Standing Evaluation View Lateral Head/C-Spine Posture Forward Head Pelvis Posture Anteriorly Tilted Knee Posture (L) Genu Valgus,(R) Genu Valgus Ankle/Foot Posture (L) Neutral,(R) Neutral Palpation Assessment Location L knee Palpation Location M/L joint line, ITB (knee, hip ), medial knee Palpation Findings Soft Tissue Tightness, Tenderness Palpation Details Tenderness reported along medial/lateral joint line. Tenderness at lateral femoral condyle near ITB insertion and minimal tenderness proximally along ITB. Slight swelling of L knee. Tender along pes anserine insertion but no palpable bursa (only tendons) PT-OP-K Range of Motion Start: 12/10/23 07:29 Freq: Status: Active Protocol: Document 02/04/24 09:06 NM (Rec: 02/04/24 11:18 NM [id number]) Knee Goniometric Range of Motion Knee Left Patient Position Supine Flexion Active (degrees) 130 Flexion Passive (degrees) 130 Extension Active (degrees) 0 Extension Passive (degrees) 0 Comments No pain with AROM or PROM 02/04/24: 130 deg knee flexion, 0 deg extension; no pain PT-OP-L Special Tests Start: 12/10/23 07:29 Freq: Status: Active Protocol: Document 12/10/23 09:47 NM (Rec: 12/10/23 11:22 NM [id number]) Special Tests Knee Special Tests Posterior Draw Test Results - Anterior Draw Test Results - Melvin's Compression Test Results + Zahida's Test Test Results + Comments bilaterally Thessaly Test Results - Comments No clicking, locking reproduced Sindy Test Test Results - Comments No clicking, locking reproduced Varus Test Results - Comments 0 and 30 deg Valgus Test Results - Comments 0 and 30 deg Hector's Test Results - PT-OP-M Strength Start: 12/10/23 07:29 Freq: Status: Active Protocol: Document 02/04/24 09:06 NM (Rec: 02/04/24 11:18 NM [id number]) Hip Strength Hip Manual Muscle Testing Left Flexion (L2) 4+ Good+ Extension (S1) 4+ Good+ Abduction 4+ Good+ Adduction 4+ Good+ External Rotation 4+ Good+ Internal Rotation 4+ Good+ Comments 02/04/24, 01/07/24: 4+/5 all motion Knee Strength Knee Manual Muscle Testing Right Flexion (S2) 4 Good Extension (L3) 4 Good Comments 02/04/24: 4+/5 Left Flexion (S2) 4- Good- Extension (L3) 4- Good- Comments 01/07/24: 4/5, no pain 02/04/24: 4+/5, no pain PT-OP-Q Treatments Start: 12/10/23 07:29 Freq: Status: Active Protocol: Document 02/14/24 13:52 SW (Rec: 02/14/24 14:39 SW [id number]) Gym Equipment Sport Cord Green Exercise Details Fwd/lateral/retro Cord/Resistance Green Reps/Duration x 5 ea Therapeutic Exercises Standing Exercises lateral stepping Standing Exercise Name lateral stepping Side bilateral Resistance level 2 TB Reps/Minutes 2 x 10 ft ea Comments cues for foot clearance, maintaining slight bend in knees side steps Standing Exercise Name Side Steps Resistance Level 2 TB squat Standing Exercise Name mesh chair touch down Side bilateral Resistance Level 2 TB below knee Equipment Used @ rail Comments good fatigue, pain free Neuro Re-Education Treatment Balance Activities Gait w/ head turns Details ambulation with head turns Surface carpet/tile Equipment gait belt Comments cued for foot clearance, gazing> head turns w/focus on fixated points down the morin Hurdles Details Step to> reciprical stepping Surface stable Equipment // bars, gait belt Comments cued for slower pace to increase single leg balance challenge, cued for correct weight shifting Foam Details Foam stepping w/static standing balance between Surface unstable Equipment // bars Tandem Details Tandem walking Surface stable Equipment // bars, gait belt Reps/Duration 4 x 10 ft Comments cues for slower pace, minimal PHP MAGENT[employer] DEVELOPER prn to prevent LOB, tall posture, forward gaze with tandem walking PT-OP-R Modalities Start: 12/10/23 07:29 Freq: Status: Active Protocol: Document 01/03/24 07:32 NM (Rec: 01/03/24 08:42 NM [id number]) Hot Pack/Cold Pack Treatment Ice Massage Location L knee Patient Position Supine Patient Tolerance Good Comments Skin assessed before: normal color, temperature, no abnormalities. 5 minutes, emphasis over medial L knee near MCL, pes anserine. Skin assessed after: redness that resolved before pt left clinic . Tolerated well. Educated on use at home PT-OP-T Assessment and Plan Start: 12/10/23 07:29 Freq: Status: Active Protocol: Document 02/14/24 13:52 SW (Rec: 02/14/24 14:39 SW [id number]) Physical Therapy Assessment Goals 6 Impairment DGI Impairment score Machine Woodworking Sander Goal (LTG) Pt will score on DGI in order to decrease fall risk and demonstrate improved balance LTG Duration 8 weeks GOAL ADDED 5 Impairment stairs, function Impairment stairs challenging upon descent due to L knee pain Short Term Goal (STG) Pt will be able to perform at least 8 eccentric step downs without compensation or pain in LLE using 1 or fewer hand rails for balance in order to demonstrate improved L knee strength, stability, and activity tolerance 01/07/24: 1/10 pain with 8 stairs, ascending and not descending STG Duration 4 weeks MET 02/03 Fpc Goal (LTG) Pt will be able to perform at least 12 stairs (1 flight) without compensation or pain in LLE using 1 or fewer hand rails for balance in order to demonstrate improved L knee strength, stability, and activity tolerance 02/04/24: 12 stairs, with feet turned out, 1 hand rail, no pain reported in knees LTG Duration 8 weeks MET 4 Impairment squat, function Short Term Goal (STG) Pt will be able to perform at least 10 bilateral squats without compensation or pain in order to demonstrate increased quad and glute strength required for ambulation and activity. 01/07/24: Perform 10 squats with tactile, visual, and verbal cues 02/04/24: demos knee valgus w/o band, pain free with band STG Duration 4 weeks PROGRESSING Machine Woodworking Sander Goal (LTG) Pt will be able to perform at least 15 bilateral squats without compensation or pain in 30 sec STS test in order to demonstrate increased quad and glute strength required for ambulation and activity. 02/03/23: 11 squats during 30 sec STS LTG Duration 8 weeks PROGRESSING, NOT MET 3 Impairment gait Impairment reported 1 mi limitation, 250 ft in clinic Short Term Goal (STG) Pt will be able to ambulate > 300 ft using LRAD or brace for support as needed in order to demonstrate improved L knee strength, activity tolerance, and return to PLOF. 01/03/24: pt reports that she can ambulate at least 1 mile before pain, can shop for >30 min before pain STG Duration 4 weeks MET Fpc Goal (LTG) Pt will report no limitation in ambulating community distances using LRAD or brace for support as needed in order to demonstrate improved L knee strength, activity tolerance, and return to PLOF. 01/07/24: reports 15-20 min before L knee pain increases 02/04/24: Pt reports no limitations in walking distance due to knee pain LTG Duration 8 weeks MET 2 Impairment Activity Impairment No HEP or daily exercise program Short Term Goal (STG) Pt will report compliance with HEP 2-3x/wk for initiation of exercise program and to improve activity tolerance while maximizing gains from PT 01/03/24: compliant 2-3/wk with log STG Duration 4 weeks PROGRESSING Machine Woodworking Sander Goal (LTG) Pt will report compliance with HEP at least 3x/wk for maintenance program after discharge from PT. 02/04/24: pt reports minimal compliance with HEP and log LTG Duration 8 weeks NOT MET 1 Impairment LEFS Impairment 45/80 STG Duration 4 weeks Fpc Goal (LTG) Pt will improve LEFS >9 points (1 MCID) in order to demonstrate improved activity tolerance 01/07/24: 54/80 02/04/24: 71/80 LTG Duration 8 weeks, MET Assessment Summary Assessment Session focused on balance progressing to more dynamic balance this session, pt challenged with hip/ankle strategies engaged, PHP MAGENTO DEVELOPER in // bars prn. Continued progress with squats, pt decreased form with increased repetitions as pt fatigued, verbal cues for form, pt demonstrated good mechanics post cues with good awareness carryover, denies pain with squats. Physical Therapy Plan Frequency and Duration Frequency of Treatment 2x/Week Duration of treatment (weeks) 8 Plan of Care Start Date 02/04/24 Plan of Care End Date 04/04/24 Therapeutic Interventions Therapeutic Interventions Aquatic Therapy,Balance Training,Gait Training,Home Exercise Program,Joint Mobilizations,Manual Therapy, Neuromuscular Re-education, Orthotic/Prosthetic Management ,Patient/Caregiver Education, Self-Care/Home Management,Soft Tissue Mobilization,Taping, Therapeutic Activities, Therapeutic Exercises Modalities Biofeedback,Cold Pack/Ice Massage,Electric Stimulation, Hot Packs,Traction- Mechanical ,Ultrasound,Vasopneumatic Devices Other Therapeutic Interventions Manual traction Next Visit Focus/Plan Next Note Type Treatment Note Next Visit Plan Next session: balance, leg press, slider, HSC and LAQ, RDL, balance training ( resisted stepping, hurdles, foam), glute/quad Manual: STM, patellar mobilizations, knee and hip mobilizations prn
--- NOTE | 2024-02-20 11:23 | PT.OTN ---
Current Diagnoses Unilateral primary osteoarthritis, left knee (02/20/24) Other bursitis of knee, left knee (02/20/24) Unspecified abnormalities of gait and mobility (02/20/24) Weakness (02/20/24) Physical Therapy Treatment Note PT-OP-A Visit Information Start: 12/10/23 07:29 Freq: Status: Active Protocol: Document 02/20/24 10:35 NBM (Rec: 02/20/24 11:23 NBM [id number]) Out-Patient Physical Therapy Visit Information Visit Information Visit Type Treatment Note Visit Note 12/29 PN Visit Start Time 10:35 Visit Stop Time 11:19 Visit Number 18 Number of TRAINING SYSTEMS OFFICER Visits 3 Precautions Precautions bursitis PT-OP-B Current Condition Start: 12/10/23 07:29 Freq: Status: Active Protocol: Document 12/10/23 09:47 NM (Rec: 12/10/23 11:22 NM [id number]) Current Condition History of Current Condition Onset Date September 2023 Current Complaints pain History of Current Condition Pt presents with L knee pain and a dx of bursitis. Pain is mainly on L medial knee. Injury occured originally at [facility] when she was lifting an accordian from the floor, then again at [place] , she twisted her knee and had immediate pain. She did not hear a pop, fall, or feel instability. Pain was dull except when she turns a certain way, to the right. She reports that she has difficulty putting on socks ( lifting foot). She has been wearing a soft brace since [place]. Reports that her knee does not feel unstable. She reports no difficulty with walking, standing, or stairs (uses R leg to step) Prior Treatments and Tests 10/2023 X rays reveal no bony abnormalities; received recent cortisone injection, which was helpful Scheduled for future MRI Prior Functional Status Baseline Function- ADL's Independent Baseline Function- Mobility Independent Baseline Function- Gait 2 miles Current Functional Impairments (Reported) Functional Limitations- ADL's difficulty putting on shoes Functional Limitations- Mobility/Gait as far as I need to but limited Functional Limitations- Recreation/ difficulty with lifting Hobbies objects from lower surfaces due to pain and body mechanics PT-OP-C Subjective Start: 12/10/23 07:29 Freq: Status: Active Protocol: Document 02/20/24 10:35 NBM (Rec: 02/20/24 11:23 NBM [id number]) OP-PT Subjective Patient Comments Patient Comments Laura reports she is doing well and may be ready to discharge in a couple of visits. PT-OP-D Balance Start: 12/10/23 07:29 Freq: Status: Active Protocol: Document 12/10/23 09:47 NM (Rec: 12/11/23 16:50 NM [id number]) Balance Tests Romberg Romberg 20 sec Single Limb Standing Single Limb- Right 8 sec; increased sway Single Limb- Left 12 sec, no pain; increased sway Tandem Tandem Standing 15 sec, increased sway; no pain PT-OP-E Functional Tests Start: 12/10/23 07:29 Freq: Status: Active Protocol: Document 12/10/23 09:47 NM (Rec: 12/10/23 11:22 NM [id number]) Functional Tests 30 Second Sit to Stand Test Score 11 Comments B knee valgus, no pain or instability reported PT-OP-F Manual Assessment Start: 12/10/23 07:29 Freq: Status: Active Protocol: Document 12/10/23 09:47 NM (Rec: 12/10/23 11:22 NM [id number]) Manual Assessments Soft Tissue Assessment Soft Tissue Mobility Assessment Tenderness along L IT band, medial knee near pes anserine insertion Joint Mobility Assessment Joint Mobility Assessment No L instability, no clicking or catching of L knee with testing. Bilateral joint line pain L knee PT-OP-G Mobility & Gait Start: 12/10/23 07:29 Freq: Status: Active Protocol: Document 12/10/23 09:47 NM (Rec: 12/10/23 11:22 NM [id number]) OP Gait Assessment Gait Gait Assistance Required: Standby Assistance Distance (Feet) 250 Assistive Devices Assistive Device Gait Belt Gait Deviations General Gait Pattern Antalgic Factors Limiting Gait Function Factors Limiting Gait Function Decreased Strength,Pain,Poor Balance Comments Gait Comments Slightly antalgic gait, with increased JAJA and minimal lateral trunk excursion Stair Climbing Evaluation Evaluation Level of Assist On Stairs Contact Guard Assistance Devices Stair Climbing Assistive Devices None,Left Railing Technique/Endurance Stair Climbing Direction Ascend and Descend Stair Climbing Technique Step to Step Number of Steps Climbed 4 Stair Climbing Set # Repetitions (reps) 1 Comments Stair Climbing Comments Leading with RLE, reports pain with L knee flexion while advancing down stairs. Reports no instability or observed, but demos B pelvic drop when stepping down PT-OP-H Neuro Start: 12/10/23 07:29 Freq: Status: Active Protocol: Document 12/10/23 09:47 NM (Rec: 12/10/23 11:22 NM [id number]) Sensation Evaluation Gross Sensation Gross Sensation WNL Comments Summary Comments BLE intact to light touch sensation PT-OP-J Posture/Palpation/Skin Start: 12/10/23 07:29 Freq: Status: Active Protocol: Document 12/10/23 09:47 NM (Rec: 12/10/23 11:22 NM [id number]) Posture Evaluation Position Standing Evaluation View Lateral Head/C-Spine Posture Forward Head Pelvis Posture Anteriorly Tilted Knee Posture (L) Genu Valgus,(R) Genu Valgus Ankle/Foot Posture (L) Neutral,(R) Neutral Palpation Assessment Location L knee Palpation Location M/L joint line, ITB (knee, hip ), medial knee Palpation Findings Soft Tissue Tightness, Tenderness Palpation Details Tenderness reported along medial/lateral joint line. Tenderness at lateral femoral condyle near ITB insertion and minimal tenderness proximally along ITB. Slight swelling of L knee. Tender along pes anserine insertion but no palpable bursa (only tendons) PT-OP-K Range of Motion Start: 12/10/23 07:29 Freq: Status: Active Protocol: Document 02/04/24 09:06 NM (Rec: 02/04/24 11:18 NM [id number]) Knee Goniometric Range of Motion Knee Left Patient Position Supine Flexion Active (degrees) 130 Flexion Passive (degrees) 130 Extension Active (degrees) 0 Extension Passive (degrees) 0 Comments No pain with AROM or PROM 02/04/24: 130 deg knee flexion, 0 deg extension; no pain PT-OP-L Special Tests Start: 12/10/23 07:29 Freq: Status: Active Protocol: Document 12/10/23 09:47 NM (Rec: 12/10/23 11:22 NM [id number]) Special Tests Knee Special Tests Posterior Draw Test Results - Anterior Draw Test Results - Melvin's Compression Test Results + Zahida's Test Test Results + Comments bilaterally Thessaly Test Results - Comments No clicking, locking reproduced Sindy Test Test Results - Comments No clicking, locking reproduced Varus Test Results - Comments 0 and 30 deg Valgus Test Results - Comments 0 and 30 deg Hector's Test Results - PT-OP-M Strength Start: 12/10/23 07:29 Freq: Status: Active Protocol: Document 02/04/24 09:06 NM (Rec: 02/04/24 11:18 NM [id number]) Hip Strength Hip Manual Muscle Testing Left Flexion (L2) 4+ Good+ Extension (S1) 4+ Good+ Abduction 4+ Good+ Adduction 4+ Good+ External Rotation 4+ Good+ Internal Rotation 4+ Good+ Comments 02/04/24, 01/07/24: 4+/5 all motion Knee Strength Knee Manual Muscle Testing Right Flexion (S2) 4 Good Extension (L3) 4 Good Comments 02/04/24: 4+/5 Left Flexion (S2) 4- Good- Extension (L3) 4- Good- Comments 01/07/24: 4/5, no pain 02/04/24: 4+/5, no pain PT-OP-Q Treatments Start: 12/10/23 07:29 Freq: Status: Active Protocol: Document 02/20/24 10:35 NBM (Rec: 02/20/24 11:23 NBM [id number]) Therapeutic Exercises Standing Exercises squat Standing Exercise Name mesh chair touch down Side bilateral Resistance Level 2 TB above knee Reps/Minutes x15 Comments pain-free, cues for hip hinge, breath Gait Training Gait Activity dynamic gait Description indoor/outdoor Device Used gait belt Level of Assistance CGA Surface carpet, tile, cement, gravel, 4 stairs Treatment Focus slower pacing, increased arm swing, head turns, cog on motor dual task Comments safety, balance focus. Neuro Re-Education Treatment Balance Activities Gait w/ head turns Details ambulation w/ arm swing focus Surface carpet/tile Equipment gait belt Reps/Duration 0#>3# DB danitza>0# Comments improves arm swing post biofeedback, and improved balance with cues for slower pacing and fixed focal point. Hurdles Details reciprical stepping Surface stable Equipment // bars, gait belt, 4# AW Comments cued for slower pace to increase single leg balance challenge, cued for correct weight shifting, upright posture, increased hip flexion for foot clearance. hip flexion improves post ankle weights Tandem Details Tandem walking Surface stable Equipment // bars, gait belt Reps/Duration 4 x 10 ft Comments cues for slower pace, minimal ENVIRONMENTAL SAMPLING TECHNICIAN prn to prevent LOB, tall posture, forward gaze with tandem walking PT-OP-R Modalities Start: 12/10/23 07:29 Freq: Status: Active Protocol: Document 01/03/24 07:32 NM (Rec: 01/03/24 08:42 NM [id number]) Hot Pack/Cold Pack Treatment Ice Massage Location L knee Patient Position Supine Patient Tolerance Good Comments Skin assessed before: normal color, temperature, no abnormalities. 5 minutes, emphasis over medial L knee near MCL, pes anserine. Skin assessed after: redness that resolved before pt left clinic . Tolerated well. Educated on use at home PT-OP-T Assessment and Plan Start: 12/10/23 07:29 Freq: Status: Active Protocol: Document 02/20/24 10:35 NBM (Rec: 02/20/24 11:23 NBM [id number]) Physical Therapy Assessment Goals 6 Impairment DGI Impairment score Custodial Goal (LTG) Pt will score on DGI in order to decrease fall risk and demonstrate improved balance LTG Duration 8 weeks GOAL ADDED 5 Impairment stairs, function Impairment stairs challenging upon descent due to L knee pain Short Term Goal (STG) Pt will be able to perform at least 8 eccentric step downs without compensation or pain in LLE using 1 or fewer hand rails for balance in order to demonstrate improved L knee strength, stability, and activity tolerance 01/07/24: 1/10 pain with 8 stairs, ascending and not descending STG Duration 4 weeks MET 02/03 [employer] Field Service Technician Goal (LTG) Pt will be able to perform at least 12 stairs (1 flight) without compensation or pain in LLE using 1 or fewer hand rails for balance in order to demonstrate improved L knee strength, stability, and activity tolerance 02/04/24: 12 stairs, with feet turned out, 1 hand rail, no pain reported in knees LTG Duration 8 weeks MET 4 Impairment squat, function Short Term Goal (STG) Pt will be able to perform at least 10 bilateral squats without compensation or pain in order to demonstrate increased quad and glute strength required for ambulation and activity. 01/07/24: Perform 10 squats with tactile, visual, and verbal cues 02/04/24: demos knee valgus w/o band, pain free with band STG Duration 4 weeks PROGRESSING [employer] Equipment Field Service Technician Goal (LTG) Pt will be able to perform at least 15 bilateral squats without compensation or pain in 30 sec STS test in order to demonstrate increased quad and glute strength required for ambulation and activity. 02/03/23: 11 squats during 30 sec STS LTG Duration 8 weeks PROGRESSING, NOT MET 3 Impairment gait Impairment reported 1 mi limitation, 250 ft in clinic Short Term Goal (STG) Pt will be able to ambulate > 300 ft using LRAD or brace for support as needed in order to demonstrate improved L knee strength, activity tolerance, and return to PLOF. 01/03/24: pt reports that she can ambulate at least 1 mile before pain, can shop for >30 min before pain STG Duration 4 weeks MET Custodial Goal (LTG) Pt will report no limitation in ambulating community distances using LRAD or brace for support as needed in order to demonstrate improved L knee strength, activity tolerance, and return to PLOF. 01/07/24: reports 15-20 min before L knee pain increases 02/04/24: Pt reports no limitations in walking distance due to knee pain LTG Duration 8 weeks MET 2 Impairment Activity Impairment No HEP or daily exercise program Short Term Goal (STG) Pt will report compliance with HEP 2-3x/wk for initiation of exercise program and to improve activity tolerance while maximizing gains from PT 01/03/24: compliant 2-3/wk with log STG Duration 4 weeks PROGRESSING [employer] Field Service Technician Goal (LTG) Pt will report compliance with HEP at least 3x/wk for maintenance program after discharge from PT. 02/04/24: pt reports minimal compliance with HEP and log LTG Duration 8 weeks NOT MET 1 Impairment LEFS Impairment 45/80 STG Duration 4 weeks Custodial Goal (LTG) Pt will improve LEFS >9 points (1 MCID) in order to demonstrate improved activity tolerance 01/07/24: 54/80 02/04/24: 71/80 LTG Duration 8 weeks, MET Assessment Summary Assessment Pt is preparing for possible discharge after 03/04 visit. Treatment focus on dynamic gait and balance. Laura is cued for upright posture w/ distant focal point, slower pacing, and increased arm swing which all improve gait and balance. Self-awareness improves with cueing and repetition. Arm swing improves w use of 3lb weights B with good carryover after taken away, as does hip flexion after use of 4# dominic weights bilaterally. Physical Therapy Plan Frequency and Duration Frequency of Treatment 2x/Week Duration of treatment (weeks) 8 Plan of Care Start Date 02/04/24 Plan of Care End Date 04/04/24 Therapeutic Interventions Therapeutic Interventions Aquatic Therapy,Balance Training,Gait Training,Home Exercise Program,Joint Mobilizations,Manual Therapy, Neuromuscular Re-education, Orthotic/Prosthetic Management ,Patient/Caregiver Education, Self-Care/Home Management,Soft Tissue Mobilization,Taping, Therapeutic Activities, Therapeutic Exercises Modalities Biofeedback,Cold Pack/Ice Massage,Electric Stimulation, Hot Packs,Traction- Mechanical ,Ultrasound,Vasopneumatic Devices Other Therapeutic Interventions Manual traction Next Visit Focus/Plan Next Note Type Treatment Note Next Visit Plan Pt may be ready to d/c after appt. Next session: balance, leg press, slider, HSC and LAQ, RDL, balance training ( resisted stepping, hurdles, foam), glute/quad Manual: STM, patellar mobilizations, knee and hip mobilizations prn
--- NOTE | 2024-02-22 10:37 | PT.OTN ---
Current Diagnoses Unilateral primary osteoarthritis, left knee (02/22/24) Other bursitis of knee, left knee (02/22/24) Unspecified abnormalities of gait and mobility (02/22/24) Weakness (02/22/24) Physical Therapy Treatment Note PT-OP-A Visit Information Start: 12/10/23 07:29 Freq: Status: Active Protocol: Document 02/22/24 09:43 NBM (Rec: 02/22/24 10:37 NBM [id number]) Out-Patient Physical Therapy Visit Information Visit Information Visit Type Treatment Note Visit Note 01/29 PN Visit Start Time 09:45 Visit Stop Time 10:25 Visit Number 19 Number of [employer] Visits 4 Evaluation Information Evaluation Date 12/10/23 Precautions Precautions bursitis PT-OP-B Current Condition Start: 12/10/23 07:29 Freq: Status: Active Protocol: Document 12/10/23 09:47 NM (Rec: 12/10/23 11:22 NM [id number]) Current Condition History of Current Condition Onset Date September 2023 Current Complaints pain History of Current Condition Pt presents with L knee pain and a dx of bursitis. Pain is mainly on L medial knee. Injury occured originally at [facility] when she was lifting an accordian from the floor, then again at [place] , she twisted her knee and had immediate pain. She did not hear a pop, fall, or feel instability. Pain was dull except when she turns a certain way, to the right. She reports that she has difficulty putting on socks ( lifting foot). She has been wearing a soft brace since [place]. Reports that her knee does not feel unstable. She reports no difficulty with walking, standing, or stairs (uses R leg to step) Prior Treatments and Tests 10/2023 X rays reveal no bony abnormalities; received recent cortisone injection, which was helpful Scheduled for future MRI Prior Functional Status Baseline Function- ADL's Independent Baseline Function- Mobility Independent Baseline Function- Gait 2 miles Current Functional Impairments (Reported) Functional Limitations- ADL's difficulty putting on shoes Functional Limitations- Mobility/Gait as far as I need to but limited Functional Limitations- Recreation/ difficulty with lifting Hobbies objects from lower surfaces due to pain and body mechanics PT-OP-C Subjective Start: 12/10/23 07:29 Freq: Status: Active Protocol: Document 02/22/24 09:43 NB (Rec: 02/22/24 10:37 [facility] [id number]) OP-PT Subjective Patient Comments Patient Comments Prudence reports she did a lot yesterday and had to get in and out of spouse's large truck a lot and has some discomfort today, but no pain. She plans to discharge at visit after returning from trip. Patient Reported Progress Improving PT-OP-D Balance Start: 12/10/23 07:29 Freq: Status: Active Protocol: Document 12/10/23 09:47 NM (Rec: 12/11/23 16:50 NM [id number]) Balance Tests Romberg Romberg 20 sec Single Limb Standing Single Limb- Right 8 sec; increased sway Single Limb- Left 12 sec, no pain; increased sway Tandem Tandem Standing 15 sec, increased sway; no pain PT-OP-E Functional Tests Start: 12/10/23 07:29 Freq: Status: Active Protocol: Document 12/10/23 09:47 NM (Rec: 12/10/23 11:22 NM [id number]) Functional Tests 30 Second Sit to Stand Test Score 11 Comments B knee valgus, no pain or instability reported PT-OP-F Manual Assessment Start: 12/10/23 07:29 Freq: Status: Active Protocol: Document 12/10/23 09:47 NM (Rec: 12/10/23 11:22 NM [id number]) Manual Assessments Soft Tissue Assessment Soft Tissue Mobility Assessment Tenderness along L IT band, medial knee near pes anserine insertion Joint Mobility Assessment Joint Mobility Assessment No L instability, no clicking or catching of L knee with testing. Bilateral joint line pain L knee PT-OP-G Mobility & Gait Start: 12/10/23 07:29 Freq: Status: Active Protocol: Document 12/10/23 09:47 NM (Rec: 12/10/23 11:22 NM [id number]) OP Gait Assessment Gait Gait Assistance Required: Standby Assistance Distance (Feet) 250 Assistive Devices Assistive Device Gait Belt Gait Deviations General Gait Pattern Antalgic Factors Limiting Gait Function Factors Limiting Gait Function Decreased Strength,Pain,Poor Balance Comments Gait Comments Slightly antalgic gait, with increased JAJA and minimal lateral trunk excursion Stair Climbing Evaluation Evaluation Level of Assist On Stairs Contact Guard Assistance Devices Stair Climbing Assistive Devices None,Left Railing Technique/Endurance Stair Climbing Direction Ascend and Descend Stair Climbing Technique Step to Step Number of Steps Climbed 4 Stair Climbing Set # Repetitions (reps) 1 Comments Stair Climbing Comments Leading with RLE, reports pain with L knee flexion while advancing down stairs. Reports no instability or observed, but demos B pelvic drop when stepping down PT-OP-H Neuro Start: 12/10/23 07:29 Freq: Status: Active Protocol: Document 12/10/23 09:47 NM (Rec: 12/10/23 11:22 NM [id number]) Sensation Evaluation Gross Sensation Gross Sensation WNL Comments Summary Comments BLE intact to light touch sensation PT-OP-J Posture/Palpation/Skin Start: 12/10/23 07:29 Freq: Status: Active Protocol: Document 12/10/23 09:47 NM (Rec: 12/10/23 11:22 NM [id number]) Posture Evaluation Position Standing Evaluation View Lateral Head/C-Spine Posture Forward Head Pelvis Posture Anteriorly Tilted Knee Posture (L) Genu Valgus,(R) Genu Valgus Ankle/Foot Posture (L) Neutral,(R) Neutral Palpation Assessment Location L knee Palpation Location M/L joint line, ITB (knee, hip ), medial knee Palpation Findings Soft Tissue Tightness, Tenderness Palpation Details Tenderness reported along medial/lateral joint line. Tenderness at lateral femoral condyle near ITB insertion and minimal tenderness proximally along ITB. Slight swelling of L knee. Tender along pes anserine insertion but no palpable bursa (only tendons) PT-OP-K Range of Motion Start: 12/10/23 07:29 Freq: Status: Active Protocol: Document 02/04/24 09:06 NM (Rec: 02/04/24 11:18 NM [id number]) Knee Goniometric Range of Motion Knee Left Patient Position Supine Flexion Active (degrees) 130 Flexion Passive (degrees) 130 Extension Active (degrees) 0 Extension Passive (degrees) 0 Comments No pain with AROM or PROM 02/04/24: 130 deg knee flexion, 0 deg extension; no pain PT-OP-L Special Tests Start: 12/10/23 07:29 Freq: Status: Active Protocol: Document 12/10/23 09:47 NM (Rec: 12/10/23 11:22 NM [id number]) Special Tests Knee Special Tests Posterior Draw Test Results - Anterior Draw Test Results - Melvin's Compression Test Results + Zahida's Test Test Results + Comments bilaterally Thessaly Test Results - Comments No clicking, locking reproduced Sindy Test Test Results - Comments No clicking, locking reproduced Varus Test Results - Comments 0 and 30 deg Valgus Test Results - Comments 0 and 30 deg Hector's Test Results - PT-OP-M Strength Start: 12/10/23 07:29 Freq: Status: Active Protocol: Document 02/04/24 09:06 NM (Rec: 02/04/24 11:18 NM [id number]) Hip Strength Hip Manual Muscle Testing Left Flexion (L2) 4+ Good+ Extension (S1) 4+ Good+ Abduction 4+ Good+ Adduction 4+ Good+ External Rotation 4+ Good+ Internal Rotation 4+ Good+ Comments 02/04/24, 01/07/24: 4+/5 all motion Knee Strength Knee Manual Muscle Testing Right Flexion (S2) 4 Good Extension (L3) 4 Good Comments 02/04/24: 4+/5 Left Flexion (S2) 4- Good- Extension (L3) 4- Good- Comments 01/07/24: 4/5, no pain 02/04/24: 4+/5, no pain PT-OP-Q Treatments Start: 12/10/23 07:29 Freq: Status: Active Protocol: Document 02/22/24 09:43 NBM (Rec: 02/22/24 10:37 NBM [id number]) Gym Equipment Sport Cord Green Exercise Details Fwd/lateral/retro Cord/Resistance Green Reps/Duration x 5 ea Comments cues for L>R neutral foot positioning Therapeutic Exercises Standing Exercises lateral stepping Standing Exercise Name lateral stepping Side bilateral Resistance level 2 TB Reps/Minutes 2 x 10 ft ea Comments cues for neutral foot positioning squat Standing Exercise Name mesh chair touch down Side bilateral Resistance Level 2 TB above knee Equipment Used 2 blue foam added Reps/Minutes x5 wo foam, x10 w/ blue foam Comments pain-free, cues for hip hinge, glute squeeze Gait Training Gait Activity stairs Description 1. 6 stairs, 2. 28 MAP stairs Device Used 1 hand rail assist for balanace Level of Assistance close SBA Distance/Duration 12, 28 steps Comments Cued weight shift onto stance LE during ascending, neutral hip positioning and slower pace during descent. No knee pain, but demos valgus with descent Neuro Re-Education Treatment Balance Activities Gait w/ head turns Details ambulation 1. no head turns 2. head turns Surface carpet/tile Equipment gait belt Comments improved arm swing and balance from last visit 02/20/24. Hurdles Details reciprical stepping Surface stable Equipment // bars, gait belt Comments pt clears all hurdles x2, and clips one noman x2 with no loss of balance. Tandem Details Tandem walking no HOME STAGER Surface stable Equipment // bars, gait belt Reps/Duration 4 x 10 ft Comments tall posture, forward gaze with tandem walking single leg stance Details //bar Nearby Surface stable Comments 1. 7 sec R; , 7 sec L 8, 17s stable surface Cued center JAJA over mid foot, upright trunk, gluteal activation, distant focal point PT-OP-R Modalities Start: 12/10/23 07:29 Freq: Status: Active Protocol: Document 01/03/24 07:32 NM (Rec: 01/03/24 08:42 NM [id number]) Hot Pack/Cold Pack Treatment Ice Massage Location L knee Patient Position Supine Patient Tolerance Good Comments Skin assessed before: normal color, temperature, no abnormalities. 5 minutes, emphasis over medial L knee near MCL, pes anserine. Skin assessed after: redness that resolved before pt left clinic . Tolerated well. Educated on use at home PT-OP-T Assessment and Plan Start: 12/10/23 07:29 Freq: Status: Active Protocol: Document 02/22/24 09:43 NBM (Rec: 02/22/24 10:37 NBM [id number]) Physical Therapy Assessment Goals 6 Impairment DGI Impairment score Super[employer] Goal (LTG) Pt will score on DGI in order to decrease fall risk and demonstrate improved balance LTG Duration 8 weeks GOAL ADDED 5 Impairment stairs, function Impairment stairs challenging upon descent due to L knee pain Short Term Goal (STG) Pt will be able to perform at least 8 eccentric step downs without compensation or pain in LLE using 1 or fewer hand rails for balance in order to demonstrate improved L knee strength, stability, and activity tolerance 01/07/24: 1/10 pain with 8 stairs, ascending and not descending STG Duration 4 weeks MET 02/03 [employer] Goal (LTG) Pt will be able to perform at least 12 stairs (1 flight) without compensation or pain in LLE using 1 or fewer hand rails for balance in order to demonstrate improved L knee strength, stability, and activity tolerance 02/04/24: 12 stairs, with feet turned out, 1 hand rail, no pain reported in knees LTG Duration 8 weeks MET 4 Impairment squat, function Short Term Goal (STG) Pt will be able to perform at least 10 bilateral squats without compensation or pain in order to demonstrate increased quad and glute strength required for ambulation and activity. 01/07/24: Perform 10 squats with tactile, visual, and verbal cues 02/04/24: demos knee valgus w/o band, pain free with band STG Duration 4 weeks PROGRESSING [employer] Goal (LTG) Pt will be able to perform at least 15 bilateral squats without compensation or pain in 30 sec STS test in order to demonstrate increased quad and glute strength required for ambulation and activity. 02/03/23: 11 squats during 30 sec STS LTG Duration 8 weeks PROGRESSING, NOT MET 3 Impairment gait Impairment reported 1 mi limitation, 250 ft in clinic Short Term Goal (STG) Pt will be able to ambulate > 300 ft using LRAD or brace for support as needed in order to demonstrate improved L knee strength, activity tolerance, and return to PLOF. 01/03/24: pt reports that she can ambulate at least 1 mile before pain, can shop for >30 min before pain STG Duration 4 weeks MET [facility] Goal (LTG) Pt will report no limitation in ambulating community distances using LRAD or brace for support as needed in order to demonstrate improved L knee strength, activity tolerance, and return to PLOF. 01/07/24: reports 15-20 min before L knee pain increases 02/04/24: Pt reports no limitations in walking distance due to knee pain LTG Duration 8 weeks MET 2 Impairment Activity Impairment No HEP or daily exercise program Short Term Goal (STG) Pt will report compliance with HEP 2-3x/wk for initiation of exercise program and to improve activity tolerance while maximizing gains from PT 01/03/24: compliant 2-3/wk with log STG Duration 4 weeks PROGRESSING [employer] Goal (LTG) Pt will report compliance with HEP at least 3x/wk for maintenance program after discharge from PT. 02/04/24: pt reports minimal compliance with HEP and log LTG Duration 8 weeks NOT MET 1 Impairment LEFS Impairment 45/80 STG Duration 4 weeks [employer] Goal (LTG) Pt will improve LEFS >9 points (1 MCID) in order to demonstrate improved activity tolerance 01/07/24: 54/80 02/04/24: 71/80 LTG Duration 8 weeks, MET Assessment Summary Assessment Prudence presents w/ Lvl 2 and 3 Tb . Treatment focus on balance and gait. She demos improved arm swing and hip flexion today with hurdles and gait with and without head turns. She requires cues L>R for neutral foot positioning w/ resisted side steps and sports cord. She requires initial cues for hip hinge w/ chair taps and improves with repetition. Possible discharge next visit 03/04/24. Physical Therapy Plan Frequency and Duration Frequency of Treatment 2x/Week Duration of treatment (weeks) 8 Plan of Care Start Date 02/04/24 Plan of Care End Date 04/04/24 Therapeutic Interventions Therapeutic Interventions Aquatic Therapy,Balance Training,Gait Training,Home Exercise Program,Joint Mobilizations,Manual Therapy, Neuromuscular Re-education, Orthotic/Prosthetic Management ,Patient/Caregiver Education, Self-Care/Home Management,Soft Tissue Mobilization,Taping, Therapeutic Activities, Therapeutic Exercises Modalities Biofeedback,Cold Pack/Ice Massage,Electric Stimulation, Hot Packs,Traction- Mechanical ,Ultrasound,Vasopneumatic Devices Other Therapeutic Interventions Manual traction Next Visit Focus/Plan Next Note Type Treatment Note Next Visit Plan Pt requests d/c at 03/04 appt. Next session: balance, leg press, slider, HSC and LAQ, RDL, balance training ( resisted stepping, hurdles, foam), glute/quad Manual: STM, patellar mobilizations, knee and hip mobilizations prn
--- NOTE | 2024-03-04 15:30 | PT.OTN ---
Current Diagnoses Unilateral primary osteoarthritis, left knee (03/04/24) Other bursitis of knee, left knee (03/04/24) Unspecified abnormalities of gait and mobility (03/04/24) Weakness (03/04/24) Physical Therapy Treatment Note PT-OP-A Visit Information Start: 12/10/23 07:29 Freq: Status: Active Protocol: Document 03/04/24 14:36 NM (Rec: 03/04/24 15:29 NM [id number]) Out-Patient Physical Therapy Visit Information Visit Information Visit Type Discharge Summary Visit Note 02/28 PN Visit Start Time 14:36 Visit Stop Time 15:15 Visit Number 20 Evaluation Information Evaluation Date 12/10/23 PT-OP-B Current Condition Start: 12/10/23 07:29 Freq: Status: Active Protocol: Document 12/10/23 09:47 NM (Rec: 12/10/23 11:22 NM [id number]) Current Condition History of Current Condition Onset Date September 2023 Current Complaints pain History of Current Condition Pt presents with L knee pain and a dx of bursitis. Pain is mainly on L medial knee. Injury occured originally at [facility] when she was lifting an accordian from the floor, then again at [place] , she twisted her knee and had immediate pain. She did not hear a pop, fall, or feel instability. Pain was dull except when she turns a certain way, to the right. She reports that she has difficulty putting on socks ( lifting foot). She has been wearing a soft brace since [place]. Reports that her knee does not feel unstable. She reports no difficulty with walking, standing, or stairs (uses R leg to step) Prior Treatments and Tests 10/2023 X rays reveal no bony abnormalities; received recent cortisone injection, which was helpful Scheduled for future MRI Prior Functional Status Baseline Function- ADL's Independent Baseline Function- Mobility Independent Baseline Function- Gait 2 miles Current Functional Impairments (Reported) Functional Limitations- ADL's difficulty putting on shoes Functional Limitations- Mobility/Gait as far as I need to but limited Functional Limitations- Recreation/ difficulty with lifting Hobbies objects from lower surfaces due to pain and body mechanics PT-OP-C Subjective Start: 12/10/23 07:29 Freq: Status: Active Protocol: Document 03/04/24 14:36 NM (Rec: 03/04/24 15:29 NM [id number]) OP-PT Subjective Patient Comments Patient Comments Pt reports that she hasn't had any knee pain for several weeks. She went to [place] and also walked around [facility] without pain or discomfort. She reports that she has not been performing HEP. PT-OP-D Balance Start: 12/10/23 07:29 Freq: Status: Active Protocol: Document 12/10/23 09:47 NM (Rec: 12/11/23 16:50 NM [id number]) Balance Tests Romberg Romberg 20 sec Single Limb Standing Single Limb- Right 8 sec; increased sway Single Limb- Left 12 sec, no pain; increased sway Tandem Tandem Standing 15 sec, increased sway; no pain PT-OP-E Functional Tests Start: 12/10/23 07:29 Freq: Status: Active Protocol: Document 12/10/23 09:47 NM (Rec: 12/10/23 11:22 NM [id number]) Functional Tests 30 Second Sit to Stand Test Score 11 Comments B knee valgus, no pain or instability reported PT-OP-F Manual Assessment Start: 12/10/23 07:29 Freq: Status: Active Protocol: Document 12/10/23 09:47 NM (Rec: 12/10/23 11:22 NM [id number]) Manual Assessments Soft Tissue Assessment Soft Tissue Mobility Assessment Tenderness along L IT band, medial knee near pes anserine insertion Joint Mobility Assessment Joint Mobility Assessment No L instability, no clicking or catching of L knee with testing. Bilateral joint line pain L knee PT-OP-G Mobility & Gait Start: 12/10/23 07:29 Freq: Status: Active Protocol: Document 12/10/23 09:47 NM (Rec: 12/10/23 11:22 NM [id number]) OP Gait Assessment Gait Gait Assistance Required: Standby Assistance Distance (Feet) 250 Assistive Devices Assistive Device Gait Belt Gait Deviations General Gait Pattern Antalgic Factors Limiting Gait Function Factors Limiting Gait Function Decreased Strength,Pain,Poor Balance Comments Gait Comments Slightly antalgic gait, with increased JAJA and minimal lateral trunk excursion Stair Climbing Evaluation Evaluation Level of Assist On Stairs Contact Guard Assistance Devices Stair Climbing Assistive Devices None,Left Railing Technique/Endurance Stair Climbing Direction Ascend and Descend Stair Climbing Technique Step to Step Number of Steps Climbed 4 Stair Climbing Set # Repetitions (reps) 1 Comments Stair Climbing Comments Leading with RLE, reports pain with L knee flexion while advancing down stairs. Reports no instability or observed, but demos B pelvic drop when stepping down PT-OP-H Neuro Start: 12/10/23 07:29 Freq: Status: Active Protocol: Document 12/10/23 09:47 NM (Rec: 12/10/23 11:22 NM [id number]) Sensation Evaluation Gross Sensation Gross Sensation WNL Comments Summary Comments BLE intact to light touch sensation PT-OP-J Posture/Palpation/Skin Start: 12/10/23 07:29 Freq: Status: Active Protocol: Document 12/10/23 09:47 NM (Rec: 12/10/23 11:22 NM [id number]) Posture Evaluation Position Standing Evaluation View Lateral Head/C-Spine Posture Forward Head Pelvis Posture Anteriorly Tilted Knee Posture (L) Genu Valgus,(R) Genu Valgus Ankle/Foot Posture (L) Neutral,(R) Neutral Palpation Assessment Location L knee Palpation Location M/L joint line, ITB (knee, hip ), medial knee Palpation Findings Soft Tissue Tightness, Tenderness Palpation Details Tenderness reported along medial/lateral joint line. Tenderness at lateral femoral condyle near ITB insertion and minimal tenderness proximally along ITB. Slight swelling of L knee. Tender along pes anserine insertion but no palpable bursa (only tendons) PT-OP-K Range of Motion Start: 12/10/23 07:29 Freq: Status: Active Protocol: Document 03/04/24 14:36 NM (Rec: 03/04/24 15:29 NM [id number]) Knee Goniometric Range of Motion Knee Left Patient Position Supine Flexion Active (degrees) 130 Flexion Passive (degrees) 130 Extension Active (degrees) 0 Extension Passive (degrees) 0 Comments No pain with AROM or PROM 03/04/24, 02/04/24: 130 deg knee flexion, 0 deg extension; no pain PT-OP-L Special Tests Start: 12/10/23 07:29 Freq: Status: Active Protocol: Document 12/10/23 09:47 NM (Rec: 12/10/23 11:22 NM [id number]) Special Tests Knee Special Tests Posterior Draw Test Results - Anterior Draw Test Results - Melvin's Compression Test Results + Zahida's Test Test Results + Comments bilaterally Thessaly Test Results - Comments No clicking, locking reproduced Sindy Test Test Results - Comments No clicking, locking reproduced Varus Test Results - Comments 0 and 30 deg Valgus Test Results - Comments 0 and 30 deg Hector's Test Results - PT-OP-M Strength Start: 12/10/23 07:29 Freq: Status: Active Protocol: Document 03/04/24 14:36 NM (Rec: 03/04/24 15:29 NM [id number]) Hip Strength Hip Manual Muscle Testing Left Flexion (L2) 4+ Good+ Extension (S1) 4+ Good+ Abduction 4+ Good+ Adduction 4+ Good+ External Rotation 4+ Good+ Internal Rotation 4+ Good+ Comments 03/04/24, 02/04/24, 01/07/24: 4+/ 5 all motion Knee Strength Knee Manual Muscle Testing Left Flexion (S2) 4+ Good+ Extension (L3) 4+ Good+ Comments IE: 4-/5 for both 01/07/24: 4/5, no pain 02/04/24: 4+/5, no pain 03/04/24: 4+/5 PT-OP-Q Treatments Start: 12/10/23 07:29 Freq: Status: Active Protocol: Document 03/04/24 14:36 NM (Rec: 03/04/24 15:29 NM [id number]) Therapeutic Exercises Standing Exercises calf stretch Standing Exercise Name 1. gastroc, 2. soleus Side bilateral Equipment Used SWATI Reps/Minutes 60 ea Comments start of session lateral stepping Standing Exercise Name 1. lateral stepping, 2. fwd/ retro walking Side bilateral Resistance level 2 TB Reps/Minutes 2x10 ft ea direction Comments improved neutral toe positioning lateral touch down Standing Exercise Name 4 step Side bilateral Resistance AROM Reps/Minutes 2x10 ea Comments for glute strength; cued level hips; challenging 3 way hip Standing Exercise Name hip 3 way Side bilateral Resistance lvl 2 band around ankles Equipment Used 2 finger support on ballet bar Reps/Minutes 2x10 ea Comments pain free lunges Standing Exercise Name fwd stepping lunge- alternating Side bilateral Resistance AROM Equipment Used light contact with ballet bar for balance, hands on hips for lateral Reps/Minutes 2x10 Comments cued knees behind forefoot, wider JAJA sit to stand Standing Exercise Name 1. 30 sec STS, 2. squats Side bilateral Resistance lvl 2 band around thighs, arms across chest Equipment Used 18 plinth Reps/Minutes 1. 12 in 30 sec; 2. 15 squats w/ tap to table Comments faitguing; pain free w/ band, demos valgus ankle dorsiflexion Standing Exercise Name toe raises, back against wall Side bilateral Resistance AROM Reps/Minutes 1x20 with 2 hold Comments improved ankle DF today heel raises Side bilateral Resistance AROM Equipment Used ballet bar for UE support (2 finger only) Reps/Minutes 3x10 with 2 hold Comments cued no rocking Neuro Re-Education Treatment Balance Activities DGI Details Comments Improved gait speed changes. Slight deviation with head turns but no LOB or stumble Self-Care/Home Management Treatment Education Patient Education Home Exercise Program Other Education HEP: STS with band, hip 3 way with band and hand support for balance, calf raises, heel raises, lunges with hand support for balance Educated on maintenance program 3x/wk PT-OP-R Modalities Start: 12/10/23 07:29 Freq: Status: Active Protocol: Document 01/03/24 07:32 NM (Rec: 01/03/24 08:42 NM [id number]) Hot Pack/Cold Pack Treatment Ice Massage Location L knee Patient Position Supine Patient Tolerance Good Comments Skin assessed before: normal color, temperature, no abnormalities. 5 minutes, emphasis over medial L knee near MCL, pes anserine. Skin assessed after: redness that resolved before pt left clinic . Tolerated well. Educated on use at home PT-OP-T Assessment and Plan Start: 12/10/23 07:29 Freq: Status: Active Protocol: Document 03/04/24 14:36 NM (Rec: 03/04/24 15:29 NM [id number]) Physical Therapy Assessment Goals 6 Impairment DGI Impairment score Car Carder Goal (LTG) Pt will score on DGI in order to decrease fall risk and demonstrate improved balance 03/04/24: LTG Duration 8 weeks GOAL ADDED; MET 5 Impairment stairs, function Impairment stairs challenging upon descent due to L knee pain Short Term Goal (STG) Pt will be able to perform at least 8 eccentric step downs without compensation or pain in LLE using 1 or fewer hand rails for balance in order to demonstrate improved L knee strength, stability, and activity tolerance 01/07/24: 1/10 pain with 8 stairs, ascending and not descending STG Duration 4 weeks MET 02/03 Care Home Goal (LTG) Pt will be able to perform at least 12 stairs (1 flight) without compensation or pain in LLE using 1 or fewer hand rails for balance in order to demonstrate improved L knee strength, stability, and activity tolerance 02/04/24: 12 stairs, with feet turned out, 1 hand rail, no pain reported in knees LTG Duration 8 weeks MET 4 Impairment squat, function Short Term Goal (STG) Pt will be able to perform at least 10 bilateral squats without compensation or pain in order to demonstrate increased quad and glute strength required for ambulation and activity. 01/07/24: Perform 10 squats with tactile, visual, and verbal cues 02/04/24: demos knee valgus w/o band, pain free with band STG Duration 4 weeks PROGRESSING Car Carder Goal (LTG) Pt will be able to perform at least 15 bilateral squats without compensation or pain in 30 sec STS test in order to demonstrate increased quad and glute strength required for ambulation and activity. 02/03/23: 11 squats during 30 sec STS 03/04/24: 12 squats during 30 sec STS; 15 squats without compensation untimed LTG Duration 8 weeks PROGRESSING; MET 3 Impairment gait Impairment reported 1 mi limitation, 250 ft in clinic Short Term Goal (STG) Pt will be able to ambulate > 300 ft using LRAD or brace for support as needed in order to demonstrate improved L knee strength, activity tolerance, and return to PLOF. 01/03/24: pt reports that she can ambulate at least 1 mile before pain, can shop for >30 min before pain STG Duration 4 weeks MET Care Home Goal (LTG) Pt will report no limitation in ambulating community distances using LRAD or brace for support as needed in order to demonstrate improved L knee strength, activity tolerance, and return to PLOF. 01/07/24: reports 15-20 min before L knee pain increases 02/04/24: Pt reports no limitations in walking distance due to knee pain LTG Duration 8 weeks MET 2 Impairment Activity Impairment No HEP or daily exercise program Short Term Goal (STG) Pt will report compliance with HEP 2-3x/wk for initiation of exercise program and to improve activity tolerance while maximizing gains from PT 01/03/24: compliant 2-3/wk with log STG Duration 4 weeks PROGRESSING Car Carder Goal (LTG) Pt will report compliance with HEP at least 3x/wk for maintenance program after discharge from PT. 02/04/24: pt reports minimal compliance with HEP and log 03/04/24: Reports not performing HEP. PT educated pt on performing HEP for maintenance program 3x/wk and issued single page maintenance program LTG Duration 8 weeks NOT MET 1 Impairment LEFS Impairment 45/80 STG Duration 4 weeks Care Home Goal (LTG) Pt will improve LEFS >9 points (1 MCID) in order to demonstrate improved activity tolerance 01/07/24: 54/80 02/04/24: 71/80 03/04/24: 78/80 LTG Duration 8 weeks, MET Progress Towards Goals Progress Towards Goals Slow Progress due to Noncompliance,Goals Met Progress Comments non compliant with HEP. Did not meet 30 sec STS goal, but able to perform 15 squats without compensation or pain. All other goals met Assessment Summary Assessment Pt tolerated session well without any increase in pain symptoms. She has been pain free for several weeks and is requesting discharge today. Pt 's DGI score improved to 23/24 ; she only has slight deviations with horiztonal head turns. However, pt does not have LOB or stumble, only a slight deviation in the path . Session emphasis on HEP review and creation of maintenance program. Pt demos improved form with STS and hip 3 ways. However, she requires cues to perform exercises more slowly in order to demonstrate correct form. During lateral tap downs for glute strength, pt does have slight opposite hip drop even with cueing. Pt demonstrates increased knee flexion with lunges bilaterally, but still requires hand support for balance. She is pain free for all activities. Physical Therapy Plan Frequency and Duration Frequency of Treatment 2x/Week Duration of treatment (weeks) 8 Plan of Care Start Date 02/04/24 Plan of Care End Date 04/04/24 Therapeutic Interventions Therapeutic Interventions Aquatic Therapy,Balance Training,Gait Training,Home Exercise Program,Joint Mobilizations,Manual Therapy, Neuromuscular Re-education, Orthotic/Prosthetic Management ,Patient/Caregiver Education, Self-Care/Home Management,Soft Tissue Mobilization,Taping, Therapeutic Activities, Therapeutic Exercises Modalities Biofeedback,Cold Pack/Ice Massage,Electric Stimulation, Hot Packs,Traction- Mechanical ,Ultrasound,Vasopneumatic Devices Other Therapeutic Interventions Manual traction Discharge Physical Therapy Discharge Reasons Goals Met Discharge Comments Pt requesting d/c today. Goals met except HEP and 30 sec STS goal Next Visit Focus/Plan Next Note Type Treatment Note Next Visit Plan Discharge from PT
== END 2024-03-19 13:45 ==
LOC: PHYS 14:30
PROVIDERS: Family Provider Family Medicine; PCP Family Medicine; Referring Provider Family Medicine; Visit Provider Family Medicine
DX: M70.52 Other bursitis of knee, left knee (principal); M17.12 Unilateral primary osteoarthritis, left knee; R53.1 Weakness; R26.9 Unspecified abnormalities of gait and mobility
CPT/HCPCS: 97110; 97112; 97116; 97140; 97162; 97530; 97535

== ENCOUNTER → 2024-03-21 14:16 | Outpatient (CLI) | payer OTHER, SELFPAY ==
[2024-03-21 17:40] LABS: Ferritin 77 ng/mL (11-264)
== END ==
PROVIDERS: Family Provider Family Medicine; PCP Family Medicine; Referring Provider Physician Assistant Medical; Visit Provider Physician Assistant Medical
DX: L65.9 Nonscarring hair loss, unspecified (principal); Z08 Encounter for follow-up examination after completed treatment for malignant neoplasm; Z85.828 Personal history of other malignant neoplasm of skin
CPT/HCPCS: 36415; 82728

== ENCOUNTER → 2024-05-12 11:39 | Outpatient (CLI) | payer OTHER, SELFPAY ==
[2024-05-12 12:46] LABS: Appearance Urine UA CLEAR; Bilirubin Urine UA NEGATIVE (NEGATIVE); Color Urine UA YELLOW; Glucose Urine UA NEGATIVE (Negative); Ketones Urine UA NEGATIVE (NEGATIVE); Leukocyte Esterase Urine UA 2+ (NEGATIVE); Nitrite Urine UA NEGATIVE (Negative); Occult Blood Urine UA 3+ (Negative); Protein Urine UA NEGATIVE (Negative); Specific Gravity Urine UA <=1.005 (1.000-1.035); Urobilinogen Urine UA 0.2 E.U./dL (0.2)
[2024-05-12 13:03] LABS: Bacteria Urine Many (>30); Mucus Urine 1+ (Negative); RBC Urine 0-1/HPF (0-5/HPF); Squamous Epithelial Cell Urine 0-1 /HPF (0-5/HPF); Urine Volume 10mL (spun); WBC Urine 30-100/HPF (0-5/HPF)
[2024-05-12 13:07] LABS: Culture Indicated Urine Specimen Cultured
== END ==
PROVIDERS: Family Provider Family Medicine; PCP Family Medicine; Visit Provider Student in an Organized Health Care Education/Training Program
DX: N39.0 Urinary tract infection, site not specified (principal)
CPT/HCPCS: 81001; 87077; 87086